=== PATIENT | female | born 1950 | race Caucasian/White ===

== ENCOUNTER 2022-07-22 13:52 | Outpatient (CLI) | payer MEDICARE, BC, SELFPAY ==
--- OUTSIDE RECORDS SUMMARY | 2022-07-22 14:00 | XMS_ITS | Encounter Summary ---
:1950 Author Organization [facility] Address [address] [place] [address] Care Team Providers Name Role Phone Brandie Thompson APRN, MEDICARE SALES EXECUTIVE Primary Care Provider [phone] Encounter Details Date Type Department Care Team Description 12/13/2019 Travel Social History Tobacco Use Types Packs/Day Years Used Date Never Smoker Smokeless Tobacco: Never Used Alcohol Use Standard Drinks/Week Comments No 0 (1 standard drink = 0.6 oz pure alcoho l) Alcohol Habits Answer Date Recorded How often do you have a drink containing alcohol? Never 12/13/2019 How many drinks containing alcohol do you have on a typical Not asked day when you are drinking? How often do you have six or more drinks on one occasion? No t asked Comment: Not asked Social Isolation Answer Date Recorded In a typical week, how many times do you More than three kary es a week 12/13/2019 talk on the phone with family, friends, or neighbors? How often do you get together with friends More than three t imes a week 12/13/2019 or relatives? How often do you attend muslim or More than 4 times per year 12/13/2019 rastafarian services? Do you belong to any clubs or Not asked organizations such as muslim groups, unions, fraternal or athletic groups, or school groups? How often do you attend meetings of the Not asked clubs or organizations you belong to? Are you now , , , Not asked , never or living with a partner? Physical Activity Answer Date Recorded On average, how many days per week do you engage in moderate to 5 days 12/13/2019 strenuous exercise (like walking fast, running, jogging, dancing, swimming, biking, or other activities that cause a light or heavy sweat)? On average, how many minutes do you engage in exercise at th is 60 min 12/13/2019 level? Stress Answer Date Recorded Do you feel stress - tense, restless, nervous, or Only a lit tle 12/13/2019 anxious, or unable to sleep at night because your mind is troubled all the time - these days? Financial Resource Strain Answer Date Recorded How hard is it for you to pay for the very basics like Not h javid at all 12/13/2019 food, housing, medical care, and heating? Intimate Partner Violence Answer Date Recorded Within the last year, have you been afraid of your partner o r No 12/13/2019 ex-partner? Within the last year, have you been humiliated or emotionall y No 12/13/2019 abused in other ways by your partner or ex-partner? Within the last year, have you been kicked, hit, slapped, or No 12/13/2019 otherwise physically hurt by your partner or ex-partner? Within the last year, have you been raped or forced to have Not asked any kind of sexual activity by your partner or ex-partner? Food Insecurity Answer Date Recorded Within the past 12 months, you worried that your food would Never true 12/13/2019 run out before you got money to buy more. Within the past 12 months, the food you bought just didn't N ever true 12/13/2019 last and you didn't have money to get more. Transportation Needs Answer Date Recorded In the past 12 months, has lack of transportation kept you f rom No 12/13/2019 medical appointments or from getting medications? In the past 12 months, has lack of transportation kept you f rom No 12/13/2019 meetings, work, or getting things needed for daily living? Sex Assigned at Date Recorded Not on file documented as of this encounter Plan of Treatment Not on filedocumented as of this encounter Visit Diagnoses Not on filedocumented in this encounter Care Teams Back Tender Cylinder Relationship Specialty Start Date End Date Brandie Thompson APRN, MEDICARE SALES EXECUTIVE PCP - General Family Medicine 07/21/18 06/26/[address] [place], [place] [address] [address] documented as of this encounter
--- OUTSIDE RECORDS SUMMARY | 2022-07-22 14:00 | XMS_ITS | Encounter Summary ---
:1950 Author Organization [facility] Address [address] [place] [address] Care Team Providers Name Role Phone Unavailable Primary Care Provider Unavailable Reason for Visit Reason Onset Date Comments Trazodone refill 01/08/2021 Encounter Details Date Type Department Care Team Description 01/08/2021 Telephone [place] Archie Colindres MD Trazodone refill [address] [place], [place] [address] [place], [place] [phone] (Wo rk) Social History Tobacco Use Types Packs/Day Years [...] or relatives? How often do you attend yarsanism or More than 4 times per year 12/13/2019 pentecostalism services? Do you belong to any clubs or Not asked organizations such as yarsanism groups, unions, fraternal or athletic groups, or [...] on file documented as of this encounter Miscellaneous Notes Telephone Encounter - Dagmar Washington LPN - 01/09/2021 8:47 AM CDT Noted Telephone Encounter - Neville Lucas MD - 01/08/2021 5:15 PM CDT Rx sent to [facility] Telephone Encounter - Dagmar Washington LPN - 01/08/2021 4:48 PM CDT Patient informed Telephone Encounter - Yumiko Herrera - 01/08/2021 11:31 AM CDT Pt called stating last week she put a refill request in for her Trazodone 150ml through [facility]. Please call Pt at [phone] to advise. documented in this encounter Plan of Treatment Not on filedocumented as of this encounter Visit Diagnoses Diagnosis Insomnia, unspecified type documented in this encounter
--- OUTSIDE RECORDS SUMMARY | 2022-07-22 14:00 | XMS_ITS | Encounter Summary ---
:1950 Author Organization [facility] Address [address] [place] [address] Care Team Providers Name Role Phone Archie Colindres MD Primary Care Provider Encounter Details Date Type Department Care Team Description 07/02/2021 Telephone [place] Archie Colindres MD [address] [place], [place] [address] [place], [place] [phone] (Wo rk) Social History Tobacco Use Types [...] More than 4 times per year 12/13/2019 church services? Do you belong to any clubs [...] this encounter Miscellaneous Notes Telephone Encounter - Sarah Lindsey - 07/02/2021 1:21 PM CDT Referrals faxed. Telephone Encounter - Ling Reyes RN - 07/02/2021 12:48 PM CDT Please fax referrals. documented in this encounter Plan of Treatment Not on filedocumented as of this encounter Visit Diagnoses Not on filedocumented in this encounter Care Teams Back Line Cook Relationship Specialty Start Date End Date Archie Colindres MD PCP - General Family Medicine 07/02/21 05/22/[address] [place] [address] documented as of this encounter
--- OUTSIDE RECORDS SUMMARY | 2022-07-22 14:00 | XMS_ITS | Encounter Summary ---
:1950 Author Organization [facility] Address [address] [place] [address] Care Team Providers Name Role Phone None, Pcp Primary Care Provider Unavailable Reason for Visit Reason Comments Med Refill Encounter Details Date Type Department Care Team Description 07/09/2022 Refill Henniker Archei Colindres, Insomnia, unspecified [address] MD type [place], [place] [address] [facility] [address] [place] [phone] [place] [address] (Wo rk) Social History Tobacco Use Types [...] or relatives? How often do you attend evangelical or More than 4 times per year 12/13/2019 catholic services? Do you belong to any clubs or Not asked organizations such as evangelical groups, unions, fraternal or athletic groups, or [...] this encounter Miscellaneous Notes Telephone Encounter - Mis Morales RN - 07/18/2022 6:11 PM CDT Tracked in separate message. Telephone Encounter - Faviola Garcia - 07/16/2022 1:51 PM CDT Pt called back inquiring about trazodone refill. Told her the script was filled but looks like [facility] and not sent to [facility] [place]. She only wants 2 weeks' worth to get her through until she goesto her regular doctor for a physical and to get her usual 3 months script. Please contact and advise. Telephone Encounter - Shayla Deleon - 07/15/2022 1:09 PM CDT Refill for 2 months was sent in. Please call pt to update after 2:30 today. Thank you. Telephone Encounter - Faviola Garcia - 07/15/2022 12:17 PM CDT Contacted pt to set-up appt for med review. Stated has upcoming knee surgery planned and talking to nurse today regarding this. Inquiring if could have temporary refill of trazodone to [facility] at 150 mg and then make an appt following. [phone]. Please call after 2:30 this afternoon. Telephone Encounter - Keely Whitmore MA - 07/11/2022 11:04 AM CDT Last visit in provider department: 07/02/2021 Last visit requested medication was discussed: 07/02/2021 Last Rx: 07/02/2021 # 90, 3 refill Requested Prescriptions Pending Prescriptions Disp Refills ??? traZODone (DESYREL) 150 MG tablet [Pharmacy Med Name: TRAZODONE TAB 150MG] 90 tablet 3 Sig: TAKE 1 TABLET NIGHTLY AT BEDTIME NEEDED FOR SLEEP Vitals: BP Readings from Last 2 Encounters: 07/02/21 138/74 07/02/21 138/74 Upcoming appointment with provider: Visit date not found Pt due to be seen. Please work with your PSR to help pt set up appt. Please advise on extension until appt. documented in this encounter Plan of Treatment Not on filedocumented as of this encounter Visit Diagnoses Diagnosis Insomnia, unspecified type documented in this encounter Care Teams Floral Assistant Relationship Specialty Start Date End Date None, Pcp PCP - General Handcrew Foreman 05/23/[address] [place] [phone] documented as of this encounter
--- OUTSIDE RECORDS SUMMARY | 2022-07-22 14:00 | XMS_ITS | Encounter Summary ---
:1950 Author Organization [facility] Address [address] [place] [address] Care Team Providers Name Role Phone Brandie Thompson OUTSOLE ROUNDER, NURSING UNIT MANAGER Primary Care Provider [phone] Reason for Visit Reason Onset Date Comments Referral 11/30/2018 Encounter Details Date Type Department Care Team Description 11/30/2018 Telephone [place] Brandie Thompson, Referral [address] OUTSOLE ROUNDER, NURSING UNIT MANAGER [place], [place] [address] [address] [address] [phone] [place], [place] [address] Social History Tobacco Use Types Packs/Day Years [...] or relatives? How often do you attend confucianism or More than 4 times per year 12/13/2019 judaism services? Do you belong to any clubs or Not asked organizations such as confucianism groups, unions, fraternal or athletic groups, or [...] this encounter Miscellaneous Notes Telephone Encounter - Thao Lovell - 12/01/2018 12:06 PM CST Face sheet added and faxed. RAL ARRANGEMENT DIRECTOR Telephone Encounter - Carla Cooper MA - 12/01/2018 8:06 AM CST Please add face sheet and fax information to Dr. Linh Devries at [phone]. RAL ARRANGEMENT DIRECTOR Telephone Encounter - Brandie Thompson APRN, SAI - 11/30/2018 8:24 PM FUNERAL ARRANGEMENT DIRECTOR Yes, please fax my last dictation. Thank, Bryce RAL ARRANGEMENT DIRECTOR Telephone Encounter - Carla Cooper MA - 11/30/2018 2:55 PM CST Would you like any visit notes faxed as well? RAL ARRANGEMENT DIRECTOR Telephone Encounter - Brandie Thompson APRN, SAI - 11/30/2018 2:49 PM FUNERAL ARRANGEMENT DIRECTOR Please fax the information the patient requested. The ultrasound report should be in the media section. Thanks, Bryce RAL ARRANGEMENT DIRECTOR Telephone Encounter - Carla Cooper MA - 11/30/2018 2:19 PM CST Spoke with patient who made an appt at the [facility] in [place] on January 04 at 1245.She needs us to fax the pelvic ultrasound and whatever else you think she needs to Dr. Linh Devries. Fax number is [phone]. Patient also is waiting to make the colonoscopy appt as she would like to take care of one thing at a time RAL ARRANGEMENT DIRECTOR Telephone Encounter - Sarah Lindsey - 11/30/2018 1:34 PM CST Patient would like to speak to a nurse regarding referral to [facility] in [place]. RAL ARRANGEMENT DIRECTOR documented in this encounter Plan of Treatment Not on filedocumented as of this encounter Visit Diagnoses Not on filedocumented in this encounter Care Teams Arabic Professor Relationship Specialty Start Date End Date Brandie Thompson APRN, NURSING UNIT MANAGER PCP - General Family Medicine 07/21/18 06/26/[address] [place] [id number] documented as of this encounter
--- OUTSIDE RECORDS SUMMARY | 2022-07-22 14:00 | XMS_ITS | Encounter Summary ---
:1950 Author Organization [facility] Address [address] [place] [address] Care Team Providers Name Role Phone Brandie Thompson APRN, PROFESSOR OF BIOLOGICAL SCIENCES Primary Care Provider [phone] Encounter Details Date Type Department Care Team Description 12/13/2019 Lab [place] Screening, lipid; [address] Screening for diabetes elma kapadia; [place], [place] [address] Other fatigue [phone] Social History Tobacco Use Types Packs/Day Years [...] More than 4 times per year 12/13/2019 mormon services? Do you belong to any clubs [...] Not on filedocumented as of this encounter Procedures Procedure Name Priority Date/Time Associated Comments Diagnosis GLOMERULAR Routine 12/13/2019 12:18 PM Screening for Results for this FILTRATION RATE EXPANDER diabetes mellitus procedu re are in the results section. THYROID FUNCTION Routine 12/13/2019 12:18 PM Other fatigue Res ults for this CASCADE EXPANDER procedure are i n the results section. CBC BRANCH OFFICE Routine 12/13/2019 12:18 PM Other fatigue Re sults for this W/DIFF EXPANDER procedure are i n the results section. LIPID PANEL Routine 12/13/2019 12:18 PM Screening, lipid Resu lts for this EXPANDER procedure are i n the results section. BASIC METABOLIC Routine 12/13/2019 12:18 PM Screening for Resu lts for this PANEL EXPANDER diabetes mellitus procedure are in the results section. documented in this encounter Results Glomerular filtration rate (GFR) (12/13/2019 12:18 PM EXPANDER) athologist Signature GFR >60 12/14/2019 [facility] 1:19 PM [facility] >60 12/14/2019 [facility] [place] GFR 1:19 PM [facility] Comment: GFR calculated from serum creatinine v alue Chronic Kidney Disease less than 60 mL/m in/1.73 m2 Kidney Failure less than 15 mL/min/1.73 m2 Note: effective 03/04/07 IDMS-Traceable MDRD Study Equation used. Specimen Anatomical Collection Method Collection Time Receive d Time (Source) Location / / Volume Laterality 12/13/2019 12:18 12/13/2019 PM [facility] 12:18 PM [facility] Brandie Thompson APRN, PROFESSOR OF BIOLOGICAL SCIENCES LAB BLOOD ORDERABLES Performing Organization Address City/State/ZIP Code Phon e Number [facility] [address] [place] [phone] (ABNORMAL) CBC Branch Off w/Diff (12/13/2019 12:18 PM [facility]) Patholo gist Method Time Signature WBC 5.5 3.5 - 10.5 12/13/2019 [facility] K/uL 1:06 PM [facility] RBC 5.06 (H) 3.90 - 12/13/2019 [facility] 5.00 M/uL 1:06 PM [facility] Hemoglobin 14.9 12.0 - 12/13/2019 [facility] 15.5 g/dL 1:06 PM [facility] Hematocrit 46.2 (H) 35.0 - 12/13/2019 [facility] 44.0 % 1:06 PM [facility] Platelets 221 150 - 450 12/13/2019 [facility] K/uL 1:06 PM [facility] MCV 91.3 81.6 - 12/13/2019 [facility] 98.3 fL 1:06 PM [facility] MCH 29.4 26.0 - 12/13/2019 [facility] 32.0 pg 1:06 PM [facility] MCHC 32.3 32.0 - 12/13/2019 [facility] 36.0 g/dL 1:06 PM [facility] RDW 12.8 11.9 - 12/13/2019 [facility] 15.5 % 1:06 PM [facility] Lymphocytes % 23.7 18.0 - 12/13/2019 [facility] 45.0 % 1:06 PM [facility] Mid-size Cells 10.4 (H) 3.3 - 10.1 12/13/2019 [facility] % 1:06 PM [facility] Granulocytes/Brown 65.9 45.8 - 12/13/2019 [facility] trophils 73.7 % 1:06 PM [facility] Lymphocytes 1.3 0.9 - 2.9 12/13/2019 [facility] Absolute K/uL 1:06 PM [facility] MIDS Absolute 0.6 0.2 - 0.8 12/13/2019 [facility] K/uL 1:06 PM [facility] Granulocytes/Brown 3.6 2.1 - 8.7 12/13/2019 [facility] trophils K/uL 1:06 PM [facility] Absolute Specimen Anatomical Collection Method Collection Time Receive d Time (Source) Location / / Volume Laterality Blood 12/13/2019 12:18 12/13/2019 PM [facility] 12:18 PM [facility] Brandie Thompson APRN, PROFESSOR OF BIOLOGICAL SCIENCES LAB BLOOD ORDERABLES Performing Organization Address City/State/ZIP Code Phon e Number [facility] [place] [address] [place] [address] Thyroid Function [place] (12/13/2019 12:18 PM [facility]) P athologist Signature TSH, Sensitive 1.26 0.46 - 12/14/2019 [facility] 4.68 mIU/L 2:12 PM [facility] Comment: The results from this or any other diagn ostic test should be used and interpreted only in the context of the overall clinical picture. Biotin levels in serum remain elevated f or up to 24 hours after oral or intravenous biotin adminis tration and may interfere with this assay to produce unr eliable results. Heterophilic antibodies in serum or plas ma samples may cause interference in immunoassays. ??Exposure to animal antigens, either in the environment or as part of treatment or imaging procedures, may have circulating anti-an imal antibodies present. These antibodies may interfere with the assay reagents to produce unreliable results. ??Results which are inconsistent with clinical observations indicate the need for additional testing. Specimen Anatomical Collection Method Collection Time Receive d Time (Source) Location / / Volume Laterality Blood (Blood, 12/13/2019 12:18 12/14/2019 Venous) PM [facility] 12:39 PM [facility] Brandie Thompson APRN, CNP LAB BLOOD ORDERABLES Performing Organization Address [facility] Phon e Number [facility] [address] [place] [phone] (ABNORMAL) Basic metabolic panel (12/13/2019 12:18 PM [facility]) [facility] gist Method Time Signature Sodium 139 135 - 145 12/14/2019 [facility] mEq/L 1:19 PM [facility] Potassium 4.1 3.5 - 5.1 12/14/2019 [facility] mEq/L 1:19 PM [facility] Chloride 103 98 - 107 12/14/2019 [facility] mEq/L 1:19 PM [facility] CO2 29 22 - 29 12/14/2019 [facility] mmol/L 1:19 PM [facility] Creatinine 0.9 0.4 - 1.2 12/14/2019 [facility] mg/dL 1:19 PM [facility] BUN 16 5 - 25 12/14/2019 [facility] mg/dL 1:19 PM [facility] Glucose 101 (H) 70 - 100 12/14/2019 [facility] mg/dL 1:19 PM [facility] Calcium, 10.3 (H) 8.4 - 10.2 12/14/2019 [facility] Total,S mg/dL 1:19 PM [facility] Specimen Anatomical Collection Method Collection Time Receive d Time (Source) Location / / Volume Laterality Blood (Blood, 12/13/2019 12:18 12/14/2019 Venous) PM [facility] 12:25 PM [facility] Brandie Thompson APRN, CNP LAB BLOOD ORDERABLES Performing Organization Address City/[facility]/ZIP Code Phon e Number [facility] [address] [place] [address] (ABNORMAL) Lipid panel (12/13/2019 12:18 PM EXP[facility]) athologist Signature Cholesterol 209 (A) 0 - 199 12/14/2019 [facility] mg/dL 1:19 PM [facility] Comment: Recommended by National Cholesterol Education Program (ATP III) -------- Cholesterol Ranges -------- <200 ? Desirable 200-239 ? Borderline high >=240 ? High Triglycerides 60 0 - 149 mg/dL 12/14/2019 1:19 PM [facility] Comment: -------- TRIG Ranges -------- <150 ?Normal 150-199 ? Borderline high 200-499 ? High >=500 ? Very high HDL 83 40 - 60 mg/dL 12/14/2019 1:19 PM [facility] Comment: -------- HDL Ranges -------- <40 ?Low 40-59 ?Normal >=60 ? Optimal LDL Calculated 114 (A) 0 - 99 mg/dL 12/14/2019 1:19 PM [facility] Comment: -------- LDL Ranges -------- <100 ? Optimal 100-129 ?Near optimal/above op timal 130-159 ?Borderline high 160-189 ?High >=190 ?Very high Fasting? Yes 12/13/2019 12:21 PM [facility] Specimen Anatomical Collection Method Collection Time Receive d Time (Source) Location / / Volume Laterality Blood 12/13/2019 12:18 12/14/2019 PM [facility] 12:25 PM [facility] Brandie Thompson APRN, CNP LAB BLOOD ORDERABLES Performing Organization Address City/State/ZIP Code Phon e Number [facility] [address] [place] [address] documented in this encounter Visit Diagnoses Diagnosis Screening, lipid Screening for diabetes mellitus Other fatigue documented in this encounter Care Teams Student Success Advisor Relationship Specialty Start Date End Date Brandie Thompson APRN, CNP PCP - General Family Medicine 07/21/18 06/26/[address] [place] [id number] documented as of this encounter
--- OUTSIDE RECORDS SUMMARY | 2022-07-22 14:00 | XMS_ITS | Encounter Summary ---
:1950 Author Organization [facility] Address [address] [place] [address] Care Team Providers Name Role Phone Brandie Thompson COMPUTER LAB PARA PROFESSIONAL, SALES EXPERT Primary Care Provider [phone] Encounter Details Date Type Department Care Team Description 11/23/2018 Telephone [place] Brandie Thompson, [address] COMPUTER LAB PARA PROFESSIONAL, SALES EXPERT [place], [place] [address] [address] [facility] [phone] [place], [place] [address] Social History Tobacco Use [...] or relatives? How often do you attend anabaptism or More than 4 times per year 12/13/2019 lutheran services? Do you belong to any clubs or Not asked organizations such as anabaptism groups, unions, fraternal or athletic groups, or [...] Notes Telephone Encounter - Sarah Lindsey - 11/23/2018 10:53 AM CST Faxed. UNICATIONS TECHNOLOGIST Telephone Encounter - Dagmar Washington LPN - 11/23/2018 10:24 AM CST Please fax to [facility] and let patient know. UNICATIONS TECHNOLOGIST documented in this encounter Plan of Treatment Not on filedocumented as of this encounter Visit Diagnoses Not on filedocumented in this encounter Care Teams Car Dispatcher Relationship Specialty Start Date End Date Brandie Thompson APRN, SALES EXPERT PCP - General Family Medicine 07/21/18 06/26/20 [address] [facility] [place] [id number] documented as of this encounter
--- OUTSIDE RECORDS SUMMARY | 2022-07-22 14:00 | XMS_ITS | Encounter Summary ---
:1950 Author Organization [facility] Address [address] [place] [address] Care Team Providers Name Role Phone None, Pcp Primary Care Provider Unavailable Reason for Visit Reason Onset Date Comments Med Refill 07/17/2022 Encounter Details Date Type Department Care Team Description 07/17/2022 Telephone [place] Archie Colindres MD Med Refill [address] [place], [place] [address] [place], [place] [phone] (Wo rk) Social History Tobacco Use Types [...] or relatives? How often do you attend mormon or More than 4 times per year 12/13/2019 rastafarian services? Do you belong to any clubs or Not asked organizations such as mormon groups, unions, fraternal or athletic groups, or [...] Telephone Encounter - Mis Morales RN - 07/17/2022 3:52 PM CDT Patient had trazadone refilled 2 days prior, but it was sent to mail service and she wants it sent to local pharmacy [facility]) as she is concerned about it not arriving in time. Has only 2 tablets left. Also, only wants enough for two weeks due to cost and possible shipment on it's way. Nurse sent orderto local pharmacy, 14 tablets only and no refills. Patient states understanding and appreciative. documented in this encounter Plan of Treatment Not on filedocumented as of this encounter Visit Diagnoses Diagnosis Insomnia, unspecified type documented in this encounter Care Teams Manager Investment Relationship Specialty Start Date End Date None, Pcp PCP - General Bus Repair Supervisor 05/23/[address] [place] [phone] documented as of this encounter
--- OUTSIDE RECORDS SUMMARY | 2022-07-22 14:00 | XMS_ITS | Encounter Summary ---
:1950 Author Organization [facility] Address [address] [place] [address] Care Team Providers Name Role Phone Brandie Thompson APRN, CNP Primary Care Provider [phone] Reason for Referral Consultation (Routine) - Closed Specialty Diagnoses / Procedures Referred By Contact Refer red To Contact Radiology Diagnoses Screening mammogram, encounter for Brandie Thompson, [facility] - [address] [address] [place] [id number] Phone: Fax: Referral ID Status Reason Start Date Expiration Date Visits Requ ested Visits Authorized [id number] Closed 12/13/2019 12/13/2020 1 1 DENT PHYSICIAN Reason for Visit Reason Comments Annual Exam Encounter Details Date Type Department Care Team Description 12/13/2019 Office Visit [place] Brandie Thompson Annual physical exam (Primar y Dx); [address] M, [facility] Insomnia, unspecified type; [place], [place] [address] Other fatigue; [address] [place] [address] Screening, lipid; [phone] Screenin g for diabetes mellitus; Screening mammo gram, encounter for Social History Tobacco Use Types Packs/Day Years [...] More than 4 times per year 12/13/2019 yarsani services? Do you belong to any clubs or Not asked organizations such as confucianism groups, unions, fraIntelliMat or athletic groups, or school groups? How [...] on file documented as of this encounter Last Filed Vital Signs Vital Sign Reading Time Taken Comments Blood Pressure 138/82 12/13/2019 11:20 AM RESIDENT PHYSICIAN Pulse 64 12/13/2019 11:20 AM RESIDENT PHYSICIAN Temperature 36.7 ??C (98.1 ??F) 12/13/2019 11:20 AM RESIDENT PHYSICIAN Respiratory Rate 16 12/13/2019 11:20 AM RESIDENT PHYSICIAN Oxygen Saturation 98% 12/13/2019 11:20 AM RESIDENT PHYSICIAN Inhaled Oxygen Concentration - - Weight 59.8 kg (131 lb 12.8 oz) 12/13/2019 11:20 AM RESIDENT PHYSICIAN Height 163.8 cm (5' 4.5) 12/13/2019 11:20 AM RESIDENT PHYSICIAN Body Mass Index 22.27 12/13/2019 11:20 AM RESIDENT PHYSICIAN documented in this encounter Patient Instructions Patient InstructionsChhoma Thompson APRN, CNP - 12/13/2019 11:00 AM RESIDENT PHYSICIAN Shingles at a pharmacy setting [facility] mammogram DEXA scan next year DENT PHYSICIAN documented in this encounter Progress Notes Brandie Thompson APRN, CNP - 12/13/2019 11:00 AM CST Well Adult - Estab Subjective Patient ID: Nuria Simmons is a 69 y.o. female presenting for the following concerns. Chief Complaint Patient presents with ??? Annual Exam HPI: The patient is a pleasant 69-year-old female presenting ambulatory to the clinical setting today jessica annual physical. 2, para 2. The patient's last menstrual period was in her 50s. The patient did experience vaginal bleeding last year, was evaluated by an COUNSELING DEPARTMENT CHAIR specialist, was diagnosed vaginal atrophy, was prescribed a medication which cost $300 a month, which the patient never started secondary to financial reasons. The patient reports she discontinued her aspirin, and garlic and the spotting stopped; the patient reports she reinstituted her garlic about 3 days ago, started having vaginal spotting; therefore, she discontinued the garlic and will monitor her symptoms. The patient is over the age of 65; therefore, Pap smears are no longer recommended. The patient reports she had a colonoscopy one time, which was incomplete, unable to recall when she had this, and has not had any colon cancer screening since. No family history of colon cancer. The patient does not formally exercise, but stays quite active working in the [employer], and does a fair amount of lifting. The patient had a DEXA scan on 07/20/2018, with the final impression being osteopenia. The patient is on calcium and vitamin D twice daily. The patient had a mammogram on 08/03/18 and is due. The patient's Tdap was updated on 08/02/2013, and she is due for a flu shot, Prevnar and Shingrix. ?? The patient's past medical history includes allergic rhinitis, insomnia, palpitations, an episode ofatrial fibrillation, and osteopenia. The patient had an episode of atrial fibrillation when she had pneumonia 2 years ago, and continues to have slight infrequent flutters. The patient was encouraged to consistently take an aspirin daily, as she declined anticoagulation therapy, and has discontinued aspirin therapy. The patient is on trazodone 150 mg at bedtime for her insomnia, which has been minimally effective, and she occasionally takes Benadryl. The patient does not want to trial any other prescription medications for her insomnia. No history of hypertension, and her blood pressure on 07/13/2018 was 124/76, today 138/82. ?? The patient reports she is having daytime fatigue, which might be related to her insomnia, aging process, stress, chronic back pain, and/or weather. The patient started noticing fatigue when she started working at the [employer], several years ago, which may be contributing to her symptoms aswell. The patient feels being employed is important to continue to interact with people and keep herbrain active. The patient???s mother had thyroid dysfunction which was diagnosed later in life, the patient had a mildly low TSH on 08/03/18 at 0.41, and requests to have a TSH redrawn. The following portions of the patient's chart were reviewed in this encounter and updated as appropriate: Tobacco Allergies Meds Problems Med Hx Surg Hx Fam Hx Soc Hx Current Outpatient Medications: ??? B COMPLEX VITAMINS PO, Take 1 tablet by mouth 1 (one) time each day, Disp: , Rfl: ??? calcium citrate-vitamin D (CITRACAL+D) 315-200 MG-UNIT per tablet, Take 1 tablet by mouth 2 (two) times a day , Disp: , Rfl: ??? cholecalciferol (VITAMIN D-3) 1000 units tablet, Take 1,000 Units by mouth 1 (one) time each day, Disp: , Rfl: ??? Coenzyme Q10 (COQ-10) 10 MG capsule, Take by mouth 1 (one) time each day, Disp: , Rfl: ??? CVS MAGNESIUM CITRATE PO, Take by mouth twice a day , Disp: , Rfl: ??? Flaxseed, Linseed, (FLAXSEED OIL) 1000 MG capsule, Take 1 capsule by mouth 1 (one) time each day, Disp: , Rfl: ??? ibuprofen (ADVIL) 200 MG tablet, Take 200 mg by mouth every 6 (six) hours if needed for mild pain Take with food., Disp: , Rfl: ??? Iodine, Kelp, (KELP PO), Take 1 tablet by mouth 2 (two) times a day , Disp: , Rfl: ??? LUTEIN PO, Take by mouth 1 (one) time each day, Disp: , Rfl: ??? Multiple Vitamins-Minerals (MULTIVITAMIN ADULT PO), Take by mouth 1 (one) time each day, Disp: ,Rfl: ??? omega-3 (FISH OIL) 1000 MG capsule, Take 1,200 mg by mouth 1 (one) time each day, Disp: , Rfl: ??? traZODone (DESYREL) 150 MG tablet, TAKE 1 TABLET AT BEDTIME NEEDED FOR SLEEP, Disp: 90 tablet, Rfl: 3 ??? ZINC GLUCONATE PO, Take 1 tablet by mouth 1 (one) time each day, Disp: , Rfl: ??? GARLIC PO, Take by mouth 1 (one) time each day, Disp: , Rfl: No Known Allergies Immunization History Administered Date(s) Administered ??? Flu Vaccine High Dose 65yrs and Older IM 08/13/2016, 08/03/2018, 08/30/2019 ??? Influenza 6mo-49yrs Quad Preservative Free IM 08/03/2011 ??? Influenza TIV (IM) 08/02/2013 ??? Influenza, Unspecified 08/03/2011, 08/02/2013, 08/27/2014 ??? Pneumococcal Conjugate 13-Valent 12/13/2019 ??? TD Preservative Free 05/13/2003, 07/18/2008 ??? Td 05/13/2003 ??? Tdap 08/02/2013 Past Medical History: Diagnosis Date ??? AF (paroxysmal atrial fibrillation) (HCC) 2017 the patient has PAF when she had pneumonia, which resolved, after she received treatment for her pneumonia ??? Allergic rhinitis ONCE ??? Cataract ??? Scoliosis ??? Varicella ??? Visual impairment GLASSES Past Surgical History: Procedure Laterality Date ??? TONSILLECTOMY ??? TUBAL LIGATION Family History Problem Relation Age of Onset ??? Cancer Mother Bladder ??? Cancer Father Bladder ??? Arthritis Sister ??? Vision loss Sister Social History Socioeconomic History ??? Marital status: Spouse name: Darnell ??? Number of children: 2 ??? Years of education: 1 1/2 years of colle ??? Highest education level: Not on file Occupational History ??? 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 Financial resource strain: Not hard at all ??? Food insecurity: Worry: Never true Inability: Never true ??? Transportation needs: Medical: No Non-medical: No Tobacco Use ??? Smoking status: Never Smoker ??? Smokeless tobacco: Never Used Substance and Sexual Activity ??? Alcohol use: No Frequency: Never ??? Drug use: No ??? Sexual activity: Not on file Lifestyle ??? Physical activity: Days per week: 5 days Minutes per session: 60 min ??? Stress: Only a little Relationships ??? Social connections: Talks on phone: More than three times a week Gets together: More than three times a week Attends yarsani service: More than 4 times per year Active member of club or organization: Not on file Attends meetings of clubs or organizations: Not on file Relationship status: Not on file ??? Intimate partner violence: Fear of current or ex partner: No Emotionally abused: No Physically abused: No Forced sexual activity: Not on file Other Topics Concern ??? Not on file Social History Narrative ??? Not on file REVIEW OF SYSTEMS: GENERAL: No fever, chills, sweats, change in appetite and/or change in weight. The patient has a certain level of fatigue, which may be multifactorial and possibly from insomnia, aging, stress, chronicback pain and/or the weather. The patient started DHEA for her vaginal health; however, this seems to ramp up her hot flashes, particularly at night, and she is going to discontinue it. The patient hasinsomnia, and is on Trazodone 150 mg at bedtime, and she occasionally takes Benadryl. INTEGUMENTARY: No rashes, lesions, and/or pruritus. NECK: No neck pain. EYES: No visual changes. The patient wears eyeglasses, received a new prescription last fall, and after being diagnosed with bilateral cataracts. The patient reports she is doing better with the new lenses. The patient sees an eye doctor on an irregular basis. EARS: No tinnitus. The patient does have hearing loss, has a difficult time hearing when speaking onthe phone, and does find she asks people to repeat themselves often. NOSE: The patient has had nasal congestion, nasal drainage and likely from her seasonal allergies, which can be fatiguing. MOUTH/THROAT: No problems with her teeth, gums, and/or trouble swallowing. The patient sees a dentist on a regular basis, and her last appointment was this summer, and she did not have any cavities. CARDIOVASCULAR: No chest pain, pressure, peripheral edema, lightheadedness, dizziness presyncope, syncope, and/or cardiac murmurs. The patient occasionally has a fluttering, fleeting, weird sensation in her chest which she feels is from anxiety. RESPIRATORY: No dyspnea on exertion, cough, asthma and/or wheezing. BREASTS: No pain, masses, discharge and/or change in appearance. The patient does a self exam. The patient is due for a mammogram. GASTROINTESTINAL: No nausea, vomiting, heartburn, loss of appetite, abdominal pain, hematemesis, constipation, melena, and/or hematochezia. The patient had an incomplete colonoscopy many years ago and no colon cancer screening. The patient will have loose stools if she eats a high-fiber diet such as raw spinach. GENITOURINARY: The patient has a history of urinary frequency, urgency, and urinary incontinence, and likely from the aging process, which is particularly worse at night. The patient wears panty liners. The patient tries to drink less oral fluids while working to decrease her urinary frequency. No hematuria and/or dysuria. COMMUNITY DEVELOPMENT TECHNICIAN: 2, para 2. The patient???s last menstrual period was in her 50s, and did have vaginal bleeding last year, was assessed by an principal bioinformatics specialist, and was diagnosed with atrophic vaginitis, which is untreated at this time, secondary to the cost of the medication. ENDOCRINOLOGY: No thyroid dysfunction no diabetes. The patient has osteopenia and is on a calcium with vitamin D supplement. MUSCULOSKELETAL: The patient has had lower back pain for the past several years and receives nurse wound care about every 5 weeks, and would like to start increasing her treatments to every 3 to 4 weeks, to see if this will provide improved pain control. NEUROLOGICAL: No numbness, tingling, weakness, migraine headache, and/or seizures. PSYCHIATRIC: No anxiety nor depression. ?? Objective Visit Vitals BP 138/82 (BP Location: Right arm, Patient Position: Sitting) Pulse 64 Temp 36.7 ??C (98.1 ??F) (Temporal) Resp 16 Ht 1.638 m (5' 4.5) Wt 59.8 kg (131 lb 12.8 oz) SpO2 98% BMI 22.27 kg/m?? Smoking Status Never Smoker BSA 1.65 m?? GENERAL: The patient is alert, orientated and in no apparent distress. HEET: Head normocephalic. Eyes - pupils round and reactive to light. EOMs intact without nystagmus. The patient wears eyeglasses. Ears - normal canals, normal, pearly estevez TMs bilaterally. Throat - normal oropharynx. Uvula rises midline. No erythema. NECK: Supple. No cervical or posterior lymphadenopathy. No thyromegaly. BREASTS: Symmetric, no retractions, discharge or lesions. Contour and consistency firm and homogenous. No masses or tenderness, no lymphadenopathy. INTEGUMENTARY: Skin is warm and dry. CARDIOVASCULAR: Normal heart rate and rhythm. No murmur. No peripheral edema. Positive peripheral pulses, x4. RESPIRATORY: Lungs are clear, bilaterally. No wheezing. MUSCULOSKELETAL: The patient moves freely about the room. GYNECOLOGIC: The patient declined. GASTROENTEROLOGY: Abdomen is soft, no organomegaly, positive bowel sounds. NEUROLOGICAL: The patient is alert and oriented to person, place, time, and situation. PSYCHIATRIC: The patient's affect is appropriate. DIAGNOSTICS:, Thyroid function cascade, lipid panel, basic metabolic panel, and screening mammogram. Assessment/Plan Nuria was seen today for annual exam. Diagnoses and all orders for this visit: Annual physical exam (Primary) Insomnia, unspecified type Other fatigue - CBC Branch Off w/Diff; Future - Thyroid Function [place]; Future Screening, lipid - Lipid panel; Future Screening for diabetes mellitus - Basic metabolic panel; Future Screening mammogram, encounter for - Ambulatory External Referral Discussed the plan of care with the patient. Recommended formal exercising for 30 minutes daily. Thepatient had a DEXA scan on 07/20/2018, has osteopenia, she should continue her Calcium with Vitamin Dtwice daily, and repeat a DEXA scan next year. Recommended Cologuard screening, the patient receivedinformation on the testing, and will check with her insurance regarding coverage. She reports she received information from [facility] about having this completed, and may respond to their request. The patient will continue trazodone 150 mg daily for her insomnia. The patient should be on aspirin therapy for her history paroxysmal atrial fibrillation. The patient's Tdap is up-to-date on and the patient received her Prevnar today. The patient can consider the Shingrix. The patient will have her mammogram at [facility], the order has been placed, and they will contact the patient to schedule. The patient will be notified of her lab results. The patient agrees and understands this plan of care. Brandie Thompson APRN, SAI DENT PHYSICIAN documented in this encounter Plan of Treatment Scheduled Referrals Name Type Priority Associated Order Schedule Diagnoses Ambulatory External Outpatient Referral Routine Screening O rdered: Referral mammogram, 12/13/2019 encounter for documented as of this encounter Results (ABNORMAL) Lipid panel (12/13/2019 12:18 PM RESIDENT PHYSICIAN) athologist Signature Cholesterol 209 (A) 0 - 199 12/14/2019 [facility] mg/dL 1:19 PM [facility] Comment: Recommended by National Cholesterol Education Program (ATP III) -------- Cholesterol Ranges -------- <200 ? Desirable 200-239 ? Borderline high >=240 ? High Triglycerides 60 0 - 149 mg/dL 12/14/2019 1:19 PM [facility] Comment: -------- TRIG Ranges -------- <150 ?Normal 150-199 ? Borderline high 200-499 ? High >=500 ? Very high HDL 83 40 - 60 mg/dL 12/14/2019 1:19 PM [facility] Comment: -------- HDL Ranges -------- <40 ?Low 40-59 ?Normal >=60 ? Optimal LDL Calculated 114 (A) 0 - 99 mg/dL 12/14/2019 1:19 PM [facility] Comment: -------- LDL Ranges -------- <100 ? Optimal 100-129 ?Near optimal/above op timal 130-159 ?Borderline high 160-189 ?High >=190 ?Very high Fasting? Yes 12/13/2019 12:21 PM [facility] Specimen Anatomical Collection Method Collection Time Receive d Time (Source) Location / / Volume Laterality Blood 12/13/2019 12:18 12/14/2019 PM RESIDENT PHYSICIAN 12:25 PM RESIDENT PHYSICIAN Brandie Thompson APRN, OPERATOR ASSISTANT I CEMENTING LAB BLOOD ORDERABLES Performing Organization Address City/State/[facility] Phon e Number [facility] [address] [place] [address] (ABNORMAL) Basic metabolic panel (12/13/2019 12:18 PM RESIDENT PHYSICIAN) Patholo gist Method Time Signature Sodium 139 135 - 145 12/14/2019 [place] mEq/L 1:19 PM [facility] Potassium 4.1 3.5 - 5.1 12/14/2019 [facility] mEq/L 1:19 PM [facility] Chloride 103 98 - 107 12/14/2019 [facility] mEq/L 1:19 PM [facility] CO2 29 22 - 29 12/14/2019 [place] mmol/L 1:19 PM [facility] Creatinine 0.9 0.4 - 1.2 12/14/2019 [place] mg/dL 1:19 PM [facility] BUN 16 5 - 25 12/14/2019 [facility] mg/dL 1:19 PM [facility] Glucose 101 (H) 70 - 100 12/14/2019 [facility] mg/dL 1:19 PM [facility] Calcium, 10.3 (H) 8.4 - 10.2 12/14/2019 [facility] Total,S mg/dL 1:19 PM [facility] Specimen Anatomical Collection Method Collection Time Receive d Time (Source) Location / / Volume Laterality Blood (Blood, 12/13/2019 12:18 12/14/2019 Venous) PM RESIDENT PHYSICIAN 12:25 PM RESIDENT PHYSICIAN Brandie Thompson SILICA DRY PRESS HELPER, OPERATOR ASSISTANT I CEMENTING LAB BLOOD ORDERABLES Performing Organization Address City/[facility]/ZIP Code Phon e Number [facility] [address] [place] [address] Thyroid Function [place] (12/13/2019 12:18 PM RESIDENT PHYSICIAN) P athologist Signature TSH, Sensitive 1.26 0.46 - 12/14/2019 [place] MEDICA L 4.68 mIU/L 2:12 PM [facility] Comment: The results from this [...] Blood (Blood, 12/13/2019 12:18 12/14/2019 Venous) PM RESIDENT PHYSICIAN 12:39 PM RESIDENT PHYSICIAN Brandie Thompson APRN, OPERATOR ASSISTANT I CEMENTING LAB BLOOD ORDERABLES Performing Organization Address City/State/ZIP Code Phon e Number [facility] [address] [place] [address] (ABNORMAL) CBC Branch Off w/Diff (12/13/2019 12:18 PM RESIDENT PHYSICIAN) [facility] gist Method Time Signature WBC 5.5 3.5 - 10.5 12/13/2019 [facility] K/uL 1:06 PM RESIDENT PHYSICIAN [place] RBC 5.06 (H) 3.90 - 12/13/2019 [facility] 5.00 M/uL 1:06 PM RESIDENT PHYSICIAN [place] Hemoglobin 14.9 12.0 - 12/13/2019 [facility] 15.5 g/dL 1:06 PM RESIDENT PHYSICIAN [place] Hematocrit 46.2 (H) 35.0 - 12/13/2019 [facility] 44.0 % 1:06 PM RESIDENT PHYSICIAN [place] Platelets 221 150 - 450 12/13/2019 [facility] K/uL 1:06 PM RESIDENT PHYSICIAN [place] MCV 91.3 81.6 - 12/13/2019 [facility] 98.3 fL 1:06 PM RESIDENT PHYSICIAN [place] MCH 29.4 26.0 - 12/13/2019 [facility] 32.0 pg 1:06 PM RESIDENT PHYSICIAN [place] MCHC 32.3 32.0 - 12/13/2019 [facility] 36.0 g/dL 1:06 PM RESIDENT PHYSICIAN [place] RDW 12.8 11.9 - 12/13/2019 [facility] 15.5 % 1:06 PM RESIDENT PHYSICIAN [place] Lymphocytes % 23.7 18.0 - 12/13/2019 [facility] 45.0 % 1:06 PM RESIDENT PHYSICIAN [place] Mid-size Cells 10.4 (H) 3.3 - 10.1 12/13/2019 [facility] GOMEZ % 1:06 PM RESIDENT PHYSICIAN [place] Granulocytes/Brown 65.9 45.8 - 12/13/2019 [facility] GOMEZ trophils 73.7 % 1:06 PM RESIDENT PHYSICIAN [place] Lymphocytes 1.3 0.9 - 2.9 12/13/2019 [facility] Absolute K/uL 1:06 PM RESIDENT PHYSICIAN [place] MIDS Absolute 0.6 0.2 - 0.8 12/13/2019 [facility] GOMEZ K/uL 1:06 PM RESIDENT PHYSICIAN [place] Granulocytes/Brown 3.6 2.1 - 8.7 12/13/2019 [facility] GOMEZ trophils K/uL 1:06 PM RESIDENT PHYSICIAN [place] Absolute Specimen Anatomical Collection Method Collection Time Receive d Time (Source) Location / / Volume Laterality Blood 12/13/2019 12:18 12/13/2019 PM RESIDENT PHYSICIAN 12:18 PM RESIDENT PHYSICIAN Brandie Tohmpson APRN, OPERATOR ASSISTANT I CEMENTING LAB BLOOD ORDERABLES Performing Organization Address City/State/ZIP Code Phon e Number [facility] PATRICIA KWONG [address] [place] [address] documented in this encounter Visit Diagnoses Diagnosis Annual physical exam - Primary Routine general medical examination at a health care facility Insomnia, unspecified type Other fatigue Screening, lipid Screening for diabetes mellitus Screening mammogram, encounter for documented in this encounter Care Teams Firer Powerhouse Relationship Specialty Start Date End Date Brandie Thompson APRN, OPERATOR ASSISTANT I CEMENTING PCP - General Family Medicine 07/21/18 06/26/[address] [place] [address] C[place] ROTH [id number] documented as of this encounter
--- OUTSIDE RECORDS SUMMARY | 2022-07-22 14:00 | XMS_ITS | Encounter Summary ---
:1950 Author Organization [facility] Address [address] [place] [address] Care Team Providers Name Role Phone Brandie Thompson AGRICULTURAL CONSULTANT, WRECKER OPERATOR Primary Care Provider Reason for Visit Reason Onset Date Comments Referral confirmation/questions 12/24/2018 Encounter Details Date Type Department Care Team Description 12/24/2018 Telephone [place] Brandie Thompson, Referral [address] AGRICULTURAL CONSULTANT, WRECKER OPERATOR confirmation/questions [place], [place] [address] [address] [facility] [address] [phone] [place], [place] [address] Social History Tobacco Use [...] or relatives? How often do you attend restorationism or More than 4 times per year 12/13/2019 hoahaoism services? Do you belong to any clubs or Not asked organizations such as restorationism groups, unions, fraternal or athletic groups, or [...] Telephone Encounter - Dagmar Washington LPN - 12/25/2018 1:21 PM CST Patient see's Dr Mojica on the 04 of January. She will wait to ask the provider than. ERN CHANGER AND REPAIRER Telephone Encounter - Brandie Thompson APRN, SAI - 12/25/2018 10:44 AM PATTERN CHANGER AND REPAIRER The security operations specialist would determine the need to biopsy. Can we call the [facility] and seeif they need anything further from us? Nallely, Bryce ERN CHANGER AND REPAIRER Telephone Encounter - Carla Cooper MA - 12/25/2018 10:22 AM CST Patient is wondering about an order for a biopsy possibly in her pelvis? Is this something the POT PULLER would discuss further with her? ERN CHANGER AND REPAIRER Telephone Encounter - Yumiko Herrera - 12/25/2018 9:58 AM CST Pt returned call to the clinic. ERN CHANGER AND REPAIRER Telephone Encounter - Yumiko Herrera - 12/24/2018 4:28 PM CST Pt called stating she has an appt at the [facility] in [place] on Friday01/04/19. She wants to make sure everything os go to go and she is wondering if Bryce put in an order for a biopsy. She also had a couple questions regardng referral. Please call Pt at [phone] to advise. ERN CHANGER AND REPAIRER documented in this encounter Plan of Treatment Not on filedocumented as of this encounter Visit Diagnoses Not on filedocumented in this encounter Care Teams Snow Shoveler Relationship Specialty Start Date End Date Brandie Thompson APRN, WRECKER OPERATOR PCP - General Family Medicine 07/21/18 06/26/[address] [place] [address] C[place]AR R[place] [id number] documented as of this encounter
--- OUTSIDE RECORDS SUMMARY | 2022-07-22 14:00 | XMS_ITS | Encounter Summary ---
:1950 Author Organization [facility] Address [address] [place] [address] Care Team Providers Name Role Phone Brandie Thompson EXTERNAL AUDITOR, GLUE SPREADER Primary Care Provider [phone] Encounter Details Date Type Department Care Team Description 12/20/2019 Telephone [place] Brandie Thompson, [address] EXTERNAL AUDITOR, GLUE SPREADER [place], [place] [address] [address] [facility] [address] [phone] [place], [place] [address] Social History Tobacco Use [...] or relatives? How often do you attend taoism or More than 4 times per year 12/13/2019 jain services? Do you belong to any clubs or Not asked organizations such as taoism groups, unions, fraternal or athletic groups, or [...] this encounter Miscellaneous Notes Telephone Encounter - Brandie Thompson APRN, SAI - 12/20/2019 4:33 PM CHANGE MANAGEMENT COORDINATOR Left a message her testing, mammogram was normal, and medical records updated. GE MANAGEMENT COORDINATOR documented in this encounter Plan of Treatment Not on filedocumented as of this encounter Visit Diagnoses Not on filedocumented in this encounter Care Teams Partner Alliance Manager Relationship Specialty Start Date End Date Brandie Thompson APRN, SAI PCP - General Family Medicine 07/21/18 06/26/[address] [place] [id number] documented as of this encounter
--- OUTSIDE RECORDS SUMMARY | 2022-07-22 14:00 | XMS_ITS | Encounter Summary ---
:1950 Author Organization [facility] Address [address] [place] [address] Care Team Providers Name Role Phone Brandie Thompson APRN, CNP Primary Care Provider [phone] Reason for Referral Consultation (Routine) - Closed Specialty Diagnoses / Procedures Referred By Contact Refer red To Contact Diagnoses Abnormal ultrasound of pelvis Brandie Thompson, [facility] Care SAI OCONNELL [address] [place] [address] [place] [address] Fax: Referral ID Status Reason Start Date Expiration Date Visits Requ ested Visits Authorized [id number] Closed 11/23/2018 11/23/2019 1 1 Scheduling Instructions Please schedule with Dr. Gardner in [place], [place]. S OPERATOR PRINTING Encounter Details Date Type Department Care Team Description 11/23/2018 Orders Only [place] Brandie Thompson, Abnormal ultrasound [address] SAI OCONNELL of pelvis (Primary [place], [place] [address] [facility] Dx) [address] [place] [address] Social History Tobacco Use Types Packs/Day Years [...] or relatives? How often do you attend restoration or More than 4 times per year 12/13/2019 anabaptist services? Do you belong to any clubs or Not asked organizations such as restoration groups, unions, fraDesi Hits or athletic groups, or school groups? How [...] as of this encounter Plan of Treatment Scheduled Referrals Name Type Priority Associated Order Schedule Diagnoses Ambulatory External Outpatient Referral Routine Abnormal ultra sound Ordered: Referral of pelvis 11/23/2018 documented as of this encounter Visit Diagnoses Diagnosis Abnormal ultrasound of pelvis - Primary documented in this encounter Care Teams Hypnotherapist Relationship Specialty Start Date End Date Brandie Thompson APRN, AUTOMOTIVE LEASING SALES REPRESENTATIVE PCP - General Family Medicine 07/21/18 06/26/[address] [place] [address] documented as of this encounter
--- OUTSIDE RECORDS SUMMARY | 2022-07-22 14:00 | XMS_ITS | Encounter Summary ---
:1950 Author Organization Address [address] [place] [address] Care Team Providers Name Role Phone Brandie Thompson APRN, SUPERINTENDENT COMPRESSOR STATIONS Primary Care Provider [phone] Reason for Visit Reason Comments Immunizations Encounter Details Date Type Department Care Team Description 08/30/2019 Immunization [place] Immunization due (Primary [address] Dx) [place], [place] [address] Social History Tobacco Use Types Packs/Day Years [...] or relatives? How often do you attend religion or More than 4 times per year 12/13/2019 scientologist services? Do you belong to any clubs or Not asked organizations such as religion groups, unions, fraternal or athletic groups, or [...] on file documented as of this encounter Progress Notes [place] Renee RN - 08/30/2019 1:20 PM CST Tolerated well. No fever. No previous reaction to flu vaccine. BRIQUETTE MACHINE OPERATOR documented in this encounter Plan of Treatment Not on filedocumented as of this encounter Visit Diagnoses Diagnosis Immunization due - Primary documented in this encounter Care Teams Voice Teacher Relationship Specialty Start Date End Date Brandie Thompson APRN, SUPERINTENDENT COMPRESSOR STATIONS PCP - General Family Medicine 07/21/18 06/26/20 [address] [facility] [place] [address] documented as of this encounter
--- OUTSIDE RECORDS SUMMARY | 2022-07-22 14:00 | XMS_ITS | Encounter Summary ---
:1950 Author Organization [facility] Address [address] [place] [address] Care Team Providers Name Role Phone Archie Colindres MD Primary Care Provider Reason for Visit Reason Comments Medicare Annual Wellness Visit Subsequent Encounter Details Date Type Department Care Team Description 07/02/2021 Clinical Support [place] Medicare annual wellness [address] visit, subsequent [place], [place] [address] Social History Tobacco Use [...] or relatives? How often do you attend catholic or More than 4 times per year 12/13/2019 anabaptism services? Do you belong to any clubs or Not asked organizations such as catholic groups, unions, fraternal or athletic groups, or [...] minutes do you engage in exercise at is 60 min 12/13/2019 level? Stress Answer [...] Sign Reading Time Taken Comments Blood Pressure 138/74 07/02/2021 11:15 AM CDT Pulse 100 07/02/2021 11:15 AM CDT Temperature 36.2 ??C (97.1 ??F) 07/02/2021 11:15 AM CDT Respiratory Rate 16 07/02/2021 11:15 AM CDT Oxygen Saturation 95% 07/02/2021 11:15 AM CDT Inhaled Oxygen Concentration - - Weight 58.5 kg (129 lb) 07/02/2021 11:15 AM CDT Height 165.1 cm (5' 5) 07/02/2021 11:15 AM CDT Body Mass Index 21.47 07/02/2021 11:15 AM CDT documented in this encounter Progress Notes Dagmar Washington, CENTRAL OFFICE TECHNICIAN - 07/02/2021 11:00 AM CDT Annual Wellness Visit CARE TEAM / RESOURCES: Patient Care Team: Archie Colindres MD as PCP - General (Family Medicine) Eye Care: [facility] Dental Care: Dr Roge Harry Pharmacy: [facility] - [place], [place] - [address] [place] [employer] AT Portal to Registered [facility] Sites [address] [facility] [address] [facility] [address] [address] Other: Visit Vitals BP 138/74 (BP Location: Left arm, Patient Position: Sitting, BP Cuff Size: Adult) Pulse 100 Temp 36.2 ??C (97.1 ??F) (Temporal) Resp 16 Ht 1.651 m (5' 5) Wt 58.5 kg (129 lb) SpO2 95% BMI 21.47 kg/m?? Smoking Status Never Smoker BSA 1.64 m?? No Known Allergies Outpatient Encounter Medications as of 07/02/2021 Medication Sig Dispense Refill ??? B COMPLEX VITAMINS PO Take 1 tablet by mouth 1 (one) time each day ??? calcium citrate-vitamin D (CITRACAL+D) 315-200 MG-UNIT per tablet Take 1 tablet by mouth 2 (two)times a day ??? cholecalciferol (VITAMIN D-3) 1000 units tablet Take 1,000 Units by mouth 1 (one) time each day ??? Coenzyme Q10 (COQ-10) 10 MG capsule Take by mouth 1 (one) time each day ??? [facility] MAGNESIUM CITRATE PO Take by mouth twice a day ??? Flaxseed, Linseed, (FLAXSEED OIL) 1000 MG capsule Take 1 capsule by mouth 1 (one) time each day ??? GARLIC PO Take by mouth 1 (one) time each day (Patient not taking: Reported on 07/02/2021) ??? ibuprofen (ADVIL) 200 MG tablet Take 200 mg by mouth every 6 (six) hours if needed for mild painTake with food. ??? Iodine, Kelp, (KELP PO) Take 1 tablet by mouth 2 (two) times a day ??? LUTEIN PO Take by mouth 1 (one) time each day ??? Multiple Vitamins-Minerals (MULTIVITAMIN ADULT PO) Take by mouth 1 (one) time each day ??? omega-3 (FISH OIL) 1000 MG capsule Take 1,200 mg by mouth 1 (one) time each day ??? traZODone (DESYREL) 150 MG tablet TAKE 1 TABLET AT BEDTIME NEEDED FOR SLEEP 90 tablet 1 ??? traZODone (DESYREL) 150 MG tablet Take ONE at night to assist with sleep (Patient not taking: Reported on 07/02/2021) 10 tablet 0 ??? ZINC GLUCONATE PO Take 1 tablet by mouth 1 (one) time each day No facility-administered encounter medications on file as of 07/02/2021. Immunization History Administered Date(s) Administered ??? Flu Vaccine High Dose 65yrs and Older IM 08/13/2016, 08/03/2018, 08/30/2019 ??? Influenza 6mo-49yrs Quad Preservative Free IM 08/03/2011 ??? Influenza TIV (IM) 08/02/2013 ??? Influenza, Unspecified 08/03/2011, 08/02/2013, 08/27/2014 ??? Pneumococcal Conjugate 13-Valent 12/13/2019 ??? TD Preservative Free 05/13/2003, 07/18/2008 ??? Td 05/13/2003 ??? Tdap 08/02/2013 Patient Active Problem List Diagnosis ??? Insomnia ??? Unspecified atrial fibrillation (HCC) Past Medical History: Diagnosis Date ??? AF (paroxysmal atrial fibrillation) (HCC) 2016 the patient has PAF when she had pneumonia, which resolved, after she received treatment for her pneumonia ??? Allergic rhinitis ONCE ??? Cataract ??? Scoliosis ??? Varicella ??? Visual impairment GLASSES Past Surgical History: Procedure Laterality Date ??? TONSILLECTOMY ??? TUBAL LIGATION Social History Socioeconomic History ??? Marital status: Spouse name: Darnell ??? Number of children: 2 ??? Years of education: 1 1/2 years of colle ??? Highest education level: None Occupational History ??? 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 Smoking status: Never Smoker ??? Smokeless tobacco: Never Used Vaping Use ??? Vaping Use: Never used Substance and Sexual Activity ??? Alcohol use: No ??? Drug use: No ??? Sexual activity: None Other Topics Concern ??? None Social History Narrative ??? None Social Determinants of Health Financial Resource Strain: ??? Difficulty of Paying Living Expenses: Food Insecurity: ??? Worried About Running Out of Food in the Last Year: ??? Ran Out of Food in the Last Year: Transportation Needs: ??? Lack of Transportation (Medical): ??? Lack of Transportation (Non-Medical): Physical Activity: ??? Days of Exercise per Week: ??? Minutes of Exercise per Session: Stress: ??? Feeling of Stress : Social Connections: ??? Frequency of Communication with Friends and Family: ??? Frequency of Social Gatherings with Friends and Family: ??? Attends Uatsdin Services: ??? Active Member of Clubs or Organizations: ??? Attends Club or Organization Meetings: ??? Marital Status: Intimate Partner Violence: ??? Fear of Current or Ex-Partner: ??? Emotionally Abused: ??? Physically Abused: ??? Sexually Abused: General Care Management Assessment completed with:: (P) Patient Enrolled in care management program:: (P) No Living arrangement:: (P) Spouse Support system:: (P) Family, Friends, Spouse Family conflict:: (P) No Type of residence:: (P) Private residence Home care services:: (P) No Equipment used at home:: (P) None Communication device:: (P) Yes Financial problems:: (P) No Transportation issues:: (P) No Transportation means:: (P) Regular car Bed or wheelchair confined:: (P) No Diet:: (P) Regular Inadequate nutrition:: (P) No Exercise:: (P) Yes Inadequate activity/exercise:: (P) No Medication adherence problem:: (P) No Experiencing side effects from current medications:: (P) No History of falls in last 6 months:: (P) Yes (slipped on ice) Difficulty keeping appointments:: (P) No Family aware of the patient's advance care planning wishes:: (P) Yes Uatsdin or spiritual beliefs that impact treatment:: (P) No Chronic pain:: (P) Yes Pain Assessment Scored: 0-No pain and location: Utilization / Navigation of Health Care Systems: Does not overuse the Fast[facility], Acute Care, eVisits or Emergency Room. PHQ-9 mental health screening performed. Scored: MADHAV-7 anxiety screening performed. Scored: 0 Mini-Cog test performed. Scored: 5 CAGE-AID test performed. BMI/weight management reviewed. BMI: Body mass index is 21.47 kg/m??. BMI less than 30 referral to nutrition education not applicable. Fall Risk Assessment performed. Scored: Tug time: Referral to Physical Therapy not applicable due to low fall risk. Colon Cancer Screening: Last done: Unable to find in the chart Due: Patient stated that they tried years ago and it failed. She has not completed one since. The nurse addressed it with the patient and talked about Cologaurd but her insurance currently doesn't cover that on their current plan. Breast Cancer Screening: Last done: 01/07/2020 Osteoporosis Screening: Last done: 07/20/2018 Prostate Cancer Screening: No results found for: PSA, PSAD Hepatitis C Screening: No results found for: HEPCAB Glaucoma Screening: Indicated, family history sister AAA Screening: Not indicated Lung Cancer Screening: Not indicated Findings: The patient at this time refuses the COVID vaccine and would not like to discusses. The patient is needing her cataracts done leroy. The following referral(s) were created: None. What is an Annual Wellness Visit? Yearly appointment performed by another provider to create or update the personalized prevention plan. This plan helps prevent illness based on your current health and risk factors. ?? Medicare part B coverage the Annual Wellness Visit 100%. ?? Keep in mind that the annual wellness visit is not head to toe physical. ?? The service is similar to but separate from a one time a Welcome to Medicare Preventative Visit. The following information is regarding different screenings that will be discussed. Colon Cancer: ?? Age 50 and up (usually done until age 75) Breast Cancer: Medicare Part B (Medical Insurance) covers a Screening mammogram once every 12 months (11 full months must have passed since the last screening) ?? Women with Part B 40 or older are covered. Provider discretion beyond age 74 ?? Women with Part B between 35-39 can get one baseline mammogram Osteoporosis: Medicare Part B (Medical Insurance) covers this test once every 24 months for people who meet the criteria below: ?? A woman whose doctor determines both of these (based on her medical history and other findings): She's estrogen deficient AND She's at risk for osteoporosis ?? A person whose X-rays show possible osteoporosis, osteopenia, or vertebral fractures ?? A person taking prednisone or steroid-type drugs or is planning to begin this treatment ?? A person who has been diagnosed with primary hyperparathyroidism ?? A person who is being monitored to see if their osteoporosis drug therapy is working Prostate Cancer: Medicare Part B (Medical Insurance) covers: ?? Digital rectal exam: Once every 12 months ?? Prostate specific antigen (PSA) test: Once every 12 months ?? All men over 50 (beginning the day after your 50th birthday) with Part B are covered. Hepatitis C: Medicare covers one Hepatitis C screening test. Medicare also covers yearly repeat screening for certain people at high risk. ?? Those at high risk because they use or used illicit injection drugs. ?? Those who had a blood transfusion before 1991. ?? Those born between 3738-0471. Glaucoma: Medicare Part B (Medical Insurance) covers a glaucoma test once every 12 months for people at high risk for glaucoma. You're at high risk if one of these applies: ?? You have diabetes. ?? You have a family history of glaucoma. ?? You're and 50 or older. ?? You're and 65 or older. AAA: Medicare Part B (Medical Insurance) covers a one-time abdominal aortic aneurysm ultrasound for people who meet the criteria below: ?? You have a family history of abdominal aortic aneurysms. ?? You???re a man age 65 to 75 and have smoked at least 100 cigarettes in your lifetime. Lung Cancer: Medicare Part B (Medical Insurance) covers a lung cancer screening with Low Dose Computed Tomography(LDCT) once per year to those who meet ALL of these conditions: ?? They're 55-77. ?? They're asymptomatic (they don???t have signs or symptoms of lung cancer). ?? They're either a current smoker or have quit smoking within the last 15 years. ?? They have a tobacco smoking history of at least 30 ???pack years?? (an average of one pack a dayfor 30 years). documented in this encounter Plan of Treatment Not on filedocumented as of this encounter Visit Diagnoses Diagnosis Medicare annual wellness visit, subseque nt documented in this encounter Care Teams Group Chief Operator Relationship Specialty Start Date End Date Archie Colindres MD PCP - General Family Medicine 07/02/21 05/22/[address] [place] [address] documented as of this encounter
--- OUTSIDE RECORDS SUMMARY | 2022-07-22 14:00 | XMS_ITS | Encounter Summary ---
:1950 Author Organization [facility] Address [address] [place] [address] Care Team Providers Name Role Phone Brandie Thompson INVESTOR, ENGINEER PROCESS Primary Care Provider [phone] Reason for Visit Reason Comments Med Refill Encounter Details Date Type Department Care Team Description 01/01/2019 Refill [place] Brandie Thompson, Insomnia, unspecified [address] INVESTOR, ENGINEER PROCESS type (Primary Dx) [place], [place] [address] [address] [facility] [address] [phone] [place], [place] [address] Social History Tobacco Use [...] or relatives? How often do you attend denominational or More than 4 times per year 12/13/2019 mormon services? Do you belong to any clubs or Not asked organizations such as denominational groups, unions, fraternal or athletic groups, or [...] Notes Telephone Encounter - Sarah Lindsey - 01/05/2019 9:36 AM CDT Faxed. Telephone Encounter - Carla Cooper MA - 01/04/2019 4:43 PM CDT Please fax Rx to [phone] Telephone Encounter - Brandie Thompson APRN, SAI - 01/04/2019 4:13 PM CDT Please fax to the patient's pharmacy. Bryce Browning Telephone Encounter - Carla Cooper MA - 01/04/2019 3:54 PM CDT I have pended a medication refill for your review. Telephone Encounter - Yumiko Herrera - 01/04/2019 3:42 PM CDT Pt called regarding her Trazadone Rx refill. She uses [facility] order and gave a fax number of [phone]. Please call Pt to advise. documented in this encounter Plan of Treatment Not on filedocumented as of this encounter Visit Diagnoses Diagnosis Insomnia, unspecified type - Primary documented in this encounter Care Teams Wing Scorer Relationship Specialty Start Date End Date Brandie Thompson APRN, ENGINEER PROCESS PCP - General Family Medicine 07/21/18 06/26/[address] [place] [address] documented as of this encounter
--- OUTSIDE RECORDS SUMMARY | 2022-07-22 14:00 | XMS_ITS | Encounter Summary ---
:1950 Author Organization [facility] Address [address] [place] [address] Care Team Providers Name Role Phone Unavailable Primary Care Provider Unavailable Reason for Visit Reason Onset Date Comments Trazodone Rx 01/12/2021 Encounter Details Date Type Department Care Team Description 01/12/2021 Telephone [place] Mall[place] None, Pcp Trazodone Rx [address] [facility] [place] [place] [address] [place], [place] [phone] [address] Social History Tobacco Use Types Packs/Day Years [...] or relatives? How often do you attend orthodoxy or More than 4 times per year 12/13/2019 advent services? Do you belong to any clubs or Not asked organizations such as orthodoxy groups, unions, fraternal or athletic groups, or [...] Telephone Encounter - Mis Morales RN - 01/12/2021 12:12 PM CDT Patient returned call and was [facility] Patient much appreciative. Telephone Encounter - Mis Mroales RN - 01/12/2021 12:10 PM CDT LMTCB. Telephone Encounter - Neville Lucas MD - 01/12/2021 10:32 AM CDT Call Nuria and let her know that I sent to [facility] for 10 pills of her trazodone that she can waste picker. Telephone Encounter - Yumiko Herrera - 01/12/2021 10:08 AM CDT Pt called stating her Trazodone 150ml Rx that she normally gets filled through [facility] will notarrive in time before she is out. Pt is asking for a refill of a weeks worth of this med [facility]. Please call Pt at [phone] to advise. documented in this encounter Plan of Treatment Not on filedocumented as of this encounter Visit Diagnoses Diagnosis Insomnia, unspecified type - Primary documented in this encounter
--- OUTSIDE RECORDS SUMMARY | 2022-07-22 14:00 | XMS_ITS | Encounter Summary ---
:1950 Author Organization [facility] Address [address] [place] [address] Care Team Providers Name Role Phone Brandie Thompson SALT REFINER, CAREER INFORMATION SPECIALIST Primary Care Provider [phone] Reason for Visit Reason Onset Date Comments sleeping med 01/03/2020 Encounter Details Date Type Department Care Team Description 01/03/2020 Telephone [place] Brandie Thompson, sleeping med [address] SALT REFINER, CAREER INFORMATION SPECIALIST [place], [place] [address] [facility] [address] [phone] [place], [place] [address] Social History Tobacco Use [...] or relatives? How often do you attend episcopal or More than 4 times per year 12/13/2019 worship services? Do you belong to any clubs or Not asked organizations such as episcopal groups, unions, fraternal or athletic groups, or [...] Telephone Encounter - Dagmar Washington LPN - 01/03/2020 1:41 PM CDT NOted Telephone Encounter - Brandie Thompson APRN, CNP - 01/03/2020 1:28 PM CDT This prescription has been renewed as requested. Call the patient only if deemed necessary. Thanks Bryce Telephone Encounter - Ling Reyes RN - 01/03/2020 1:19 PM CDT Ha batista was bought my [facility]. Pharmacy is accurate. Telephone Encounter - Brandie Thompson APRN, CNP - 01/03/2020 1:11 PM CDT Can you please cue up the pharmacy of choice is I am not able to find it. Thanks Bryce Telephone Encounter - Dagmar Washington LPN - 01/03/2020 11:35 AM CDT The patient has enough Trazodone for two weeks. 150mg once a day She usually does mail: [facility] requires 3 months supply at a time. Please send that now. Telephone Encounter - Yumiko Herrera - 01/03/2020 11:28 AM CDT Pt called requesting to talk with a nurse about her medication to help her sleep. Please call Pt at [phone] to advise. documented in this encounter Plan of Treatment Not on filedocumented as of this encounter Visit Diagnoses Diagnosis Insomnia, unspecified type documented in this encounter Care Teams Senior Windows Systems Administrator Relationship Specialty Start Date End Date Brandie Thompson APRN, CNP PCP - General Family Medicine 07/21/18 06/26/[address] [facility] [place], [place] [address] documented as of this encounter
--- OUTSIDE RECORDS SUMMARY | 2022-07-22 14:00 | XMS_ITS | Encounter Summary ---
:1950 Author Organization [facility] Address [address] [place] [address] Care Team Providers Name Role Phone None, Pcp Primary Care Provider Unavailable Reason for Visit Reason Onset Date Comments Colonoscopy 05/20/2022 Encounter Details Date Type Department Care Team Description 05/20/2022 Telephone [place] Archie Colindres MD Colonoscopy [address] [place], [place] [address] [place], [place] [phone] (Wo rk) Social History Tobacco Use Types [...] or relatives? How often do you attend islam or More than 4 times per year 12/13/2019 sabianism services? Do you belong to any clubs or Not asked organizations such as islam groups, unions, fraternal or athletic groups, or [...] this encounter Miscellaneous Notes Telephone Encounter - Josue Keita LPN - 05/23/2022 1:18 PM CDT noted Telephone Encounter - Yumiko Herrera - 05/23/2022 11:41 AM CDT PCP updated. Telephone Encounter - Ling Reyes RN - 05/20/2022 2:38 PM CDT Please update PCP as necessary. Telephone Encounter - Faviola Garcia - 05/20/2022 2:32 PM CDT Pt stated has been seeing a CLINICAL CODER in another clinic and probably will not return. No appt made. Telephone Encounter - Ling Reyes RN - 05/20/2022 2:06 PM CDT Please call patient to schedule an annual visit in Jun. Due for colonoscopy. Telephone Encounter - Chloe Lawson RN - 05/20/2022 12:44 PM CDT Primary Provider: Dr. Archie Colindres Last visit: 07/02/21 Due: Due for colonoscopy, never done. Due for annual visit in June. documented in this encounter Plan of Treatment Not on filedocumented as of this encounter Visit Diagnoses Not on filedocumented in this encounter Care Teams Gullet Slitter Relationship Specialty Start Date End Date None, Pcp PCP - General Liner Machine Operator Helper 05/23/[address] [place] [id number] documented as of this encounter
--- OUTSIDE RECORDS SUMMARY | 2022-07-22 14:00 | XMS_ITS | Clinical Summary ---
:1950 Author Organization [facility] Address [address] [place] [address] Care Team Providers Name Role Phone None, Pcp Primary Care Provider Unavailable Allergies No known active allergies Medications Medication Sig Dispensed Refills Start End Date Status Date calcium Take 1 tablet 0 Active citrate-vitamin D by mouth 2 (CITRACAL+D) (two) times a 315-200 MG-UNIT per day tablet [facility] MAGNESI[facility] Take by mouth 0 Ac tive CITRATE PO twice a day Multiple Take by mouth 1 0 Acti ve Vitamins-Minerals (one) time each (MULTIVITAMIN ADULT day PO) ZINC GLUCONATE PO Take 1 tablet 0 Active by mouth 1 2 (one) time each day omega-3 (FISH OIL) Take 1,200 mg 0 Active 1000 MG capsule by mouth 1 (one) time each day cholecalciferol Take 1,000 0 Act lisa (VITAMIN D-3) 1000 Units by mouth units tablet 1 (one) time each day Coenzyme Q10 Take by mouth 1 0 A ctive (COQ-10) 10 MG (one) time each capsule day LUTEIN PO Take by mouth 1 0 Acti ve (one) time each day Iodine, Kelp, (KELP Take 1 tablet 0 Active PO) by mouth 2 (two) times a day Flaxseed, Linseed, Take 1 capsule 0 Active (FLAXSEED OIL) 1000 by mouth 1 MG capsule (one) time each day B COMPLEX VITAMINS Take 1 tablet 0 Active PO by mouth 1 (one) time each day ibuprofen (ADVIL) Take 200 mg by 0 Active 200 MG tablet mouth every 6 (six) hours if needed for mild pain Take with food. UNABLE TO FIND Med Name: 0 Activ e Tumeric, Echinacea Gold Seal, Probiotic, Glucosamine and Hyaleronic MSN, Collagen traZODone (DESYREL) TAKE 1 TABLET 14 tablet 0 Active 150 MG NIGHTLY AT 2 tabletIndications: BEDTIME Insomnia, NEEDED FOR unspecified type SLEEP traZODone (DESYREL) Take 1 tablet 90 tablet 3 Discontinued 150 MG (150 mg total) 1 22 tabletIndications: by mouth every Insomnia, night TAKE 1 unspecified type TABLET AT BEDTIME NEEDED FOR SLEEP traZODone (DESYREL) TAKE 1 TABLET 60 tablet 0 Discontinued 150 MG NIGHTLY AT 2 22 (Reorder) tabletIndications: BEDTIME Insomnia, NEEDED FOR unspecified type SLEEP Active Problems Problem Noted Date Prediabetes 07/05/2021 Cataracts, both eyes 07/02/2021 Scoliosis 07/02/2021 Chronic low back pain 07/02/2021 Cardiomegaly 07/02/2021 Unspecified atrial fibrillation 10/09/2017 Insomnia 10/24/2014 Encounters Date Type Specialty Care Team Description 07/17/2022 Telephone Family Medicine Archie Colindres MD Med Refill 07/09/2022 Refill Family Medicine Archie Colindres MD Ins omnia, unspecified type 05/20/2022 Telephone Family Medicine Archie Colindres MD Col onoscopy from Last 3 Months Immunizations Name Administration Dates Next Due Flu Vaccine High Dose 65yrs and Older IM 08/30/2019, 018, 08/13/2016 Influenza 6mo-49yrs Quad Preservative 08/03/2011 Free IM Influenza TIV (IM) 08/02/2013 Influenza, Unspecified 08/27/2014, 08/02/2013, 08/03/2011 Pneumococcal Conjugate 13-Valent 12/13/2019 TD Preservative Free 07/18/2008, 05/13/2003 Td 05/13/2003 Tdap 08/02/2013 Family History Medical History Relation Comments Cancer Father Bladder Cancer Mother Bladder Arthritis Sister 1 Vision loss Sister 1 Relation Status Comments Daughter 1 Alive Daughter 2 Alive Father Mother Sister 1 Alive Sister 2 Alive Social History Tobacco Use Types Packs/Day Years [...] or relatives? How often do you attend rastafari or More than 4 times per year 12/13/2019 tenriism services? Do you belong to any clubs or Not asked organizations such as rastafari groups, unions, fraCoNarrative or athletic groups, or school groups? How [...] Assigned at Date Recorded Not on file Last Filed Vital Signs Vital Sign Reading [...] Mass Index 21.47 07/02/2021 11:15 AM CDT Plan of Treatment Health Maintenance Due Date Last Done Comments CT Colonography 1950 Colonoscopy 1950 Colorectal Cancer Screening 1950 FIT-DNA 1950 Sigmoidoscopy 1950 iFOBT 1950 COVID-19 Vaccine (#1) 1950 Zoster Vaccines (1 of 2) 01/30/2000 Glaucoma Screening 67+ Yr 06/20/2020 06/20/2019 Pneumococcal Vaccine: 65+ 12/13/2020 12/13/2019 Years (2 - PPSV23 or PCV20) Fall Risk Performed 07/02/2022 07/02/2021 [facility] Annual Wellness 07/02/2022 07/02/2021 Mammogram 07/09/2022 07/09/2021, 12/20/2019, 12/20/2019, Additional history exists HPV Vaccines Aged Out No longer eligib le based on patient 's age to complete this topic Insurance Payer Benefit Plan / Subscriber ID Effective Dates Phone Addre ss Type Group MEDICARE MEDICARE [id number] 2015-[place] [address] [place] [id number] BCBS OF BCBS [place] [id number] 2016-[place] [address] [place] [address] [place], [place] MEDICARE NON [id number] ADVANTAGE Care Teams Illuminating Engineer Relationship Specialty Start Date End Date None, Pcp PCP - General Nuclear Physics Professor 05/23/22 [address] [place] [address]
--- OUTSIDE RECORDS SUMMARY | 2022-07-22 14:00 | XMS_ITS | Encounter Summary ---
:1950 Author Organization [facility] Address [address] [place] [address] Care Team Providers Name Role Phone Archie Colindres MD Primary Care Provider Encounter Details Date Type Department Care Team Description 07/16/2021 Telephone [place] Archie Colindres MD [address] [place], [place] [address] [place], [place] [phone] (Wo rk) Social History Tobacco Use Types [...] More than 4 times per year 12/13/2019 evangelical services? Do you belong to any clubs [...] Telephone Encounter - Dagmar Washington LPN - 07/16/2021 10:07 AM CDT Patient informed Telephone Encounter - Archie Colindres MD - 07/16/2021 8:16 AM CDT Mammogram negative. DEXA shows osteopenia, slightly worsened since last scan in 2018. documented in this encounter Plan of Treatment Not on filedocumented as of this encounter Visit Diagnoses Not on filedocumented in this encounter Care Teams Menu Planner Relationship Specialty Start Date End Date Archie Colindres MD PCP - General Family Medicine 07/02/21 05/22/[address] [place] [address] documented as of this encounter
--- OUTSIDE RECORDS SUMMARY | 2022-07-22 14:00 | XMS_ITS | Encounter Summary ---
:1950 Author Organization [facility] Address [address] [place] [address] Care Team Providers Name Role Phone Brandie Thompson SANITATION SUPERVISOR, IN SCHOOL SUSPENSION AIDE Primary Care Provider [phone] Encounter Details Date Type Department Care Team Description 12/14/2019 Telephone [place] Brandie Thompson, [address] SANITATION SUPERVISOR, IN SCHOOL SUSPENSION AIDE [place], [place] [address] [address] [facility] [address] [phone] [place], [place] [address] Social History Tobacco Use [...] or relatives? How often do you attend roman catholic or More than 4 times per year 12/13/2019 restorationism services? Do you belong to any clubs or Not asked organizations such as roman catholic groups, unions, fraternal or athletic groups, [...] Telephone Encounter - Dagmar Washington LPN - 12/15/2019 8:20 AM CST Noted [place] HOSTLER Telephone Encounter - Yumiko Herrera - 12/15/2019 7:36 AM CST Referral faxed to [facility] radiology as requested. [place] HOSTLER Telephone Encounter - Ling Reyes RN - 12/14/2019 4:27 PM CST Please fax referral. NE HOSTLER documented in this encounter Plan of Treatment Not on filedocumented as of this encounter Visit Diagnoses Not on filedocumented in this encounter Care Teams Controller Coal [employer]re Relationship Specialty Start Date End Date Brandie Thompson APRN, IN SCHOOL SUSPENSION AIDE PCP - General Family Medicine 07/21/18 06/26/[address] [place] [address] [place] [address] documented as of this encounter
--- OUTSIDE RECORDS SUMMARY | 2022-07-22 14:00 | XMS_ITS | Encounter Summary ---
:1950 Author Organization [facility] Address [address] [place] [address] Care Team Providers Name Role Phone Brandie Thompson APRN, AGRICULTURAL EDUCATION PROFESSOR Primary Care Provider [phone] Reason for Visit Reason Comments Medicare Annual Wellness Visit Initial Encounter Details Date Type Department Care Team Description 12/13/2019 Clinical Support [place] Medicare annual wellness vis it, initial (Primary Dx); [address] Pneumococcal vaccination giv en [place], [place] [address] Social History Tobacco Use [...] or relatives? How often do you attend worship or More than 4 times per year 12/13/2019 islam services? Do you belong to any clubs or Not asked organizations such as worship groups, unions, fraternal or athletic groups, or [...] documented as of this encounter Progress Notes Margo Berrios RN - 12/13/2019 11:00 AM CST Annual Wellness Visit CARE TEAM / RESOURCES: Patient Care Team: Brandie Thompson APRN, AGRICULTURAL EDUCATION PROFESSOR as PCP - General (Family Medicine) Eye Care: [facility]2 years Dental Care: Dr Schmid in [facility] Pharmacy: [facility] - [place], [place] - [address] [facility] [address] [facility] [address] Other: Visit Vitals Smoking Status Never Smoker Vitals taken from Annual Wellness nurse visit: BP Readings from Last 1 Encounters: 12/13/19 138/82 Pulse Readings from Last 1 Encounters: 12/13/19 64 Resp Readings from Last 1 Encounters: 12/13/19 16 SpO2 Readings from Last 1 Encounters: 12/13/19 98% Wt Readings from Last 1 Encounters: 12/13/19 59.8 kg (131 lb 12.8 oz) Ht Readings from Last 1 Encounters: 12/13/19 1.638 m (5' 4.5) BMI Readings from Last 1 Encounters: 12/13/19 22.27 kg/m?? No Known Allergies Outpatient Encounter Medications as of 12/13/2019 Medication Sig Dispense Refill ??? B COMPLEX [...] mouth 1 (one) time each day ??? [facility] MAGNESIUM CITRATE PO Take by mouth twice a day ??? Flaxseed, Linseed, (FLAXSEED OIL) 1000 MG capsule Take 1 capsule by mouth 1 (one) time each day ??? GARLIC PO Take by mouth 1 (one) time each day ??? Iodine, Kelp, (KELP PO) Take 1 [...] AT BEDTIME NEEDED FOR SLEEP 90 tablet 3 ??? ZINC GLUCONATE PO Take 1 tablet by mouth 1 (one) time each day No facility-administered encounter medications on file as of 12/13/2019. Immunization History Administered Date(s) Administered ??? Flu Vaccine High Dose 65yrs and Older IM 08/13/2016, 08/03/2018, 08/30/2019 ??? Influenza 6mo-49yrs Quad Preservative Free IM 08/03/2011 ??? Influenza TIV (IM) 08/02/2013 ??? Influenza, Unspecified 08/03/2011, 08/02/2013, 08/27/2014 ??? TD Preservative Free 05/13/2003, 07/18/2008 ??? [...] None Occupational History ??? 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 Financial resource strain: Not hard at all ??? Food insecurity: Worry: Never true Inability: Never true ??? Transportation needs: Medical: No Non-medical: No Tobacco Use ??? Smoking status: Never Smoker ??? Smokeless tobacco: Never Used Substance and Sexual Activity ??? Alcohol use: No Frequency: Never ??? Drug use: No ??? Sexual activity: None Lifestyle ??? Physical activity: Days per week: 5 days Minutes per session: 60 min ??? Stress: Only a little Relationships ??? Social connections: Talks on phone: More than three times a week Gets together: More than three times a week Attends islam service: More than 4 times per year Active member of club or organization: None Attends meetings of clubs or organizations: None Relationship status: None ??? Intimate partner violence: Fear of current or ex partner: No Emotionally abused: No Physically abused: No Forced sexual activity: None Other Topics Concern ??? None Social History Narrative ??? None General Care Management Assessment completed with:: Patient Enrolled in care management program:: No Living arrangement:: Spouse Support system:: Family, Friends, Spouse Family conflict:: No Type of residence:: Private residence Home care services:: No Equipment used at home:: None Communication device:: Yes Financial problems:: No Transportation issues:: No Transportation means:: Regular car Bed or wheelchair confined:: No Diet:: Regular Inadequate nutrition:: No Exercise:: Yes Minutes per day:: 6 Times per week:: 4 Type of exercise:: at work, lifting trays and walking Inadequate activity/exercise:: No Medication adherence problem:: No Experiencing side effects from current medications:: No History of falls in last 6 months:: Yes(slipped on ice) Difficulty keeping appointments:: No Family aware of the patient's advance care planning wishes:: Yes Yazidi or spiritual beliefs that impact treatment:: No Chronic pain:: Yes Location of chronic pain:: back Chronic pain timing:: Intermittent Chronic pain severity:: 3 Limitation of routine activities due to chronic pain:: Yes Pain Assessment Scored: 3 and location: back Utilization / Navigation of Health Care Systems: Does not overuse the [facility], Acute Care, eVisits or Emergency Room. PHQ-9 mental health screening performed. Scored: / 27 MADHAV-7 anxiety screening performed. Scored: / 21 Mini-Cog test performed. Scored: 5 / 5 CAGE-AID test performed. BMI/weight management reviewed. BMI: 22.27 BMI less than 30 referral to nutrition education not applicable. Fall Risk Assessment performed. Scored: 3 / 14 Tug time: 10 Referral to Physical Therapy not applicable due to low fall risk. Colon Cancer Screening: Last done: Has not done-insurance limited coverage Due: Breast Cancer Screening: Last done: 08/03/18 Osteoporosis Screening: Last done: 07/20/2018 Hepatitis C Screening: No results found for: HEPCAB-declines Glaucoma Screening: Preformed at outside facility AAA Screening: Not indicated Lung Cancer Screening: Not indicated Findings: Nuria comes in for AWV unaccompanied. She has not done a colonoscopy due to the co-pay with insurance. She has discussed this with PCP and has no family history. She is due for mammogram and will schedule when she is called. Nuria feels she is managing her health well and does not need any assistance at this time so no referrals placed. Nuria does not have an Advanced Directive or Living will and declines the paperwork at this time. Her family is aware of her wishes. The following referral(s) were created: None. What [...] transfusion before 1991. ?? Those born between 9997-6085. Glaucoma: Medicare Part B (Medical Insurance) covers [...] of one pack a dayfor 30 years). TH OFFICER Brandie Thompson APRN, CNP - 12/13/2019 11:00 AM CST Reviewed. TH OFFICER documented in this encounter Plan of Treatment Not on filedocumented as of this encounter Visit Diagnoses Diagnosis Medicare annual wellness visit, initial - Primary Pneumococcal vaccination given documented in this encounter Care Teams Office Nurse Practitioner Relationship Specialty Start Date End Date Brandie Thompson APRN, SAI PCP - General Family Medicine 07/21/18 06/26/[address] [place] [address] [facility] [place] [address] documented as of this encounter
--- OUTSIDE RECORDS SUMMARY | 2022-07-22 14:00 | XMS_ITS | Encounter Summary ---
:1950 Author Organization [facility] Address [address] [place] [address] Care Team Providers Name Role Phone Brandie Thompson WASTE DISPOSAL PLANT OPERATOR, DIRECTOR OF FIELD SERVICE Primary Care Provider [phone] Reason for Visit Reason Onset Date Comments Referral 11/23/2018 Encounter Details Date Type Department Care Team Description 11/23/2018 Telephone [place] Brandie Thompson, Referral [address] WASTE DISPOSAL PLANT OPERATOR, DIRECTOR OF FIELD SERVICE [place], [place] [address] [address] [facility] [address] [phone] [place], [place] [address] Social History Tobacco Use [...] or relatives? How often do you attend buddhist or More than 4 times per year 12/13/2019 muslim services? Do you belong to any clubs or Not asked organizations such as buddhist groups, unions, fraternal or athletic groups, or [...] Telephone Encounter - Sarah Lindsey - 11/23/2018 1:46 PM CST Referral faxed. NCIAL OPERATIONS CONSULTANT Telephone Encounter - Carla Cooper MA - 11/23/2018 1:05 PM CST Please add face sheet and fax to [facility] and let patient know this has been done. NCIAL OPERATIONS CONSULTANT Telephone Encounter - Brandie Thompson APRN, SAI - 11/23/2018 1:01 PM FINANCIAL OPERATIONS CONSULTANT This has been completed, please fax. Thanks, Bryce NCIAL OPERATIONS CONSULTANT Telephone Encounter - Sarah Lindsey - 11/23/2018 12:39 PM CST Patient would like a referral to [facility] Dr. iLnh Mojica at [facility]. NCIAL OPERATIONS CONSULTANT documented in this encounter Plan of Treatment Not on filedocumented as of this encounter Visit Diagnoses Not on filedocumented in this encounter Care Teams Project Manager Interior Design Relationship Specialty Start Date End Date Brandie Thompson APRN, DIRECTOR OF FIELD SERVICE PCP - General Family Medicine 07/21/18 06/26/[address] [place] [address] [facility] [place] [address] documented as of this encounter
--- OUTSIDE RECORDS SUMMARY | 2022-07-22 14:00 | XMS_ITS | Encounter Summary ---
:1950 Author Organization [facility] Address [address] [place] [address] Care Team Providers Name Role Phone Archie Colindres MD Primary Care Provider Encounter Details Date Type Department Care Team Description 07/02/2021 Lab [place] Elevated fasting glucose; [address] [facility] 20 Serum calcium elevated; [place], [place] [address] Annual physical exam [phone] Social History Tobacco Use Types Packs/Day Years [...] More than 4 times per year 12/13/2019 yarsanism services? Do you belong to any clubs [...] Name Priority Date/Time Associated Comments Diagnosis GLOMERULAR FILTRATION Routine 07/02/2021 12:29 Serum calcium R esults for this RATE PM CDT elevated procedure are i n the results section. THYROID FUNCTION Routine 07/02/2021 12:29 Annual physical Resu lts for this CASCADE PM CDT exam procedure are i n the results section. VITAMIN D, TOTAL Routine 07/02/2021 12:29 Serum calcium Result s for this PM CDT elevated procedure are i n the results section. CBC WITH AUTO Routine 07/02/2021 12:29 Results fo r this DIFFERENTIAL PM CDT procedure are i n the results section. MAGNESIUM Routine 07/02/2021 12:29 Serum calcium Results fo r this PM CDT elevated procedure are i n the results section. HEMOGLOBIN A1C Routine 07/02/2021 12:29 Elevated fasting Resul ts for this PM CDT glucose procedure are i n the results section. LIPID PANEL Routine 07/02/2021 12:29 Annual physical Results for this PM CDT exam procedure are i n the results section. COMPREHENSIVE Routine 07/02/2021 12:29 Serum calcium Results f or this METABOLIC PANEL PM CDT elevated procedure ar e in the results section. documented in this encounter Results Glomerular filtration rate (GFR) (07/02/2021 12:29 PM CDT) athologist Signature GFR >60 07/03/2021 [facility] 2:34 PM CDT [facility] >60 07/03/2021 [facility] [place] GFR 2:34 PM CDT [facility] Comment: GFR calculated from serum creatinine v alue Chronic Kidney Disease less than 60 mL/m in/1.73 m2 Kidney Failure less than 15 mL/min/1.73 m2 Note: effective 03/04/07 IDMS-Traceable MDRD Study Equation used. Specimen Anatomical Collection Method Collection Time Receive d Time (Source) Location / / Volume Laterality 07/02/2021 12:29 07/02/2021 PM CDT 12:29 PM CDT Archie Colindres MD LAB BLOOD ORDERABLES Performing Organization Address City/State/ZIP Code Phon e Number [facility] [address] [place] [address] (ABNORMAL) CBC auto differential (07/02/2021 12:29 PM CDT) Patholo gist Method Time Signature WBC 5.0 3.5 - 07/03/2021 [place] 10.5 K/uL 2:20 PM CDT [facility] RBC 5.00 3.90 - 07/03/2021 [place] 5.00 M/uL 2:20 PM [facility] Hemoglobin 15.1 12.0 - 07/03/2021 [place] 15.5 g/dL 2:20 PM [facility] Hematocrit 45.6 (H) 35.0 - 07/03/2021 [place] 44.0 % 2:20 PM [facility] Platelets 216 150 - 450 07/03/2021 [place] K/uL 2:20 PM [facility] MCV 91.3 81.6 - 07/03/2021 [place] 98.3 fL 2:20 PM [facility] MCH 30.2 26.0 - 07/03/2021 [place] 32.0 pg 2:20 PM [facility] MCHC 33.0 32.0 - 07/03/2021 [place] 36.0 g/dL 2:20 PM [facility] RDW 11.3 (L) 11.9 - 07/03/2021 [place] 15.5 % 2:20 PM [facility] Neutrophils 76.2 % 07/03/2021 [place] 2:20 PM [facility] Absolute 3.8 1.7 - 7.0 07/03/2021 [place] Neutrophils K/uL 2:20 PM [facility] Lymphocytes % 12.5 % 07/03/2021 [place] 2:20 PM [facility] Absolute 0.6 (L) 0.9 - 2.9 07/03/2021 [place] Lymphocytes K/uL 2:20 PM [facility] Monocytes % 8.3 % 07/03/2021 [place] 2:20 PM [facility] Monocytes 0.4 0.3 - 0.9 07/03/2021 [place] Absolute K/uL 2:20 PM [facility] Eosinophils 1.2 % 07/03/2021 [place] 2:20 PM [facility] Absolute 0.1 0.1 - 0.5 07/03/2021 [place] Eosinophils K/uL 2:20 PM [facility] Basophils 1.8 % 07/03/2021 [place] 2:20 PM [facility] Absolute 0.1 0.0 - 0.1 07/03/2021 [place] Basophils K/uL 2:20 PM CDT [facility] Specimen Anatomical Collection Method Collection Time Receive d Time (Source) Location / / Volume Laterality 07/02/2021 12:29 07/03/2021 1:06 PM CDT PM CDT Archie Colindres MD LAB BLOOD ORDERABLES Performing Organization Address [facility] Phon e Number [facility] [address] [place] [phone] Vitamin D, Total (07/02/2021 12:29 PM CDT) athologist Signature Vitamin D, 82.0 ng/mL 07/03/2021 [facility] Total 2:34 PM CDT [facility] Comment: Deficient ?<20 ? ng/mL Insufficient ? 20-<30 ??ng/mL Sufficient ? 30-100 ??ng/mL Vitamin D2/D3 fractionation is recommend ed at the discretion of the clinician if Total Vitamin D is w ithin deficient or insufficient range. Specimen Anatomical Collection Method Collection Time Receive d Time (Source) Location / / Volume Laterality Blood 07/02/2021 12:29 07/03/2021 1:06 PM CDT PM CDT Archie Colindres MD LAB BLOOD ORDERABLES Performing Organization Address City/[facility] Phon e Number [facility] [address] [place] [phone] (ABNORMAL) Lipid panel (07/02/2021 12:29 PM CDT) athologist Signature Cholesterol 206 (H) 0 - 199 07/03/2021 [facility] mg/dL 2:34 PM CDT [facility] Comment: Recommended by National Cholesterol Education Program (ATP III) -------- Cholesterol Ranges -------- <200 ?Desirable 200-239 ? Borderline high >=240 ? High Triglycerides 58 0 - 149 mg/dL 07/03/2021 2:34 PM CDT [facility] Comment: -------- TRIG Ranges -------- <150 ?Normal 150-199 ? Borderline high 200-499 ? High >=500 ? Very high HDL 79 40 - 250 mg/dL 07/03/2021 2:34 PM CDT [facility] Comment: -------- HDL Ranges -------- <40 ?Low 40-59 ?Normal >=60 ? Optimal LDL Calculated 115 (H) 0 - 99 mg/dL 07/03/2021 2:34 PM CDT [facility] Comment: -------- LDL Ranges -------- <100 ? Optimal 100-129 ?Near optimal/above op timal 130-159 ?Borderline high 160-189 ?High >=190 ?Very high Specimen Anatomical Collection Method Collection Time Receive d Time (Source) Location / / Volume Laterality Blood (Blood, 07/02/2021 12:29 07/03/2021 1:06 Venous) PM CDT PM CDT Archie Colindres MD LAB BLOOD ORDERABLES Performing Organization Address City/State/ZIP Code Phon e Number [facility] [address] [place] [address] Thyroid Function [place] (07/02/2021 12:29 PM CDT) P athologist Signature TSH, Sensitive 0.90 0.46 - 07/03/2021 [facility] 4.68 mIU/L 3:03 PM CDT [facility] Comment: The results from this [...] Location / / Volume Laterality Blood (Blood, 07/02/2021 12:29 07/03/2021 Venous) PM CDT 12:50 PM CDT Archie Colindres MD LAB BLOOD ORDERABLES Performing Organization Address City/[facility] Phon e Number [facility] [address] [place] [phone] Magnesium (07/02/2021 12:29 PM CDT) P athologist Signature Magnesium 2.2 1.6 - 2.3 07/03/2021 [facility] mg/dL 2:34 PM CDT [facility] Specimen Anatomical Collection Method Collection Time Receive d Time (Source) Location / / Volume Laterality Blood (Blood, 07/02/2021 12:29 07/03/2021 1:06 Venous) PM CDT PM CDT Archie Colindres MD LAB BLOOD ORDERABLES Performing Organization Address [facility] Phon e Number [facility] [address] [place] [phone] (ABNORMAL) Comprehensive metabolic panel (07/02/2021 12:29 PM CDT) Patholo gist Method Time Signature Total Protein 7.4 6.3 - 8.2 07/03/2021 [place] g/dL 2:34 PM CDT [facility] Albumin, Serum 4.4 3.5 - 5.0 07/03/2021 [place] g/dL 2:34 PM T [facility] Total Bilirubin 1.2 (H) 0.1 - 1.0 07/03/2021 [place] mg/dL 2:34 PM [facility] AST 37 8 - 43 U/L 07/03/2021 [place] 2:34 PM [facility] Alkaline 84 38 - 128 07/03/2021 [place] Phosphatase U/L 2:34 PM [facility] ALT (SGPT) 46 (H) 0 - 34 U/L 07/03/2021 [place] 2:34 PM [facility] Sodium 140 135 - 145 07/03/2021 [facility] mEq/L 2:34 PM [facility] Potassium 4.2 3.5 - 5.1 07/03/2021 [place] mEq/L 2:34 PM [facility] Chloride 105 98 - 107 07/03/2021 [place] mEq/L 2:34 PM [facility] CO2 24 22 - 29 07/03/2021 [place] mmol/L 2:34 PM [facility] BUN 17 5 - 25 07/03/2021 [place] mg/dL 2:34 PM [facility] Creatinine 0.7 0.4 - 1.2 07/03/2021 [place] mg/dL 2:34 PM [facility] Glucose 99 70 - 100 07/03/2021 [place] mg/dL 2:34 PM [facility] Calcium, Total,S 10.0 8.4 - 10.2 07/03/2021 [place] mg/dL 2:34 PM [facility] Fasting? Yes 07/02/2021 [place] 12:34 PM [facility] Specimen Anatomical Collection Method Collection Time Receive d Time (Source) Location / / Volume Laterality Blood (Blood, 07/02/2021 12:29 07/03/2021 1:06 Venous) PM CDT PM CDT Archie Colindres MD LAB BLOOD ORDERABLES Performing Organization Address City/State/ZIP Code Phon e Number [facility] [address] [place] [address] (ABNORMAL) Hemoglobin A1c (07/02/2021 12:29 PM CDT) Analysis Performed At Patho logist Time Signature Hemoglobin A1C 5.9 (H) 4.0 - 5.6 07/03/2021 [place] % A1C 2:49 PM [facility] Comment: Reference Range 4.0-5.6% is for non-preg nant adults >=18 yrs <5.6% ? Non-Diabetic 5.7-6.4% ??Increased risk of Diabetes >=6.5% ?Indicative of Diabetes <7.0% ? ADA goal for glycemic contro l Methodology may not detect all hemoglobi n variants which can affect A1c results. Method certified by National Glycohemoglobin Standardization Program. Specimen Anatomical Collection Method Collection Time Receive d Time (Source) Location / / Volume Laterality Blood (Blood, 07/02/2021 12:29 07/03/2021 1:06 Venous) PM CDT PM CDT Archie Colindres MD LAB BLOOD ORDERABLES Performing Organization Address City/State/ZIP Code Phon e Number [facility] [address] [place] [phone] documented in this encounter Visit Diagnoses Diagnosis Elevated fasting glucose Impaired fasting glucose Serum calcium elevated Hypercalcemia Annual physical exam Routine general medical examination at a health care facility documented in this encounter Care Teams Contact Center Professional Relationship Specialty Start Date End Date Archie Colindres MD PCP - General Family Medicine 07/02/21 05/22/[address] [place] [phone] documented as of this encounter
--- OUTSIDE RECORDS SUMMARY | 2022-07-22 14:00 | XMS_ITS | Encounter Summary ---
:1950 Author Organization [facility] Address [address] [place] [address] Care Team Providers Name Role Phone Archie Colindres MD Primary Care Provider Reason for Visit Reason Onset Date Comments Return call 07/02/2021 Encounter Details Date Type Department Care Team Description 07/02/2021 Telephone [place] Archie Colindres MD Return call [address] [place], [place] [address] [place], [place] [phone] (Wo rk) Social History Tobacco Use Types [...] More than 4 times per year 12/13/2019 oriental orthodox services? Do you belong to any clubs [...] this encounter Miscellaneous Notes Telephone Encounter - Ling Reyes RN - 07/02/2021 2:17 PM CDT Patient informed. Telephone Encounter - Dagmar [place] LPN - 07/02/2021 1:15 PM CDT Nuria is calling making sure that trazodone is what was prescribed. Her insurance covers the generic version much better for all her medication. The nurse couldn't answer her question specifically. Telephone Encounter - Sarah Lindsey - 07/02/2021 1:09 PM CDT Patient returning call to Dagmar. documented in this encounter Plan of Treatment Not on filedocumented as of this encounter Visit Diagnoses Not on filedocumented in this encounter Care Teams Manager Nursing Home Relationship Specialty Start Date End Date Archie Colindres MD PCP - General Family Medicine 07/02/21 05/22/[address] [place] [phone] documented as of this encounter
--- OUTSIDE RECORDS SUMMARY | 2022-07-22 14:00 | XMS_ITS | Encounter Summary ---
:1950 Author Organization [facility] Address [address] [place] [address] Care Team Providers Name Role Phone Archie Colindres MD Primary Care Provider Reason for Referral Consultation (Routine) - Closed Specialty Diagnoses / Procedures Referred By Contact Refer red To Contact Diagnoses Osteopenia of multiple sites Archie Colindres MD [place] [address] [place] [phone] [place] [address] Phone: Fax: Referral ID Status Reason Start Date Expiration Date Visits Requ ested Visits Authorized [id number] Closed 07/02/2021 07/02/2022 1 1 Consultation (Routine) - Closed Specialty Diagnoses / Procedures Referred By Contact Refer red To Contact Radiology Diagnoses Encounter for screening mammogram for malignant neoplasm of breast Archie Colindres MD [facility] [address] [place] [phone] [place] [address] Phone: Fax: Referral ID Status Reason Start Date Expiration Date Visits Requ ested Visits Authorized [id number] Closed 07/02/2021 07/02/2022 1 1 Reason for Visit Reason Comments Annual Exam Encounter Details Date Type Department Care Team Description 07/02/2021 Office Visit Archie Parra, Annual physical exam (Primar y Dx); [address] Insomnia, unspecified type; CESAR [place] [address] [place] Osteopenia of multiple sites; [address] [address] CESAR Encounter for screening mamm ogram for malignant neoplasm of breast; [phone] Elevated fasting glucose; [phone] Serum calcium e levated; (Work) Cough Social History Tobacco Use Types Packs/Day Years [...] More than 4 times per year 12/13/2019 congregational services? Do you belong to any clubs [...] Time Taken Comments Blood Pressure 138/74 07/02/2021 11:10 AM CDT Pulse 100 07/02/2021 11:10 AM CDT Temperature 36.2 ??C (97.1 ??F) 07/02/2021 11:10 AM CDT Respiratory Rate 16 07/02/2021 11:10 AM CDT Oxygen Saturation 95% 07/02/2021 11:10 AM CDT Inhaled Oxygen Concentration - - Weight 58.5 kg (129 lb) 07/02/2021 11:10 AM CDT Height 165.1 cm (5' 5) 07/02/2021 11:10 AM CDT Body Mass Index 21.47 07/02/2021 11:10 AM CDT documented in this encounter Patient Instructions Patient InstructionsCharjhony Colindres MD - 07/02/2021 11:00 AM CDT Let me know if would like referral to Cardiology in [place]. documented in this encounter Progress Notes Archie Colindres MD - 07/02/2021 11:00 AM CDT Subjective Patient ID: Nuria Simmons is a 71 y.o. female. Chief Complaint Patient presents with ??? Annual Exam HPI Patient here for annual wellness exam. No new updates to her health over the past year. Patient works at the [employer] here in [place]. She gets a good amount of activity during the day at work, tracks her steps, but no dedicated exercise. She eats a healthy diet rich in fresh vegetables and low in red meats. She does not drink alcohol or smoke. Checks BP at home regularly, it is usually 120s/70s. Takes calcium and vitamin D. She has osteopenia of the hip and lumbar spine I reviewed her last DEXA. Last DEXA >2 years ago. Due for breast cancer screening. Last mammogram December 2019 was negative.Due for colon cancer screening and declines at this time. Declines shingles vaccine. Declines Covid vaccine. Open to PPSV23. Her mother had thyroid disease and patient requesting rechecking thyroid labs today. She has a little cough and thinks it is due to allergies. The cough is worse at night when she firstlies down for bed. She takes trazodone 150 mg at night to help fall asleep. Sometimes wakes up in the middle of the night and takes 1 benadryl which helps her fall asleep. Awakening at night sometimes due to feeling too warm or due to chronic back pain. She has a history of scoliosis and right-sided low back pain that comes and goes and improves with chiropractor adjustments every 5 weeks. She was hospitalized in 2017 for gastroenteritis, pneumonitis and A. fib with RVR. Chest x-ray at that time showed stable cardiomegaly. She had an echo at that time, I cannot see the radiology report impression however she did have a normal ejection fraction 63%. She did not have any consultation withcardiology or Holter monitoring. She was on metoprolol for some time but stopped taking that. She had a [id number] of 2 at that time and was put on Lovenox when she was in the hospital. She was on aspirin for a period of time but had episodes of vaginal bleeding (that was worked up and deemed to be due to vaginal atrophy) so she stopped the aspirin and garlic supplement. She denies any palpitations, chest pain, orthopnea or shortness of breath. She takes many supplements which were reviewed. The following portions of the patient's chart were reviewed in this encounter and updated as appropriate: Tobacco Allergies Meds Problems Med Hx Surg Hx Fam Hx ROS A complete 10-point ROS was done and all systems negative except for what is documented in the HPI. Objective Visit Vitals BP 138/74 (BP Location: Left arm, Patient Position: Sitting, BP Cuff Size: Adult) Pulse 100 Temp 36.2 ??C (97.1 ??F) (Temporal) Resp 16 Ht 1.651 m (5' 5) Wt 58.5 kg (129 lb) SpO2 95% BMI 21.47 kg/m?? Smoking Status Never Smoker BSA 1.64 m?? Physical Exam Vitals reviewed. Constitutional: General: She is not in acute distress. Appearance: She is well-developed. She is not diaphoretic. HENT: Head: Normocephalic and atraumatic. Right Ear: Tympanic membrane normal. Left Ear: Tympanic membrane normal. Nose: No rhinorrhea. Mouth/Throat: Mouth: Mucous membranes are moist. Pharynx: No oropharyngeal exudate. Eyes: General: No scleral icterus. Conjunctiva/sclera: Conjunctivae normal. Pupils: Pupils are equal, round, and reactive to light. Neck: Thyroid: No thyromegaly. Vascular: No carotid bruit or JVD. Cardiovascular: Rate and Rhythm: Normal rate and regular rhythm. Heart sounds: Normal heart sounds. No murmur heard. No friction rub. No gallop. Pulmonary: Effort: Pulmonary effort is normal. No respiratory distress. Breath sounds: Normal breath sounds. No wheezing or rales. Chest: Chest wall: No tenderness. Abdominal: General: Bowel sounds are normal. There is no distension. Palpations: Abdomen is soft. There is no mass. Tenderness: There is no abdominal tenderness. There is no rebound. Musculoskeletal: General: Normal range of motion. Cervical back: Normal range of motion and neck supple. No tenderness. Thoracic back: No tenderness. Lumbar back: No tenderness. Scoliosis present. Right lower leg: No edema. Left lower leg: No edema. Lymphadenopathy: Cervical: No cervical adenopathy. Skin: General: Skin is warm and dry. Coloration: Skin is not jaundiced. Neurological: General: No focal deficit present. Mental Status: She is alert and oriented to person, place, and time. Deep Tendon Reflexes: Reflexes normal. Psychiatric: Mood and Affect: Mood normal. Behavior: Behavior normal. Assessment/Plan Diagnosis Plan 1. Annual physical exam Lipid panel Thyroid Function [place] 2. Insomnia, unspecified type traZODone (DESYREL) 150 MG tablet 3. Osteopenia of multiple sites Ambulatory External Referral 4. Encounter for screening mammogram for malignant neoplasm of breast Ambulatory External Referral 5. Elevated fasting glucose Hemoglobin A1c 6. Serum calcium elevated Magnesium Comprehensive metabolic panel Vitamin D, Total 7. Cough If cough persisting beyond allergy season, discussed trial of omeprazole or pepcid. Cardiopulmonary exam normal. I am recommending Cardiology consult and repeating her Echo given cardiomegaly and a provoked episode of A. Fib in the context of acute illness in 2017 admission. She may need Holter monitor to make sure she is not going into asymptomatic episodes of A. Fib. Based on age and gender she has a CHADS-VASC of 2, with about 2% stroke risk. HCM: Dexa and Mammo ordered today. Declining Colon cancer screening today. Declining shingles and COVID vaccines. Open to PPSV23 though we did not administer today. She plans on following up with eye doctor for her cataracts, she does not have glaucoma. Patient Instructions Let me know if would like referral to Cardiology in [place]. Return in about 1 year (around 07/02/2022) for Next scheduled follow-up. Note created using voice dictation software. documented in this encounter Plan of Treatment Scheduled Referrals Name Type Priority Associated Order Schedule Diagnoses Ambulatory External Outpatient Referral Routine Encounter for Ordered: Referral screening mammogram 07/02/20 21 for malignant neoplasm of breast Ambulatory External Outpatient Referral Routine Osteopenia of Ordered: Referral multiple sites 07/02/2021 documented as of this encounter Results Vitamin D, Total (07/02/2021 12:29 PM CDT) P athologist Signature Vitamin D, 82.0 ng/mL 07/03/2021 [facility] 2:34 PM CDT [facility] Comment: Deficient [...] Organization Address City/State/ZIP Code Phon e Number [facility] [address] [place] [address] (ABNORMAL) Hemoglobin A1c (07/02/2021 12:29 PM CDT) Analysis Performed At Patho logist Time Signature Hemoglobin A1C 5.9 (H) 4.0 - 5.6 07/03/2021 [place] % A1C 2:49 PM T [facility] Comment: Reference Range 4.0-5.6% is for [...] Organization Address City/State/ZIP Code Phon e Number [facility] [address] [place] [address] (ABNORMAL) Comprehensive metabolic panel (07/02/2021 12:29 PM CDT) [facility] Method Time Signature Total Protein 7.4 6.3 - 8.2 07/03/2021 [place] g/dL 2:34 PM [facility] Albumin, Serum 4.4 3.5 - 5.0 07/03/2021 [place] g/dL 2:34 PM [facility] Total Bilirubin 1.2 (H) 0.1 - 1.0 07/03/2021 [place] mg/dL 2:34 PM [facility] AST 37 8 - 43 U/L 07/03/2021 [place] 2:34 PM [facility] Alkaline 84 38 - 128 07/03/2021 [place] Phosphatase U/L 2:34 PM [facility] ALT (SGPT) 46 (H) 0 - 34 U/L 07/03/2021 [place] 2:34 PM [facility] Sodium 140 135 - 145 07/03/2021 [place] mEq/L 2:34 PM [facility] Potassium 4.2 3.5 - 5.1 07/03/2021 [place] mEq/L 2:34 PM [facility] Chloride 105 98 - 107 07/03/2021 [place] mEq/L 2:34 PM [facility] CO2 24 22 - 29 07/03/2021 [place] mmol/L 2:34 PM [facility] BUN 17 5 - 25 07/03/2021 [place] mg/dL 2:34 PM [facility] Creatinine 0.7 0.4 - 1.2 07/03/2021 [place] mg/dL 2:34 PM [facility] Glucose 99 70 - 100 07/03/2021 [place] mg/dL 2:34 PM [facility] Calcium, Total,S 10.0 8.4 - 10.2 07/03/2021 [place] mg/dL 2:34 PM [facility] Fasting? Yes 07/02/2021 [place] 12:34 PM T [facility] Specimen Anatomical Collection Method Collection Time Receive d Time (Source) Location / / Volume Laterality Blood (Blood, 07/02/2021 12:29 07/03/2021 1:06 Venous) PM CDT PM CDT Archie Colindres MD LAB BLOOD ORDERABLES Performing Organization Address [facility]/ZIP Code Phon e Number [facility] [address] [place] [id number] Magnesium (07/02/2021 12:29 PM CDT) athologist Signature Magnesium 2.2 1.6 - 2.3 07/03/2021 [facility] mg/dL 2:34 PM T [facility] Specimen Anatomical Collection Method Collection Time Receive d Time (Source) Location / / Volume Laterality Blood (Blood, 07/02/2021 12:29 07/03/2021 1:06 Venous) PM CDT PM CDT rAchie Colindres MD LAB BLOOD ORDERABLES Performing Organization Address City/[facility] Code Phon e Number [facility] [address] [place] [address] Thyroid Function [place] (07/02/2021 12:29 PM CDT) athologist Signature TSH, Sensitive 0.90 0.46 - [...] Organization Address City/State/ZIP Code Phon e Number [facility] [address] [place] [address] (ABNORMAL) Lipid panel (07/02/2021 12:29 PM CDT) athologist Signature Cholesterol 206 (H) 0 - 199 07/03/2021 [facility] mg/dL 2:34 PM CDT [facility] Comment: Recommended by National Cholesterol Education Program (ATP III) -------- Cholesterol Ranges -------- <200 ?Desirable 200-239 ? Borderline high >=240 ? High Triglycerides 58 0 - 149 mg/dL 07/03/2021 2:34 PM CDT [facility] Comment: -------- TRIG Ranges -------- <150 ?Normal 150-199 ? Borderline high 200-499 ? High >=500 ? Very high HDL 79 40 - 250 mg/dL 07/03/2021 2:34 PM CDT [facility] Comment: -------- HDL Ranges -------- <40 ?Low 40-59 ?Normal >=60 ? Optimal LDL Calculated 115 (H) 0 - 99 mg/dL 07/03/2021 2:34 PM CDT [facility] Comment: -------- LDL Ranges -------- <100 ? Optimal 100-129 ?Near optimal/above op timal 130-159 ?Borderline high 160-189 ?High >=190 ?Very high Specimen Anatomical Collection Method Collection Time Receive d Time (Source) Location / / Volume Laterality Blood (Blood, 07/02/2021 12:29 07/03/2021 1:06 Venous) PM CDT PM CDT Archie Colindres MD LAB BLOOD ORDERABLES Performing Organization Address City/State/ZIP Code Phon e Number [facility] [address] [place] [address] documented in this encounter Visit Diagnoses Diagnosis Annual physical exam - Primary Routine general medical examination at a health care facility Insomnia, unspecified type Osteopenia of multiple sites Encounter for screening mammogram for ma lignant neoplasm of breast Elevated fasting glucose Impaired fasting glucose Serum calcium elevated Hypercalcemia Cough documented in this encounter Care Teams Electrician Aircraft Relationship Specialty Start Date End Date Archie Colindres MD PCP - General Family Medicine 07/02/21 05/22/[address] [place] [address] documented as of this encounter
--- OUTSIDE RECORDS SUMMARY | 2022-07-22 14:01 | XMS_ITS | Encounter Summary ---
:1950 Author Organization [facility] Address [address] [place] [address] Care Team Providers Name Role Phone Brandie Thompson APRN, SAI Primary Care Provider [phone] Reason for Referral Consultation (Routine) - Closed Specialty Diagnoses / Procedures Referred By Contact Refer red To Contact Diagnoses [place] [address] Phone: Fax: Referral ID Status Reason Start Date Expiration Date Visits Requ ested Visits Authorized [id number] Closed 11/10/2018 11/10/2019 1 1 Scheduling Instructions Please schedule a pelvic ultrasound at [facility]. Thanks, Brandie Thompson CNP N FORMING MACHINE OPERATOR Consultation (Routine) - Closed Specialty Diagnoses / Procedures Referred By Contact Refer red To Contact Diagnoses Brandie Hernandez APRNJoe [place] [id number] Phone: Fax: Referral ID Status Reason Start Date Expiration Date Visits Requ ested Visits Authorized [id number] Closed 11/10/2018 11/10/2019 1 1 Scheduling Instructions Please schedule a pelvic ultrasound at [facility]. Thanks, Brandie Thompson CNP N FORMING MACHINE OPERATOR Consultation (Routine) - Closed Specialty Diagnoses / Procedures Referred By Contact Refer red To Contact Diagnoses Colon cancer screening Brandie Thompson, [facility], COUNSELING CASE MANAGER SYSTEM - [address] [address] [place] [address] Phone: Fax: Referral ID Status Reason Start Date Expiration Date Visits Requ ested Visits Authorized [id number] Closed 11/10/2018 11/10/2019 1 1 Scheduling Instructions Please schedule at [facility]. N FORMING MACHINE OPERATOR Encounter Details Date Type Department Care Team Description 11/10/2018 Orders Only [facility] Brandie Thompson, Colon cancer screening (Prim carola Dx); [address] [place] O[place], [place] [address] [facility] [address] [address] [place] [address] [phone] Social History Tobacco Use Types Packs/Day Years [...] or relatives? How often do you attend spiritism or More than 4 times per year 12/13/2019 scientologist services? Do you belong to any clubs or Not asked organizations such as spiritism groups, unions, fraternal or athletic groups, or [...] documented as of this encounter Progress Notes Brandie Thompson APRN, COUNSELING CASE MANAGER - 11/10/2018 12:52 PM CST The patient is being set up for screening colonoscopy at [facility]. The patient is also being set up for a pelvic ultrasound at [facility]. N FORMING MACHINE OPERATOR Ling Reyes RN - 11/10/2018 12:52 PM CST Please fax both orders to [facility] for scheduling. N FORMING MACHINE OPERATOR Thao Lovell - 11/10/2018 12:52 PM CST Face sheet added and faxed to [facility] [phone] and [facility] at [phone]. N FORMING MACHINE OPERATOR documented in this encounter Plan of Treatment Scheduled Referrals Name Type Priority Associated Order Schedule Diagnoses Ambulatory External Outpatient Referral Routine Colon cancer O rdered: Referral screening 11/10/2018 Ambulatory External Outpatient Referral Routine Bleeding O rdered: Referral 11/10/2018 Ambulatory External Outpatient Referral Routine Bleeding O rdered: Referral 11/10/2018 documented as of this encounter Visit Diagnoses Diagnosis Colon cancer screening - Primary Special screening for malignant neoplasm s, colon Bleeding Unspecified hemorrhage documented in this encounter Care Teams Night Court Magistrate Relationship Specialty Start Date End Date Brandie Thompson APRN, COUNSELING CASE MANAGER PCP - General Family Medicine 07/21/18 06/26/[address] [place] [address] documented as of this encounter
--- OUTSIDE RECORDS SUMMARY | 2022-07-22 14:01 | XMS_ITS | Encounter Summary ---
:1950 Author Organization [facility] Address [address] [place] [address] Care Team Providers Name Role Phone Brandie Thompson ASSEMBLER DECK AND HULL, CFO Primary Care Provider [phone] Encounter Details Date Type Department Care Team Description 11/20/2018 Telephone [place] Brandie Thompson, [address] ASSEMBLER DECK [employer] HULL, CFO [place], [place] [address] [address] [facility] [phone] [place], [place] [address] Social History Tobacco Use [...] or relatives? How often do you attend lutheran or More than 4 times per year 12/13/2019 baptist services? Do you belong to any clubs or Not asked organizations such as lutheran groups, unions, fraternal or athletic groups, or [...] Notes Telephone Encounter - Sarah Lindsey - 11/20/2018 10:43 AM CST Referral faxed and patient informed. LER GUIDE Telephone Encounter - Carla Cooper MA - 11/20/2018 10:23 AM CST Please add face sheet, fax referral to [facility] general surgery and call to make sure they received the fax. Then call patient and let her know this has been done. Patient okay with message being left if she does not apple picker. LER GUIDE documented in this encounter Plan of Treatment Not on filedocumented as of this encounter Visit Diagnoses Not on filedocumented in this encounter Care Teams Vp Product Marketing Relationship Specialty Start Date End Date Brandie Thompson, ASSEMBLER DECK AND HULL, CFO PCP - General Family Medicine 07/21/18 06/26/[address] [place] [address] [place] [address] documented as of this encounter
--- OUTSIDE RECORDS SUMMARY | 2022-07-22 14:01 | XMS_ITS | Encounter Summary ---
:1950 Author Organization [facility] Address [address] [place] [address] Care Team Providers Name Role Phone Brandie Thompson APRN, CNP Primary Care Provider [phone] Reason for Referral Consultation (Routine) - Closed Specialty Diagnoses / Procedures Referred By Contact Refer red To Contact Diagnoses Encounter for screening colonoscopy Brandie Thompson, [facility] [address] [place] [address] [place] [address] Phone: Fax: Referral ID Status Reason Start Date Expiration Date Visits Requ ested Visits Authorized [id number] Closed 11/23/2018 11/23/2019 1 1 FILER Encounter Details Date Type Department Care Team Description 11/23/2018 Orders Only [place] Brandie Thompson, Encounter for [address] SAI OCONNELL screening colonoscopy [place], [place] [address] (Primary Dx) [address] [place] [address] Social History Tobacco Use Types Packs/Day Years [...] More than 4 times per year 12/13/2019 restorationist services? Do you belong to any clubs or Not asked organizations such as rastafari groups, unions, fraternal or athletic groups, or [...] Progress Notes Brandie Thompson APRN, CNP - 11/23/2018 8:53 AM CST ANG form completed for a screening colonoscopy. FILER documented in this encounter Plan of Treatment Scheduled Referrals Name Type Priority Associated Diagnoses Order S chedule Ambulatory External Outpatient Referral Routine Encounter for Ordered: Referral screening 11/23/2018 colonoscopy documented as of this encounter Visit Diagnoses Diagnosis Encounter for screening colonoscopy - Pr imary documented in this encounter Care Teams Director Construction Services Relationship Specialty Start Date End Date Brandie Thompson APRN, LITIGATION LEGAL SECRETARY PCP - General Family Medicine 07/21/18 06/26/20 100 [place] [address] documented as of this encounter
--- OUTSIDE RECORDS SUMMARY | 2022-07-22 14:01 | XMS_ITS | Encounter Summary ---
:1950 Author Organization [facility] Address [address] [place] [address] Care Team Providers Name Role Phone Brandie Thompson APRN, CNP Primary Care Provider [phone] Reason for Referral Consultation (Routine) - Closed Specialty Diagnoses / Procedures Referred By Contact Refer red To Contact Diagnoses Abnormal pelvic ultrasound Brandie Thompson, [facility] [address] [address] [place] [address] Phone: Fax: Referral ID Status Reason Start Date Expiration Date Visits Requ ested Visits Authorized [id number] Closed 11/19/2018 11/19/2019 1 1 T POURER Reason for Visit Reason Onset Date Comments results 11/19/2018 Encounter Details Date Type Department Care Team Description 11/19/2018 Telephone [facility] Brandie Thompson, results [address] SA[place], [place] [address] [facility] [address] [phone] [place], [place] [address] Social History Tobacco Use [...] or relatives? How often do you attend mormonism or More than 4 times per year 12/13/2019 shinto services? Do you belong to any clubs or Not asked organizations such as mormonism groups, unions, fraternal or athletic groups, or [...] Encounter - Brandie Thompson APRN, SAI - 11/19/2018 4:38 PM PAINT POURER Discussed the ultrasound report with the patient. There is some fluid in the endometrial space therefore we will refer her to RETAIL ACCOUNT REPRESENTATIVE. The patient prefers [facility] and the referral order has been completed. T POURER Telephone Encounter - Ling Reyes RN - 11/19/2018 11:11 AM CST Patient has a pelvic ultrasound on Friday. The results are on your desk. Patient's would like to get these results. I do not see an MICHELLE for him. Please review results and call the patient. T POURER Telephone Encounter - Yumiko Herrera - 11/19/2018 10:52 AM CST Pt's called requesting to speak with Bryce Thompson. Please call him at [phone]. T POURER documented in this encounter Plan of Treatment Scheduled Referrals Name Type Priority Associated Order Schedule Diagnoses Ambulatory External Outpatient Referral Routine Abnormal pelvi c Ordered: Referral ultrasound 11/19/2018 documented as of this encounter Visit Diagnoses Diagnosis Abnormal pelvic ultrasound - Primary documented in this encounter Care Teams Strip Polisher Relationship Specialty Start Date End Date Brandie Thompson APRN, AMBULETTE DRIVER PCP - General Family Medicine 07/21/18 06/26/[address] [place] [address] documented as of this encounter
--- OUTSIDE RECORDS SUMMARY | 2022-07-22 14:01 | XMS_ITS | Encounter Summary ---
:1950 Author Organization [facility] Address [address] [place] [address] Care Team Providers Name Role Phone Brandie Thompson APRN, FACILITY SUPERVISOR Primary Care Provider [phone] Encounter Details Date Type Department Care Team Description 08/03/2018 Lab Patricia Malloy Osteopenia after menopause; [address] Palpitations; [place], [place] [address] Fatigue, unspecified type; [phone] Screening, lipi d Social History Tobacco Use Types Packs/Day Years [...] or relatives? How often do you attend judaism or More than 4 times per year 12/13/2019 temple services? Do you belong to any clubs or Not asked organizations such as judaism groups, unions, fraternal or athletic groups, or [...] encounter Procedures Procedure Name Priority Date/Time Associated Diagnosis Comme nts THYROID FUNCTION Routine 08/03/2018 2:42 PM Resul ts for this CASCADE CDT procedure are i n the results section. VITAMIN D, TOTAL Routine 08/03/2018 2:42 PM Osteopenia after R esults for this CDT menopause procedure are i n the results section. CBC BRANCH OFFICE Routine 08/03/2018 2:42 PM Fatigue, unspecif ied Results for this W/DIFF CDT type procedure are i n the results section. T4, FREE Routine 08/03/2018 2:42 PM Results f or this CDT procedure are i n the results section. LIPID PANEL Routine 08/03/2018 2:42 PM Screening, lipid Resul ts for this CDT procedure are i n the results section. documented in this encounter Results T4, free (08/03/2018 2:42 PM CDT) athologist Signature Free T4 1.22 0.78 - 2.19 08/04/2018 [facility] ng/dL 3:29 PM CDT [facility] Comment: The results from this or any other diagn ostic test should be used and interpreted only in the context of the overall clinical picture. Heterophilic antibodies in serum or plas ma [...] Time (Source) Location / / Volume Laterality 08/03/2018 2:42 PM 8 CDT 12:59 PM CDT Brandie Thompson APRN, FACILITY SUPERVISOR LAB BLOOD ORDERABLES Performing Organization Address City/State/ZIP Code Phon e Number [facility] [address] [place] [id number] (ABNORMAL) Thyroid Function [place] (08/03/2018 2:42 PM CDT) Analysis Performed At Patho logist Time Signature TSH, Sensitive 0.41 (L) 0.46 - 08/04/2018 [place] 4.68 mIU/L 2:51 PM CDT [facility] Comment: The results from this [...] Time (Source) Location / / Volume Laterality 08/03/2018 2:42 PM 8 CDT 12:59 PM CDT Brandie Thompson APRN, SAI LAB BLOOD ORDERABLES Performing Organization Address City/State/ZIP Code Phon e Number [facility] [address] [place] [address] (ABNORMAL) Lipid panel (08/03/2018 2:42 PM CDT) athologist Signature Cholesterol 214 (A) 0 - 199 08/04/2018 [facility] mg/dL 1:17 PM [facility] Comment: Recommended by National Cholesterol Education Program (ATP III) -------- Cholesterol Ranges -------- <200 ? Desirable 200-239 ? Borderline high >=240 ? High Triglycerides 48 0 - 149 mg/dL 08/04/2018 1:17 PM CDT [facility] Comment: -------- TRIG Ranges -------- <150 ?Normal 150-199 ? Borderline high 200-499 ? High >=500 ? Very high HDL 82 40 - 60 mg/dL 08/04/2018 1:17 PM CDT [facility] Comment: -------- HDL Ranges -------- <40 ?Low 40-59 ?Normal >=60 ? Optimal LDL Calculated 122 (A) 0 - 99 mg/dL 08/04/2018 1:17 PM CDT [facility] Comment: -------- LDL Ranges -------- <100 ? Optimal 100-129 ?Near optimal/above op timal 130-159 ?Borderline high 160-189 ?High >=190 ?Very high Fasting? Yes 08/03/2018 2:47 PM CDT [facility] Specimen Anatomical Collection Method Collection Time Receive d Time (Source) Location / / Volume Laterality Blood (Blood, 08/03/2018 2:42 PM 08/04/20 18 Venous) CDT 12:46 PM CDT Brandie Thompson APRN FACILITY SUPERVISOR LAB BLOOD ORDERABLES Performing Organization Address City/State/ZIP Code Phon e Number [facility] [address] [place] [address] (ABNORMAL) CBC Branch Off w/Diff (08/03/2018 2:42 PM CDT) [facility] gist Method Time Signature WBC 6.5 3.5 - 10.5 08/03/2018 [facility] K/uL 2:51 PM CDT [place] RBC 4.83 3.90 - 08/03/2018 [facility] 5.00 M/uL 2:51 PM CDT [place] Hemoglobin 14.3 12.0 - 08/03/2018 [facility] 15.5 g/dL 2:51 PM CDT [place] Hematocrit 43.6 35.0 - 08/03/2018 [facility] 44.0 % 2:51 PM CDT [place] Platelets 235 150 - 450 08/03/2018 [facility] K/uL 2:51 PM CDT [place] MCV 90.3 81.6 - 08/03/2018 [facility] 98.3 fL 2:51 PM [facility]T [place] MCH 29.6 26.0 - 08/03/2018 [facility] 32.0 pg 2:51 PM CDT [place] MCHC 32.8 32.0 - 08/03/2018 [facility] 36.0 g/dL 2:51 PM [facility]T [place] RDW 12.7 11.9 - 08/03/2018 [facility] 15.5 % 2:51 PM CDT [place] Lymphocytes % 18.8 18.0 - 08/03/2018 [facility] 45.0 % 2:51 PM CDT [place] Mid-size Cells 7.2 3.3 - 10.1 08/03/2018 [facility] % 2:51 PM CDT [place] Granulocytes/Brown 74.0 (H) 45.8 - 08/03/2018 [facility] trophils 73.7 % 2:51 PM CDT [place] Lymphocytes 1.2 0.9 - 2.9 08/03/2018 [facility] Absolute K/uL 2:51 PM CDT [place] MIDS Absolute 0.5 0.2 - 0.8 08/03/2018 [facility] K/uL 2:51 PM CDT [place] Granulocytes/Brown 4.8 2.1 - 8.7 08/03/2018 [facility] trophils K/uL 2:51 PM CDT [place] Absolute Specimen Anatomical Collection Method Collection Time Receive d Time (Source) Location / / Volume Laterality Blood (Blood, 08/03/2018 2:42 PM 08/03/20 18 2:42 Venous) CDT PM CDT Brandie Thompson APRN, FACILITY SUPERVISOR LAB BLOOD ORDERABLES Performing Organization Address City/State/ZIP Code Phon e Number [facility] [place] [address] [place] [address] Vitamin D, Total (08/03/2018 2:42 PM CDT) athologist Signature Vitamin D, 71.3 ng/mL 08/04/2018 [facility] Total 2:18 PM CDT [facility] Comment: ---- Deficient ?<20 ? ng/mL Insufficient ? 20-<30 ??ng/mL Sufficient ? 30-100 ??ng/mL Vitamin D2/D3 fractionation is recommend ed at the discretion of the clinician if Total Vitamin D is w ithin deficient or insufficient range. Specimen Anatomical Collection Method Collection Time Receive d Time (Source) Location / / Volume Laterality Blood (Blood, 08/03/2018 2:42 PM 08/04/20 18 Venous) CDT 12:59 PM CDT Brandie Thompson APRN, CNP LAB BLOOD ORDERABLES Performing Organization Address City/State/ZIP Code Phon e Number [facility] [address] [place] [address] documented in this encounter Visit Diagnoses Diagnosis Osteopenia after menopause Palpitations Fatigue, unspecified type Screening, lipid documented in this encounter Care Teams Engine Repairer Production Relationship Specialty Start Date End Date Brandie Thompson APRN, SAI PCP - General Family Medicine 07/21/18 06/26/[address] [place] [id number] documented as of this encounter
--- OUTSIDE RECORDS SUMMARY | 2022-07-22 14:01 | XMS_ITS | Encounter Summary ---
:1950 Author Organization [facility] Address [address] [place] [address] Care Team Providers Name Role Phone Brandie Thompson APRN, SHIPYARD SUPERVISOR Primary Care Provider [phone] Reason for Visit Reason Comments Blood in Urine Rectal Bleeding Encounter Details Date Type Department Care Team Description 11/09/2018 Office Visit Patricia Malloy Brandie Thompson Bleeding from unknown site ( Primary Dx); [address] M, SAI OCONNELL External hemorrhoid; [place], [place] [address] Screening for deficiency anemia; [address] [place] [address] Nocturia; [phone] Vaginal atrophy Social History Tobacco Use Types Packs/Day Years [...] or relatives? How often do you attend bahai or More than 4 times per year 12/13/2019 adventism services? Do you belong to any clubs or Not asked organizations such as bahai groups, unions, fraternal or athletic groups, or [...] Sign Reading Time Taken Comments Blood Pressure 142/70 11/09/2018 1:52 PM ASPARAGUS CUTTER Pulse 66 11/09/2018 1:52 PM ASPARAGUS CUTTER Temperature 36.5 ??C (97.7 ??F) 11/09/2018 1:52 PM ASPARAGUS CUTTER Respiratory Rate 16 11/09/2018 1:52 PM ASPARAGUS CUTTER Oxygen Saturation 97% 11/09/2018 1:52 PM ASPARAGUS CUTTER Inhaled Oxygen Concentration - - Weight 60 kg (132 lb 4.4 oz) 11/09/2018 1:52 PM ASPARAGUS CUTTER Height 163 cm (5' 4.17) 11/09/2018 1:52 PM ASPARAGUS CUTTER Body Mass Index 22.58 11/09/2018 1:52 PM ASPARAGUS CUTTER documented in this encounter Patient Instructions Patient InstructionsChhoma Thompson APRN, CNP - 11/09/2018 2:00 PM ASPARAGUS CUTTER Will call with the lab results RAGUS CUTTER documented in this encounter Progress Notes Brandie Thompson APRN, CNP - 11/09/2018 2:00 PM CST Estab Patient Visit Subjective Patient ID: Nuria Simmons is a 68 y.o. female presenting for the following concerns. Chief Complaint Patient presents with ??? Blood in Urine ??? Rectal Bleeding HPI: The patient is a pleasant 68-year-old female presenting ambulatory to the clinical setting today to discuss intermittent dried blood, she has noticed on her panty liners, more towards for the front of the liner, for the past 2 months, which is not worsening or improving. The patient is uncertain of the frequency, nor the source of the bleeding; uncertain if it is from her rectum, urethra, or vaginal area. The patient does have external hemorrhoids, which she developed after she was on an antibiotic about a year ago, and occasionally will have bright red blood on her toilet tissue after having a bowel movement, which is a small amount and infrequent. The patient denies any urinary tract infection symptoms, no urinary frequency, urgency, increased urinary incontinence, and/or dysuria. The patient has not noticed any visible blood, or blood clots in her urine. The patient does have nocturia, which has not changed in nature. No abdominal pain. The patient has chronic low back pain and sees a chiropractor regularly. The patient's last menstrual period was in her 50s, and she does have her uterus and ovaries. No vaginal bleeding that she is aware of since her last menstrual period. She is sexually active and denies pain nor bleeding with intercourse. No fever, no chills, no night sweats. The patient has gained weight, as she works at the [email or web address] now. The patient has not had colon cancer screening.She reports she proceeded with a colonoscopy, and due to poor prep they were not able to continue and she has never completed a colonoscopy. The patient had consider Cologuard testing, but did not pursue, as she feels her hemorrhoids will lead to positive results. No nausea, vomiting, diarrhea, heartburn, loss of appetite, abdominal pain, hematemesis, constipation, and/or melena. The patient had beenon a small dose of aspirin, which she stopped a month ago, because she is also on garlic, which has not changed the frequency of the dried blood in her panty liners. The patient is concerned as both ofher parents had bladder cancer, her mother in her 70s, and her father in her 80s. The patient is a non-smoker. ROS: GENERAL: No fever, chills, sweats, change in appetite and/or fatigue. The patient has gained weight. GASTROINTESTINAL: See HPI. The patient has external hemorrhoids and will occasionally have bright red bleeding when wiping after bowel movements. GENITOURINARY: The patient denies any urinary tract infection symptoms, no urinary frequency, urgency, increased urinary incontinence, and/or dysuria. CLOSING MACHINE OPERATOR: 2, para 2. The patient's last menstrual period was in her 50s, with no vaginal bleedingthat she is aware of since. The following portions of the patient's chart were reviewed in this encounter and updated as appropriate: Tobacco Allergies Meds Problems Med Hx Surg Hx Fam Hx Soc Hx Objective Visit Vitals BP 142/70 (BP Location: Right arm, Patient Position: Sitting) Pulse 66 Temp 36.5 ??C (97.7 ??F) (Temporal) Resp 16 Ht 1.63 m (5' 4.17) Wt 60 kg (132 lb 4.4 oz) SpO2 97% BMI 22.58 kg/m?? Smoking Status Never Smoker BSA 1.65 m?? GENERAL: The patient is alert, orientated and in no apparent distress. INTEGUMENTARY: Skin is warm and dry. GASTROENTEROLOGY: Abdomen is soft, no organomegaly, positive bowel sounds. External hemorrhoids at both 6 and 12:00, which are not bleeding. GENITOURINARY: Normal appearing urethra, without irritation, nor bleeding. GYNECOLOGIC: External genitalia has no lesions, discharge. Internal genitalia, vaginal escudero are atrophic, no evidence of bleeding no lesions. The cervix is pink. No lesions. Bimanual - no pain on moving cervix. Uterus midline, no enlargement, masses or tenderness. Adnexa, ovaries not enlarged, no tenderness. DIAGNOSTICS: Urinalysis, urine culture, CBC with differential, and BMP. Lab Results Component Value Date WBC 6.7 11/09/2018 HGB 13.9 11/09/2018 HCT 42.7 11/09/2018 MCV 91.2 11/09/2018 PLT 220 11/09/2018 Lab Results Component Value Date GLUCOSE 99 11/09/2018 CALCIUM 10.3 (H) 11/09/2018 NA 142 11/09/2018 K 4.1 11/09/2018 CO2 30 (H) 11/09/2018 CL 106 11/09/2018 BUN 16 11/09/2018 CREATININE 0.5 11/09/2018 Urinalysis: Color yellow, clarity clear, negative glucose, blood, ketone, nitrate, and/leukocytes. Assessment/Plan Encounter Diagnoses Name Primary? Bleeding from unknown site Yes ??? External hemorrhoid ??? Screening for deficiency anemia ??? Nocturia ??? Vaginal atrophy Discussed the plan of care with the patient. The source of her bleeding is indeterminate; however, the urine is clear. Recommend a screening colonoscopy and pelvic ultrasound to evaluate her symptoms further, which will discuss in detail when her microscopic urine and culture results are available. The patient should continue to monitor her symptoms. The patient agrees and understands Brandie Thompson APRN, SAI RAGUS CUTTER documented in this encounter Plan of Treatment Not on filedocumented as of this encounter Results Urine culture (clean catch) (11/09/2018 2:46 PM ASPARAGUS CUTTER) [facility] Method Time Signature Urine Culture No Growth 11/10/2018 [place] 12:32 PM [facility] Specimen Anatomical Collection Method Collection Time Receive d Time (Source) Location / / Volume Laterality Urine, Clean 11/09/2018 2:46 PM 9 Catch ASPARAGUS CUTTER 12:30 PM ASPARAGUS CUTTER Narrative [facility] - 10/21 12:33 PM ASPARAGUS CUTTER Patient does not have an Amoxicillin or PCN allergy Brandie Thompson APRN, SHIPYARD SUPERVISOR LAB MICROBIOLOGY - GENERA L ORDERABLES Performing Organization Address City/State/ZIP Code Phon e Number [facility] [address] [place] [phone] Urinalysis with reflex microscopic (clean catch) (11/09/2018 2:46 PM ASPARAGUS CUTTER) [facility] Method Time Signature Type CLEAN CATCH 11/09/2018 [facility] 2:57 PM [facility] [place] Color, Urine YELLOW YELLOW 11/09/2018 [facility] 2:57 PM [facility] [place] Clarity, CLEAR CLEAR 11/09/2018 [facility] Urine 2:57 PM [facility] [place] Glucose, NEGATIVE NEGATIVE 11/09/2018 [facility] Urine mg/dL 2:57 PM [facility] [place] Bilirubin, NEGATIVE NEGATIVE 11/09/2018 [facility] Urine 2:57 PM [facility] [place] Ketones, NEGATIVE NEGATIVE 11/09/2018 [facility] Urine mg/dL 2:57 PM [facility] [place] Specific 1.025 1.000 11/09/2018 [facility] [place], ->=1.030 2:57 PM [facility] C[facility] [place] Urine Blood, Urine NEGATIVE NEGATIVE 11/09/2018 [facility] 2:57 PM [facility] C[facility] [place] pH, Urine 7.0 5.0 - 7.0 11/09/2018 [facility] 2:57 PM [facility] [place] Protein, NEGATIVE NEGATIVE-TRA 11/09/2018 [facility] Urine CE mg/dL 2:57 PM [facility] C[facility] [place] Urobilinogen, 0.2 0.2 - 1.0 11/09/2018 [facility] Urine E.U./dL 2:57 PM [facility] [place] Nitrite, NEGATIVE NEGATIVE 11/09/2018 [facility] Urine 2:57 PM [facility] [place] Leukocytes, NEGATIVE NEGATIVE 11/09/2018 [facility] Urine 2:57 PM [facility] C[facility] [place] Specimen Anatomical Collection Method Collection Time Receive d Time (Source) Location / / Volume Laterality Urine (Urine, 11/09/2018 2:46 PM 11/09/19 19 2:49 Clean Catch) ASPARAGUS CUTTER PM ASPARAGUS CUTTER Brandie Thompson APRN, SHIPYARD SUPERVISOR LAB URINE ORDERABLES Performing Organization Address City/State/ZIP Code Phon e Number [facility] [place] [address] [place] [address] (ABNORMAL) Basic metabolic panel (11/09/2018 2:35 PM ASPARAGUS CUTTER) P athologist Signature Sodium 142 135 - 145 11/09/2018 [facility] mmol/L 2:57 PM [facility] [place] Potassium 4.1 3.5 - 5.1 11/09/2018 [facility] mmol/L 2:57 PM [facility] C[facility] [place] Comment: . Chloride 106 98 - 107 mmol/L 11/09/2018 2:57 PM [facility] C[facility] [place] Comment: . CO2 30 (H) 22 - 29 mmol/L 11/09/2018 2:57 PM ASPARAGUS CUTTER [facility] [place] Comment: . Creatinine 0.5 0.4 - 1.2 mg/dL 11/09/2018 2:57 PM [facility]ARAGUS CUTTER [facility] [place] Comment: . BUN 16 5 - 25 mg/dL 11/09/2018 2:57 PM ASPARAGUS CUTTER [facility] [place] Comment: . Glucose 99 70 - 100 mg/dL 11/09/2018 2:57 PM [facility] [place] ASPARAGUS CUTTER Calcium, Total,S 10.3 (H) 8.4 - 10.2 mg/dL 11/09/2018 2:57 PM [facility] ASPARAGUS CUTTER Comment: . Fasting? No 11/09/2018 2:40 PM ASPARAGUS CUTTER [facility] [place] Specimen Anatomical Collection Method Collection Time Receive d Time (Source) Location / / Volume Laterality Blood (Blood, 11/09/2018 2:35 PM 11/09/19 19 2:40 Venous) ASPARAGUS CUTTER PM [facility]ARAGUS CUTTER Brandie Thompson APRN, SHIPYARD SUPERVISOR LAB BLOOD ORDERABLES Performing Organization Address City/State/ZIP Code Phon e Number [facility] [place] [address] [place] [id number] CBC Branch Off w/Diff (11/09/2018 2:35 PM ASPARAGUS CUTTER) P athologist Signature WBC 6.7 3.5 - 10.5 11/09/2018 [facility] K/uL 2:50 PM [facility] C[facility] [place] RBC 4.68 3.90 - 11/09/2018 [facility] 5.00 M/uL 2:50 PM [facility] C[facility] [place] Hemoglobin 13.9 12.0 - 11/09/2018 [facility] [place] 15.5 g/dL 2:50 PM [facility]ARAG[facility] C[facility] [place] Hematocrit 42.7 35.0 - 11/09/2018 [facility] [place] 44.0 % 2:50 PM [facility]AG[facility] C[facility] [place] Platelets 220 150 - 450 11/09/2018 [facility] [place] K/uL 2:50 PM ASPARAGUS CUTTER [place] MCV 91.2 81.6 - 11/09/2018 [facility] [place] 98.3 fL 2:50 PM ASPARAGUS CUTTER [place] MCH 29.7 26.0 - 11/09/2018 [facility] [place] 32.0 pg 2:50 PM ASPARAGUS CUTTER [place] MCHC 32.6 32.0 - 11/09/2018 [facility] [place] 36.0 g/dL 2:50 PM ASPARAG[facility] C[facility] [place] RDW 13.1 11.9 - 11/09/2018 [facility] [place] 15.5 % 2:50 PM ASPARAGUS CUTTER [place] Lymphocytes % 25.2 18.0 - 11/09/2018 [facility] [place] 45.0 % 2:50 PM ASPARAGUS CUTTER [place] Mid-size Cells 8.2 3.3 - 10.1 11/09/2018 [facility] [place] % 2:50 PM ASPARAGUS CUTTER [place] Granulocytes/Brown 66.6 45.8 - 11/09/2018 [facility] [place] trophils 73.7 % 2:50 PM ASPARAGUS CUTTER [place] Lymphocytes 1.7 0.9 - 2.9 11/09/2018 [facility] [place] Absolute K/uL 2:50 PM ASPARAGUS CUTTER [place] MIDS Absolute 0.5 0.2 - 0.8 11/09/2018 [facility] [place] K/uL 2:50 PM ASPARAG[facility] CUT[facility] [place] Granulocytes/Brown 4.5 2.1 - 8.7 11/09/2018 [facility] [place] trophils K/uL 2:50 PM ASPARAGUS CUTTER [place] Absolute Specimen Anatomical Collection Method Collection Time Receive d Time (Source) Location / / Volume Laterality Blood (Blood, 11/09/2018 2:35 PM 11/09/19 19 2:40 Venous) ASPARAGUS CUTTER PM [facility] C[facility] Brandie Thompson APRN, SHIPYARD SUPERVISOR LAB BLOOD ORDERABLES Performing Organization Address City/State/ZIP Code Phon e Number [facility] [place] [address] [place] [address] documented in this encounter Visit Diagnoses Diagnosis Bleeding from unknown site - Primary External hemorrhoid External hemorrhoids without mention of complication Screening for deficiency anemia Screening for other and unspecified defi ciency anemia Nocturia Vaginal atrophy Postmenopausal atrophic vaginitis Screening for diabetes mellitus External hemorrhoid External hemorrhoids without mention of complication Bright red rectal bleeding Hemorrhage of rectum and anus Nocturia documented in this encounter Care Teams Athletic Gear Custodian Relationship Specialty Start Date End Date Brandie Thompson, OVERLOCK ELASTIC ATTACHER, SHIPYARD SUPERVISOR PCP - General Family Medicine 07/21/18 06/26/20 [address] [facility] [address] documented as of this encounter
--- OUTSIDE RECORDS SUMMARY | 2022-07-22 14:01 | XMS_ITS | Encounter Summary ---
:1950 Author Organization [facility] Address [address] [place] [address] Care Team Providers Name Role Phone Brandie Thompson SERVICE COUNTER CASHIER, BEAN ROASTER Primary Care Provider [phone] Encounter Details Date Type Department Care Team Description 11/10/2018 Telephone [place] Brandie Thompson, [address] SERVICE COUNTER CASHIER, BEAN ROASTER [place], [place] [address] [address] [facility] [phone] [place], [place] [address] Social History Tobacco Use [...] or relatives? How often do you attend anabaptist or More than 4 times per year 12/13/2019 sabianist services? Do you belong to any clubs or Not asked organizations such as anabaptist groups, unions, fraternal or athletic groups, or [...] Notes Telephone Encounter - Sarah Lindsey - 11/10/2018 3:37 PM CST Faxed. NCIAL ASSISTANCE ADVISOR Telephone Encounter - Carla Cooper MA - 11/10/2018 3:19 PM CST Please fax to [facility] radiology NCIAL ASSISTANCE ADVISOR Telephone Encounter - Brandie Thompson APRN, CNP - 11/10/2018 3:09 PM FINANCIAL ASSISTANCE ADVISOR Done. NCIAL ASSISTANCE ADVISOR Telephone Encounter - Carla Cooper MA - 11/10/2018 2:49 PM CST Spoke with [place] [facility]. Please redo the ANG for the Pelvic ultra sound. They are needing the order for a pelvic ultrasound to be listed on there. The scheduling instructions did not print out on thereferral. NCIAL ASSISTANCE ADVISOR documented in this encounter Plan of Treatment Not on filedocumented as of this encounter Visit Diagnoses Not on filedocumented in this encounter Care Teams Surgical Endoscopist Relationship Specialty Start Date End Date Brandie Thompson APRN, BEAN ROASTER PCP - General Family Medicine 07/21/18 06/26/[address] [place] [address] [place] [id number] documented as of this encounter
--- OUTSIDE RECORDS SUMMARY | 2022-07-22 14:01 | XMS_ITS | Encounter Summary ---
:1950 Author Organization [facility] Address [address] [place] [address] Care Team Providers Name Role Phone Brandie Thompson HARNESS WORKER, SOFTWARE INTERN Primary Care Provider [phone] Reason for Visit Reason Comments Annual Exam Encounter Details Date Type Department Care Team Description 08/03/2018 Office Visit [facility] [place] Brandie Thompson Annual physical exam (Primar y Dx); [address], [place], [place] Fatigue, unspecified type; [place], [place] [address] Palpitations; [address] [place] [address] Osteopenia after menopause; [phone] Screenin g, lipid; Primary insomni a Social History Tobacco Use Types Packs/Day Years [...] or relatives? How often do you attend gnosticism or More than 4 times per year 12/13/2019 sikh services? Do you belong to any clubs or Not asked organizations such as gnosticism groups, unions, fraternal or athletic groups, or [...] Sign Reading Time Taken Comments Blood Pressure 148/66 08/03/2018 1:20 PM CDT Pulse 94 08/03/2018 1:20 PM CDT Temperature 35.9 ??C (96.6 ??F) 08/03/2018 1:20 PM CDT Respiratory Rate 12 08/03/2018 1:20 PM CDT Oxygen Saturation 95% 08/03/2018 1:20 PM CDT Inhaled Oxygen Concentration - - Weight 58.4 kg (128 lb 12 oz) 08/03/2018 1:20 PM CDT Height 163 cm (5' 4.17) 08/03/2018 1:20 PM CDT Body Mass Index 21.98 08/03/2018 1:20 PM CDT documented in this encounter Patient Instructions Patient InstructionsChhoma Thompson NP - 08/03/2018 1:20 PM CDT Will call with lab results Schedule mammogram Consider Cologuard testing Call with questions or concerns documented in this encounter Progress Notes Brandie Thompson NP - 08/03/2018 1:20 PM CDT Well Adult - Estab Subjective Patient ID: Nuria Simmons is a 68 y.o. female presenting for the following concerns. Chief Complaint Patient presents with ??? Annual Exam HPI: The patient is a pleasant 68-year-old female presenting ambulatory to the clinical setting today jessica annual physical. 2, para 2. The patient's last menstrual period was in her 50s with no vaginal bleeding since. The patient is over the age of 65; therefore, Pap smears are no longer recommended. The patient reports she had a colonoscopy one time, which was incomplete, unable to recall when she had this, and has not had any colon cancer screening since. The patient's Tdap was updated on 08/02/2013, and she is due for a flu shot. 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 The patient had a DEXA scan on 07/20/2018 with a final impression being osteopeni a. The patient is on calcium and vitamin D replacement. The patient will have a mammogram after thisclinical appointment. The patient's past medical history includes allergic rhinitis, insomnia, palpitations, an episode ofatrial fibrillation, and osteopenia. The patient had an episode of atrial fibrillation when she had pneumonia last year, and continues to have slight infrequent flutters. The patient was encouraged to c onsistently take an aspirin daily. The patient is on trazodone 150 mg at bedtime for her insomnia, which has been minimally effective, and she occasionally takes the Benadryl. The patient does not wantto trial any other prescription medications. The patient has no history of hypertension, and her blood pressure on 07/13/2018 was 124/76. The patient continues to have intermittent lower back pain for the past few years. The patient did have lumbar back x-ray on 07/13/2018 with minimal degeneration. The patient reports her back pain will awaken her infrequently. She denies any, numbness, tingling and/or pain in her lower extremities. Shehas a chiropractic appointment every 5 weeks, and works on stretching her back per his recommendation. The patient occasionally takes [id number] ibuprofen, when she is having significant flares, 800 mg twice daily. The patient is diligent about taking ibuprofen with milk and food. The patient reports she is having daytime fatigue, which might be related to her insomnia, aging process, and/or weather. The patient started noticing fatigue when she started working her new job, at [employer] which may be contributing to her symptoms as well. The patient feels being employed is important to continue to interact with people and keep her brain active. The patient initially started working to 28 hours plus per week, she is now working 24-28 hours. The patient???s mother had thyroid dysfunction diagnosed later in life. The following portions of the patient's chart were reviewed in this encounter and updated as appropriate: Tobacco Allergies Meds Problems Med Hx Surg Hx Fam Hx Soc Hx Current Outpatient Medications: ??? calcium citrate-vitamin D (CITRACAL+D) 315-200 MG-UNIT per tablet, Take 1 tablet by mouth 1 (one) time each day, Disp: , Rfl: ??? cholecalciferol (VITAMIN D-3) 1000 units tablet, Take 1,000 Units by mouth 1 (one) time each day, Disp: , Rfl: ??? Coenzyme Q10 (COQ-10) 10 MG capsule, Take by mouth 1 (one) time each day, Disp: , Rfl: ??? CVS MAGNESIUM CITRATE PO, Take by mouth 1 (one) time each day, Disp: , Rfl: ??? GARLIC PO, Take by mouth 1 (one) time each day, Disp: , Rfl: ??? Iodine, Kelp, (KELP PO), Take by mouth 1 (one) time each day, Disp: , Rfl: ??? LUTEIN PO, Take by mouth 1 (one) time each day, Disp: , Rfl: ??? Multiple Vitamins-Minerals (MULTIVITAMIN ADULT PO), Take by mouth 1 (one) time each day, Disp: ,Rfl: ??? omega-3 (FISH OIL) 1000 MG capsule, Take 1,200 mg by mouth 1 (one) time each day, Disp: , Rfl: ??? traZODone (DESYREL) 150 MG tablet, Take 150 mg by mouth 1 (one) time each day in the evening, Disp: , Rfl: ??? ZINC GLUCONATE PO, Take 1 tablet by mouth 1 (one) time each day, Disp: , Rfl: No Known Allergies Past Medical History: Diagnosis Date ??? AF (paroxysmal atrial fibrillation) 2017 the patient has PAF when she [...] ??? Highest education level: Not on file Social Needs ??? Financial resource strain: Not hard at all ??? Food insecurity - worry: Never true ??? Food insecurity - inability: Never true ??? Transportation needs - medical: No ??? Transportation needs - non-medical: No Occupational History ??? 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 Smoking status: Never Smoker ??? Smokeless tobacco: Never Used Substance and Sexual Activity ??? Alcohol use: No Frequency: Never ??? Drug use: No ??? Sexual activity: Not on file Other Topics Concern ??? Not on file Social History Narrative ??? Not on file REVIEW OF SYSTEMS: GENERAL: No fever, chills, sweats, and/or change in weight. The patient feels she has an increased appetite when it is cold out. The patient has a certain fatigue level which may be multifactorial and possibly from insomnia, aging, and working. The patient had night sweats when she had pneumonia last,but none since. INTEGUMENTARY: No rashes and/or pruritus. The patient has a lesion on her right scapula and right head. HEAD/NECK: No headaches. The patient did have a bout of dizziness when she had an upper respiratory infection with nasal drainage. EYES: No visual changes. The patient does wear eyeglasses. The patient sees an eye doctor on an irregular basis. EARS: No tinnitus. The patient does have some hearing loss, has a difficult time hearing when speaking on the phone, and does find she asks people to repeat themselves often. NOSE: No nasal congestion, the patient does have nasal drainage. MOUTH/THROAT: No problems with teeth, gums, and/or trouble swallowing. The patient sees a dentist sadiq regular basis, and her last appointment was this summer and did not have any cavities. CARDIOVASCULAR: No chest pain, pressure, peripheral edema, lightheadedness, presyncope, syncope, and/or cardiac murmurs. The patient occasionally has a fluttering, fleeting weird sensation in her chest. The patient did experience dizziness once with an upper respiratory infection. RESPIRATORY: No dyspnea on exertion, cough, asthma and/or wheezing. BREASTS: No pain, masses, discharge and/or change in appearance. The patient does a self exam. The patient's last mammogram will be this afternoon. GASTROINTESTINAL: No nausea, vomiting, diarrhea, heartburn, loss of appetite, abdominal pain, hematemesis, constipation, melena, and/or hematochezia. The patient had an incomplete colonoscopy many years ago. GENITOURINARY: The patient does have a history of urinary frequency, urgency, and urinary incontinence, and likely from the aging process. The patient does wear panty liners. The patient tries to drinkless at work to decrease her urinary frequency. No hematuria and/or dysuria. DIGITAL FORENSICS INVESTIGATOR: 2, para 2. Last menstrual period was in her 50s with no vaginal bleeding since. ENDOCRINOLOGY: No thyroid dysfunction, diabetes, nor osteoporosis. MUSCULOSKELETAL: The patient has had lower back pain for the past one half years, and receives care tech about every 5 weeks. NEUROLOGICAL: No numbness, tingling, weakness, migraine headache, and/or seizures. PSYCHIATRIC: No anxiety nor depression. Objective Visit Vitals BP 148/66 (BP Location: Left arm, Patient Position: Sitting) Pulse 94 Temp 35.9 ??C (96.6 ??F) (Temporal) Resp 12 Ht 1.63 m (5' 4.17) Wt 58.4 kg (128 lb 12 oz) SpO2 95% BMI 21.98 kg/m?? Smoking Status Never Smoker BSA 1.63 m?? GENERAL: The patient is alert, orientated [...] lymphadenopathy. INTEGUMENTARY: Skin is warm and dry. The patient has small skin tag on her right scapular area, and unable to visualize a lesion on her right head area. CARDIOVASCULAR: Normal heart rate and rhythm. No murmur. No peripheral edema. Positive peripheral pulses, x4. Blood pressure retaken for 130/60 at the end of the clinical visit. RESPIRATORY: Lungs are clear, bilaterally. No wheezing. MUSCULOSKELETAL: The patient moves freely about the room. GYNECOLOGIC: External genitalia has no lesions, discharge. Bimanual - no pain on moving cervix. Uterus midline, no enlargement, masses or tenderness. Adnexa, ovaries not enlarged, no tenderness. GASTROENTEROLOGY: Abdomen is soft, no organomegaly, positive bowel sounds. NEUROLOGICAL: The patient is alert and oriented to person, place, time, and situation. PSYCHIATRIC: The patient's affect is appropriate. DIAGNOSTICS: CBC with diff, TSH, lipid panel, and Vitamin D, results pending. Assessment/Plan Nuria was seen today for annual exam. Diagnoses and all orders for this visit: Annual physical exam (Primary) Fatigue, unspecified type - CBC Branch Off w/Diff; Future Palpitations - TSH; Future Osteopenia after menopause - Vitamin D, Total; Future Screening, lipid - Lipid panel; Future Primary insomnia Other orders - Influenza High Dose >65yr Preservative Free IM Discussed the plan of care with the patient. The patient's Tdap is up-to-date on 08/02/2013 and the patient received her flu shot today. Recommended formal exercising for 30 minutes daily. Patient had a DEXA scan on 07/20/2018, has osteopenia, she should continue her Calcium with Vitamin D, and will repeat a DEXA scan in 2 years. Recommended Cologuard screening, the patient received information on thetesting, and will check with her insurance regarding coverage. She reports she received information from [facility] about having this completed, and may respond to their request. The patient will continue trazodone 150 mg daily for her insomnia. The patient will be notified of her lab results. The patient should be an aspirin therapy for her history paroxysmal atrial fibrillation, when she had pneumonia, and will contact the patient for this recommendation. The patient's urinalysis was renewed from 10/05/2017, and she had trace blood in her urine, and positive ketones; otherwise normal u rinalysis. The patient agrees and understands this plan of care. Brandie Thompson NP documented in this encounter Plan of Treatment Not on filedocumented as of this encounter Results Vitamin D, Total (08/03/2018 2:42 PM CDT) athologist Signature Vitamin D, 71.3 ng/mL 08/04/2018 [facility] Total 2:18 PM CDT [facility] Comment: [...] Venous) CDT 12:59 PM CDT Brandie Thompson HARNESS WORKER, SOFTWARE INTERN LAB BLOOD ORDERABLES Performing Organization Address City/State/ZIP Code Phon e Number [facility] [address] [place] [id number] (ABNORMAL) CBC Branch Off w/Diff (08/03/2018 2:42 PM CDT) [facility] gist Method Time Signature WBC 6.5 3.5 - 10.5 08/03/2018 [facility] K/uL 2:51 PM CDT [place] RBC 4.83 3.90 - 08/03/2018 [facility] 5.00 M/uL 2:51 PM CDT [place] Hemoglobin 14.3 12.0 - 08/03/2018 [facility] 15.5 g/dL 2:51 PM CDT [place] Hematocrit 43.6 35.0 - 08/03/2018 [facility] 44.0 % 2:51 PM CDT [place] Platelets 235 150 - 450 08/03/2018 [facility] K/uL 2:51 PM CDT [place] MCV [...] [place] Lymphocytes % 18.8 18.0 - 08/03/2018 [facility] 45.0 % 2:51 PM CDT [place] Mid-size Cells 7.2 3.3 - 10.1 08/03/2018 [facility] % 2:51 PM CDT [place] Granulocytes/Brown 74.0 (H) 45.8 - 08/03/2018 [facility] trophils 73.7 % 2:51 PM CDT [place] Lymphocytes 1.2 0.9 - 2.9 08/03/2018 [facility] Absolute K/uL 2:51 PM CDT [place] MIDS Absolute 0.5 0.2 - 0.8 08/03/2018 [facility] K/uL 2:51 PM CDT [place] Granulocytes/Brown 4.8 2.1 - 8.7 08/03/2018 [facility] [place] trophils K/uL 2:51 PM CDT [place] Absolute Specimen Anatomical Collection Method Collection Time Receive d Time (Source) Location / / Volume Laterality Blood (Blood, 08/03/2018 2:42 PM 08/03/20 18 2:42 Venous) CDT PM CDT Brandie Thompson APRN, SOFTWARE INTERN LAB BLOOD ORDERABLES Performing Organization Address City/State/ZIP Code Phon e Number [facility] [place] [address] [place] [address] (ABNORMAL) Lipid panel (08/03/2018 2:42 PM CDT) athologist Signature Cholesterol 214 (A) 0 - 199 08/04/2018 [facility] mg/dL 1:17 PM CDT [facility] Comment: Recommended by National Cholesterol Education Program (ATP III) -------- Cholesterol Ranges -------- <200 ? Desirable 200-239 ? Borderline high >=240 ? High Triglycerides 48 0 - 149 mg/dL 08/04/2018 1:17 PM CDT [facility] Comment: -------- TRIG Ranges -------- <150 ?Normal 150-199 ? Borderline high 200-499 ? High >=500 ? Very high HDL 82 40 - 60 mg/dL 08/04/2018 1:17 PM CDT [facility] Comment: -------- HDL Ranges -------- <40 ?Low 40-59 ?Normal >=60 ? Optimal LDL Calculated 122 (A) 0 - 99 mg/dL 08/04/2018 1:17 PM CDT [facility] Comment: -------- LDL Ranges -------- <100 ? Optimal 100-129 ?Near optimal/above op timal 130-159 ?Borderline high 160-189 ?High >=190 ?Very high Fasting? Yes 08/03/2018 2:47 PM CDT [facility] Specimen Anatomical Collection Method Collection Time Receive d Time (Source) Location / / Volume Laterality Blood (Blood, 08/03/2018 2:42 PM 08/04/20 18 Venous) CDT 12:46 PM CDT Brandie Thompson APRN, SOFTWARE INTERN LAB BLOOD ORDERABLES Performing Organization Address City/State/ZIP Code Phon e Number [facility] [address] [place] [address] documented in this encounter Visit Diagnoses Diagnosis Annual physical exam - Primary Routine general medical examination at a health care facility Fatigue, unspecified type Palpitations Osteopenia after menopause Screening, lipid Primary insomnia Persistent disorder of initiating or jose guadalupe ntaining sleep documented in this encounter Care Teams Vice President Of Software Engineering Relationship Specialty Start Date End Date Brandie Thompson APRN, SOFTWARE INTERN PCP - General Family Medicine 07/21/18 06/26/20 [address] [place] [address] documented as of this encounter
--- OUTSIDE RECORDS SUMMARY | 2022-07-22 14:01 | XMS_ITS | Encounter Summary ---
:[address] [facility] Address [address] [place] [address] Care Team Providers Name Role Phone Brandie Thompson APRN, SENIOR MATERIALS PLANNER Primary Care Provider [phone] Encounter Details Date Type Department Care Team Description 11/09/2018 Lab [place] Screening for diabetes elma kapadia; [address] External hemorrhoid; [place], [place] [address] Bright red rectal bleeding; [phone] Nocturia Social History Tobacco Use Types Packs/Day Years [...] or relatives? How often do you attend yarsani or More than 4 times per year 12/13/2019 congregation services? Do you belong to any clubs or Not asked organizations such as yarsani groups, unions, fraternal or athletic groups, or [...] Procedure Name Priority Date/Time Associated Comments Diagnosis URINALYSIS WITH Routine 11/09/2018 2:46 PM Nocturia Result s for this REFLEX MICROSCOPIC AUTO DRIVER procedure are in the results section. URINE CULTURE Routine 11/09/2018 2:46 PM Nocturia Results for this AUTO DRIVER procedure are i n the results section. GLOMERULAR FILTRATION Routine 11/09/2018 2:35 PM Screening for Results for this RATE AUTO DRIVER diabetes mellitus procedure are in the results section. CBC BRANCH OFFICE Routine 11/09/2018 2:35 PM External he morrhoid Results for this W/DIFF AUTO DRIVER Bright red rectal procedure are in bleeding the results section. BASIC METABOLIC PANEL Routine 11/09/2018 2:35 PM Screening for Results for this AUTO DRIVER diabetes mellitus procedure are in the results section. documented in this encounter Results Urine culture (clean catch) (11/09/2018 2:46 PM AUTO DRIVER) [facility] Method Time Signature Urine Culture No Growth 11/10/2018 [place] 12:32 PM [facility] Specimen Anatomical Collection Method Collection Time Receive d Time (Source) Location / / Volume Laterality Urine, Clean 11/09/2018 2:46 PM 9 Catch AUTO DRIVER 12:30 PM AUTO DRIVER Narrative [facility] - 10/21 12:33 PM AUTO DRIVER Patient does not have an Amoxicillin or PCN allergy Brandie Thompson APRN, SENIOR MATERIALS PLANNER LAB MICROBIOLOGY - GENERA L ORDERABLES Performing Organization Address City/State/ZIP Code Phon e Number [facility] [address] [place] [address] Urinalysis with reflex microscopic (clean catch) (11/09/2018 2:46 PM AUTO DRIVER) [facility] Method Time Signature Type CLEAN CATCH 11/09/2018 [facility] 2:57 PM AUTO DRIVER [place] Color, Urine YELLOW YELLOW 11/09/2018 [facility] 2:57 PM AUTO DRIVER [place] Clarity, CLEAR CLEAR 11/09/2018 [facility] Urine 2:57 PM AUTO DRIVER [place] Glucose, NEGATIVE NEGATIVE 11/09/2018 [facility] Urine mg/dL 2:57 PM AUTO DRIVER [place] Bilirubin, NEGATIVE NEGATIVE 11/09/2018 [facility] Urine 2:57 PM AUTO DRIVER [place] Ketones, NEGATIVE NEGATIVE 11/09/2018 [facility] Urine mg/dL 2:57 PM AUTO DRIVER [place] Specific 1.025 1.000 11/09/2018 [facility] [place], ->=1.030 2:57 PM AUTO DRIVER [place] Urine Blood, Urine NEGATIVE NEGATIVE 11/09/2018 [facility] 2:57 PM AUTO DRIVER [place] pH, Urine 7.0 5.0 - 7.0 11/09/2018 [facility] 2:57 PM AUTO DRIVER [place] Protein, NEGATIVE NEGATIVE-TRA 11/09/2018 [facility] Urine CE mg/dL 2:57 PM AUTO DRIVER [place] Urobilinogen, 0.2 0.2 - 1.0 11/09/2018 [facility] [place] Urine E.U./dL 2:57 PM AUTO DRIVER [place] Nitrite, NEGATIVE NEGATIVE 11/09/2018 [facility] Urine 2:57 PM AUTO DRIVER [place] Leukocytes, NEGATIVE NEGATIVE 11/09/2018 [facility] Urine 2:57 PM AUTO DRIVER [place] Specimen Anatomical Collection Method Collection Time Receive d Time (Source) Location / / Volume Laterality Urine (Urine, 11/09/2018 2:46 PM 11/09/19 19 2:49 Clean Catch) AUTO DRIVER PM AUTO DRIVER Brandie Thompson APRN, CNP LAB URINE ORDERABLES Performing Organization Address City/[facility]/ZIP Code Phon e Number [facility] [place] [address] [place] [address] Glomerular filtration rate (GFR) (11/09/2018 2:35 PM AUTO DRIVER) athologist Signature GFR >60 11/09/2018 [facility] 2:57 PM AUTO DRIVER [facility] >60 11/09/2018 [facility] Iranian GFR 2:57 PM AUTO DRIVER [facility] Comment: GFR calculated from serum creatinine v alue Chronic Kidney Disease less than 60 mL/m in/1.73 m2 Kidney Failure less than 15 mL/min/1.73 m2 Note: effective 03/04/07 IDMS-Traceable MDRD Study Equation used. Specimen Anatomical Collection Method Collection Time Receive d Time (Source) Location / / Volume Laterality 11/09/2018 2:35 PM 9 2:35 AUTO DRIVER PM AUTO DRIVER Brandie Thompson APRN, CNP LAB BLOOD ORDERABLES Performing Organization Address City/State/ZIP Code Phon e Number [facility] [address] [place] [id number] CBC Branch Off w/Diff (11/09/2018 2:35 PM AUTO DRIVER) P athologist Signature WBC 6.7 3.5 - 10.5 11/09/2018 [facility] K/uL 2:50 PM AUTO DRIVER [place] RBC 4.68 3.90 - 11/09/2018 [facility] 5.00 M/uL 2:50 PM AUTO DRIVER [place] Hemoglobin 13.9 12.0 - 11/09/2018 [facility] 15.5 g/dL 2:50 PM AUTO DRIVER [place] Hematocrit 42.7 35.0 - 11/09/2018 [facility] 44.0 % 2:50 PM AUTO DRIVER [place] Platelets 220 150 - 450 11/09/2018 [facility] K/uL 2:50 PM AUTO DRIVER [place] MCV 91.2 81.6 - 11/09/2018 [facility] [place] 98.3 fL 2:50 PM AUTO DRIVER [place] MCH 29.7 26.0 - 11/09/2018 [facility] 32.0 pg 2:50 PM AUTO DRIVER [place] MCHC 32.6 32.0 - 11/09/2018 [facility] 36.0 g/dL 2:50 PM AUTO DRIVER [place] RDW 13.1 11.9 - 11/09/2018 [facility] 15.5 % 2:50 PM AUTO DRIVER [place] Lymphocytes % 25.2 18.0 - 11/09/2018 [facility] 45.0 % 2:50 PM AUTO DRIVER [place] Mid-size Cells 8.2 3.3 - 10.1 11/09/2018 [facility] % 2:50 PM AUTO DRIVER [place] Granulocytes/Brown 66.6 45.8 - 11/09/2018 [facility] trophils 73.7 % 2:50 PM AUTO DRIVER [place] Lymphocytes 1.7 0.9 - 2.9 11/09/2018 [facility] Absolute K/uL 2:50 PM AUTO DRIVER [place] MIDS Absolute 0.5 0.2 - 0.8 11/09/2018 [facility] K/uL 2:50 PM AUTO DRIVER [place] Granulocytes/Brown 4.5 2.1 - 8.7 11/09/2018 [facility] trophils K/uL 2:50 PM AUTO DRIVER [place] Absolute Specimen Anatomical Collection Method Collection Time Receive d Time (Source) Location / / Volume Laterality Blood (Blood, 11/09/2018 2:35 PM 11/09/19 19 2:40 Venous) AUTO DRIVER PM AUTO DRIVER Brandie Thompson APRN, SENIOR MATERIALS PLANNER LAB BLOOD ORDERABLES Performing Organization Address City/State/ZIP Code Phon e Number [facility] [place] [address] [place] [address] (ABNORMAL) Basic metabolic panel (11/09/2018 2:35 PM AUTO DRIVER) P athologist Signature Sodium 142 135 - 145 11/09/2018 [facility] mmol/L 2:57 PM AUTO DRIVER [place] Potassium 4.1 3.5 - 5.1 11/09/2018 [facility] mmol/L 2:57 PM AUTO DRIVER [place] Comment: . Chloride 106 98 - 107 mmol/L 11/09/2018 2:57 PM AUTO DRIVER [facility] [place] Comment: . CO2 30 (H) 22 - 29 mmol/L 11/09/2018 2:57 PM AUTO DRIVER [facility] [place] Comment: . Creatinine 0.5 0.4 - 1.2 mg/dL 11/09/2018 2:57 PM AUTO DRIVER [facility] [place] Comment: . BUN 16 5 - 25 mg/dL 11/09/2018 2:57 PM AUTO DRIVER [facility] [place] Comment: . Glucose 99 70 - 100 mg/dL 11/09/2018 2:57 PM [facility] [place] AUTO DRIVER Calcium, Total,S 10.3 (H) 8.4 - 10.2 mg/dL 11/09/2018 2:57 PM [facility] [place] AUTO DRIVER Comment: . Fasting? No 11/09/2018 2:40 PM AUTO DRIVER [facility] [place] Specimen Anatomical Collection Method Collection Time Receive d Time (Source) Location / / Volume Laterality Blood (Blood, 11/09/2018 2:35 PM 11/09/19 19 2:40 Venous) AUTO DRIVER PM AUTO DRIVER Brandie Thompson APRN, SENIOR MATERIALS PLANNER LAB BLOOD ORDERABLES Performing Organization Address City/State/ZIP Code Phon e Number [facility] [place] [facility] [address] [place] [address] documented in this encounter Visit Diagnoses Diagnosis Screening for diabetes mellitus External hemorrhoid External hemorrhoids without mention of complication Bright red rectal bleeding Hemorrhage of rectum and anus Nocturia documented in this encounter Care Teams Medication Technician Relationship Specialty Start Date End Date Brandie Thompson APRN, SENIOR MATERIALS PLANNER PCP - General Family Medicine 07/21/18 06/26/20 100 [facility] [place] [address] documented as of this encounter
--- OUTSIDE RECORDS SUMMARY | 2022-07-22 14:01 | XMS_ITS | Encounter Summary ---
:1950 Author Organization [facility] Address [address] [place] [address] Care Team Providers Name Role Phone Brandie Thompson PET CREMATORY WORKER, FURNACE AND WASH EQUIPMENT OPERATOR Primary Care Provider [phone] Reason for Visit Reason Onset Date Comments MAMMOGRAM REFERRAL 07/20/2018 THE PATIENT WOULD LI KE A REFERRAL TO [facility] FOR HER MAMMOGRAM. Encounter Details Date Type Department Care Team Description 07/20/2018 Telephone [place] Brandie Thompson, MAMMOGRAM REFERRAL [address] PET CREMATORY WORKER, SAI (THE PATIENT WOULD [place], [place] [address] REFERRAL TO [phone] [place], [place] [address] [place] FOR HER MAMMOGRA M. ) Social History Tobacco Use Types Packs/Day Years Used Date Never Assessed Alcohol Habits Answer Date Recorded How often [...] or relatives? How often do you attend druze or More than 4 times per year 12/13/2019 voodoo services? Do you belong to any clubs or Not asked organizations such as druze groups, unions, fraternal or athletic groups, or [...] Telephone Encounter - Dagmar Washington LPN - 07/20/2018 4:[address] ANG form. documented in this encounter Plan of Treatment Scheduled Orders Name Type Priority Associated Diagnoses Order S chedule Mammogram breast Imaging Routine Screening mammogram, Exp ected: 07/21/2018, screening bilateral encounter for Expires : 09/20/2019 documented as of this encounter Visit Diagnoses Diagnosis Screening mammogram, encounter for - Kacy lugo documented in this encounter Care Teams Clinical Partner Relationship Specialty Start Date End Date Brandie Thompson APRN, FURNACE AND WASH EQUIPMENT OPERATOR PCP - General Family Medicine 07/21/18 06/26/20 100 [place] [address] documented as of this encounter
--- OUTSIDE RECORDS SUMMARY | 2022-07-22 14:01 | XMS_ITS | Encounter Summary ---
:1950 Author Organization [facility] Address [address] [place] [address] Care Team Providers Name Role Phone Brandie Thompson AIR TRAFFIC SYSTEMS TECHNICIAN, HOTEL ASSISTANT MANAGER Primary Care Provider [phone] Reason for Visit Reason Onset Date Comments MAMMOGRAM 08/03/2018 Encounter Details Date Type Department Care Team Description 08/03/2018 Telephone [place] Brandie Thompson, MAMMOGRAM [address] AIR TRAFFIC SYSTEMS TECHNICIAN, HOTEL ASSISTANT MANAGER [place], [place] [address] [address] [facility] [address] [address] [phone] [place], [place] [address] Social History Tobacco Use [...] or relatives? How often do you attend latter-day or More than 4 times per year 12/13/2019 anabaptist services? Do you belong to any clubs or Not asked organizations such as latter-day groups, unions, fraternal or athletic groups, or [...] encounter Miscellaneous Notes Telephone Encounter - Sarah Lowcarlton - 08/04/2018 10:29 AM CDT Referral faxed to [facility] radiology. Telephone Encounter - Ling Reyes RN - 08/04/2018 10:21 AM CDT [facility] fax to [facility] With face sheet. Telephone Encounter - Carla Cooper MA - 08/03/2018 3:55 PM CDT Noted. Telephone Encounter - Thao Lovell - 08/03/2018 3:46 PM CDT The patient called to let Bryce know that she was able to get in today at 4:00 pm at [facility]. Nothing more needs to be done unless Bryce needs something on her end. documented in this encounter Plan of Treatment Not on filedocumented as of this encounter Visit Diagnoses Not on filedocumented in this encounter Care Teams Metal Machine Operator Relationship Specialty Start Date End Date Brandie Thompson APRN, HOTEL ASSISTANT MANAGER PCP - General Family Medicine 07/21/18 06/26/[address] [place] [address] documented as of this encounter
--- OUTSIDE RECORDS SUMMARY | 2022-07-22 14:01 | XMS_ITS | Encounter Summary ---
:1950 Author Organization [facility] Address [address] [place] [address] Care Team Providers Name Role Phone Brandie Thompson GROCERY STORE CLERK, FOOD AND BEVERAGE OUTLETS MANAGER Primary Care Provider [phone] Reason for Visit Reason Onset Date Comments Referral 11/20/2018 Encounter Details Date Type Department Care Team Description 11/20/2018 Telephone [place] Brandie Thompson, Referral [address] GROCERY STORE CLERK, FOOD AND BEVERAGE OUTLETS MANAGER [place], [place] [address] [address] [facility] [address] [phone] [place], [place] [address] Social History Tobacco Use [...] or relatives? How often do you attend caodaism or More than 4 times per year 12/13/2019 hoahaoism services? Do you belong to any clubs or Not asked organizations such as caodaism groups, unions, fraternal or athletic groups, or [...] Encounter - Dagmar Washington LPN - 11/23/2018 2:10 PM CST NOTED KING PRESS OPERATOR Telephone Encounter - Thao Scottkwamekristen - 11/23/2018 12:27 PM CST Yes, Laura faxed it. KING PRESS OPERATOR Telephone Encounter - Dgamar Washington LPN - 11/23/2018 12:03 PM CST Was this faxed? KING PRESS OPERATOR Telephone Encounter - Brandie Thompson APRN, SAI - 11/23/2018 8:56 AM BLANKING PRESS OPERATOR This has been completed. Please fax to [employer] [facility] [place]. KING PRESS OPERATOR Telephone Encounter - Sarah Lindsey - 11/20/2018 4:35 PM CST Patient was called by [facility] to set up colonoscopy. They do not do procedure on Mondays. She would like a referral sent to [facility]. KING PRESS OPERATOR documented in this encounter Plan of Treatment Not on filedocumented as of this encounter Visit Diagnoses Not on filedocumented in this encounter Care Teams Pole Inspector Relationship Specialty Start Date End Date Brandie Thompson APRN, FOOD AND BEVERAGE OUTLETS MANAGER PCP - General Family Medicine 07/21/18 06/26/20 100 [place] [address] documented as of this encounter
[2022-07-22 22:05] LABS: Basophils Absolute Auto 0.04 K/uL (0.00-0.30); Basophils Percent Auto 0.5 % (0.0-3.0); Eosinophils Absolute Auto 0.07 K/uL (0.00-0.50); Hemoglobin* 14.5 gm/dL (12.0-16.0); Immature Granulocytes Abs Auto 0.01 K/uL (0.00-0.30); Lymphocytes Absolute Auto 1.56 K/uL (0.90-2.90); Lymphocytes Percent Auto 21.3 % (20-44); Mean Corpuscular HGB Conc 33 gm/dL (32-36); Mean Corpuscular Hemoglobin 31 pg (26-34); Mean Corpuscular Volume 92 fL (80-100); Monocytes Percent Auto 8.1 % (0.0-11.0); Neutrophils Absolute Auto 5.05 K/uL (1.7-7.0); Platelet Count* 236 K/uL (140-440); RDW Coefficient of Variation % 12.6 % (11.5-15.5); Red Blood Count 4.76 m/uL (4.00-5.20); White Blood Count* 7.32 K/uL (4.50-11.00)
[2022-07-22 22:09] LABS: Slide Review Reflex No
[2022-07-22 22:26] LABS: Cholesterol* 200 mg/dL (90-199)
[2022-07-22 22:27] LABS: HDL Cholesterol* 88 mg/dL (>=50); LDL Cholesterol Calculated 102 mg/dL (<100); Magnesium* 2.1 mg/dL (1.5-2.6); Triglycerides* 50 mg/dL (40-149)
[2022-07-23 15:58] LABS: Chloride* 105 mmol/L (96-114); Potassium* 4.6 mmol/L (3.6-5.1); Sodium* 139 mmol/L (135-149)
[2022-07-23 16:00] LABS: Creatinine* 0.7 mg/dL (0.5-1.5); Estimated Glomerular Filt Rate 92 ml/min
[2022-07-23 16:01] LABS: Blood Urea Nitrogen* 17 mg/dL (7-30); Carbon Dioxide* 26 mmol/L (20-32); Glucose* 99 mg/dL (60-115)
[2022-07-23 16:02] LABS: Calcium* 10.6 mg/dL (8.4-10.6)
== END 2022-07-22 13:53 | disposition home or self-care (01) ==
PROVIDERS: PCP Nurse Practitioner Family; Visit Provider Nurse Practitioner Family
DX: Z00.00 Encounter for general adult medical examination without abnormal findings (principal); R53.83 Other fatigue; I48.0 Paroxysmal atrial fibrillation; R00.2 Palpitations; Z13.6 Encounter for screening for cardiovascular disorders
CPT/HCPCS: 36415; 80048; 80061; 83735; 84443; 85025

== ENCOUNTER 2022-07-29 14:44 | Outpatient (CLI) | payer MEDICARE, BC, SELFPAY ==
--- OUTSIDE RECORDS SUMMARY | 2022-07-29 14:48 | XMS_ITS | Encounter Summary ---
:1950 Author Organization [facility] Address [address] [place] [address] Care Team Providers Name Role Phone Unavailable Primary Care Provider Unavailable Encounter Details Date Type Department Care Team Description 12/20/2019 Hospital Encounter Department of Brandie Thompson Mammogram Radiology in [place] Shane Lombardo Breast Cancer [place], [place] [address] [address] [address] [place], [place] [id number] (Work) [phone] Social History Tobacco Use Types Packs/Day Years Used Date Smoking Tobacco: Never Smokeless Tobacco: Never Alcohol Use Standard Drinks/Week Comments No 0 (1 standard drink = 0.6 oz pure alcoho l) Sex Assigned at Date Recorded Not on file documented as of this encounter Medications at Time of Discharge Medication Sig Dispensed Refills Start Date End Date benzonatate (for_TESSALON Take 1 capsule (100 20 capsule 0 1 12/07/2016 PERLMARLY) 100 mg capsule mg total) by mouth 3 (three) times a day as needed for cough. calcium citrate-vitamin D3 Take 1 tablet by 0 (for_CITRACAL+D) 315-200 mouth 2 (two) times mg-unit per tablet a day with meals. cholecalciferol Take 2,000 Units by 0 11/21/2011 (for_VITAMIN D3) 2,000 Unit mouth daily. tablet garlic 1,000 mg capsule Take 1 capsule by 0 mouth daily. lutein 20 mg tablet Take 1 tablet by 0 11/24/2012 mouth daily. magnesium citrate 100 mg Take 1 tablet by 0 11/21 tablet mouth 2 (two) times a day. metoprolol tartrate Take 0.5 tablets 30 tablet 0 10/06/2017 (for_LOPRESSOR) 25 mg (12.5 mg total) by tablet mouth 2 (two) times a day. MULTIVIT WITH Take 1 tablet by 0 11/21/2011 MINERALS/LUTEIN mouth daily. (MULTIVITAMIN 50 PLUS ORAL) omega 9-ike-ikk-fish oil Take 1,000 mg by 0 11/21 (FISH OIL) 100-160-1,000 mg mouth daily. capsule traZODone (for_DESYREL) 150 Take 1 tablet by 0 mg tablet mouth at bedtime. UBIDECARENONE (COENZYME Q10 Take by mouth 0 ORAL) daily. VITAMIN B COMPLEX VIT C Vitamin B Complex 0 07/25 NO.3 (VITAMIN B COMP AND C 100 Take 1 tablet NO.3 ORAL) daily ZINC CITRATE-PHYTASE ORAL Take 1 tablet by 0 11/2011 mouth daily. documented as of this encounter Plan of Treatment Upcoming Encounters Date Type Specialty Care Team Description 09/02/2022 Comprehensive Visit Physical Medicine and [place], Mainor Castellanos M.D. [address], [address] [place] [address] Rehabilitation Rosanna Veliz, P.T. documented as of this encounter Procedures Procedure Name Priority Date/Time Associated Comments Diagnosis BI BREAST RAD - Routine 12/20/2019 1:06 Screening Results for this SCREENING (most inpatients PM MINCEMEAT MAKER Mammogram Breast procedu re are in BILATERAL and all Cancer the results outpatients) section. documented in this encounter Results BI Breast Screening Bilateral (12/20/2019 1:06 PM MINCEMEAT MAKER) Anatomical Region Laterality Modality Breast, Breast Imaging RST LOS, Breast Imaging ARZ LOS, Millen st Bilateral Mammography Imaging FLA LOS Specimen (Source) Anatomical Collection Method Collection Time Re ceived Time Location / / Volume Laterality 12/20/2019 1:21 PM MINCEMEAT MAKER Impressions 12/20/2019 1:22 PM MINCEMEAT MAKER Unremarkable study of the breasts. No evidence of significant interval change. RECOMMENDATION: ??Annual Screening Mammo gram ASSESSMENT: ??BI-RADS: 1: Negative. Narrative 12/20/2019 1:22 PM MINCEMEAT MAKER EXAM: ??BI BREAST SCREENING BILATERAL Current study was evaluated with a Compu hhgregg Aided Detection (CAD) system. INDICATION: ??Screening mammogram. COMPARISON: ??Prior exam(s) were availab le and reviewed for comparison. The most recent prior is dated August 03, 2018. DENSITY: ??b. There are scattered areas of fibroglandular density. FINDINGS: ??No mammographic findings of malignancy. Procedure Note Madison Galvez M.D. - 12/20/2019Forma tting of this note might be different from the original. EXAM: BI BREAST SCREENING BILATERAL Current study was evaluated with a Compu ter Aided Detection (CAD) system. INDICATION: Screening mammogram. COMPARISON: Prior exam(s) were available and reviewed for comparison. The most recent prior is dated August 03, 2018. DENSITY: b. There are scattered areas of fibroglandular density. FINDINGS: No mammographic findings of ma lignancy. IMPRESSION: Unremarkable study of the breasts. No ev idence of significant interval change. RECOMMENDATION: Annual Screening Mammogr am ASSESSMENT: BI-RADS: 1: Negative. Brandie HENDRICKS BI PROCEDURES documented in this encounter Visit Diagnoses Diagnosis Screening Mammogram Breast Cancer documented in this encounter
--- OUTSIDE RECORDS SUMMARY | 2022-07-29 14:48 | XMS_ITS | Encounter Summary ---
:1950 Author Organization [facility] Address [address] [place] [address] Care Team Providers Name Role Phone Unavailable Primary Care Provider Unavailable Reason for Referral Physical Therapy (Routine) - Authorized Specialty Diagnoses / Procedures Referred By Contact Refer red To Contact Diagnoses Pain Knee Bilateral Mainor Winter M.D. [facility] Procedures PT Ongoing treatment [address], [address] [place] [address] Referral ID Status Reason Start Date Expiration Date Visits V isits Requested Authorized [id number] Authorized 06/07/2022 06/07/2023 99 99 Reason for Visit Appointment Request (Routine) - Closed Specialty Diagnoses / Procedures Referred By Contact Refer red To Contact Physical Therapy Diagnoses Pain Knee Mainor Winter M.D. [address], [address] [place] [address] Referral ID Status Reason Start Date Expiration Date Visits Requ ested Visits Authorized [id number] Closed 05/31/2022 05/31/2023 1 1 Encounter Details Date Type Department Care Team Description 06/07/2022 Comprehensive Visit Department of Manjit Winter M.D. [address], [address] [place] [address] Pain Knee Rehabilitation Ross Rios, P.T. [address] [place] [address] Bilateral (Primary Services in [place]) [address] [place] [address] Social History Tobacco Use Types Packs/Day Years Used Date Smoking Tobacco: Never Smokeless Tobacco: Never Alcohol Use Standard Drinks/Week Comments No 0 (1 standard drink = 0.6 oz pure alcoho l) Sex Assigned at Date Recorded Not on file documented as of this encounter Consult Notes Ross Rios PAllen. - 06/07/2022 1:30 PM CDT Consults Physical Therapy Evaluation and Treatment By co-signing this note, the provider certifies the therapy being provided to this patient is reasonable and necessary for the diagnosis or treatment of this patient. SUBJECTIVE Patient's Name: Nuria Simmons Referring Provider: Mainor Winter M.D. Visit Diagnosis: 1. Pain Knee Bilateral Reason for referral: knee pain Payor: MEDICARE / Plan: MEDICARE A AND B / Product Type: Medicare / PERTINENT MEDICAL / SURGICAL HISTORY: Patient Active Problem List Diagnosis Pneumonitis Gastroenteritis Viral Or Presumed Viral Past Surgical History: Procedure Laterality Date LIGATION OF FALLOPIAN TUBE N/A 01/30/1980 Tubal ligation TONSILLECTOMY N/A Tonsillectomy Nuria Simmons is a 72 y.o. female who presents to outpatient physical therapy for evaluationand management for knee pain. Patient reports knee pain starting in early March when she spent increased time working on her knees at work. She reports that she stood up and noticed increased left knee pain. She reports that pain was quite severe at that time and had little improvement with rest and ice. She was seen by Orthopedics who had originally suggested knee replacement due to ???bone on bone?? arthritis in her left knee. She saw orthopedics again on 05/30/2022 and they provided her with an intra-articular cortisone injection which provided significant relief. At that time they also referredher to physical therapy for strengthening to hopefully reduce pain and prolong time to any knee replacement. She reports significant improvement from cortisone within the 1st several days. She reports that prior to cortisone injection she is having significant pain with any prolonged standing, walking, or stairs. In addition to knee pain, patient has history of low back pain as well as osteopenia. Patient has been seeing chiropractor for several years with respect to low back pain and as on a every 5 week rotation. With more recent onset of knee pain she has been seeing a chiropractor roughly twicea week for treatment. care transitions manager has included some instrument assisted soft tissue mobilization, joint mobilization/manipulation, as well as electric stimulation. She reports improvement in range of motion care support representative, but is not sure if care support representative has improved pain. Overall she reports her status is improving . Onset of symptoms: Onset in early March of this year after spending time on the floor on her knees atwork Aggravating Factors: Prolonged standing, prolonged walking, stairs, squatting Relieving Factors: Rest, ice, elevation, injections, NSAIDs Previous Treatments: Anti-inflammatories, Janitor Helper, Heat/Cold modalities, and Injection Fall Risk: Fall in the last 12 months: No Are you fearful of falling?: No Prior Level of Function: Independent Occupational Profile: Works in a [id number], standing roughly 6 hours a day Recreational Profile: Walking Patient Reported Goals: Reduce pain OBJECTIVE REVIEW OF SYSTEMS History obtained from chart and patient. PHYSICAL EXAM Pain Current: 0/10 Best: 0/10 Worst: 5/10 post-injection, 8/10 pre-injection Location: Left anterior and lateral knee Patient presents with FOTO functional status score of 52 (MCII: 11 and MDC: 9) indicating general function at stage 3. The risk adjusted functional status score is 53. Patient is predicted to have 13 points of functional status change in 11 visits over 47 days based on normative data. Observation: Mild joint effusion on left knee. Palpation: Tender over lateral joint line Gait: Ambulation without antalgia after 1st few steps rising from chair. Patient able to walk on heels and toes. Patient able perform single leg stance balance for at least 10 seconds bilaterally, however she has increased sway on left as compared to right Range of motion: Full and symmetric knee flexion range of motion, however she is lacking 3-5 degreesof extension on left as compared to right. Strength: Patient has full functional strength of lower extremity as exhibited by ability to performsit to stand independently. When testing seated quadriceps strength she did have some discomfort in knee, but otherwise had adequate strength. Side-lying hip abduction is weak bilaterally. Functional movements: Quad dominant squat form with knees translating anterior over toes. Contact monitoring: PPE used during therapy: Therapist was wearing the following PPE throughout entire session: surgicalmask and eye protection Patient was wearing a mask during therapy session: yes TREATMENT Treatment today consisted of: After obtaining informed consent, including risks/benefits, patient was treated with: Physical therapy evaluation Therapeutic exercise: -Education and training of home exercise program to consist of: Access Code: [email or web address] URL: [email or web address] Date: 06/07/2022 Prepared by: Ross Rios Exercises Bridge - 1 x daily - 4-6 x weekly - 1-2 sets - 6-10 reps - 5-10 hold Supine Knee Extension Stretch on Towel Roll - 1-2 x daily - 4-6 x weekly - 1-5 min hold Sit to Stand - 1 x daily - 4-6 x weekly - 1-2 sets - 8-15 reps Standing Hip Kick Out, With or Without Band Around Knees - 1 x daily - 4-6 x weekly - 1-2 sets - 8-15 reps Single Leg Stance - 1 x daily - 4-6 x weekly - 2-3 reps - 30-60 hold Verbal, visual and tactile cues were given to ensure proper form and safety. Home Exercise Program/Education: All of the above exercises were discussed and performed within session. A handout was provided to assure proper understanding and performance. All questions answered to the best of my ability. Topics of education include: Diagnosis, prognosis, and plan of care Self-management strategies Importance of regular activity for overall health and wellness Pain management - hurt does not equal harm Assessment Clinical Impression: Nuria Simmons is an 72 y.o. female presenting with left knee pain with signs symptoms most consistent with osteoarthritis. Patient will likely benefit from therapies focused around improving lower extremity strength and stability as well as improving squat and movement mechanics. Patient will likely benefit from skilled physical therapy to help address the previously listed impairments to help reduce pain and improve function. Patient tolerated today's interventions well and demonstrated good command of home exercise program. Patient is amenable with physical therapy plan of care. Patient was given my contact information and was encouraged to contact me with any questions or concerns that may arise. Plan for next follow up visit to include: Follow-up every other week basis to progress strength training and stabilization exercises as indicated. Progress sit to stands too but taps and independent squats as able. Progress gluteal strengthening within tolerance. Add in step-ups/step down exercises astolerated. Rehab Potential: Ms. Simmons has good potential to achieve established physical therapy goals within the time frame outlined below, provided she actively participates in her physical therapy treatmentplan and home program. Comorbidities and complicating Factors: Osteopenia, See EMR Personal Factors: Age Clinical Presentation: Stable Examination elements: 1-2 Clinical Decision Making Complexity: Low: no complicating factors, 1-2 eval elements, stable clinical presentation Functional Goals and Timeframes: Patient will demonstrate and/or verbalize understanding of home exercise program in 3 sessions. Patient will demonstrate full pain-free strength into hip abduction in 8-12 weeks. Patient will demonstrate full and symmetric knee extension range of motion within 4-6 weeks. Patient will be able to resume full participation in work duties with less than 3 points change in pain in 6-8 weeks. Patient will report 50% reduction in symptoms overall within 4-6 weeks. Patient will have discharge FOTO score of 65 or greater within 10 visits. Plan Ms. Simmons was educated regarding evaluative findings, diagnosis, prognosis, potential risks and benefits of rehabilitation interventions. A collaborative effort was used to establish goals and plan of care. She was informed of her right to make decisions regarding her care, including refusal of examination or treatment or selection of services from another provider if desired. The treatment plan may be progressed or modified based upon her response to treatment. Treatment Plan: Start of Plan of Care: 06/07/2022 PT Next Certification Date: 09/05/22 Treatment interventions may include: Treatment/Interventions: Therapeutic exercise, Therapeutic functional activity, Neuromuscular re-education, Manual therapy, Gait training, Therapeutic modalities asneeded PT Frequency: Every other week PT Duration (in days): 90 Expected Number of Visits: 10 Plan Status: Initiated plan today Time Spent with Patient Evaluations PT Eval - Low Complexity: 25 min Therapeutic Interventions Therapeutic Exercise (min): 24 min Time Tracking Total Timed Units (min): 24 min Total Treatment Time (min): 49 min This note is being written using the voice recognizing software Truly direct. It is being editedin real time. However, there may still be occasional small grammatical errors. Ross Rios, P.T. documented in this encounter Plan of Treatment Upcoming Encounters Date Type Specialty Care Team Description 09/02/2022 Comprehensive Visit Physical Medicine and AhmetraMainor M.D. [address] [place] [id number] Rehabilitation Rosanna Veliz PRoscoeT. documented as of this encounter Visit Diagnoses Diagnosis Pain Knee Bilateral - Primary documented in this encounter
--- OUTSIDE RECORDS SUMMARY | 2022-07-29 14:48 | XMS_ITS | Encounter Summary ---
:1950 Author Organization [facility] Address [address] [place] [address] Care Team Providers Name Role Phone Unavailable Primary Care Provider Unavailable Reason for Referral Outpatient (Routine) - Closed Specialty Diagnoses / Procedures Referred By Contact Refer red To Contact Diagnoses Other Specified Disorders Of Bone Density And Structure Multiple Sites Archie Colindres M.D. [facility] [place] [facility] Procedures BMD Bone Density Spine Hips [address] [place], [place] [address] Referral ID Status Reason Start Date Expiration Date Visits Requ ested Visits Authorized [id number] Closed 07/02/2021 07/02/2022 1 1 Reason for Visit Outpatient (Routine) - Closed Specialty Diagnoses / Procedures Referred By Contact Refer red To Contact Diagnoses Other Specified Disorders Of Bone Density And Structure Multiple Sites Archie Colindres M.D. [facility] [place] [facility] Procedures BMD Bone Density Spine Hips [address] [place], [place] [address] Referral ID Status Reason Start Date Expiration Date Visits Requ ested Visits Authorized [id number] Closed 07/02/2021 07/02/2022 1 1 Encounter Details Date Type Department Care Team Description 07/09/2021 Hospital Encounter Department of Archie Colindres Other Specified Radiology in [place] Lombardo M.D. Disorders Of Bone [place], [place] [address] [place] [address] [address] Sites [place], [place] [phone] (Work) [phone] Social History Tobacco Use Types Packs/Day Years [...] capsule (100 20 capsule 0 1 12/07/2016 PERLES) 100 mg capsule mg total) by mouth [...] mouth daily. (MULTIVITAMIN 50 PLUS ORAL) omega 9-owy-hxy-fish oil Take 1,000 mg by 0 11/21 [...] CITRATE-PHYTASE ORAL Take 1 tablet by 0 /11/2011 mouth daily. documented as of this encounter Plan of Treatment Upcoming Encounters Date Type Specialty Care Team Description 09/02/2022 Comprehensive Visit Physical Medicine and [place], Mainor Castellanos M.D. [address], [address] [place] [address] Rehabilitation Rosanna Veliz P.T. documented as of this encounter Procedures Procedure Name Priority Date/Time Associated Comments Diagnosis BMD BONE DENSITY RAD - Routine 07/09/2021 1:46 Other Specified Resu lts for this SPINE HIPS (most inpatients PM CDT Disorders Of Bone proced ure are in and all Density And the results outpatients) Structure section. Multiple Sites documented in this encounter Results BMD Bone Density Spine Hips (07/09/2021 1:46 PM CDT) Anatomical Region Laterality Modality Hip, Lumbar Spine, Nuclear Medicine RST LOS, N/A Radiographic Imaging Musculoskeletal ARZ LOS, Muskuloskeletal FLA LOS Specimen (Source) Anatomical Collection Method Collection Time Re ceived Time Location / / Volume Laterality 07/09/2021 2:59 PM CDT Impressions 07/09/2021 2:59 PM CDT Low bone density (Osteopenia) DualFemur (region: Total Right) Narrative 07/09/2021 2:59 PM CDT EXAM: ??BMD BONE DENSITY SPINE HIPS Bone Mineral Density (BMD) analysis perf ormed on [employer] with serial number [id number]. COMPARISON: Serial Comparisons Left Total Hip results: Exam Date ? BMD ? T-sco re ? 07/20/2018 ? 0.789 g/cm2 ?? -1.7 ? 07/09/2021 ? 0.760 g/cm2 ?? -2.0 ? Change vs. Previous (difference): -3.7 % Change vs. Previous (%): -3.7 % The absolute BMD change from previous, - 0.029 g/cm2, is greater than least significant change : No The absolute BMD change from baseline, - 0.029 g/cm2, is greater than least significant change : No Right Total Hip results: Exam Date ? BMD ? T-sco re ? 07/20/2018 ? 0.770 g/cm2 ?? -1.9 ? 07/09/2021 ? 0.741 g/cm2 ?? -2.1 ? Change vs. Previous (difference): -3.8 % Change vs. Previous (%): -3.8 % The absolute BMD change from previous, - 0.029 g/cm2, is greater than least significant change : No The absolute BMD change from baseline, - 0.029 g/cm2, is greater than least significant change : No Combined Total Hip results: Exam Date ? BMD ? T-sco re ? 07/20/2018 ? 0.770 g/cm2 ?? -1.9 ? 07/09/2021 ? 0.741 g/cm2 ?? -2.1 ? Change vs. Previous (difference): -3.8 % Change vs. Previous (%): -3.8 % The absolute BMD change from previous, - 0.029 g/cm2, is greater than least significant change : No The absolute BMD change from baseline, - 0.029 g/cm2, is greater than least significant change : No Spine results: Exam Date ? BMD ? T-sco re ? 07/20/2018 ? 0.970 g/cm2 ?? -1.8 ? 07/09/2021 ? 0.970 g/cm2 ?? -1.8 ? Change vs. Previous (difference): 0.0 % Change vs. Previous (%): 0.0 % The absolute BMD change from previous, 0 .000 g/cm2, is greater than the least significant ch celena: No The absolute BMD change from baseline, 0 .000 g/cm2, is greater than the least significant ch celena: No FINDINGS: Left Hip: Femur Neck: BMD = 0.753 g/cm2 T-score = -2.0 ?Z-score = -0.2 Total Hip: BMD = 0.760 g/cm2 T-score = -2.0 ?Z-score = -0.3 Right Hip: Femur Neck: BMD = 0.754 g/cm2 T-score = -2.0 ?? Z-score = -0.2 Total Hip: BMD = 0.741 g/cm2 T-score = -2.1 ?Z-score = -0.5 Lumbar Spine: L1: BMD = 0.995 g/cm2 L2: BMD = 1.006 g/cm2 L3: BMD = 0.918 g/cm2 L4: BMD = 0.971 g/cm2 Total Lumbar Spine (L1-L4): BMD = 0.970 g/cm2 T-score = -1.8 ?Z-score = 0.1 Please note: A more comprehensive DXA re port, including images and graphs, is available in [employer]. In the absence of other causes of low BM D or demonstrated skeletal fragility, osteoporosis may be diagnosed in post-me nopausal women and men at or above age 50 when the T-score is at or below -2.5 as defined by the WHO. Low bone density is present at T-scores between -1 and -2 .5. The diagnosis in pre-menopausal women and men < age 50 can be based on l ow bone density or evidence of skeletal fragility in the appropriate clinical se tting. Based on the lowest femur neck bone dens ity results, and on the patient's answers to the Fracture Risk Assessment questionnaire (please refer to appropriate image stored in the BMD stud y in [employer]), the calculated ten year probability of fracture is: FRAX Risk Factors: None FRAX (10 yr probability) Major Osteoporotic Fracture: ??12.0 % Hip Fracture: ?2.8 % ?? Procedure Note Fabio Delacruz M.D. - 07/09/2021Formsafia ruiz of this note might be different from the original. EXAM: BMD BONE DENSITY SPINE HIPS Bone Mineral Density (BMD) analysis perf ormed on [employer] with serial number [id number]. COMPARISON: Serial Comparisons Left Total Hip results: Exam Date BMD T-score 07/20/2018 0.789 g/cm2 -1.7 07/09/2021 0.760 g/cm2 -2.0 Change vs. Previous (difference): -3.7 % Change vs. Previous (%): -3.7 % The absolute BMD change from previous, - 0.029 g/cm2, is greater than least significant change : No The absolute BMD change from baseline, - 0.029 g/cm2, is greater than least significant change : No Right Total Hip results: Exam Date BMD T-score 07/20/2018 0.770 g/cm2 -1.9 07/09/2021 0.741 g/cm2 -2.1 Change vs. Previous (difference): -3.8 % Change vs. Previous (%): -3.8 % The absolute BMD change from previous, - 0.029 g/cm2, is greater than least significant change : No The absolute BMD change from baseline, - 0.029 g/cm2, is greater than least significant change : No Combined Total Hip results: Exam Date BMD T-score 07/20/2018 0.770 g/cm2 -1.9 07/09/2021 0.741 g/cm2 -2.1 Change vs. Previous (difference): -3.8 % Change vs. Previous (%): -3.8 % The absolute BMD change from previous, - 0.029 g/cm2, is greater than least significant change : No The absolute BMD change from baseline, - 0.029 g/cm2, is greater than least significant change : No Spine results: Exam Date BMD T-score 07/20/2018 0.970 g/cm2 -1.8 07/09/2021 0.970 g/cm2 -1.8 Change vs. Previous (difference): 0.0 % Change vs. Previous (%): 0.0 % The absolute BMD change from previous, 0 .000 g/cm2, is greater than the least significant ch celena: No The absolute BMD change from baseline, 0 .000 g/cm2, is greater than the least significant ch celena: No FINDINGS: Left Hip: Femur Neck: BMD = 0.753 g/cm2 T-score = -2.0 Z-score = -0.2 Total Hip: BMD = 0.760 g/cm2 T-score = -2.0 Z-score = -0.3 Right Hip: Femur Neck: BMD = 0.754 g/cm2 T-score = -2.0 Z-score = -0.2 Total Hip: BMD = 0.741 g/cm2 T-score = -2.1 Z-score = -0.5 Lumbar Spine: L1: BMD = 0.995 g/cm2 L2: BMD = 1.006 g/cm2 L3: BMD = 0.918 g/cm2 L4: BMD = 0.971 g/cm2 Total Lumbar Spine (L1-L4): BMD = 0.970 g/cm2 T-score = -1.8 Z-score = 0.1 Please note: A more comprehensive DXA re port, including images and graphs, is available in [employer]. In the absence of other causes of low BM D or demonstrated skeletal fragility, osteoporosis may be diagnosed in post-me nopausal women and men at or above age 50 when the T-score is at or below -2.5 as defined by the WHO. Low bone density is present at T-scores between -1 and -2 .5. The diagnosis in pre-menopausal women and men < age 50 can be based on l ow bone density or evidence of skeletal fragility in the appropriate clinical se tting. Based on the lowest femur neck bone dens ity results, and on the patient's answers to the Fracture Risk Assessment questionnaire (please refer to appropriate image stored in the BMD stud y in [employer]), the calculated ten year probability of fracture is: FRAX Risk Factors: None FRAX (10 yr probability) Major Osteoporotic Fracture: 12.0 % Hip Fracture: 2.8 % IMPRESSION: Low bone density (Osteopenia) DualFemur (region: Total Right) Archie HENDRICKS DXA PROCEDURES documented in this encounter Visit Diagnoses Diagnosis Other Specified Disorders Of Bone Densit y And Structure Multiple Sites documented in this encounter
--- OUTSIDE RECORDS SUMMARY | 2022-07-29 14:48 | XMS_ITS | Encounter Summary ---
:1950 Author Organization [facility] Address [address] [place] [address] Care Team Providers Name Role Phone Unavailable Primary Care Provider Unavailable Reason for Referral Outpatient (Routine) - Closed Specialty Diagnoses / Procedures Referred By Contact Refer red To Contact Diagnoses Screening Mammogram Breast Cancer Archie Colindres M.D. [facility] [place] [facility] Procedures BI Breast Screening Bilateral with Tomosynthesis [address] [place], [place] [address] Referral ID Status Reason Start Date Expiration Date Visits Requ ested Visits Authorized [id number] Closed 07/02/2021 07/02/2022 1 1 Reason for Visit Outpatient (Routine) - Closed Specialty Diagnoses / Procedures Referred By Contact Refer red To Contact Diagnoses Screening Mammogram Breast Cancer Archie Colindres M.D. [facility] [place] [facility] Procedures BI Breast Screening Bilateral with Tomosynthesis [address] [place], [place] [address] Referral ID Status Reason Start Date Expiration Date Visits Requ ested Visits Authorized [id number] Closed 07/02/2021 07/02/2022 1 1 Encounter Details Date Type Department Care Team Description 07/09/2021 Hospital Encounter Department of Archie Colindres ing Mammogram Radiology in [place] Lombardo M.D. Breast Cancer [place], [place] [address] [place] [address] [address] [address] [place], [place] [phone] (Work) [phone] Social History Tobacco Use Types Packs/Day Years [...] mouth daily. (MULTIVITAMIN 50 PLUS ORAL) omega 7-mhq-gxi-fish oil Take 1,000 mg by 0 11/21 [...] Description 09/02/2022 Comprehensive Visit Physical Medicine and Mainor Winter M.D. [address], [address] [place] [address] Rosanna Valencia Beth, P.T. documented as of this encounter Procedures Procedure Name Priority Date/Time Associated Comments Diagnosis BI BREAST SCREENING RAD - Routine 07/09/2021 2:08 Screening Resu lts for BILATERAL WITH (most inpatients PM CDT Mammogram Breast this procedure TOMOSYNTHESIS and all Cancer are in the outpatients) results section. documented in this encounter Results BI Breast Screening Bilateral with Tomosynthesis (07/09/2021 2:08 PM CDT) Anatomical Region Laterality Modality Breast, Breast Imaging RST LOS, Breast Imaging ARZ LOS, [address] Bilateral Mammography Imaging FLA LOS Specimen (Source) Anatomical Collection Method Collection Time Re ceived Time Location / / Volume Laterality 07/09/2021 2:47 PM CDT Impressions 07/09/2021 2:47 PM CDT Negative. RECOMMENDATION: ??Annual Screening Mammo gram ASSESSMENT: ??BI-RADS: 1: Negative. Narrative 07/09/2021 2:47 PM CDT EXAM: ??BI BREAST SCREENING BILATERAL WITH TOMOSYNTHESIS Current study was evaluated with a Compu ter Aided Detection (CAD) system. INDICATION: ??Screening mammogram. COMPARISON: ??Prior exam(s) were availab le and reviewed for comparison. DENSITY: ??b. There are scattered areas of fibroglandular density. FINDINGS: ??No mammographic findings of malignancy. Procedure Note Tiago Torres M.D. - 07/09/2021Format ting of this note might be different from the original. EXAM: BI BREAST SCREENING BILATERAL WITH TOMOSYNTHESIS Current study was evaluated with a [employer] ter Aided Detection (CAD) system. INDICATION: Screening mammogram. COMPARISON: Prior exam(s) were available and reviewed for comparison. DENSITY: b. There are scattered areas of fibroglandular density. FINDINGS: No mammographic findings of ma lignancy. IMPRESSION: Negative. RECOMMENDATION: Annual Screening Mammogr am ASSESSMENT: BI-RADS: 1: Negative. Archie HENDRICKS BI PROCEDURES documented in this encounter Visit Diagnoses Diagnosis Screening Mammogram Breast Cancer documented in this encounter
--- OUTSIDE RECORDS SUMMARY | 2022-07-29 14:48 | XMS_ITS | Encounter Summary ---
:1950 Author Organization [facility] Address [address] [place] [address] Care Team Providers Name Role Phone Unavailable Primary Care Provider Unavailable Encounter Details Date Type Department Care Team Description 07/21/2018 [facility] [address] [place] [address] [place] [address] [phone] Social History Tobacco Use Types Packs/Day Years [...] AhmetraMainor M.D. [address] , [address] [place] [address] Rehabilitation Rosanna Veliz, P.T. documented as of this encounter Visit Diagnoses Not on filedocumented in this encounter
--- OUTSIDE RECORDS SUMMARY | 2022-07-29 14:48 | XMS_ITS | Encounter Summary ---
:1950 Author Organization [facility] Address [address] [place] [address] Care Team Providers Name Role Phone Unavailable Primary Care Provider Unavailable Reason for Visit Physical Therapy (Routine) - Authorized Specialty Diagnoses / Procedures Referred By Contact Refer red To Contact Diagnoses Pain Knee Bilateral Mainor Winter M.D. [facility] Procedures PT Ongoing treatment [address], [address] [place] [address] Referral ID Status Reason Start Date Expiration Date Visits V isits Requested Authorized [id number] Authorized 06/07/2022 06/07/2023 99 99 Encounter Details Date Type Department Care Team Description 07/29/2022 Clinical Support Department of Mainor Winter M.D. [address], [address] [place] [address] Pain Knee Bilateral Rehabilitation Rosanna Veliz P.T. Services in [address] [phone] Social History Tobacco Use Types Packs/Day Years Used Date Smoking Tobacco: Never Smokeless Tobacco: Never Alcohol Use Standard Drinks/Week Comments No 0 (1 standard drink = 0.6 oz pure alcoho l) Sex Assigned at Date Recorded Not on file documented as of this encounter Progress Notes Rosanna Veliz P.T. - 07/29/2022 12:30 PM CDT Physical Therapy Outpatient Treatment SUBJECTIVE Patient's Name: Nuria Simmons Referring Provider: Mainor Winter M.D. Rehab Diagnosis: 1. Pain Knee Bilateral Payor: MEDICARE / Plan: MEDICARE A AND B / Product Type: Medicare / PERTINENT MEDICAL / SURGICAL HISTORY: Patient Active Problem List Diagnosis Pneumonitis Gastroenteritis Viral Or Presumed Viral Past Surgical History: Procedure Laterality Date LIGATION OF FALLOPIAN TUBE N/A 01/30/1980 Tubal ligation TONSILLECTOMY N/A Tonsillectomy Epic Visit Count: 3 Planned Date of Surgery: 08/26/2022 Nuria Simmons presents to outpatient physical therapy for continued rehabilitation. Due to ongoing and worsened knee pain, patient returned to her physician at [facility] and will be undergoing a left total knee evaluation. Goal is for next day discharge. She would like to discuss her u pcoming surgery and preparation for the procedure. History of Present Illness/Current Level of Function: Pt was seen by OP PT for two visits prior to scheduling of the total knee. She has been found to have L knee OA. Home Set-up: - Type of home: House - Number of stairs to enter home: 3-4 (shorter, wide) Hand Rail: 0 - Number of stairs in home to reach bedroom/bathroom: 12-13 to basement (laundry, pantry) Hand Rail:L side only - Bathroom: Tub shower Sturdy Handle Equipped: Grab bars Caregiver assistance upon discharge will be provided by: Spouse - Does the caregiver have sufficient strength, stability, and independence: yes (uses trekking sticks) - Does the caregiver use an assistive device for gait: trekking sticks occasionally - Will the caregiver be available 24 hours/day for at least 2-3 days post-op: yes, retired Durable Medical Equipment - Front Wheeled Walker: yes - Tub Transfer bench: no - Shower Chair: yes - 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 Range of Motion: Left Right Knee Flexion/Extension 0-140 AROM: 126 AROM: 132 Strength: Left Right Knee Flexion: 5/5 5/5 Knee Extension: 01/22 02/21 Outcome Measures: Risk Assessment and Prediction Tool (RAPT) 1. What is your age group? 66-75 years = 1 point 2. Gender? Female = 1 point 3. How far on average can you walk?Two blocks or more (+/- rest) = 2 points 4. Which gait aid do you use? (more often than not)None = 2 points 5. Do you use community supports? None or one time per week = 1 point 6. Will you live with someone who can care for you after your operation? Yes = 3 points Total RAPT Score (out of 12) = 10 RAPT interpretation: score >9 indicates that patient may be a candidate for same day discharge. Fall Assessment: Pt does not currently have a risk for falls. Education provided on: Bed Mobility Practiced transferring supine to/from sitting utilizing log roll technique Sit to stand Push off from bed/chair with at least [address] operative extremity slightly forward to limit use if painful Ambulation using FWW Short, reciprocal steps progressing to larger steps with greater velocity Upright posture Maintain walker near body with turns Use walker until ambulation is without pain or significant limp Stair Navigation ???Up with the good, down with the bad?? Utilize lateral stepping while facing railing if painful/limiting range of motion Expectations for Strength and Active Range of Motion Provided Range of Motion expectations following TKA along with time frame Discussed post op goals following surgery are 0-115 degrees by the end of outpatient physical therapy Home Exercise Program Perform 20-30 reps/day Recommend warm-up with a few repetitions after prolonged time in a given position Completed ankle pumps, quad sets, heel slides, long arc quads, and SLR Also discussed knee extension stretching and avoidance of placing a pillow directly under knee post operatively. Limit pain to approximately 4-5/10 in immediate postoperative period Instructed use of strap/band for upper extremity assistance General Care Frequent Icing Pt will be requesting ice machine via insurance. Elevation ideally above heart Pillow under lower calf/heel while supine in bed/couch/recliner Gentle compression with stockings/Tubigrip Remain consistent with pain medication in immediate postoperative period to avoid breakthrough pain.Goal is 4-5/10 with movement and activity but can increase in the few days following surgery Activity Progression Will be dependent upon pain and irritability Focus on quality of gait, rather than distance or speed Day of Surgery Limit activity to short household distances Continue icing and elevation Repeat home exercise program Discussed transportation planning to/from the Hospital and Physical Therapy. Day 1-2 post op Walk about 4-5x/typical household distance (end of driveway and back) Rest and elevate operative extremity. Monitor for increase in pain If tolerating well, repeated ambulation distance around noon and evening. Repeat rest/elevation of limb and monitoring of symptoms If tolerating additional activity, continue to progress ambulation distance x2-3 each day. Continue home exercise program and general cares Durable medical equipment recommended: front wheeled walker (FWW) Treatment -Reviewed home exercise program provided by [facility] including quad sets, SLR, prone hip extension, standing hamstring curl, standing hip abduction -trialed [id number] with leg out, stairs with one rail utilizing side stepping, and fwd ambulationwith FWW -discussed all education noted above for home management following her surgical discharge Assessment Clinical Impression: Nuria Simmons presents to physical therapy for continued rehabilitation. Since last session,pt now has left total knee procedure scheduled for 08/26/22. Patient was educated on standard rehabilitation pre and post operatively and acknowledged this may be altered pending surgical technique or patient status following procedure. Given current physical activity levels, RAPT score of 10/12, home setup and support provided by her spouse, the patient is anticipated to benefit from same day discharge with family/friend support in place. Comorbidities: OA Personal Factors: Age and Occupational risk factors These functional limitations and problem list require the specialized knowledge and skill of a therapist to meet expected outcomes. Patient has excellent potential to meet the expected outcomes in a reasonable period. Patient agrees with plan of care. Thank you for this referral. INTERDISCIPLINARY PATIENT EDUCATION RECORD Assessment of learning challenges of patient/family: No barriers Learning preferences: Verbal, print, demonstration Topic of education: Pre and post-operative TKA protocol Current knowledge assessment: Some understanding Readiness/barriers to learning: Accepting Teaching method: Verbal, print and demonstration Outcomes and reinforcement: Verbalizes understanding Functional Goals and Timeframes: 1. Instruct and understand home program for after surgery within 1 therapy visit - met 2. Instruct in appropriate home modifications to promote home safety within 1 therapy visit - met 3. Recommend appropriate DME to optimize home safety within 1 therapy visit - met Plan Ms. Simmons is scheduled for surgery on 08/26/22 at [facility]. Will plan on following up with outpatient physical therapy 5-7 days post op. Zully Veliz P.T. Department of Rehabilitation Services in [address] [address] Dept: [phone] Time Spent with Patient Therapeutic Interventions Gait Training (min): 10 min Home Management Training (min): 20 min Therapeutic Exercise (min): 10 min Time Tracking Total Timed Units (min): 40 min Total Treatment Time (min): 40 min documented in this encounter Plan of Treatment Upcoming Encounters Date Type Specialty Care Team Description 09/02/2022 Comprehensive Visit Physical Medicine and Moy, Mainor Castellanos M.D. [address] [facility] [place] [address] Rehabilitation Rosanna Veliz P.T. documented as of this encounter Visit Diagnoses Diagnosis Pain Knee Bilateral documented in this encounter
--- OUTSIDE RECORDS SUMMARY | 2022-07-29 14:48 | XMS_ITS | Encounter Summary ---
:1950 Author Organization [facility] Address [address] [place] [address] Care Team Providers Name Role Phone Unavailable Primary Care Provider Unavailable Encounter Details Date Type Department Care Team Description 08/03/2018 Hospital Encounter Department of Brandie Thompson [facility] [place] [place] [address] Patient [address] [address] [place], [place] [phone] (Work) [phone] Social History Tobacco Use Types Packs/Day Years [...] mouth daily. (MULTIVITAMIN 50 PLUS ORAL) omega 1-hbb-lby-fish oil Take 1,000 mg by 0 11/21 [...] and Moy, Mainor Castellanos M.D. [address] [place] [address] Rehabilitation Rosanna Veliz, P.TRoscoe documented as of this encounter Procedures Procedure Name Priority Date/Time Associated Comments Diagnosis BI BREAST RAD - Routine 08/03/2018 4:20 Screening Results for this SCREENING (most inpatients PM CDT Mammogram Average proced ure are in BILATERAL and all Risk Patient the results outpatients) section. documented in this encounter Results BI Breast Screening Bilateral (08/03/2018 4:20 PM CDT) Anatomical Region Laterality Modality Breast, Breast Imaging RST LOS, Breast Imaging ARZ LOS, [place] [address] Bilateral Mammography Imaging FLA LOS Specimen (Source) Anatomical Collection Method Collection Time Re ceived Time Location / / Volume Laterality 08/03/2018 5:16 PM CDT Impressions 08/03/2018 5:17 PM CDT IMPRESSION: ??Negative. RECOMMENDATION: ??Annual Screening Mammo gram ASSESSMENT: ??BI-RADS: 1: Negative. Narrative 08/03/2018 5:17 PM CDT EXAM: ??BI BREAST SCREENING BILATERAL Current study was evaluated with a Compu ter Aided Detection (CAD) system. INDICATION: ??Screening mammogram. COMPARISON: ??Prior exam(s) were availab le and reviewed for comparison. DENSITY: ??b. There are scattered areas of fibroglandular density. FINDINGS: ??No mammographic findings of malignancy. Procedure Note Lenin Dowell M.D. - 08/03/2018Formatti ng of this note might be different from [...] this encounter Visit Diagnoses Diagnosis Screening Mammogram Average Risk Patient documented in this encounter
--- OUTSIDE RECORDS SUMMARY | 2022-07-29 14:48 | XMS_ITS | Encounter Summary ---
:1950 Author Organization [facility] Address [address] [place] [address] Care Team Providers Name Role Phone Unavailable Primary Care Provider Unavailable Encounter Details Date Type Department Care Team Description 11/17/2018 Hospital Department of Brandie Thompson Bleeding Encounter Radiology in [facility], [address] [place] [id number] [facility] [phone] [place], [place] (Work) [phone] Social History Tobacco Use Types Packs/Day [...] mouth daily. (MULTIVITAMIN 50 PLUS ORAL) omega 8-dyk-dsn-fish oil Take 1,000 mg by 0 11/21 [...] Medicine and Moy, Mainor Castellanos M.D. [address] [facility] [place] [address] Rehabilitation Rosanna Veliz, P.T. documented as of this encounter Procedures Procedure Name Priority Date/Time Associated Diagnosis Comme nts US PELVIS RAD - Routine 11/17/2018 Bleeding Results for TRANSVAGINAL AND (most inpatients 10:21 AM SENIOR CYBER INTELLIGENCE ANALYST Postmenopausal this procedure TRANSABDOMINAL and all are in the outpatients) results section. documented in this encounter Results US Pelvis Transvaginal and Transabdominal (11/17/2018 10:21 AM SENIOR CYBER INTELLIGENCE ANALYST) Anatomical Region Laterality Modality Pelvis, Ultrasound RST LOS, Ultrasound ARZ LOS, Ultrasound F LA N/A Ultrasound LOS Specimen (Source) Anatomical Collection Method Collection Time Re ceived Time Location / / Volume Laterality 11/17/2018 10:31 AM SENIOR CYBER INTELLIGENCE ANALYST Impressions 11/17/2018 10:41 AM SENIOR CYBER INTELLIGENCE ANALYST IMPRESSION: ??Several cystic structures probably represent degenerated fibroids and there is also noted to be a 0.7 to 0 .8 cm fibroid in the lower uterine segment. Endometrial thickness is 2.0 mm and ther e is a small amount of fluid in the endometrial space. Narrative 11/17/2018 10:41 AM SENIOR CYBER INTELLIGENCE ANALYST EXAM: ??US PELVIS TRANSVAGINAL AND TRANSABDOMINAL COMPARISON: TECHNIQUE: ??Transabdominal and transvag inal. FINDINGS: Uterus: 6.3 x 2.9 x 5.0 cm. . Myometrium: There are 2 small cystic les ions placed in the posterior fundal myometrium within myometrium and another echogenic structure is placed in the posterior myometrium in the lower uterin e segment consistent with a fibroid. Cysts are measured at approximately 0.3 to 0.4 cm in dimension and the fibroid approximates 0.7 cm dimensionally. Endometrium: Normal. Thickness: Endometr ial thickness measures 2.0 mm and there is a small amount of fluid placed within the fundal portion of the endometrium. Right ovary: Normal. ??Ovarian volume: 3 .4 mL. Left ovary: Normal with 2.2 cm in diamet er cyst in left ovary.. ??Ovarian volume: 8.2 mL. Intraperitoneal Fluid: None. Transvaginal exam performed to better vi sualize the adnexa. Procedure Note Zachary Grider M.D. - 11/17/2018Formatti ng of this note might be different from the original. EXAM: US PELVIS TRANSVAGINAL AND TRANSAB DOMINAL COMPARISON: TECHNIQUE: Transabdominal and transvagin al. FINDINGS: Uterus: 6.3 x 2.9 x 5.0 cm. . Myometrium: There are 2 small cystic les ions placed in the posterior fundal myometrium within myometrium and another echogenic structure is placed in the posterior myometrium in the lower uterin e segment consistent with a fibroid. Cysts are measured at approximately 0.3 to 0.4 cm in dimension and the fibroid approximates 0.7 cm dimensionally. Endometrium: Normal. Thickness: Endometr ial thickness measures 2.0 mm and there is a small amount of fluid placed within the fundal portion of the endometrium. Right ovary: Normal. Ovarian volume: 3.4 mL. Left ovary: Normal with 2.2 cm in diamet er cyst in left ovary.. Ovarian volume: 8.2 mL. Intraperitoneal Fluid: None. Transvaginal exam performed to better vi sualize the adnexa. IMPRESSION: Several cystic structures pr obably represent degenerated fibroids and there is also noted to be a 0.7 to 0 .8 cm fibroid in the lower uterine segment. Endometrial thickness is 2.0 mm and ther e is a small amount of fluid in the endometrial space. Brandie HEDNRICKS US PROCEDURES documented in this encounter Visit Diagnoses Diagnosis Bleeding Postmenopausal documented in this encounter
--- OUTSIDE RECORDS SUMMARY | 2022-07-29 14:48 | XMS_ITS | Encounter Summary ---
:1950 Author Organization [facility] Address [address] [place] [address] Care Team Providers Name Role Phone Unavailable Primary Care Provider Unavailable Encounter Details Date Type Department Care Team Description 12/20/2020 Orders Only [facility] Sa corrina Disla M.D. [address] [place], [place] [phone] (Wo rk) Social History Tobacco Use Types [...] Medicine and Mainor Winter M.D. [address] [place] [address] Rehabilitation Rosanna Veliz, P.T. documented as of this encounter Visit Diagnoses Not on filedocumented in this encounter
--- OUTSIDE RECORDS SUMMARY | 2022-07-29 14:48 | XMS_ITS | Clinical Summary ---
:1950 Author Organization [facility] Address [address] [place] [id number] Care Team Providers Name Role Phone Unavailable Primary Care Provider Unavailable Source Comments Patient records contain information from all sites at [facility]. For routine questions regarding patient records, call [phone] during business hours, M-F 8:00 AM - 5:00 PM Central Time. Record requests for emergency care only can be directed to [phone] at any time.[facility] Allergies Active Allergy Reactions Severity Noted Date Comments No Known Allergies Other (see comments) 11/21/2011 Medications Medication Sig Dispensed Refills Start Date End Date Status traZODone (for_DESYREL) Take 1 tablet 0 11/09/2013 Active 150 mg tablet by mouth at bedtime. lutein 20 mg tablet Take 1 tablet 0 11/24/2012 Active by mouth daily. cholecalciferol Take 2,000 0 11/21/2011 Ac tive (for_VITAMIN D3) 2,000 Units by mouth Unit tablet daily. magnesium citrate 100 mg Take 1 tablet 0 11/21/2011 Active tablet by mouth 2 (two) times a day. MULTIVIT WITH Take 1 tablet 0 11/21/2011 A ctive MINERALS/LUTEIN by mouth daily. (MULTIVITAMIN 50 PLUS ORAL) VITAMIN B COMPLEX VIT C Vitamin B 0 07/25/2014 Active NO.3 (VITAMIN B COMP AND Complex 100 C NO.3 ORAL) Take 1 tablet daily omega 4-tlb-dzv-fish oil Take 1,000 mg 0 11/21/2011 Active (FISH OIL) 100-160-1,000 by mouth daily. mg capsule ZINC CITRATE-PHYTASE Take 1 tablet 0 11/21/2011 Active ORAL by mouth daily. calcium citrate-vitamin Take 1 tablet 0 Active D3 (for_CITRACAL+D) by mouth 2 315-200 mg-unit per (two) times a tablet day with meals. garlic 1,000 mg capsule Take 1 capsule 0 Active by mouth daily. UBIDECARENONE (COENZYME Take by mouth 0 Active Q10 ORAL) daily. benzonatate Take 1 capsule 20 capsule 0 10/06/2017 A ctive (for_TESSALON PERLES) (100 mg total) 100 mg capsule by mouth 3 (three) times a day as needed for cough. metoprolol tartrate Take 0.5 30 tablet 0 10/06/2017 Active (for_LOPRESSOR) 25 mg tablets (12.5 tablet mg total) by mouth 2 (two) times a day. Hospital, Clinic, or Other Ordered Dose Route Frequency Start Date End Date Status Facility Administered Medication azithromycin tablet 250 mg 250 mg oral Daily 10/07/2017 Active (for_ZITHROMAX)Indications: Respiratory tract infection, community acquired azithromycin tablet 250 mg 250 mg oral Daily 10/07/2017 Active (for_ZITHROMAX)Indications: Respiratory tract infection, community acquired Active Problems Problem Noted Date Pneumonitis 10/05/2017 Gastroenteritis Viral Or Presumed Viral 10/05/2017 Resolved Problems Problem Noted Date Resolved Date Fibrillation Atrial (AF) NOS 10/05/2017 10/06/2017 Encounters Date Type Specialty Care Team Description 07/29/2022 Clinical Support Physical Medicine and [facility] Claritza Castellanos M.D. Bilateral Rosanna Veliz P.TRoscoe 06/25/2022 Clinical Support Physical Medicine and [facility] Claritza Castellanos M.D. Bilateral Rosanna Veliz P.TRoscoe 06/07/2022 Comprehensive Visit Physical Medicine and He [facility] Knee Rehabilitation Екатерина Castellanos Bilateral (Primary Rios, Sofia) Ross eBnjamin P.T. from Last 3 Months Immunizations Name Administration Dates Next Due Influenza, Unspecified 08/27/2014, 08/02/2013, 08/03/2011 Td (Adult), adsorbed 05/13/2003 Tdap 08/02/2013 Family History Medical History Relation Name Comments Bladder Father Bladder Mother Glaucoma Mother Hypothyroidism Mother Glaucoma Sister Hernia Sister Osteoporosis Sister Relation Name Status Comments Father Mother Sister Social History Tobacco Use Types Packs/Day Years Used Date Smoking Tobacco: Never Smokeless Tobacco: Never Alcohol Use Standard Drinks/Week Comments No 0 (1 standard drink = 0.6 oz pure alcoho l) Sex Assigned at Date Recorded Not on file Last Filed Vital Signs Vital Sign Reading Time Taken Comments Blood Pressure 141/83 10/06/2017 6:40 PM [employer] SPECIALIST Pulse 75 10/06/2017 5:15 PM ACCOUNT SERVICES SPECIALIST Temperature 36.9 ??C (98.4 ??F) 10/06/2017 5:00 PM ACCOUNT SERVICES SPECIALIST Respiratory Rate 18 10/06/2017 5:15 PM ACCOUNT SERVICES SPECIALIST Oxygen Saturation 95% 10/06/2017 5:15 PM ACCOUNT SERVICES SPECIALIST Inhaled Oxygen Concentration - - Weight 59.5 kg (131 lb 2.8 oz) 10/06/2017 6:00 AM ACCOUNT SERVICES SPECIALIST Height 165.1 cm (5' 5) 10/05/2017 5:23 PM ACCOUNT SERVICES SPECIALIST Body Mass Index 21.83 10/05/2017 5:23 PM ACCOUNT SERVICES SPECIALIST Plan of Treatment Upcoming Encounters Date Type Specialty Care Team Description 09/02/2022 Comprehensive Visit [facility] [address] [facility] [address] [place] [address] Rehabilitation Rosanna Veliz, P.T. Health Maintenance Due Date Last Done Comments CT Colonography 1950 Cologuard 1950 Colonoscopy 1950 Colorectal Cancer Screening 1950 FIT 1950 Hepatitis C Screening 1950 COVID-19 Vaccine (#1) 1950 Zoster Vaccines (1 of 2) 01/30/2000 Pneumococcal vaccine (65+ years) 12/13/2020 12/13/2019 (2 - PPSV23 or PCV20) Depression Screening (Annual 10/20/2021 PHQ-2) Fall Risk Screen (Annual) 10/20/2021 Mammogram 07/09/2022 07/09/2021, 12/20/2019, 08/03/2018, Additional history exists Influenza Vaccine (#1) 2022 08/30/2019, 08/30/2019, 08/03/2018, Additional history exists DTaP,Tdap,and Td Vaccines (2 - Td 08/02/2023 08/02/2013, , or Tdap) 05/13/2003, Additional history exists Fasting Glucose for Diabetes 07/02/2024 07/02/2021, 017, Screening 10/05/2017 Insurance Payer Benefit Plan Subscriber ID Effective Phone Address Typ e / Group Dates MEDICARE MEDICARE A [id number] 2015-Pres [address] [place] [address] [employer] [place] [id number] 2016-Pres [phone] PO FRITZ X Cost Share BLUE [employer]UE [employer]ST ent [phone] [place] [address] Advance Directives For more information, please contact: [phone] Latest Code Status on File Code Status Date Activated Date Inactivated Comments Full Code 10/05/2017 5:57 PM 10/06/2017 8:58 PM Full Code: Discussed
--- OUTSIDE RECORDS SUMMARY | 2022-07-29 14:49 | XMS_ITS | Encounter Summary ---
:1950 Author Organization [facility] Address [address] [place] [address] Care Team Providers Name Role Phone Unavailable Primary Care Provider Unavailable Reason for Visit Auth/Cert Specialty Diagnoses / Procedures Referred By Contact Refer red To Contact Diagnoses Atrial Fibrillation Unspecified atrial fibrllation Procedures na Referral ID Status Reason Start Date Expiration Date Visits Requ ested Visits Authorized [id number] 1 1 Encounter Details Date Type Department Care Team Description 10/05/2017 - [facility] Teri Salter M.D. Gastr oenteritis Viral 10/06/2017 Encounter [facility] [place] Candis Lynn M.D. [address] [place] [address] Or [facility] Viral Medical AtlasTiago Yasser, M.B.B.S., M.D. (Primary Dx) Third Floor [address] [place] [address] Social History Tobacco Use Types Packs/Day Years Used Date Smoking Tobacco: Never Smokeless Tobacco: Never Alcohol Use Standard Drinks/Week Comments No 0 (1 standard drink = 0.6 oz pure alcoho l) Sex Assigned at Date Recorded Not on file documented as of this encounter Last Filed Vital Signs Vital Sign Reading Time Taken Comments Blood Pressure 141/83 10/06/2017 6:40 PM ROTARY SCREEN PRINTING MACHINE OPERATOR Pulse 75 10/06/2017 5:15 PM ROTARY SCREEN PRINTING MACHINE OPERATOR Temperature 36.9 ??C (98.4 ??F) 10/06/2017 5:00 PM ROTARY SCREEN PRINTING MACHINE OPERATOR Respiratory Rate 18 10/06/2017 5:15 PM ROTARY SCREEN PRINTING MACHINE OPERATOR Oxygen Saturation 95% 10/06/2017 5:15 PM ROTARY SCREEN PRINTING MACHINE OPERATOR Inhaled Oxygen Concentration - - Weight 59.5 kg (131 lb 2.8 oz) 10/06/2017 6:00 AM ROTARY SCREEN PRINTING MACHINE OPERATOR Height 165.1 cm (5' 5) 10/05/2017 5:23 PM ROTARY SCREEN PRINTING MACHINE OPERATOR Body Mass Index 21.83 10/05/2017 5:23 PM ROTARY SCREEN PRINTING MACHINE OPERATOR documented in this encounter Discharge Summaries Candis Raphael M.D. - 10/06/2017 5:48 PM CST INPATIENT DISCHARGE SUMMARY BRIEF OVERVIEW Discharge Provider: Candis Raphael M.D. No primary care provider on file. Primary Care Provider Phone Number: None Primary Care Provider Fax Number: None Other Providers: None Admission Date: 10/05/2017 Discharge Date: 10/06/2017 PRINCIPAL DIAGNOSIS No Principal Problem: There is no principal problem currently on the Problem List. Please update theProblem List and refresh. SECONDARY DIAGNOSES Active Problems: Pneumonitis Gastroenteritis Viral Or Presumed Viral Resolved Problems: Fibrillation Atrial (AF) NOS DISCHARGE DISPOSITION Home or Self Care [1] ACTIVE ISSUES REQUIRING FOLLOW UP Vital gastroenteritis and pneumonitis OUTPATIENT FOLLOW UP No future appointments. TEST RESULTS PENDING AT DISCHARGE Pending Labs Order Current Status Free Thyroxine Index (FTI) Collected (10/06/17 0520) DISCHARGE MEDICATIONS Your medication list START taking these medications Instructions Last Dose Given Next Dose Due benzonatate 100 mg capsule Commonly known as: for_TESSALON PERLES Take 1 capsule (100 mg total) by mouth 3 (three) times a day as needed for cough. guaiFENesin 600 mg 12 hr tablet Commonly known as: for_MUCINEX Take 1 tablet (600 mg total) by mouth 2 (two) times a day for 10 days. metoprolol tartrate 25 mg tablet Commonly known as: for_LOPRESSOR Take 0.5 tablets (12.5 mg total) by mouth 2 (two) times a day. CONTINUE taking these medications Instructions Last Dose Given Next Dose Due calcium citrate-vitamin D3 315-200 mg-unit per tablet Commonly known as: for_CITRACAL+D Take 1 tablet by mouth 2 (two) times a day with meals. cholecalciferol 2,000 Unit tablet Commonly known as: for_VITAMIN D3 Take 2,000 Units by mouth daily. COENZYME Q10 ORAL Take by mouth daily. FISH OIL 100-160-1,000 mg capsule Generic drug: omega 0-vvz-rxp-fish oil Take 1,000 mg by mouth daily. garlic 1,000 mg capsule Take 1 capsule by mouth daily. lutein 20 mg tablet Take 1 tablet by mouth daily. magnesium citrate 100 mg tablet Take 1 tablet by mouth 2 (two) times a day. MULTIVITAMIN 50 PLUS ORAL Take 1 tablet by mouth daily. traZODone 150 mg tablet Commonly known as: for_DESYREL Take 1 tablet by mouth at bedtime. VITAMIN B COMP AND C NO.3 ORAL Vitamin B Complex 100 Take 1 tablet daily ZINC CITRATE-PHYTASE ORAL Take 1 tablet by mouth daily. Where to Get Your Medications These medications were sent to [facility] - [address] [address] ?? benzonatate 100 mg capsule ?? guaiFENesin 600 mg 12 hr tablet ?? metoprolol tartrate 25 mg tablet Azithromycin 250 mg to take 1 tablet daily at 5PM starting on 10/07/2017 for 4 days DETAILS OF HOSPITAL STAY REASON FOR ADMISSION Fibrillation Atrial (HCC) The patient was admitted on October 05, 2017 transfer from [place] with new onset atrial fibrillation. She presented to the emergency room with cough and chest congestion for several days subjective fevers chills nausea and 1 episode of vomiting her chest x-ray showed pneumonitis and she was started on Rocephin but she developed new onset atrial fibrillation was given Cardizem bolus and transferred to [place] ICU for further care. Her troponin was normal and magnesium 1.9. HOSPITAL COURSE Upon arrival to our facility the patient was already on sinus rhythm she was kept on Cardizem infusion until about 11:00 p.m.. She was then started on metoprolol low dose 12.5 mg twice a day and managed to keep good a heart rate control and was sinus rhythm during the whole hospitalization. Full antico agulation with enoxaparin was started but no oral anticoagulation. The patient was not given any antibiotics after admission and a repeat chest x-ray shows patchy bibasilar pulmonary opacities and she was started on azithromycin a dose of 500 mg given prior to discharge. She will continue a total of 5days as outpatient Today she had a echocardiogram with the findings below: Final Impressions 1. Normal left ventricular chamber size and wall thickness. Calculated ejection fraction 63%. 2. No regional wall motion abnormalities. 3. Normal left ventricular diastolic function. 4. Normal right ventricular size and systolic function. 5. Estimated right ventricular systolic pressure 33 mmHg (systolic blood pressure 118 mmHg). 6. Normal left atrial size. 7. No significant valvular heart disease. 8. 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 Enoxaparin was discontinued. Oral anticoagulation will not be started at this point. She will followup her primary care provider and addressed the issue in case she has recurrence of atrial fibrillation. During hospitalization the patient was able to accept would oral intake, TSH was 0.5, recheck free T4 is pending. The patient had 1 episode of loose stools very foul-smelling and C diff toxin PCR was checked and negative. As she has persistent cough she was given Tessalon Perles and Mucinex with some i mprovement. Initially she needed supplemental oxygen per nasal cannula, 2 liters/minutes to maintainproper oxygen saturation but by the time of discharge she was saturating well on room air. She is being discharged to home today on azithromycin, Tessalon Perles, Mucinex and low-dose metoprolol. Follow-up with primary care provider CONSULTS ORDERED DURING THIS ADMISSION IP CONSULT TO CARE MANAGEMENT Procedures Performed: Echocardiogram as mentioned above CONDITION AT DISCHARGE improved Paroxysmal atrial fibrillation resolved On day of discharge I saw and examined the patient and we discussed the follow up plan. The patient expressed understanding and agreement of it. On the date of discharge I spent more than 30 minutes on a face to face encounter with the patient and answer all the questions to his/her satisfaction.On the date of discharge I spent more than 30 minutes on a face to face encounter with the patient and answer all the questions to his/her satisfaction. RY SCREEN PRINTING MACHINE OPERATOR documented in this encounter Discharge Instructions Discharge Instr - Non [place] Follow-UpsGia Doty, C.N.A. - 10/06/2017 6:03 PM CST Please make Primary care Physician follow-up, within the next 3-5 days. RY SCREEN PRINTING MACHINE OPERATOR documented in this encounter Medications at Time of Discharge Medication Sig Dispensed Refills Start Date End Date calcium citrate-vitamin D3 Take 1 tablet by 0 (for_CITRACAL+D) 315-200 mouth 2 (two) mg-unit per tablet times a day with meals. cholecalciferol Take 2,000 Units 0 11/21/2011 (for_VITAMIN D3) 2,000 by mouth daily. Unit tablet garlic 1,000 mg capsule Take 1 capsule by 0 mouth daily. lutein 20 mg tablet Take 1 tablet by 0 11/24/2012 mouth daily. magnesium citrate 100 mg Take 1 tablet by 0 11/21 tablet mouth 2 (two) times a day. MULTIVIT WITH Take 1 tablet by 0 11/21/2011 MINERALS/LUTEIN mouth daily. (MULTIVITAMIN 50 PLUS ORAL) omega 4-fun-ibh-fish oil Take 1,000 mg by 0 11/21 (FISH OIL) 100-160-1,000 mouth daily. mg capsule traZODone (for_DESYREL) Take 1 tablet by 0 2013 150 mg tablet mouth at bedtime. UBIDECARENONE (COENZYME Take by mouth 0 Q10 ORAL) daily. VITAMIN B COMPLEX VIT C Vitamin B Complex 0 07/25 NO.3 (VITAMIN B COMP AND C 100 Take 1 tablet NO.3 ORAL) daily ZINC CITRATE-PHYTASE ORAL Take 1 tablet by 0 11/2011 mouth daily. benzonatate (for_TESSALON Take 1 capsule 20 capsule 0 2016 PERLES) 100 mg capsule (100 mg total) by mouth 3 (three) times a day as needed for cough. metoprolol tartrate Take 0.5 tablets 30 tablet 0 10/06/2017 (for_LOPRESSOR) 25 mg (12.5 mg total) by tablet mouth 2 (two) times a day. guaiFENesin (for_MUCINEX) Take 1 tablet (600 20 tablet 0 10/16/2017 600 mg 12 hr tablet mg total) by mouth 2 (two) times a day for 10 days. documented as of this encounter Progress Notes Kishor Hogue M.D., Ph.D. - 10/06/2017 2:58 PM CST EMR reviewed, pt remotely assessed. 67 yo female admitted with new onset a fib with RVR. Started on diltiazem and converted to sinus. Started on metoprolol. Holding Abx given normal WBC and overall clinical picture. Suggest: 1) Titrate beta yudith to heart rate. 2) Started on Lovenox anticoagulation given increased CHADS Score. RY SCREEN PRINTING MACHINE OPERATOR documented in this encounter H&P Notes Brian Ordoñez M.D. - 10/05/2017 6:02 PM CST H&P - Hospital CHIEF COMPLAINT Ms. Nuria Simmons is a 67 y.o. female who transferred from [facility] ED for new onset Afib Primary Medical Provider: No primary care provider on file. HISTORY OF PRESENT ILLNESS Patient is a 67 years old female with no significant [facility] and chest congestion for several days and associated with feeling warm and chills, nausea and vomiting x1 with stool but no abdominal pain. Progressively the condition got worse associated with worsening fatigue came to the ER of [facility] seeking medical advice. Checks x-ray of the ED was done which showed pneumonitis however ED provider started on Rocephin,later developed new onset Afib given Cardizem bolus x2 then transferred to [facility] ICU. Troponin came back negative. CBC showed leukocyte 10 thousands but BMP within normal range, TSH 0.5, and proBNP 4027. When I saw the patient in the ICU he was lying down in the bed coughing but able to make full sentence. Diltiazem drip at 7.5 mg was running and telemetry shows normal sinus rhythm with heart rate around 90s. With the dose reduced is 5.0 patient showed sporadic Afib but back to sinus rhythm I have reviewed and updated the following: No past medical history on file. Past Surgical History: Procedure Laterality Date ??? LIGATION OF FALLOPIAN TUBE N/A 01/30/1980 Tubal ligation ??? TONSILLECTOMY N/A Tonsillectomy Family History Problem Relation Age of Onset ??? Bladder Mother ??? Hypothyroidism Mother ??? Glaucoma Mother ??? Bladder Father ??? Osteoporosis Sister ??? Glaucoma Sister ??? Hernia Sister Social History Social History ??? Marital status: Spouse name: N/A ??? Number of children: N/A ??? Years of education: N/A Social History Main Topics ??? Smoking status: Never Smoker ??? Smokeless tobacco: Never Used ??? Alcohol use No ??? Drug use: No ??? Sexual activity: Not on file Other Topics Concern ??? Not on file Social History Narrative ??? No narrative on file Allergies Allergen Reactions ??? No Known Allergies Other (see comments) Prescriptions Prior to Admission Medication Sig Last Dose ??? biotin 1 mg capsule biotin ??? CALCIUM CARB/VIT D3/MINERALS (CALCIUM-VITAMIN D ORAL) Take 1 tablet by mouth 2 (two) times a day. ??? cholecalciferol (for_VITAMIN D3) 1,000 Unit capsule Take by mouth daily. ??? lutein 20 mg tablet Take 1 tablet by mouth daily. ??? magnesium citrate 100 mg tablet Take 300 mL by mouth once. ??? MULTIVIT WITH MINERALS/LUTEIN (MULTIVITAMIN 50 PLUS ORAL) Take by mouth daily. ??? omega 6-sbr-zoe-fish oil (FISH OIL) 100-160-1,000 mg capsule Take 1,000 mg by mouth daily. ??? traZODone (for_DESYREL) 150 mg tablet Take 1 tablet by mouth at bedtime. ??? VITAMIN B COMPLEX VIT C NO.3 (VITAMIN B COMP AND C NO.3 ORAL) Vitamin B Complex 100 ??? ZINC CITRATE-PHYTASE ORAL Take by mouth daily. REVIEW OF SYSTEMS Pertinent items are noted in HPI; all other review of systems was negative. OBJECTIVE VITAL SIGNS Temperature 37 ??C, temperature source Temporal, resp. rate 21, height 165.1 cm, weight 61.3 kg. PHYSICAL EXAM General appearance: alert and no distress Head: atraumatic Eyes: Conjunctiva congested Mouth: lips, mucosa, and tongue normal; teeth and gums normal Neck: supple, symmetrical, trachea midline Lungs: clear to auscultation bilaterally Heart: S1S2 regular and fast, no murmur, gallop or rub Abdomen: soft, non-tender; bowel sounds normal; no masses, no organomegaly Extremities: extremities normal, warm and well perfused Skin: Skin color, texture, turgor normal. No rashes or lesions. Neurologic: Grossly normal and Alert and oriented X 3 DIAGNOSTICS I reviewed the labs and results in the EHR today. Lab Results Component Value Date CREATININE 0.64 10/05/2017 GLUCOSE 130 10/05/2017 TROPONINT <0.01 10/05/2017 Lab Results Component Value Date WBC 10.0 (H) 10/05/2017 HGB 13.1 10/05/2017 PLT 151 (L) 10/05/2017 ASSESSMENT / PLAN This 67 years old with no significant past medical history except for insomnia on trazodone 150 mL at bedtime on a, on multiple vitamins and TURP who presented to the [facility] ED for worsening productive cough with chest congestion along with diarrhea nausea vomiting was found to have a pneumonitis had new onset Afib transferred here for further management. #Fibrillation Atrial (AF) NOS: - the onset, paroxysmal - given diltiazem bolus x2 at [facility] ED then started on diltiazem drip. Admitted to ICU at [facility]. - continue drip and titrate according to the protocol - troponin 1st set negative less than 0.01 however patient on Biotene, but reports has not taken it in a few weeks, still we will check 1 more set - on telemetry - [id number] score: 2 (adj. Stroke rate 2.2% / yr) - echo in am, follow on the result - start Lovenox therapeutic dose. - regarding starting OAC, discuss with cardio given low score and paroxysmal. - TSH 0.5, will check FT4. #Pneumonitis - ED physician felt it is PNA, however, reports read right middle lobe pneumonitis, with slight elevation in WBCs 10 K, no baseline to compare with, no left shift. - had one dose of rocephin today. Wont resume ABX now - will repeat CBC with diff in am - continue to monitor clinically. Cardiomegaly: - pro BNP 427, the surgery group could be acceptable, chest x-ray showed cardiomegaly but exam lungsclear. Will not start diuresis at this time. Insomnia chronic: - trazodone 50 mg at bedtime from home, will continue - QT around 460 Polypharmacy: - different preparation of multivitamin, zinc, fish oil, garlic, lutein, Biotene, etc.. - this all except vitamin-D and calcium given history of osteopenia. VTE Prophylaxis: Lovenox Discharge Information: Home a couple of days Code Status: Full code RY SCREEN PRINTING MACHINE OPERATOR documented in this encounter Nursing Notes Mis Trevizo R.N. - 10/06/2017 6:45 PM CST Goals: Clinical Goals for the Shift: ambulate,wean oxygen Identify possible barriers to meeting goals/advancing plan of care: none Stability of the patient: Moderately Stable - Low risk of patient condition declining or worsening End of Shift Summary: Pt discharged, stable RY SCREEN PRINTING MACHINE OPERATOR Radha Heredia R.N. - 10/06/2017 8:52 AM CST Pt seen in multidisciplinary rounds.2 Diagnosis: pneumonia, Afib Safety Concerns/Fall Risk: yes, up with staff Level of Consciousness: alert Oxygen delivery: nasal cannula Incentive Spirometry: yes Diet:regular, eating breakfast Calorie Count/Supplements/Restrictions no Daily weights: yes Pain Management: no pain IV: yes, needs label, RN aware Herzog Catheter/Drains:no Voiding: yes Bowel Management: loose stools Wounds/Skin integrity: intact Specialty bed/Wound vac: no Pressure Relief Measures: up to chair for breakfast, ambulate with staff as tolerated Activity:up as tolerated PT/OT/ST needed: no VTE Prophylaxis: lovenox Education Needed: Afib, Pneumonia, Anti coag, C diff Plan for the day: repeat CXR, Echo, use Is, up as tolerated, wean O2 Discharge Plan: possible home later this afternoon, from home with Family Present: no RY SCREEN PRINTING MACHINE OPERATOR Aurelio Chavis R.N. - 10/06/2017 5:11 AM CST Goals: Clinical Goals for the Shift: remain free of pain, and falls. Identify possible barriers to meeting goals/advancing plan of care: changes in heart rate and rhythm Stability of the patient: Moderately Unstable - Medium risk of patient condition declining or worsening End of Shift Summary: pt. Did not complain of pain. As supervised when walking. Did not fall. RY SCREEN PRINTING MACHINE OPERATOR Aurelio Chavis R.N. - 10/06/2017 12:22 AM CST At 2345 the patient put her call light on. I (aurelio chavis rn) was assessing another patient. Amarilys Ayon answered the call light. The patient complained of being hot and needed to use the bathroom. Amarilys stated, the patient was pale, hard to arouse, and was having trouble walking to the bathroom (she was slightly unstable). With the assistance of Amarilys, the patient made it to the toilet in the corner of the room. The patient rested there. I (aurelio chavis rn) walked in at 2350. The patient had a large loose Bm. The patient was hunched over. The patient could respond to questions appropriately, but was slightly delayed. She was pale, but her color in her face and extremities returned. Her capillary refill in her finger nails was less than 2 seconds. With the assistance of Linh Conley, the patient was returned to bed. She was stable in herwalking. She was not complaining of a headache, dizziness, or pain. Vitals were then taken - her pulses were around 49-50 bpm. Stormy Dominguez NP was notified of these findings. I reviewed her telemetry - there was no change - she was still in sinus rhythm. Moving forward, I will continue to monitor the patient's blood pressures, pulses, and oxygen saturations. I will obtain a stool sample (new order) ifpossible. RY SCREEN PRINTING MACHINE OPERATOR documented in this encounter Plan of Treatment Upcoming Encounters Date Type Specialty Care Team Description 09/02/2022 Comprehensive Visit Physical Medicine and Mainor Winter [facility].D. [address] [facility] [address] [place] [address] Rehabilitation Rosanna Veliz PRoscoeTRoscoe documented as of this encounter Procedures Procedure Name Priority Date/Time Associated Comments Diagnosis (TTE) 2D ECHO Routine 10/06/2017 11:05 Results fo r this DOPPLER COLOR AM ROTARY SCREEN PRINTING MACHINE OPERATOR procedure are in the results section. DX CHEST AP OR PA RAD - Routine 10/06/2017 11:04 Resul ts for this AND LATERAL 2 (most inpatients AM ROTARY SCREEN PRINTING MACHINE OPERATOR procedure are in VIEWS and all the results outpatients) section. C. DIFFICILE Routine 10/06/2017 9:43 Results for this TOXIN PCR, F AM ROTARY SCREEN PRINTING MACHINE OPERATOR procedure are i n the results section. FREE THYROXINE Routine 10/06/2017 5:20 Results fo r this INDEX (FTI), S AM ROTARY SCREEN PRINTING MACHINE OPERATOR procedure are in the results section. CBC WITH Routine 10/06/2017 5:20 Results for this DIFFERENTIAL, B AM ROTARY SCREEN PRINTING MACHINE OPERATOR procedure ar e in the results section. MAGNESIUM, S Routine 10/06/2017 5:20 Results for this AM ROTARY SCREEN PRINTING MACHINE OPERATOR procedure are i n the results section. BASIC METABOLIC Routine 10/06/2017 5:20 Results f or this PANEL, S/P AM ROTARY SCREEN PRINTING MACHINE OPERATOR procedure are i n the results section. INFLUENZA A/B Routine 10/05/2017 9:09 Results for this (RAPID) PM ROTARY SCREEN PRINTING MACHINE OPERATOR procedure are i n the results section. TROPONIN T, 5TH Routine 10/05/2017 6:26 Results f or this GEN, P PM ROTARY SCREEN PRINTING MACHINE OPERATOR procedure are i n the results section. ADULT OXYGEN Routine 10/05/2017 5:57 THERAPY PM ROTARY SCREEN PRINTING MACHINE OPERATOR ADULT OXYGEN Routine 10/05/2017 5:57 THERAPY PM ROTARY SCREEN PRINTING MACHINE OPERATOR documented in this encounter Results (TTE) 2D ECHO DOPPLER COLOR (10/06/2017 11:05 AM ROTARY SCREEN PRINTING MACHINE OPERATOR) [facility] Method Time Signature Ejection Fraction 63 MC CV EIMS Proximal Ascending 30 MC CV EIMS Aorta LV Mass Index 80 MC CV EIMS LV End-Diastolic 45 MC CV EIMS Diameter LV End-Systolic 29 MC CV EIMS Diameter MV E Velocity 0.7 MC CV EIMS MV A Velocity 0.6 MC CV EIMS MV E/A 1.17 MC CV EIMS MV e' Velocity 0.09 MC CV EIMS Medial MV E/e' Medial 7.8 MC CV EIMS Left ventricular 42 MC CV EIMS stroke volume index Cardiac Output 3.81 MC CV EIMS Cardiac Index 2.31 MC CV EIMS LV Interventricular 9 MC CV EIMS Septal Wall Thickness LV Posterior Wall 9 MC CV EIMS Thickness LV Relative Wall 40 MC CV EIMS Thickness RV 4-Chamber Basal 35 MC CV EIMS Diameter TR Vmax 2.10 MC CV EIMS RA Pressure 15 MC CV EIMS RV Systolic Pressure 33 MC CV EIM S Aortic valve area 2.66 MC CV EIMS Aortic Valve 0.77 MC CV EIMS Dimensionless Index LA Volume Index 20 MC CV EIMS Anatomical Region Laterality Modality Echocardiography Specimen (Source) Anatomical Collection Method Collection Time Re ceived Time Location / / Volume Laterality 10/06/2017 9:57 AM ROTARY SCREEN PRINTING MACHINE OPERATOR Narrative 10/06/2017 3:54 PM ROTARY SCREEN PRINTING MACHINE OPERATOR See PDF For Result Procedure Note Scooter Robb M.D. - 10/06/2017Form atting of this note might be different from the original. See PDF For Result Brian Manning M.D. CV ECHO PROCEDURES DX Chest AP or PA and Lateral 2 Views (10/06/2017 11:04 AM ROTARY SCREEN PRINTING MACHINE OPERATOR) Anatomical Region Laterality Modality Chest N/A Digital Radiography Specimen (Source) Anatomical Collection Method Collection Time Re ceived Time Location / / Volume Laterality 10/06/2017 11:06 AM ROTARY SCREEN PRINTING MACHINE OPERATOR Impressions 10/06/2017 11:08 AM ROTARY SCREEN PRINTING MACHINE OPERATOR IMPRESSION: Patchy bibasilar pulmonary o pacities. Narrative 10/06/2017 11:08 AM ROTARY SCREEN PRINTING MACHINE OPERATOR EXAM: DX CHEST AP OR PA AND LATERAL 2 VIEWS COMPARISON: 10/05/2017 FINDINGS: Stable cardiomegaly. ??Patchy bibasilar pulmonary opacities. ??Right middle lobe opacity, slightly decreased. ??Mild pulmonary vascular congestion. Procedure Note Lenin Dowell M.D. - 10/06/2017Formatti ng of this note might be different from the original. EXAM: DX CHEST AP OR PA AND LATERAL 2 EWS COMPARISON: 10/05/2017 FINDINGS: Stable cardiomegaly. Patchy bi basilar pulmonary opacities. Right middle lobe opacity, slightly decreased. Mild pulmonary vascular congestion. IMPRESSION: Patchy bibasilar pulmonary o pacities. Candis Raphael M.D. IMG DIAGNOSTIC IMAGING PRO CEDURES C. difficile Toxin PCR, F Stool (10/06/2017 9:43 AM ROTARY SCREEN PRINTING MACHINE OPERATOR) P athologist Signature C. difficile Negative Negative 10/06/2017 [facility] toxin 11:07 AM ROTARY SCREEN PRINTING MACHINE OPERATOR [facility] Specimen Anatomical Collection Method Collection Time Receive d Time (Source) Location / / Volume Laterality Stool (Stool) 10/06/2017 9:43 AM 10/06/20 9:47 ROTARY SCREEN PRINTING MACHINE OPERATOR AM ROTARY SCREEN PRINTING MACHINE OPERATOR Stormy Dominguez APRN, C.N.P., M.S.N. LAB MICROBIOLOGY - GENERAL ORDERABLES Performing Organization Address City/State/ZIP Code Phon e Number [facility] [address] [place] [address] [place] Free Thyroxine Index (FTI) (10/06/2017 5:20 AM ROTARY SCREEN PRINTING MACHINE OPERATOR) athologist Signature Thyroxine 0.8 0.8 - 1.3 10/07/2017 [facility] Binding TBI 7:49 AM ROTARY SCREEN PRINTING MACHINE OPERATOR LABORATORIES - Capacity, S [facility] T4 7.6 4.5 - 11.7 10/07/2017 [facility] (Thyroxine), mcg/dL 7:49 AM ROTARY SCREEN PRINTING MACHINE OPERATOR LABORATORIES - Total Only, [facility] Free Thyroxine 9.5 4.8 - 12.7 10/07/2017 [facility] Index mcg/dL 7:49 AM ROTARY SCREEN PRINTING MACHINE OPERATOR LABORATORIES - [facility] Specimen Anatomical Collection Method Collection Time Receive d Time (Source) Location / / Volume Laterality Blood (Blood, 10/06/2017 5:20 AM 10/07/20 17 6:43 Venous) ROTARY SCREEN PRINTING MACHINE OPERATOR AM ROTARY SCREEN PRINTING MACHINE OPERATOR Brian Manning M.D. LAB BLOOD ADD-ON Performing Organization Address City/State/ZIP Code Phon e Number [facility] LABORATORIES - [address] [place], [place] [address] [facility] BMP (Basic Metabolic Panel) (10/06/2017 5:20 AM ROTARY SCREEN PRINTING MACHINE OPERATOR) athologist Signature Potassium, S 4.2 3.6 - 5.2 10/06/2017 [facility] mmol/L 6:06 AM [facility] Sodium, S 141 135 - 145 10/06/2017 [facility] mmol/L 6:06 AM [facility] Chloride, S 104 98 - 107 10/06/2017 [facility] mmol/L 6:06 AM [facility] Bicarbonate, S 23 22 - 29 10/06/2017 [facility] mmol/L 6:06 AM [facility] Anion Gap 14 7 - 15 10/06/2017 [facility] 6:06 AM [facility] BUN (Blood Urea 12 6 - 21 10/06/2017 [facility] Nitrogen), S mg/dL 6:06 AM [facility] Creatinine 0.74 0.59 - 10/06/2017 [facility] 1.04 mg/dL 6:06 AM [facility] LAB eGFR 84 >=60 10/06/2017 [facility] Non-Black/Afric mL/min/BSA 6:06 AM [facility] EM- an [facility] LAB Comment: ----ADDITIONAL INFORMATION---- Estimated GFR calculated using the 2009 CKD_EPI creatinine equation. eGFR Black/ >90 >=60 mL/min/BSA 10/06/2017 6:06 AM [facility] Indian [facility] LAB Comment: ----ADDITIONAL INFORMATION---- Estimated GFR calculated using the 2009 CKD_EPI creatinine equation. Calcium, Total, S 9.0 8.9 - 10.1 mg/dL 10/06/2017 6 :06 AM [facility][NOTE 3] LAB Glucose, S 130 70 - 140 mg/dL 10/06/2017 6:06 AM [facility] LAB Specimen Anatomical Collection Method Collection Time Receive d Time (Source) Location / / Volume Laterality Blood (Blood, 10/06/2017 5:20 AM 10/06/20 17 5:26 Venous) ROTARY SCREEN PRINTING MACHINE OPERATOR AM [facility] Brian Manning M.D. LAB BLOOD ADD-ON Performing Organization Address City/State/ZIP Code Phon e Number [facility] [address] [place] [address] [place] [facility] (ABNORMAL) CBC with Differential (10/06/2017 5:20 AM [facility]) [facility] Method Time Signature Hemoglobin 11.7 11.6 - 10/06/2017 [facility] 15.0 g/dL 5:29 AM [facility] Hematocrit 35.4 (L) 35.5 - 10/06/2017 [facility] 44.9 % 5:29 AM [facility] LAB Erythrocytes 3.97 3.92 - 10/06/2017 [facility] 5.13 5:29 AM [facility] x10(12)/L [facility] LAB MCV 89.2 78.2 - 10/06/2017 [facility] 97.9 fL 5:29 AM ROTARY SCREEN PRINTING MACHINE OPERATOR [facility] [place] [facility] RBC Distrib Width 13.4 12.2 - 10/06/2017 [facility] 16.1 % 5:29 AM [facility] RED [place] [facility] Platelet Count 116 (L) 157 - 371 10/06/2017 [facility] x10(9)/L 5:29 AM [facility] Leukocytes 9.3 3.4 - 9.6 10/06/2017 [facility] x10(9)/L 5:29 AM [facility] Neutrophils 7.95 (H) 1.56 - 10/06/2017 [facility] 6.45 5:29 AM [facility] HEALTH x10(9)/L [facility] [place] [facility] Lymphocytes 0.78 (L) 0.95 - 10/06/2017 [facility] 3.07 5:29 AM [facility] HEALTH x10(9)/L [facility] [place] [facility] Monocytes 0.53 0.26 - 10/06/2017 [facility] 0.81 5:29 AM [facility] x10(9)/L SYSTEM [facility] [place] [facility] Eosinophils 0.00 (L) 0.03 - 10/06/2017 [facility] 0.48 5:29 AM [facility] x10(9)/L SYSTEM [place] [facility] Basophils 0.01 0.01 - 10/06/2017 [facility] 0.08 5:29 AM [facility] HEALTH x10(9)/L SYSTEM [place] [facility] Specimen Anatomical Collection Method Collection Time Receive d Time (Source) Location / / Volume Laterality Blood (Blood, 10/06/2017 5:20 AM 10/06/20 5:26 Venous) ROTARY SCREEN PRINTING MACHINE OPERATOR AM ROTARY SCREEN PRINTING MACHINE OPERATOR Brian Manning M.D. LAB BLOOD ADD-ON Performing Organization Address City/State/ZIP Code Phon e Number [facility] [address] [place] [address] [place] [facility] Magnesium (10/06/2017 5:20 AM ROTARY SCREEN PRINTING MACHINE OPERATOR) P athologist Signature Magnesium, S 1.9 1.7 - 2.3 10/06/2017 [facility] mg/dL 6:06 AM [facility] Specimen Anatomical Collection Method Collection Time Receive d Time (Source) Location / / Volume Laterality Blood (Blood, 10/06/2017 5:20 AM 10/06/20 17 5:26 Venous) ROTARY SCREEN PRINTING MACHINE OPERATOR AM ROTARY SCREEN PRINTING MACHINE OPERATOR Brian Manning M.D. LAB BLOOD ADD-ON Performing Organization Address City/State/ZIP Code Phon e Number [facility] [place] [place] [address] [place] [facility] Influenza A/B (Rapid) (10/05/2017 9:09 PM ROTARY SCREEN PRINTING MACHINE OPERATOR) athologist Signature Influenza A, Negative Negative 10/05/2017 [facility] Rapid 9:22 PM [facility] Influenza B, Negative Negative 10/05/2017 [facility] Rapid 9:22 PM [facility] Specimen Anatomical Collection Method Collection Time Receive d Time (Source) Location / / Volume Laterality Varies 10/05/2017 9:09 PM 7 9:09 ROTARY SCREEN PRINTING MACHINE OPERATOR PM ROTARY SCREEN PRINTING MACHINE OPERATOR Brian Manning M.D. LAB MICROBIOLOGY - GENERA L ORDERABLES Performing Organization Address City/[facility]/ZIP Code Phon e Number [facility] [place] [place] [address] [place] [facility] Troponin T (10/05/2017 6:26 PM ROTARY SCREEN PRINTING MACHINE OPERATOR) athologist Signature Troponin T, S <0.01 <0.01 ng/mL 10/05/2017 [facility] 7:01 PM [facility] Comment: Biotin has been identified by the memo rodríguez as a potential interfering substance. ??Higher concentr ations of biotin may be found in multivitamins, hair/nail supple ments, and workout supplements. ??If the result does not ma [facility] clinical observations, repeat testing after patient refrains fr om the use of supplements for at least 12 hours. Specimen Anatomical Collection Method Collection Time Receive d Time (Source) Location / / Volume Laterality Blood (Blood, 10/05/2017 6:26 PM 10/05/20 6:42 Venous) ROTARY SCREEN PRINTING MACHINE OPERATOR PM ROTARY SCREEN PRINTING MACHINE OPERATOR Brian Manning M.D. LAB BLOOD ADD-ON Performing Organization Address City/[facility]/ZIP Code Phon e Number [facility] [place] [address] [place] documented in this encounter Visit Diagnoses Diagnosis Gastroenteritis Viral Or Presumed Viral - Primary Fibrillation Atrial (AF) NOS Pneumonitis documented in this encounter Administered Medications Inactive Administered Medications - up to 3 most recent administrations Medication Order MAR Action Action Date Dose Rate Site acetaminophen tablet 1,000 mg (for_TYLEN OL) 1,000 mg, oral, Every 4 hours PRN, pain, Starting on S un 10/05/17 at 1822 albuterol nebulizer solution 2.5 mg (for _ACCUNEB) 2.5 mg, nebulization, Every 6 hours PRN, wheezing, shortness of breath, Starting on 10/06/17 at 0637 azithromycin tablet 500 mg (for_ZITHROMA X) Given 10/06/2017 5:36 PM ROTARY SCREEN PRINTING MACHINE OPERATOR 500 mg 500 mg, oral, Once, On Fri10/06/17 at 1715, For 1 dose, Indications: Respiratory tract infection, community acquired benzonatate capsule 100 mg (for_TESSALON Given 10/06/2017 8:48 A M ROTARY SCREEN PRINTING MACHINE OPERATOR 100 mg PERLES) 100 mg, oral, 3 times daily PRN, cough, Starting on 10/06/17 at 0635, Swallow whole. Do NOT crush, chew or open capsule. calcium carbonate chewable tablet 400 mg of calcium (for_TUMS) 400 mg of calcium, oral, Every 2 hour NM N, heartburn, indigestion, Starting on 10/05/17 at 1756, Doses listed are in mg of elemental calcium. Take with food. dilTIAZem in dextrose 5 % 125 Rate/Dose Change 10/05/2017 5:37 PM 5 mg/hr 5 mL/hr mg/125 mL (1 mg/mL) infusion ROTARY SCREEN PRINTING MACHINE OPERATOR (for_CARDIZEM) 5-15 mg/hr (5-15 mL/hr), intravenous, Continuous, Starting on 10/05/17 at 1800, Titrate gtt to off for HR < 100 Start 15 minutes after oral dose of metoprolol has been given Notify provider if maximum dose is reached and goal is not met., Type: Titrate, Initiate at: 5 mg/hr, Titrate at: 2.5 mg/hr every 15 min., Goal: HR 60-100 Continued from OR 10/05/2017 5:00 PM ROTARY SCREEN PRINTING MACHINE OPERATOR 7.2 mg/hr 7.2 mL/hr enoxaparin injection 60 mg Given 10/06/2017 8:48 AM ROTARY SCREEN PRINTING MACHINE OPERATOR 60 mg Right Lower Abdomen (for_LOVENOX) 60 mg (rounded from 61.3 mg = 1 mg/kg ? 61.3 kg Dosing weight), subcutaneous, 2 times daily, First dose on Fri10/05/17 at 2100, Drug Monitoring Program: Pharmacist to adjust medication order based on comorbities and indication. Given 10/05/2017 9:57 PM ROTARY SCREEN PRINTING MACHINE OPERATOR 60 mg Left Upper Abdomen guaiFENesin 12 hr tablet 600 mg (for_MUC INEX) Given 10/06/2017 9:54 AM ROTARY SCREEN PRINTING MACHINE OPERATOR 600 mg 600 mg, oral, 2 times daily, First dose on Fri10/06/17 at 0900, Swallow whole. Do NOT crush, chew, or split tablet. loratadine tablet 10 mg (for_CLARITIN) Given 10/06/2017 8:48 AM ROTARY SCREEN PRINTING MACHINE OPERATOR 10 mg 10 mg, oral, Daily, First dose on Fri10/06/17 at 0900, cetirizine 10 mg oral daily was interchanged for loratadine, Drug Monitoring Program: Pharmacist to adjust medication order based on comorbities and indication. menthol lozenge 1 lozenge (for_CEPACOL) 1 lozenge, oral, As needed, sore throat, Starting on M on 10/06/17 at 0638 metoprolol tartrate tablet 12.5 mg Given 10/06/2017 6:40 PM ROTARY SCREEN PRINTING MACHINE OPERATOR 12.5 mg (for_LOPRESSOR) 12.5 mg, oral, 2 times daily, First dose (after last modification) on Fri10/06/17 at 0900, Hold for Hr<60, SBP<100 Given 10/06/2017 8:48 AM ROTARY SCREEN PRINTING MACHINE OPERATOR 12.5 mg metoprolol tartrate tablet 25 mg Given 10/05/2017 10:42 PM ROTARY SCREEN PRINTING MACHINE OPERATOR 2 5 mg (for_LOPRESSOR) 25 mg, oral, 2 times daily, First dose on Fri10/05/17 at 2100, Hold for Hr<60, SBP<100 NaCl 0.9% with KCl 20 mEq/L New Bag 10/06/2017 7:52 AM ROTARY SCREEN PRINTING MACHINE OPERATOR 75 mL/h r 75 mL/hr infusion 75 mL/hr, intravenous, Continuous, Starting on Fri10/05/17 at 1830 New Bag 10/05/2017 6:31 PM ROTARY SCREEN PRINTING MACHINE OPERATOR 75 mL/hr 75 mL/hr ondansetron ODT disintegrating tablet 4 mg (for_ZOFRAN-ODT) 4 mg, oral, Every 8 hours PRN, nausea, v omiting, Starting on Fri10/05/17 at 1800, On trazodone as well which could prolonge Qtc, please check QT duration on the telemetry prior to giving this med. sennosides-docusate sodium 8.6-50 mg per tablet 1 tablet (for_SENOKOT-S) 1 tablet, oral, 2 times daily, First dos e on 10/05/17 at 2100, Do not give if patient has diarrhea. traZODone tablet 150 mg (for_DESYREL) 150 mg, oral, Daily at bedtime, First dose on 09/19 at 2100 traZODone tablet 150 mg (for_DESYREL) Given 10/05/2017 11:12 PM ROTARY SCREEN PRINTING MACHINE OPERATOR 150 mg 150 mg, oral, Once, On Fri10/05/17 at 2300, For 1 dose documented in this encounter Active and Recently Administered Medications Times are shown in ROTARY SCREEN PRINTING MACHINE OPERATOR. Scheduled Medication Order 10/04/2017 10/05/2017 10/06/2017 azithromycin tablet 250 mg (for_ZITHROMAX) 250 mg, oral, Daily, First dose on Fri12/08/16 at 1700, Indications: Respiratory Tract Infection, Community Acquired azithromycin tablet 250 mg (for_ZITHROMAX) 250 mg, oral, Daily, First dose on Fri12/08/16 at 1700, Indications: Respiratory Tract Infection, Community Acquired azithromycin tablet 500 mg (for_ZITHROMAX) (COMPLETED) 1739 (Given - Provider: Mis Trevizo RMellisa) 500 mg, oral, Once, On Fri10/06/17 at 1 715, For 1 dose, Indications: Respiratory tract infection, community acquired enoxaparin injection 60 mg (for_LOVENOX) (CANCELED) 2842 (Given - Provider: Bonifacio HerreraN.) 0857 (Given - Provider: Christine Malone) 60 mg (rounded from 61.3 mg = 1 mg/kg ? 61.3 kg Dosing weight), subcutaneous, 2 times daily, First dose on 10/05/17 at 2100, Drug Monitoring Program: Pharmacist to adjust medication order based o n comorbities and indication. guaiFENesin 12 hr tablet 600 mg (for_MUCINEX) 0954 (Given - Provider: Mis Trevizo R.N.) 600 mg, oral, 2 times daily, First dose on Fri10/06/17 at 0900, Swallow whole. Do NOT crush, chew, or split tablet. loratadine tablet 10 mg (for_CLARITIN) 0848 (Given - Provider: Mis Trevizo R.N.) 10 mg, oral, Daily, First dose on Fri at 0900, cetirizine 10 mg oral daily was interchanged for loratadine, Drug Monitoring Program: Pharmacist to adjust medication order based on comorbities and indication. metoprolol tartrate tablet 12.5 mg (for_LOPRESSOR) 0848 (Given - Provider: Mis Trevizo R.N.)1840 (Given - Provider: Mis Trevizo R.N. - Comment: discharging and unable to citrus picker rx tonight. per MD) 12.5 mg, oral, 2 times daily, First dose (after last modification) on Fri10/06/17 at 0900, Hold for Hr<60, SBP<100 metoprolol tartrate tablet 25 mg (for_LOPRESSOR) (CANCELED) 2241 (Given - Provider: Aurelio Chavis R.N.) 25 mg, oral, 2 times daily, First dose o n 10/05/17 at 2100, Hold for Hr<60, SBP<100 sennosides-docusate sodium 8.6-50 mg per tablet 1 tablet (fo r_SENOKOT-S) 2100 (Not Given - Provider: Aurelio Chavis R.N. - Reason: Patient/family refused) 0900 (Not Given - Provider: Mis Trevizo R.N. - Reason: Patient/family refused) 1 tablet, oral, 2 times daily, First dos e on 10/05/17 at 2100, Do not give if patient has diarrhea. traZODone tablet 150 mg (for_DESYREL) 21 00 (Not Given - Provider: Aurelio Chavis R.N. - Reason: Patient/family refused - Comment: pt. refused to take at 2100 will take at 2300) 150 mg, oral, Daily at bedtime, First dose on Fri10/05/17 at 21 00 traZODone tablet 150 mg (for_DESYREL) (COMPLETED) 2312 (Given - Provider: Aurelio Chavis R.N.) 150 mg, oral, Once, On 10/05/17 at 2300, For 1 dose Continuous Medication Order 10/04/2017 10/05/2017 10/06/2017 dilTIAZem in dextrose 5 % 125 mg/125 mL (1 mg/mL) infusion ( for_CARDIZEM) 1700 (Continued from OR - Provider: Reena Shelley R.N. - Comment: Patient arrived with drip from [facility])1737 (Rate/Dose Change - Provider: Reena Shelley R.N.) 5-15 mg/hr (5-15 mL/hr), intravenous, Co ntinuous, Starting on Fri10/05/17 at 1800, Titrate gtt to off for HR < 100 Start 15 minutes after oral dose of metoprolol has been given Notify provider if ma 2300 ( Stopped - Provider: Aurelio Chavis R.N. - Comment: per order Amarilys Ayon RN) ximum dose is reached and goal is not me t., Type: Titrate, Initiate at: 5 mg/hr, Titrate at: 2.5 mg/hr every 15 min., Goal: HR 60-100 NaCl 0.9% with KCl 20 mEq/L infusion 183 1 (New Bag - Provider: Reena Shelley R.N.) 0752 (New Bag - Provider: Mis Trevizo R.N.) 75 mL/hr, intravenous, Continuous, Starting on Fri10/05/17 at 1 830 PRN Medication Order 10/04/2017 10/05/2017 10/06/2017 acetaminophen tablet 1,000 mg (for_TYLENOL) 1,000 mg, oral, Every 4 hours PRN, pain, Starting on Sun 7 at 1822 albuterol nebulizer solution 2.5 mg (for_ACCUNEB) 2.5 mg, nebulization, Every 6 hours PRN, wheezing, shortness of breath, Starting on 10/06/17 at 0637 benzonatate capsule 100 mg (for_TESSALON PERLES) 0848 (Given - Provider: Mis Trevizo R.N.) 100 mg, oral, 3 times daily PRN, cough, Starting on Fri10/06/17 at 0635, Swallow whole. Do NOT crush, chew or open capsule. calcium carbonate chewable tablet 400 mg of calcium (for_TUMS) 400 mg of calcium, oral, Every 2 hour NM N, heartburn, indigestion, Starting on 10/05/17 at 1756, Doses listed are in mg of elemental calcium. Take with food. menthol lozenge 1 lozenge (for_CEPACOL) 1 lozenge, oral, As needed, sore throat, Starting on Fri 7 at 0638 ondansetron ODT disintegrating tablet 4 mg (for_ZOFRAN-ODT) 4 mg, oral, Every 8 hours PRN, nausea, v omiting, Starting on 10/05/17 at 1800, On trazodone as well which could prolonge Qtc, please check QT duration on the telemetry prior to giving this med. documented in this encounter
--- OUTSIDE RECORDS SUMMARY | 2022-07-29 14:49 | XMS_ITS | Encounter Summary ---
:1950 Author Organization [facility] Address [address] [place] [id number] Care Team Providers Name Role Phone Unavailable Primary Care Provider Unavailable Encounter Details Date Type Department Care Team Description 11/21/2011 Hospital Encounter HX [facility] Nasreen Bryant, P.[place] [address] [place], [place] [phone] (Wo rk) Social History Tobacco Use Types Packs/Day Years Used Date Smoking Tobacco: Never Assessed Sex Assigned at Date Recorded Not on file documented as of this encounter Medications at Time of Discharge Medication Sig Dispensed Refills Start Date End Date cholecalciferol Take 2,000 Units 0 11/21/2011 (for_VITAMIN D3) 2,000 Unit by mouth daily. tablet magnesium citrate 100 mg Take 1 tablet by 0 11/21 tablet mouth 2 (two) times a day. MULTIVIT WITH Take 1 tablet by 0 11/21/2011 MINERALS/LUTEIN mouth daily. (MULTIVITAMIN 50 PLUS ORAL) omega 9-qnr-lua-fish oil Take 1,000 mg by 0 11/21 (FISH OIL) 100-160-1,000 mg mouth daily. capsule ZINC CITRATE-PHYTASE ORAL Take 1 tablet by 0 11/2011 mouth daily. CALCIUM CARB/VIT Take 1 tablet by 0 11/21/2011 D3/MINERALS mouth 2 (two) (CALCIUM-VITAMIN D ORAL) times a day. documented as of this encounter Plan of Treatment Upcoming Encounters Date Type Specialty Care Team Description 09/02/2022 Comprehensive Visit Physical Medicine and Mainor Winter M.D. [address], [address] [place] [address] Rehabilitation Rosanna Veliz, P.T. documented as of this encounter Visit Diagnoses Not on filedocumented in this encounter
--- OUTSIDE RECORDS SUMMARY | 2022-07-29 14:49 | XMS_ITS | Encounter Summary ---
:1950 Author Organization [facility] Address [address] [place] [address] Care Team Providers Name Role Phone Unavailable Primary Care Provider Unavailable Encounter Details Date Type Department Care Team Description 07/20/2018 Hospital Encounter [facility] [place] [place] [facility]ly [facility] [address] [address] [place], [place] [phone] (Work) [phone] Social History Tobacco Use Types Packs/Day Years [...] mouth daily. (MULTIVITAMIN 50 PLUS ORAL) omega 0-hcy-xoo-fish oil Take 1,000 mg by 0 11/21 [...] Physical Medicine and Mainor Winter M.D. [address] [facility], [address] [place] [address] Rehabilitation Rosanna Veliz, P.T. documented as of this encounter Procedures Procedure Name Priority Date/Time Associated Comments Diagnosis BMD BONE DENSITY RAD - Routine 07/20/2018 1:26 Screening Results for this SPINE HIPS (most inpatients PM CDT Osteoporosis procedure a re in and all the results outpatients) section. documented in this encounter Results BMD Bone Density Spine Hips (07/20/2018 1:26 PM CDT) Anatomical Region Laterality Modality Hip, Lumbar Spine, Nuclear Medicine RST LOS, N/A Radiographic Imaging Musculoskeletal ARZ LOS, Muskuloskeletal FLA LOS Specimen (Source) Anatomical Collection Method Collection Time Re ceived Time Location / / Volume Laterality 07/20/2018 1:36 PM CDT Impressions 07/20/2018 1:37 PM CDT Impression: Low bone density (osteopenia ). Narrative 07/20/2018 1:37 PM CDT EXAM: BMD BONE DENSITY SPINE HIPS COMPARISON: None. Supervisor Photoengraving/Model: [employer] FINDINGS: ?? LUMBAR SPINE L1-L4 included unless otherwise indicate d. Lumbar BMD: 0.970 gm/cm2 T-score: -1.8 BMD % change: N/A% Significance: N/A. HIP(S) Lowest femoral BMD: 0.769 gm/cm 2 Lowest T-score: -1.9 BMD % change: N/A% Significance: N/A. FRAX 10 year probability of major osteop orotic fracture 10.5 % FRAX 10 year probability of hip fracture ??1.9 % FRAX scores: Not clinically validated fo r patients with history of therapy with bisphosphonates in the past two years, c alcitonin in the last year, PTH in the last year, Denosumab in the last year. ? ?Calcium and vitamin D do NOT constitute treatment' in this context. ??All treat ment decisions require clinical judgement and consideration of individual patient factors which may not be captured in the FRAX model and the risk of fracture may be over- or under-estimated by FRAX. Treatment recommended for: Patients with hip or vertebral fracture (clinical or morphometric). Patients with osteoporosis at the spine and/or hip as defined by T-score <= -2.5. Postmenopausal women or men age 50 and o lder with low bone mass (T-score -1 to -2.5, osteopenia) at the femoral neck, t otal hip, or spine and 10 year hip fracture probability >3% or a 10 year al l major osteoporosis related fracture probability of >20% based on the [place] ad apted WHO absolute risk model. Exclude secondary causes of low bone den sity in the appropriate clinical setting. Follow-up exams should be performed at n o sooner than two-year intervals. Direct comparison can only be performed on exams performed at the same facility. World Health Organization T-score criter ia: 0 to -1.0 ?? Normal range < -1.0 to > -2.5 ?? Low bone density (os teopenia) -2.5 or less ?? Osteoporosis Procedure Note Sully Aldridge M.D. - 07/20/2018Form atting of this note might be different from the original. EXAM: BMD BONE DENSITY SPINE HIPS COMPARISON: None. Supervisor Photoengraving/Model: [employer] FINDINGS: LUMBAR SPINE L1-L4 included unless otherwise indicate d. Lumbar BMD: 0.970 gm/cm2 T-score: -1.8 BMD % change: N/A% Significance: N/A. HIP(S) Lowest femoral BMD: 0.769 gm/cm 2 Lowest T-score: -1.9 BMD % change: N/A% Significance: N/A. FRAX 10 year probability of major osteop orotic fracture 10.5 % FRAX 10 year probability of hip fracture 1.9 % FRAX scores: Not clinically validated fo r patients with history of therapy with bisphosphonates in the past two years, c alcitonin in the last year, PTH in the last year, Denosumab in the last year. C alcium and vitamin D do NOT constitute treatment' in this context. All treatme nt decisions require clinical judgement and consideration of individual patient factors which may not be captured in the FRAX model and the risk of fracture may be over- or under-estimated by FRAX. Treatment recommended for: Patients with hip or vertebral fracture (clinical or morphometric). Patients with osteoporosis at the spine and/or hip as defined by T-score <= -2.5. Postmenopausal women or men age 50 and o lder with low bone mass (T-score -1 to -2.5, osteopenia) at the femoral neck, t otal hip, or spine and 10 year hip fracture probability >3% or a 10 year al l major osteoporosis related fracture probability of >20% based on the [place] ad apted WHO absolute risk model. Exclude secondary causes of low bone den sity in the appropriate clinical setting. Follow-up exams should be performed at n o sooner than two-year intervals. Direct comparison can only be performed on exams performed at the same facility. World Health Organization T-score criter ia: 0 to -1.0 Normal range < -1.0 to > -2.5 Low bone density (osteo penia) -2.5 or less Osteoporosis Impression: Low bone density (osteopenia ). Brandie HENDRICKS DXA PROCEDURES documented in this encounter Visit Diagnoses Diagnosis Screening Osteoporosis documented in this encounter
--- OUTSIDE RECORDS SUMMARY | 2022-07-29 14:49 | XMS_ITS | Encounter Summary ---
:1950 Author Organization [facility] Address [address] [place] [address] Care Team Providers Name Role Phone Unavailable Primary Care Provider Unavailable Encounter Details Date Type Department Care Team Description 11/24/[address] [facility] [place], Vannesa pelaez P.A.-C. [address] [place] [address] (Wo rk) Social History Tobacco Use Types Packs/Day Years Used Date Smoking Tobacco: Never Assessed Sex Assigned at Date Recorded Not on file documented as of this encounter Last Filed Vital Signs Vital Sign Reading Time Taken Comments Blood Pressure 130/70 11/24/2012 1:26 PM ROUTE JUMPER Pulse 68 11/24/2012 1:26 PM ROUTE JUMPER Temperature - - Respiratory Rate 14 11/24/2012 1:26 PM ROUTE JUMPER Oxygen Saturation - - Inhaled Oxygen Concentration - - Weight 63 kg (138 lb 14.2 oz) 11/24/2012 1:26 PM ROUTE JUMPER Height 165 cm (5' 4.96) 11/24/2012 1:26 PM ROUTE JUMPER Body Mass Index 23.14 11/24/2012 1:26 PM ROUTE JUMPER documented in this encounter Medications at Time of Discharge Medication Sig Dispensed Refills Start Date End Date cholecalciferol Take 2,000 Units 0 11/21/2011 (for_VITAMIN D3) 2,000 Unit by mouth daily. tablet lutein 20 mg tablet Take 1 tablet by 0 11/24/2012 mouth daily. magnesium citrate 100 mg Take 1 tablet by 0 11/21 tablet mouth 2 (two) times a day. MULTIVIT WITH Take 1 tablet by 0 11/21/2011 MINERALS/LUTEIN mouth daily. (MULTIVITAMIN 50 PLUS ORAL) omega 9-pww-rxd-fish oil Take 1,000 mg by 0 11/21 (FISH OIL) 100-160-1,000 mg mouth daily. capsule ZINC CITRATE-PHYTASE ORAL Take 1 tablet by 0 11/2011 mouth daily. CALCIUM CARB/VIT Take 1 tablet by 0 11/21/2011 D3/MINERALS mouth 2 (two) (CALCIUM-VITAMIN D ORAL) times a day. documented as of this encounter H&P Notes Miriam Nuñez - 11/24/2012 1:14 PM CST [id number] CHIEF COMPLAINT/REASON FOR VISIT This is a 62-year-old female seen today for an annual physical exam. She states that she has been doing well. She has been taking trazodone 150 mg at night and it has been working very well for her insomnia. The only thing that bothers her every once in awhile is a little bit of back pain, but she sees the chiropractor regularly for that. She is postmenopausal. She has not had a period in at least 10years and denies any current spotting or bleeding. She really has no other medical questions or concerns today. CURRENT MEDICATIONS Calcium with vitamin D 600 mg twice daily. Fish oil tablets 1000 mg daily. Lutein 20 mg 1 tablet daily. Magnesium citrate 300 mg 1 tablet daily. Kelp tablets 1 tablet daily. Multivitamin daily. Trazodone 150 mg 1 tablet at bedtime. Additional vitamin D 3 one tablet daily. Zinc 1 tablet daily. ALLERGIES No known drug allergies. SYSTEMS REVIEW The rest of her review of systems is negative. She has no other HEENT complaints. No cough, chest pain, or shortness of breath. No nausea, vomiting, diarrhea, or constipation. No abdominal pain. No dysuria or urinary frequency. No vaginal itching, burning, or discharge. No numbness, tingling, or incoor dination. Her medications, medical problems, allergies, habits, past surgical history, social history, family history, and preventative services were updated on the patient database form. PAST MEDICAL/SURGICAL HISTORY MEDICAL: Significant for some low back pain, insomnia, and history of osteopenia. SURGICAL: She had a tubal ligation in 1979 and tonsillectomy as a child. SOCIAL HISTORY She is . She has 2 grown daughters. No grandchildren. She works at [employer] in [place]. She denies any alcohol or tobacco use. VITAL SIGNS Heart rate is 68. Respirations 14. Blood pressure 130/70. Height 165 cm. Weight 63 kg. PHYSICAL EXAMINATION GENERAL: She is alert, interactive, and cooperative. She appears to be well nourished and well hydrated in no acute distress. SKIN: Without rashes or lesions. HEENT: Head is normocephalic, atraumatic. Tympanic membranes are clear with normal landmarks and normal light reflexes. The canals are clear. Sclera and conjunctivae are clear. Pupils equal, round, andreactive to light and accommodation. Extraocular muscles are intact. Nares are non-congested. Oral mu cosa is pink and moist. Posterior pharynx is nonerythematous. Tonsils are not enlarged. No exudate. NECK: Supple. No lymphadenopathy. No thyromegaly. Normal carotid pulses. LUNGS: Clear to auscultation bilaterally. No wheezes. HEART: Regular rate and rhythm. No significant murmur. ABDOMEN: Soft, nontender, nondistended. No organomegaly. Positive bowel sounds. BREASTS: Breast exam bilaterally is without nipple discharge. No masses or nodules. No axillary lymph nodes. PELVIC: Normal appearing external genitalia without lesions. Vaginal mucosa is pink and moist without discharge. Cervix appears normal without lesions. Pap smear was obtained. Bimanual exam reveals no cervical motion tenderness. Nontender, nonenlarged uterus. No adnexal tenderness or fullness. NEUROLOGIC: Deep tendon reflexes are intact. No lower extremity edema. Gait is normal. IMPRESSION/REPORT/PLAN 1. Insomnia. I did refill her trazodone 150 mg 1 tablet at night. 2. Routine health maintenance. Nuria participates in the [facility] program. Her blood pressure is fine at 130/70 today. She declined an influenza immunization and states that she usually does get one done but did not this year. We discussed that her tetanus will be due this year sometime. She declined booster of it at this time. She would like to wait until she has medical insurance. Lipid panel we discussed would be good for her to have checked. However, this is not covered under the [facility]ARA program and would not like to do it at this time. Colonoscopy. I did collect some information on a colonoscopy [facility] program and gave her this information. There is a phone number to call to see if she is eligible and list of some facilities that do perform these. I encouraged her to do this. She denied any depression or anxiety concerns. She has a mammogram scheduled for now following her appointment. Pap smear was obtained. I did do one last year but it had scant cellularity, and at that time rather than repeating it 3 months later I decided that we would repeat it in 1 year, so this was done today. She was encouraged to eat a healthy diet and get plenty of exercise. She should return next year for follow-up exam, sooner for any other questions or concerns. Miriam Nueñz P.A.-C./lindsey Electronically Signed By: MIRIAM NUÑEZ On: 11/26/2012 09:18 AM Source: [facility] MHSDOLBEYNONRADSYS Document Id: [id number] E JUMPER documented in this encounter Miscellaneous Notes Miscellaneous - Miriam Nuñez - 11/24/2012 2:39 PM CST Ambulatory Patient Summary [address] [address] Visit Information Name: NURIA PAYTON [facility] Number: [id number] Current Date: 11/24/2012 14:39:15 Physicians Attending Provider: MIRIAM NUÑEZ Primary Care Provider: MIRIAM NUÑEZ Your Medications Here is a list of your medications. It is important to take your medications as directed. Use a pillbox or chart to help remind you to take your medications. Please let your doctor or nurse know if you have problems taking your medications. Medication/Strength Dose Route Frequency Indications/Special Instructions/Comments trazodone (trazodone 150 mg oral tablet) 150 mg Oral once a day (at bedtime) lutein (lutein 20 mg oral tablet) 20 mg Oral once a day magnesium citrate (magnesium citrate) 300 mL Oral once cholecalciferol (Vitamin D3) Oral once a day zinc citrate (zinc citrate) Oral once a day Misc Prescription (Misc Prescription) Oral once a day kelp omega-3 polyunsaturated fatty acids (Fish Oil) 1,000 mg Oral once a day calcium-vitamin D (Calcium 600+D) 1 tab(s) Oral two times a day multivitamin (multivitamin) Oral once a day Attention: If you have any medications at home that are not on this list, DO NOT take them until youcontact your provider for clarification. Your Allergies & Intolerances Substance Reaction Symptoms Category Comments No Known Allergies Drug Your Problem List Problem Status Onset Comments Insomnia Active 10/20/2003 Menopause Active 10/20/2001 Back pain Active 10/20/1989 11/21/11 lower Osteopenia Active 04/19/2003 Your Upcoming Appointments Date Time Location Reason Provider No Appointments found Your Goals/Additional instructions: Source: [facility] POWERCHART Document Id: [id number] E JUMPER Miscellaneous - Miriam Nuñez - 11/24/2012 2:39 PM CST Ambulatory Depart Summary [address] [address] Visit Information Name: NURIA PAYTON [facility] Number: [id number] Visit Date: 11/24/2012 14:39:15 Attending Provider: MIRIAM NUÑEZ Primary Care Provider: MIRIAM NUÑEZ NURIA PAYTON has been given the following list of medications: Your Medications It is important to take your medications as directed. Use a pill box or chart to help remind you to take your medications. Please let your doctor or nurse know if you have problems taking your medications. Medication/Strength Dose Route Frequency Indications/Special Instructions/Comments trazodone (trazodone 150 mg oral tablet) 150 mg Oral once a day (at bedtime) lutein (lutein 20 mg oral tablet) 20 mg Oral once a day magnesium citrate (magnesium citrate) 300 mL Oral once cholecalciferol (Vitamin D3) Oral once a day zinc citrate (zinc citrate) Oral once a day Misc Prescription (Misc Prescription) Oral once a day kelp omega-3 polyunsaturated fatty acids (Fish Oil) 1,000 mg Oral once a day calcium-vitamin D (Calcium 600+D) 1 tab(s) Oral two times a day multivitamin (multivitamin) Oral once a day Attention: If you have any medications at home that are not on this list, DO NOT take them until youcontact your provider for clarification. Additional Information: Source: [facility] POWERCHART Document Id: [id number] E JUMPER Miscellpaul - Roe Chow L.P.N. - 11/24/2012 1:30 PM CST Health Assessment Health Assessment Entered On: 11/24/2012 13:31 ROUTE JUMPER Performed On: 11/24/2012 13:30 ROUTE JUMPER by ROE CHOW Health Assessment Complete Health Assessment Complete or Modified : Annual Health Assessment Annual Health Assessment Completed : Yes ROE CHOW - 11/24/2012 13:30 ROUTE JUMPER Nutrition Nutrition Risk Factors by History Adult : None ROE CHOW 11/24/2012 13:30 ROUTE JUMPER Functional Current Daily Living Assistance : None ROE CHOW 11/24/2012 13:30 ROUTE JUMPER Dependent Habits Tobacco Use/Currently Using : No Smoking Status : Never smoker ROE CHOW 11/24/2012 13:30 ROUTE JUMPER Tobacco Use Grid Last Use : never ROE CHOW 11/24/2012 13:30 ROUTE JUMPER Caffeine Use Grid Caffeine Use : None ROE CHOW 11/24/2012 13:30 ROUTE JUMPER Recreational Drug Use Grid Drug Use : None ROE CHOW 11/24/2012 13:30 ROUTE JUMPER Psychosocial Domestic Abuse Concerns : None ROE CHOW 11/24/2012 13:30 ROUTE JUMPER Advance Directive Advanced Directives : No ROE CHOW 11/24/2012 13:30 ROUTE JUMPER Educ Needs Learning Style Preference Adult Grid Patient : None Family : None ROE CHOW 11/24/2012 13:30 ROUTE JUMPER Source: [facility] POWERCHART Document Id: [id number] E JUMPER Miscellpaul - Roe Chow L.P.N. - 11/24/2012 1:26 PM CST Adult Concrete Curer Intake/History Adult Concrete Curer Intake/History Entered On: 11/24/2012 13:28 ROUTE JUMPER Performed On: 11/24/2012 13:26 ROUTE JUMPER by ROE CHOW Intake Chief Complaint : cpe with pap with the lazara program Peripheral Pulse Rate : 68/min Respiratory Rate : 14/min Heart Rhythm : Regular Systolic Blood Pressure : 130mmHg Diastolic Blood Pressure : 70mmHg NIBP Mean : 90mmHg BP Location : Right upper extremity Blood Pressure Cuff Size : Regular Height : 165cm(Converted to: 5ft 5inch(es), 64.96inch(es)) Actual Weight : 63.0kg(Converted to: 138lb 14oz) Dosing Weight Clinic : 63.00kg Clinic BSA : 1.70 Body Mass Index : 23.14kg/m2 ROE CHOW - 11/24/2012 13:26 ROUTE JUMPER Subjective Pain Symptoms : No ROE CHOW 11/24/2012 13:26 ROUTE JUMPER Dependent Habits Tobacco Use/Currently Using : No Smoking Status : Never smoker ROE CHOW - 11/24/2012 13:26 ROUTE JUMPER Tobacco Use Grid Last Use : never ROE CHOW - 11/24/2012 13:26 ROUTE JUMPER Caffeine Use Grid Caffeine Use : None ROE CHOW 11/24/2012 13:26 ROUTE JUMPER Recreational Drug Use Grid Drug Use : None ROE CHOW 11/24/2012 13:26 ROUTE JUMPER Allergy Allergies (Active) NKA Estimated Onset Date: Unspecified ; Created By: WOLF LI LPN; Reaction Status: Active ; Category: Drug ; Substance: NKA ; Type: Allergy ; Updated By: WOLF LI LPN; Reviewed Date: 11/21/2011 13:35 ROUTE JUMPER Source: [facility] POWERCHART Document Id: [id number] E JUMPER documented in this encounter Plan of Treatment Upcoming Encounters Date Type Specialty Care Team Description 09/02/2022 Comprehensive Visit Physical Medicine and Mainor Winter M.D. [address] , [address] [place] [address] Rehabilitation Wolf Veliz P.T. documented as of this encounter Visit Diagnoses Not on filedocumented in this encounter
--- OUTSIDE RECORDS SUMMARY | 2022-07-29 14:49 | XMS_ITS | Encounter Summary ---
:1950 Author Organization [facility] Address [address] [place] [address] Care Team Providers Name Role Phone Unavailable Primary Care Provider Unavailable Reason for Visit Reason Comments Diarrhea with nausea and vomiting Encounter Details Date Type Department Care Team Description 10/05/2017 Emergency [place] Emergency De[place], Shelia Pickens (Primary Dx); Department P.A.-C. Fibrillation Atrial (HCC); [address] [place] [address] [place] [phone] Social History Tobacco Use Types Packs/Day Years Used Date Smoking Tobacco: Never Smokeless Tobacco: Never Alcohol Use Standard Drinks/Week Comments No 0 (1 standard drink = 0.6 oz pure alcoho l) Sex Assigned at Date Recorded Not on file documented as of this encounter Last Filed Vital Signs Vital Sign Reading Time Taken Comments Blood Pressure 112/61 10/05/2017 3:15 PM ANIMAL RESCUER Pulse 103 10/05/2017 4:15 PM ANIMAL RESCUER Temperature 37.1 ??C (98.8 ??F) 10/05/2017 1:29 PM ANIMAL RESCUER Respiratory Rate 23 10/05/2017 3:15 PM ANIMAL RESCUER Oxygen Saturation 94% 10/05/2017 4:15 PM ANIMAL RESCUER Inhaled Oxygen Concentration - - Weight 59.2 kg (130 lb 8.2 oz) 10/05/2017 1:31 PM ANIMAL RESCUER Height 165.1 cm (5' 5) 10/05/2017 1:31 PM ANIMAL RESCUER Body Mass Index 21.72 10/05/2017 1:31 PM ANIMAL RESCUER documented in this encounter Medications at Time of Discharge Medication Sig Dispensed Refills Start Date End Date cholecalciferol Take 2,000 Units 0 11/21/2011 (for_VITAMIN D3) 2,000 by mouth daily. Unit tablet lutein 20 mg tablet Take 1 tablet by 0 11/24/2012 mouth daily. magnesium citrate 100 mg Take 1 tablet by 0 11/21 tablet mouth 2 (two) times a day. MULTIVIT WITH Take 1 tablet by 0 11/21/2011 MINERALS/LUTEIN mouth daily. (MULTIVITAMIN 50 PLUS ORAL) omega 3-nug-erq-fish oil Take 1,000 mg by 0 11/21 (FISH OIL) 100-160-1,000 mouth daily. mg capsule traZODone (for_DESYREL) Take 1 tablet by 0 2013 150 mg tablet mouth at bedtime. VITAMIN B COMPLEX VIT C Vitamin B [...] 10 days. documented as of this encounter ED Notes Lucina Browning R.N. - 10/05/2017 3:54 PM CST Witnessed increase of dilt rate from 5.0 to 7.5 with Rachael Browning R.N. 10/05/17 2753 AL RESCUER Sheila Cardenas, P.A. - 10/05/2017 1:48 PM CST SUBJECTIVE CHIEF COMPLAINT/REASON FOR VISIT Diarrhea (with nausea and vomiting) HISTORY OF PRESENT ILLNESS Pt c/o cough, congestion, and fatigue for past several days. Has had a dry, occasionally productive cough since Friday. Denies chest pain. C/o chest congestion. Denies SOB. Has had an occasional Marquez. Denies dizziness. Denies ear pain, St, or sinus pressure. Denies fevers. C/o feeling worn out and admits to decreased appetite. Denies abdominal pain but has had several loose stools for the past 3 days with normal stools as well. Occasional nausea with one episode of vomiting last night. Has eaten a cracker and has been drinking a little bit of water and saad chelo today. Denies h/o CHF, COPD, asthma.Nonsmoker. No ETOH use. REVIEW OF SYSTEMS Constitutional: Positive for appetite change and fatigue. Negative for fever. HENT: Negative. Negative for ear pain, rhinorrhea, sinus pressure and sore throat. Eyes: Negative. Respiratory: Positive for cough. Negative for shortness of breath. Cardiovascular: Negative for chest pain. Gastrointestinal: Positive for diarrhea, nausea and vomiting. Negative for abdominal pain. Genitourinary: Negative. Musculoskeletal: Negative. Skin: Negative. Allergic/Immunologic: Negative. Neurological: Positive for headaches. Negative for dizziness and light-headedness. Hematological: Negative. Psychiatric/Behavioral: Negative. Negative for confusion. OBJECTIVE Initial Vitals [10/05/17 1329] Temperature Pulse Heart Rate Resp Rate Blood Pressure SpO2 37.1 ??C -- 100 16 97/81 95 % Pain Score 0 - No pain PHYSICAL EXAMINATION Constitutional: She appears well-developed and well-nourished. No distress. Sitting up on cot. Pleasant, conversant. HENT: Head: Normocephalic and atraumatic. Right Ear: Tympanic membrane normal. Left Ear: Tympanic membrane normal. Nose: No nasal discharge. Mouth/Throat: Oropharynx is clear and moist. Mucous membranes are moist. No tonsillar exudate. Eyes: EOM are normal. Pupils are equal, round, and reactive to light. Neck: Neck supple. No neck adenopathy. Cardiovascular: Normal rate and regular rhythm. Pulmonary/Chest: Effort normal. There is normal air entry. No respiratory distress. She has rhonchi. Abdominal: Soft. There is no tenderness. There is no guarding. Musculoskeletal: Normal range of motion. Neurological: She is alert and oriented to person, place, and time. Skin: Skin is warm and dry. Psychiatric: She has a normal mood and affect. Her behavior is normal. Nursing note and vitals reviewed. ASSESSMENT/PLAN Impression and Plan DD: Bronchitis, URI, Viral syndrome, pneumonia. Reviewed and summarized previous medical records including: Lab results and Radiology images/report. Radiology results: Personally reviewed the radiology image. Pt tells me she has a sister with h/o atrial fib. Pt with pneumonia. Has received Rocephin 1g IV in Ed as well as 1 L LR CXR notable for cardiomegaly. BNP 427. O2 sats have been low 90s while in afib, on RA, so O2 per NC provided. Diltiazem bolus x 2 followed by drip initiated. Pt appears to have converted to NSR while at 7.5mg at time of arrival of EMS. ED Course as of Oct 05 1621 Sun Oct 05, 2017 1439 Upon returning from [facility], pt is noted to now be tachycardic with HR 120- 160s. Pt denies feelingpalpitations or increased rate and was not aware of change. Denies new sxs. Rocephin has not yet been started. Likely <200ml LR has been administered. Pt denies previous arrhythmia or sxs. 1441 Afib noted on EKG. Tells me her sister has h/o afib. 1518 Unable to admit to this facility due to complexity. Paged RW Care Mngr as no answer to cell phone and is not logged in to [employer]. 1530 ECG 12 Lead 1530 DX Chest AP or PA and Lateral 2 Views 1538 Called to RW front desk agent to have RW Care mngr paged. Spoke with CHARLEY Mcguire, Care Mngr. Beds available. Spoke with Dr. Torrez, hospitalist. Accepts for transfer. ICU bed. Pneumonia and new onset atrial fib, currently on diltiazem drip. 1608 Current HR 97-104. Diltiazem drip at 7.5mg/hr P wave noted on monitor. EMS has arrived, repeat EKG not obtained will defer to RW. Final Diagnoses: as of Oct 05 1621 Pneumonia Fibrillation Atrial (HCC) Cardiomegaly Sheila Cardenas, P.A. 12/17/17 1621 AL RESCUER Rachael Tinajero R.N. - 10/05/2017 1:31 PM CST Pt presents to ED with c/o nausea, vomiting, diarrhea and dry cough. Cough started Friday, nausea started Friday, diarrhea started Friday and pt also had one episode of vomiting last night. Rachael Tinajero R.N. 10/05/17 1333 AL RESCUER documented in this encounter Plan of Treatment Upcoming Encounters Date Type Specialty Care Team Description 09/02/2022 Comprehensive Visit Physical Medicine and Mainor Winter M.D. [address] [place] [address] Rehabilitation Rosanna Veliz, P.TRoscoe Scheduled Orders Name Type Priority Associated Diagnoses Order S chedule ECG 12 Lead ECG STAT Once for 1 Occu rrences starting 10/05/2017 unti l 10/05/2017 documented as of this encounter Procedures Procedure Name Priority Date/Time Associated Comments Diagnosis URINALYSIS WITH STAT 10/05/2017 3:39 Results f or this MICROSCOPIC IF PM ANIMAL RESCUER procedure are in INDICATED, U the results section. MICROSCOPIC MANUAL STAT 10/05/2017 3:39 Result s for this PM ANIMAL RESCUER procedure are i n the results section. ECG STAT 10/05/2017 2:41 Results for this PM ANIMAL RESCUER procedure are i n the results section. DX CHEST AP OR PA RAD - Semiurgent 10/05/2017 2:01 Res ults for this AND LATERAL 2 VIEWS (Fast; most ED PM ANIMAL RESCUER proced ure are in patients; some the results inpatients) section. CBC WITH STAT 10/05/2017 2:01 Results for this DIFFERENTIAL, B PM ANIMAL RESCUER procedure ar e in the results section. BASIC METABOLIC STAT 10/05/2017 2:01 Results f or this PANEL, S/P PM ANIMAL RESCUER procedure are i n the results section. NT-PRO B-TYPE STAT 10/05/2017 1:56 Results for this NATRIURETIC PEPTIDE PM ANIMAL RESCUER procedur e are in (BNP), S the results section. PROTHROMBIN TIME STAT 10/05/2017 1:56 Results for this (PT), P PM ANIMAL RESCUER procedure are i n the results section. TROPONIN T, 5TH STAT 10/05/2017 1:56 Results f or this GEN, P PM ANIMAL RESCUER procedure are i n the results section. THYROID-STIMULATING STAT 10/05/2017 1:56 Resul ts for this HORMONE-SENSITIVE PM ANIMAL RESCUER procedure are in (S-TSH) the results section. documented in this encounter Results Microscopic Manual (10/05/2017 3:39 PM ANIMAL RESCUER) Analysis Performed At Patho logist Time Signature White Blood None Seen /hpf 10/05/2017 [facility] Cells 4:13 PM [facility] Comment: ----REFERENCE VALUE---- Males: 0-3 Females: 0-10 Unknown: 0-10 Red Blood Cells None Seen 0 - 2 /hpf 10/05/2017 4:13 PM ANIMAL RESCUER [facility] Dysmorphic RBC <=25 <=25 % 10/05/2017 4:13 PM ANIMAL RESCUER [facility] Squamous Epithelial Occ-3 /hpf 10/05/2017 4:[address] [facility] Specimen Anatomical Collection Method Collection Time Receive d Time (Source) Location / / Volume Laterality Urine 10/05/2017 3:39 PM 7 4:04 ANIMAL RESCUER PM ANIMAL RESCUER Sheila Cardenas P.A.-C. LAB URINE ORDERABLES Performing Organization Address City/State/ZIP Code Phon e Number [facility]- [id number] [address] [place] [facility] (ABNORMAL) Urinalysis with Microscopic if Indicated (10/05/2017 3:39 PM ANIMAL RESCUER) P athologist Signature Source Midstream 10/05/2017 [facility] 4:03 PM [facility] Clarity Clear Clear 10/05/2017 [facility] 4:04 PM [facility] Color Yellow 10/05/2017 [facility] 4:04 PM [facility] Comment: ----REFERENCE VALUE---- Colorless Yellow Yessy Blood Trace (A) Negative 10/05/2017 4:[address] [facility] Nitrite Negative Negative 10/05/2017 4:[address] [facility] Leukocyte Esterase Negative Negative 10/05/2017 4:04 PM [facility] Protein, U Negative mg/dL 10/05/2017 4:04 PM [facility] Comment: ----REFERENCE VALUE---- Negative Trace Glucose Negative Negative mg/dL 10/05/2017 4:04 PM [facility] Ketones, QL(U) Trace (A) Negative mg/dL 10/05/2017 4:04 PM [facility] Bilirubin Negative Negative 10/05/2017 4:04 PM [facility] pH 6.5 5.0 - 8.0 10/05/2017 4:04 PM [facility] Specific [place] <=1.005 1.001 - 1.035 10/05/2017 4:04 PM [facility] Urobilinogen 0.2 0.2 - 1.0 mg/dL 10/05/2017 4:04 PM [facility] Specimen Anatomical Collection Method Collection Time Receive d Time (Source) Location / / Volume Laterality Urine 10/05/2017 3:39 PM 7 4:01 ANIMAL RESCUER PM ANIMAL RESCUER Sheila Cardenas P.A.-C. LAB URINE ORDERABLES Performing Organization Address City/State/ZIP Code Phon e Number [facility]- [id number] [address] [place] [facility] ECG 12 Lead (10/05/2017 2:41 PM ANIMAL RESCUER) [facility] gist Method Time Signature Ventricular 149 BPM MUSE Rate ECG/Min QRSD Interval 118 ms MUSE QT Interval 314 ms MUSE QTC Interval 494 ms MUSE R Sutton -7 degrees MUSE T Wave Sutton 11 degrees MUSE Clinical Atrial fibrillation with rapid ventricular response MUSE Diagnosis Right bundle branch block with secondary ST-T abnormalities No previous ECGs available CODED Atrial MUSE DIAGNOSIS fibrillation Specimen Anatomical Collection Method Collection Time Receive d Time (Source) Location / / Volume Laterality 10/05/2017 2:41 PM 7 2:49 ANIMAL RESCUER PM ANIMAL RESCUER Narrative This result has an attachment that is no t available. Sheila Cardenas P.A.-C. ECG ORDERABLES Performing Organization Address City/State/ZIP Code Phon e Number MUSE MUSE NA DX Chest AP or PA and Lateral 2 Views (10/05/2017 2:01 PM ANIMAL RESCUER) Anatomical Region Laterality Modality Chest N/A Digital Radiography Specimen (Source) Anatomical Collection Method Collection Time Re ceived Time Location / / Volume Laterality 10/05/2017 2:04 PM ANIMAL RESCUER Impressions 10/05/2017 2:04 PM ANIMAL RESCUER IMPRESSION: Right middle lobe opacity concerning for pneumonitis. ??Recommend follow-up to resolution with repeat ches t x-ray in 4-6 weeks. Narrative 10/05/2017 2:04 PM ANIMAL RESCUER EXAM: DX CHEST AP OR PA AND LATERAL 2 VIEWS COMPARISON: None FINDINGS: Moderate cardiomegaly. ??Patch y right middle lobe pulmonary opacity concerning for pneumonitis given patient history. ??Chest otherwise negative. Procedure Note Lenin Dowell M.D. - 10/05/2017Formatti ng of this note might be different from the original. EXAM: DX CHEST AP OR PA AND LATERAL 2 EWS COMPARISON: None FINDINGS: Moderate cardiomegaly. Patchy right middle lobe pulmonary opacity concerning for pneumonitis given patient history. Chest otherwise negative. IMPRESSION: Right middle lobe opacity co ncerning for pneumonitis. Recommend follow-up to resolution with repeat ches t x-ray in 4-6 weeks. Sheila Cardenas P.A.-C. IMG DIAGNOSTIC IMAGING PROCE DURES (ABNORMAL) BMP (Basic Metabolic Panel) (10/05/2017 2:01 PM ANIMAL RESCUER) P athologist Signature Potassium, P 3.6 3.6 - 5.2 10/05/2017 [facility] mmol/L 2:16 PM [facility] Sodium, P 134 (L) 135 - 145 10/05/2017 [facility] mmol/L 2:16 PM [facility] Chloride, P 95 (L) 98 - 107 10/05/2017 [facility] mmol/L 2:16 PM [facility] [employer] [facility] [place] [facility] Bicarbonate, P 24 22 - 29 10/05/2017 [facility] mmol/L 2:16 PM [facility] Anion Gap, P 15 7 - 15 10/05/2017 [facility] 2:16 PM [facility] BUN (Blood Urea 8 6 - 21 10/05/2017 [facility] Nitrogen), P mg/dL 2:16 PM [facility] Creatinine 0.64 0.59 - 10/05/2017 [facility] 1.04 mg/dL 2:16 PM [facility] eGFR-Black/Afri >90 >=60 10/05/2017 [facility] can Eritrean mL/min/BSA 2:16 PM [facility] Comment: ----ADDITIONAL INFORMATION---- Estimated GFR calculated using the 2009 CKD_EPI creatinine equation. eGFR Non-Black/ >90 >=60 mL/min/BSA 10/05/2017 2:16 PM [facility] Eritrean [facility] Comment: ----ADDITIONAL INFORMATION---- Estimated GFR calculated using the 2009 CKD_EPI creatinine equation. Calcium, Total, P 9.3 8.9 - 10.1 mg/dL 10/05/2017 2 :16 PM [facility] Glucose, P 130 70 - 140 mg/dL 10/05/2017 2:16 PM [facility] Specimen Anatomical Collection Method Collection Time Receive d Time (Source) Location / / Volume Laterality Blood (Blood, 10/05/2017 2:01 PM 10/05/20 2:01 Venous) ANIMAL RESCUER PM ANIMAL RESCUER Sheila Cardenas P.A.-C. LAB BLOOD ADD-ON Performing Organization Address City/State/ZIP Code Phon e Number [facility]- [id number] [address] [place] [facility] (ABNORMAL) CBC with Differential (10/05/2017 2:01 PM [facility]) [facility] Method Time Signature Hemoglobin 13.1 11.6 - 10/05/2017 [facility] 15.0 g/dL 2:09 PM [facility] Hematocrit 39.0 35.5 - 10/05/2017 [facility] 44.9 % 2:09 PM [facility] Erythrocytes 4.39 3.92 - 10/05/2017 [facility] 5.13 2:09 PM ANIMAL RESCUER HEALTH x10(12)/L [facility] MCV 88.8 78.2 - 10/05/2017 [facility] 97.9 fL 2:09 PM [facility] RBC Distrib Width 13.2 12.2 - 10/05/2017 [facility] 16.1 % 2:09 PM [facility] Platelet Count 151 (L) 157 - 371 10/05/2017 [facility] x10(9)/L 2:09 PM [facility] Leukocytes 10.0 (H) 3.4 - 9.6 10/05/2017 [facility] x10(9)/L 2:09 PM [facility] Neutrophils 8.81 (H) 1.56 - 10/05/2017 [facility] 6.45 2:09 PM ANIMAL RESCUER HEALTH x10(9)/L [facility] Lymphocytes 0.43 (L) 0.95 - 10/05/2017 [facility] 3.07 2:09 PM ANIMAL RESCUER HEALTH x10(9)/L [facility] Monocytes 0.77 0.26 - 10/05/2017 [facility] 0.81 2:09 PM ANIMAL RESCUER HEALTH x10(9)/L [facility] Eosinophils 0.01 (L) 0.03 - 10/05/2017 [facility] 0.48 2:09 PM ANIMAL RESCUER HEALTH x10(9)/L [facility] Basophils 0.00 (L) 0.01 - 10/05/2017 [facility] 0.08 2:09 PM ANIMAL RESCUER HEALTH x10(9)/L [facility] Specimen Anatomical Collection Method Collection Time Receive d Time (Source) Location / / Volume Laterality Blood (Blood, 10/05/2017 2:01 PM 10/05/20 2:01 Venous) ANIMAL RESCUER PM ANIMAL RESCUER Sheila Cardenas P.A.-C. LAB BLOOD ADD-ON Performing Organization Address City/State/ZIP Code Phon e Number [facility]- [id number] [address] [place] [facility] (ABNORMAL) NT-Pro B-Type Natriuretic Peptide (BNP) (10/05/2017 1:56 PM ANIMAL RESCUER) athologist Signature NT-Pro BNP 427 (H) <=196 pg/mL 10/05/2017 [facility] 3:08 PM [facility] Comment: NT-proBNP values less than 300 pg/mL hav e a 99% negative predictive value for excluding acute congestive heart quincy lure. A cutoff of 1200 pg/mL for patients with an eGFR<60 yields a diagno stic sensitivity and specificity of 89% and 72% for acute congestive heart f ailure. ??A diagnostic NT-proBNP cutoff of 900 pg/mL has been suggested i n adults 50-75 years of age in the absence of renal failure. Biotin has been identified by the memo rodríguez as a potential interfering substance. ??Higher concentr ations of biotin may be found in multivitamins, hair/nail supple ments, and workout supplements. ??If the result does not ma tc clinical observations, repeat testing after patient refrains fr om the use of supplements for at least 12 hours. Specimen Anatomical Collection Method Collection Time Receive d Time (Source) Location / / Volume Laterality Blood (Blood, 10/05/2017 1:56 PM 10/05/20 17 2:46 Venous) ANIMAL RESCUER PM ANIMAL RESCUER Sheila Cardenas P.A.-C. LAB BLOOD ADD-ON Performing Organization Address City/State/ZIP Code Phon e Number [facility]- [id number] [address] [place] [facility] S-TSH (Thyroid-Stimulating Hormone - Sensitive) (10/05/2017 1:56 PM ANIMAL RESCUER) athologist Signature TSH, Sensitive 0.5 0.3 - 4.2 10/05/2017 [facility] mIU/L 3:08 PM [facility] Comment: Biotin has been identified by the memo rodríguez as a potential interfering substance. ??Higher concentr ations of biotin may be found in multivitamins, hair/nail supple ments, and workout supplements. ??If the result does not ma tch clinical observations, repeat testing after patient refrains fr om the use of supplements for at least 12 hours. Specimen Anatomical Collection Method Collection Time Receive d Time (Source) Location / / Volume Laterality Blood (Blood, 10/05/2017 1:56 PM 10/05/20 2:46 Venous) ANIMAL RESCUER PM ANIMAL RESCUER Sheila Cardenas P.A.-C. LAB BLOOD ADD-ON Performing Organization Address [facility] Phon e Number [address] [address] [place] [facility] PT (Prothrombin Time) with INR (10/05/2017 1:56 PM ANIMAL RESCUER) athologist Signature Prothrombin 10.2 8.8 - 11.9 10/05/2017 [facility] Time, P sec 3:01 PM [facility] INR 1.0 0.9 - 1.2 10/05/2017 [facility] 3:01 PM [facility] Comment: Standard intensity warfarin therapeutic range: 2.0 to 3.0 High intensity warfarin therapeutic rang e: 2.5 to 3.5 Specimen Anatomical Collection Method Collection Time Receive d Time (Source) Location / / Volume Laterality Blood (Blood, 10/05/2017 1:56 PM 10/05/20 2:42 Venous) ANIMAL RESCUER PM ANIMAL RESCUER Sheila Cardenas P.A.-C. LAB BLOOD ADD-ON Performing Organization Address City/[facility]/ZIP Code Phon e Number [address] [address] [place] [facility] Troponin T (10/05/2017 1:56 PM ANIMAL RESCUER) athologist Signature Troponin T, S <0.01 <0.01 ng/mL 10/05/2017 [facility] 3:01 PM [facility] Comment: Biotin has been identified by the memo rodríguez as a potential interfering substance. ??Higher concentr ations of biotin may be found in multivitamins, hair/nail supple ments, and workout supplements. ??If the result does not ma [facility] clinical observations, repeat testing after patient refrains fr om the use of supplements for at least 12 hours. Specimen Anatomical Collection Method Collection Time Receive d Time (Source) Location / / Volume Laterality Blood (Blood, 10/05/2017 1:56 PM 10/05/20 2:42 Venous) ANIMAL RESCUER PM ANIMAL RESCUER Sheila M Debus P.A.-C. LAB BLOOD ADD-ON Performing Organization Address City/State/ZIP Code Phon e Number [facility]- [address] [address] [place] [address] [place] [facility] documented in this encounter Visit Diagnoses Diagnosis Pneumonia - Primary Fibrillation Atrial (AF) NOS Cardiomegaly documented in this encounter Administered Medications Inactive Administered Medications - up to 3 most recent administrations Medication Order MAR Action Action Date Dose Rate Site cefTRIAXone Given 10/05/2017 2:33 1,000 mg Right An tecubital (for_ROCEPHIN) injection PM ANIMAL RESCUER - ADS Override Pull Starting on 10/05/17 at 1427, For 1 dose, Created by cabinet override [place] IV push over 3 minutes. Add 10 mL NS to 1 gram vial for a final concentration of 100 mg/mL. dilTIAZem in dextrose 5 % 125 mg/125 New Bag 10/05/2017 3:32 P M ANIMAL RESCUER 5 mg/hr 5 mL/hr mL (1 mg/mL) infusion (for_CARDIZEM) 5-15 mg/hr (5-15 mL/hr), intravenous, Continuous, Starting on 10/05/17 at 1518, Type: Titrate, Initiate at: 5 mg/hr, Titrate at: 2.5 mg/hr every 15 min., Goal: HR 60-100 dilTIAZem injection 15 mg Given 10/05/2017 2:53 PM ANIMAL RESCUER 15 mg Right Antecubital (for_CARDIZEM) 15 mg, intravenous, Once, On 10/05/17 at 1448, For 1 dose dilTIAZem injection 20 mg Given 10/05/2017 3:12 PM ANIMAL RESCUER 20 mg Right Antecubital (for_CARDIZEM) 20 mg, intravenous, Once, On 10/05/17 at 1507, For 1 dose lactated Ringer's bolus 1,000 mL New Bag 10/05/2017 2:02 PM ANIMAL RESCUER 1,000 mL 1000 mL/hr 1,000 mL, intravenous, at 1,000 mL/hr, Administer over 1 Hours, Once, On 10/05/17 at 1348, For 1 dose sodium chloride 0.9 % injection 2-10 mL 2-10 mL, intravenous, As needed, line care, Starting o n 10/05/17 at 1346 sterile water injection - ADS Override P ull Given 10/05/2017 2:33 PM ANIMAL RESCUER 20 mL Starting on 10/05/17 at 1428, For 1 dose, Created by cabinet override documented in this encounter Active and Recently Administered Medications Times are shown in ANIMAL RESCUER. Scheduled Medication Order 10/03/2017 10/04/2017 10/05/2017 cefTRIAXone 1 g in NaCl 0.9 % IVPB (for_ROCEPHIN) 1422 (Due) 1 g, intravenous, at 200 mL/hr, Administ er over 15 Minutes, Once, 10/05/17 at 1422, For 1 dose, Mini-Bag Plus bag, Drug Monitoring Program: Pharmacist to adjust medication order based on comorbities and indication., Indications: Respiratory Tract Infection, Community Acquired dilTIAZem injection 15 mg (for_CARDIZEM) (COMPLETED) 1453 (Given - Provider: Rachael Tinajero R.N.) 15 mg, intravenous, Once, On 10/05/17 at 1448, For 1 dose dilTIAZem injection 20 mg (for_CARDIZEM) (COMPLETED) 1512 (Given - Provider: Rachael Tinajero R.N.) 20 mg, intravenous, Once, On 10/05/17 at 1507, For 1 dose lactated Ringer's bolus 1,000 mL (COMPLETED) 1402 (New Bag - Provider: Rachael Tinajero R.N.)1504 (Stopped - Provider: Rachael Tinajero R.N.) 1,000 mL, intravenous, at 1,000 mL/hr, A dminister over 1 Hours, Once, On 10/05/17 at 1348, For 1 dose Continuous Medication Order 10/03/2017 10/04/2017 10/05/2017 dilTIAZem in dextrose 5 % 125 mg/125 mL (1 mg/mL) infusion (for_ CARDIZEM) 1532 (New Bag - Provider: Rachael Tinajero R.N. - Comment: [id number] Lucina Browning RN)1620 (Stopped - Provider: Rachael Tinajero R.N.) 5-15 mg/hr (5-15 mL/hr), intravenous, Co ntinuous, Starting on 10/05/17 at 1518, Type: Titrate, Initiate at: 5 mg/hr, Titrate at: 2.5 mg/hr every 15 min., Goal: HR 60-100 PRN Medication Order 10/03/2017 10/04/2017 10/05/2017 sodium chloride 0.9 % injection 2-10 mL(Linked Group 1) 2-10 mL, intravenous, As needed, line care, Starting on Sun 09/19 05/05 at 1346 No Frequency Medication Order 10/03/2017 10/04/2017 10/05/2017 cefTRIAXone (for_ROCEPHIN) injection - ADS Override Pull (COMPLE FRANKO) 1433 (Given - Provider: Rachael Tinajero R.N.) Starting on 10/05/17 at 1427, For 1 dose, Created by cabinet override [place] IV push over 3 minutes. Add 10 mL NS to 1 gram vial for a final concentration of 100 mg/mL. sterile water injection - ADS Override Pull (COMPLETED) 1433 (Given - Provider: Rachael Tinajero R.N.) Starting on 10/05/17 at 1428, For 1 dose, Created by cabinet override Linked Groups Order Group 1: Place peripheral IV: No upper extremity site restrictions (CANCELED) Upper extremity site restriction: No upp er extremity site restrictions
Quantity of PIVs requested: One And sodium chloride 0.9 % injection 2-10 mLJump to med 2-10 mL, intravenous, As needed, line ca re, Starting on 10/05/17 at 1346 documented in this encounter
--- OUTSIDE RECORDS SUMMARY | 2022-07-29 14:49 | XMS_ITS | Encounter Summary ---
:1950 Author Organization [facility] Address [address] [place] [address] Care Team Providers Name Role Phone Unavailable Primary Care Provider Unavailable Encounter Details Date Type Department Care Team Description 11/21/2011 Hospital Encounter HX [facility] Navdeep, Vannesa pelaez P.A.-C. [address] [place] [address] (Wo rk) Social History Tobacco Use Types Packs/Day Years Used Date Smoking Tobacco: Never Assessed Sex Assigned at Date Recorded Not on file documented as of this encounter Last Filed Vital Signs Vital Sign Reading Time Taken Comments Blood Pressure 116/70 11/21/2011 1:[address] MAGISTRATE Pulse 76 11/21/2011 1:[address] MAGISTRATE Temperature - - Respiratory Rate 18 11/21/2011 1:[address] MAGISTRATE Oxygen Saturation - - Inhaled Oxygen Concentration - - Weight 62.2 kg (137 lb 2 oz) 11/21/2011 1:[address] MAGISTRATE Height 165 cm (5' 4.96) 11/21/2011 1:[address] MAGISTRATE Body Mass Index 22.85 11/21/2011 1:[address] MAGISTRATE documented in this encounter Medications at Time [...] mouth daily. (MULTIVITAMIN 50 PLUS ORAL) omega 4-gdn-jlf-fish oil Take 1,000 mg by 0 11/21 (FISH OIL) 100-160-1,000 mg mouth daily. capsule ZINC CITRATE-PHYTASE ORAL Take 1 tablet by 0 11/2011 mouth daily. CALCIUM CARB/VIT Take 1 tablet by 0 11/21/2011 D3/MINERALS mouth 2 (two) (CALCIUM-VITAMIN D ORAL) times a day. documented as of this encounter Progress Notes Miriam Nuñez - 11/21/2011 12:00 AM CST [id number] CHIEF COMPLAINT/REASON FOR VISIT Annual physical examination. HISTORY OF PRESENT ILLNESS This is a 61-year-old female seen today for annual physical exam. She has no medical questions or concerns today. She participates in the [employer] program. She has been feeling well. She has been postmenopausal for probably the last 10 years or so. She does need a refill on her trazodone and takes 150 mg nightly. States that definitely helps with her sleep. She has tried a couple of times going without it and she wakes up multiple times during the night. She is not having any side effects from it. Otherwise she has been doing very well. CURRENT MEDICATIONS Current medications include calcium with vitamin D one tablet twice daily, fish oil 1000 mg one tablet daily, garlic 1000 mg one tablet daily, magnesium citrate 300 mg once daily, Caltrate once daily, a multivitamin once daily, trazodone 150 mg one tablet daily. Vitamin D3 one tablet daily zinc citrate one tablet daily. ALLERGIES No known drug allergies. SYSTEM REVIEW The rest of her review of systems is negative. She has no other HEENT complaints. No cough. No chest pain or shortness of breath. No nausea, vomiting, diarrhea, or constipation. No abdominal pain. No dysuria or urinary frequency. No vaginal itching, burning, or discharge. No numbness, tingling, or incoordination. Medications, medical problems, allergies, habits, surgical history, social and family histories, and preventative services are updated and on the patient database form. PAST MEDICAL HISTORY/SURGICAL HISTORY Past medical history is significant for some back problems, insomnia, menopausal symptoms and osteopenia. PAST MEDICAL HISTORY/SURGICAL HISTORY Past surgical history - she had tubal ligation in 1979 and tonsillectomy as a child. SOCIAL HISTORY She is and has been 40 years. She has two grown daughters and no grandchildren yet. She works at [employer] in [place]. She never drinks alcohol and has never smoked. VITAL SIGNS Temperature 36.6, heart rate 76. Respirations 18, blood pressure 116/70, height 165 cm, weight 62.2 kg. PHYSICAL EXAMINATION GENERAL: She is alert, interactive and cooperative. Appears to be well-nourished and well-hydrated and in no acute distress. SKIN: skin is without rashes or lesions. HEENT: head is normocephalic, atraumatic. TMs are clear with normal landmarks, normal light reflexes. Canals are clear. Sclerae and conjunctiva are clear. Nares are noncongested. Oral mucosa is pink and moist. Posterior pharynx is nonerythematous. Tonsils are not enlarged, no exudate. Neck is supple with no lymphadenopathy. No thyromegaly, normal carotid pulses. ABDOMEN: abdomen is soft and nontender, nondistended. No organomegaly, positive bowel sounds. BREASTS: breast exam bilaterally without nipple discharge. No masses or nodules. No axillary lymph nodes. PELVIC: normal-appearing external genitalia without discharge. Normal vaginal mucosa. Cervix appears normal without lesions or discharge. Pap smear is obtained. Bimanual exam reveals no cervical motion tenderness. Nontender, nonenlarged uterus. No adnexal tenderness or fullness. EXTREMITIES: DTRs are intact. No lower extremity edema. Gait is normal. IMPRESSION/REPORT/PLAN 1. Insomnia. I will refill her trazodone. I did recommend that she maybe try one night every so often without it and see if she can get by without it. Otherwise she will take 150 mg one tablet nightly this was sent to her [facility] for a 90-day supply with three refills. 2. Routine health maintenance. Her blood pressure was good at 116/7 today. She did receive an influenza immunization in July 2011, her tetanus is up-to-date as of 2002 and will maybe give her an update on that next year. She is due for lipid panel and colonoscopy. However, these are not covered under the [facility] program and she would just as soon wait for those. She denies any depression or anxiety concerns. She has a mammogram scheduled for today. Pap smear was done today. She will be notified of those results when they return. She denies any STD concerns. She is encouraged to eat a healthy diet and get plenty of exercise. She should return next year for follow-up exam ad sooner for any other questions or concerns. Patient Education #1 Patient ready to learn. No apparent learning barriers were identified. Learning preferences included listening. Explained diagnosis and treatment plan. Patient expressed understanding of the content. Miriam Nuñez P.A.-C / Electronically Signed By: MIRIAM NUÑEZ On: 11/26/2011 10:16 AM Source: [facility] MHSDOLBEYNONRADSYS Document Id: [id number] CIPAL COURT MAGISTRATE documented in this encounter Miscellaneous Notes Miscellaneous - Ivonne Grey R.N. - 11/04/2012 12:08 PM CST Med Management Document Contains Addenda Addendum by MIRIAM NUÑEZ on 04 November 2012 12:57:[address] MAGISTRATE Approved Order Order: trazodone (trazodone 150 mg oral tablet) 1 tab(s) PO Bedtime Qty: 10 tab(s) Duration: 30 day(s) Refills: 0 Substitutions Allowed Route To Pharmacy - [facility] Signed by MIRIAM NUÑEZ 11/04/2012 12:57:51 From: IVONNE GOMEZ RN To: MIRIAM NUÑEZ; Sent: 11/04/2012 12:08:[address] MAGISTRATE Subject: Med Management On hold pending signature Order Order: trazodone (trazodone 150 mg oral tablet) 1 tab(s) PO Bedtime Qty: 10 tab(s) Duration: 30 day(s) Refills: 0 Substitutions Allowed Route To Pharmacy - [facility] Pt requests short term rx to last until her appt with you on 11/24/12. I did confirm that pt wants to use mail order Rx for this one. Source: [facility] POWERCHART Document Id: [id number] Electronically signed by Rowena [facility] Delicatessen Department Manager [id number] at 03/22/2017 1:46 PM CDT Miscellaneous - Miriam Nuñez - 11/21/2011 2:48 PM CST Ambulatory Patient Summary [place] [id number] [facility] [place] [address] Visit Information Name: NURIA PAYTON Current Date: 11/21/2011 14:48:05 Primary Care Provider: MIRIAM NUÑEZ Your Medications [...] mg Oral once a day (at bedtime) magnesium citrate (magnesium citrate) 300 mL Oral once cholecalciferol (Vitamin D3) Oral once a day zinc citrate (zinc citrate) Oral once a day Misc Prescription (Misc Prescription) Oral once a day kelp omega-3 polyunsaturated fatty acids (Fish Oil) 1,000 mg Oral once a day garlic (garlic) 1,000 mg Oral once a day calcium-vitamin D (Calcium 600+D) 1 tab(s) Oral two times a day multivitamin (multivitamin) Oral once a day Your Allergies & Intolerances Substance Reaction Symptoms Category Comments NKA Drug Your Problem List Problem Status Onset Comments Insomnia Active 10/20/2003 Menopause Active 10/20/2001 Back pain Active 10/20/1989 lower Osteopenia Active 04/19/2003 Your Recommendations We want to make sure you get the tests, immunizations, and guidance you need to stay healthy. Here is a customized list of recommendations, based on information we have in your medical record. Your doctor may have additional recommendations for you, based on your personal medical history and risk factors. You can help us by calling us to make an appointment when you are due for your tests. Additional information regarding recommendations: Test/Treatment Last Done Next Due Additional Information Health Assessment every 1 year 11/21/2011 11/20/2012 Screening Colonoscopy or Flex Sig or Occult Blood 11/21/2011 12/21/2011 Checks for signs of cancer of the colon. Lipid Panel every 5 years Age 20-75 11/21/2011 12/21/2011 Checks blood for good (HDL) and bad (LDL) cholesterol. Know your numbers, they are one indicator of your risk for heart attack and stroke. Vaccine: Flu every 1 year 08/03/2011 08/02/2012 Immunization to help prevent you from getting the flu strain expected to be a problem for that year's flu season. Vaccine: Tetanus every 10 years 05/13/2003 05/10/2013 Immunization to help prevent you from getting the serious disease Tetanus (Lockjaw). Your Upcoming Appointments Date Time Location Reason Provider No Appointments found Your Goals/Additional instructions: Source: [facility] POWERCHART Document Id: [id number] [address] MAGISTRATE Miscellaneous - Miriam Nuñez - 11/21/2011 2:48 PM CST Ambulatory Depart Summary [address] [address] Visit Information Name: NURIA PAYTON Current Date: 11/21/2011 14:48:03 Attending Provider: MIRIAM NUÑEZ Primary Care Provider: [...] mg Oral once a day (at bedtime) magnesium citrate (magnesium citrate) 300 mL Oral once cholecalciferol (Vitamin D3) Oral once a day zinc citrate (zinc citrate) Oral once a day Misc Prescription (Misc Prescription) Oral once a day kelp omega-3 polyunsaturated fatty acids (Fish Oil) 1,000 mg Oral once a day garlic (garlic) 1,000 mg Oral once a day calcium-vitamin D (Calcium 600+D) 1 tab(s) Oral two times a day multivitamin (multivitamin) Oral once a day Additional Information: Yes - Current list of reconciled medications is provided and explained to the patient and/or family, guardian/caregiver. Source: [facility] POWERCHART Document Id: [id number] [address]IP[address] MAGISTRATE Yanira - Wolf Shelley L.P.N. - 11/21/2011 1:32 PM CST Health Assessment Health Assessment Entered On: 11/21/2011 13:[address] MAGISTRATE Performed On: 11/21/2011 13:[address] MAGISTRATE by WOLF SHELLEY LPN Health Assessment Complete Health Assessment Complete or Modified : Annual Health Assessment Annual Health Assessment Completed : Yes WOLF SHELLEY LPN - 11/21/2011 13:[address] MAGISTRATE Nutrition Nutrition Risk Factors by History Adult : None WOLF SHELLEY LPN - 11/21/2011 13:[address] MAGISTRATE Functional Current Daily Living Assistance : None WOLF SHELLEY LPN - 11/21/2011 13:[address] MAGISTRATE Dependent Habits Tobacco Use/Currently Using : No Smoking Status : Never smoker WOLF SHELLEY LPN - 11/21/2011 13:[address] MAGISTRATE Caffeine Use Grid Caffeine Use : None WOLF SHELLEY LPN - 11/21/2011 13:[address] MAGISTRATE Recreational Drug Use Grid Drug Use : None WOLF SHELLEY LPN - 11/21/2011 13:[address] MAGISTRATE Psychosocial Domestic Abuse Concerns : None WOLF SHELLEY LPN - 11/21/2011 13:[address] MAGISTRATE Advance Directive Advanced Directives : No WOLF SHELLEY LPN - 11/21/2011 13:[address] MAGISTRATE Educ Needs Learning Style Preference Adult Grid Patient : Printed materials Family : None WOLF SHELLEY LPN - 11/21/2011 13:[address] MAGISTRATE Source: [facility] POWERCHART Document Id: [id number] [address] MAGISTRATE![address] MAGISTRATE Yanira - Wolf Shelley L.PMellisa - 11/21/2011 1:25 PM CST 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 Intake/History Entered On: 11/21/2011 13:[address] MAGISTRATE Performed On: 11/21/2011 13:[address] MAGISTRATE by WOLF SHELLEY LPN Intake Chief Complaint : [employer] program physical last pap 2009 refill RX Temperature Core : 36.6C(Converted to: 97.9DegF) Peripheral Pulse Rate : 76/min Respiratory Rate : 18/min Heart Rhythm : Regular Systolic Blood Pressure : 116mmHg Diastolic Blood Pressure : 70mmHg NIBP Mean : 85mmHg BP Location : Left upper extremity Blood Pressure Cuff Size : Regular Height : 165cm(Converted to: 5ft 5inch(es), 64.96inch(es)) Actual Weight : 62.2kg(Converted to: 137lb 2oz) Weight Source : Standing scale Dosing Weight Clinic : 62.20kg Clinic BSA : 1.69 Body Mass Index : 22.85kg/m2 WOLF SHELLEY LPN - 11/21/2011 13:[address] MAGISTRATE Subjective Pain Symptoms : No WOLF SHELLEY LPN - 11/21/2011 13:[address] MAGISTRATE Dependent Habits Tobacco Use/Currently Using : No Smoking Status : Never smoker Alcohol Use : No WOLF SHELLEY LPN - 11/21/2011 13:[address] MAGISTRATE Caffeine Use Grid Caffeine Use : None WOLF SHELLEY LPN - 11/21/2011 13:[address] MAGISTRATE Recreational Drug Use Grid Drug Use : None WOLF SHELLEY LPN - 11/21/2011 13:[address] MAGISTRATE Allergy Source: [facility] POWERCHART Document Id: [id number] [address] MAGISTRATE![address] MAGISTRATE documented in this encounter Plan of Treatment Upcoming Encounters Date Type Specialty Care Team Description 09/02/2022 Comprehensive Visit Physical Medicine and Mainor Winter M.D. [address], [address] [place] [address] Rehabilitation Wolf Veliz, P.T. documented as of this encounter Procedures Procedure Name Priority Date/Time Associated Diagnosis Comme nts THINPREP SCREEN HPV Routine 11/21/2011 1:30 PM Re sults for this REFLEX MUNICIPAL COURT MAGISTRATE procedure are i n the results section. documented in this encounter Results Pathology ThinPrep Screen HPV Reflex (11/21/2011 1:[address] MAGISTRATE) [facility] Method Time Signature Interpretation [id number] POWERCHART HXThPrep Scrn See Comment POWERCHART [facility] Comment: A. ??ThinPrep Pap Test Screen (Cervical/ Endocervical HPV Reflex): Specimen processed and examined but unsa tisfactory for evaluation of epithelial abnormality bec ause: of scanty cellularity. HXThPrep Scrn [facility] See Comment RORY RCHART Comment: Report electronically signed by Gavin Bowers, SCT(ASCP) 12/02/2011 13:47 Interpreted by: Gloria Guevara, CT(ASCP) [facility] See Comment POWERCHART Comment: A. ??ThinPrep Pap Test Screen (Cervical/ Endocervical HPV Reflex): Received cloudy specimen in ThinPrep via l. Test Performed by: [facility] Dpt of Lab Med and Pathology [address] [place] [address] [employer] Machine Operator: Augustine el III, M.D. Specimen (Source) Anatomical Collection Method Collection Time Re ceived Time Location / / Volume Laterality Cervix/Endocervix 11/21/2011 1:[address] MAGISTRATE Miriam Nuñez P.A.-C. LAB PAP PATHDX ORDERABLES Performing Organization Address City/State/ZIP Code Phon e Number POWERCHART documented in this encounter Visit Diagnoses Not on filedocumented in this encounter
--- OUTSIDE RECORDS SUMMARY | 2022-07-29 14:49 | XMS_ITS | Encounter Summary ---
:1950 Author Organization [facility] Address [address] [place] [address] Care Team Providers Name Role Phone Unavailable Primary Care Provider Unavailable Encounter Details Date Type Department Care Team Description 10/30/2010 Hospital Encounter HX [facility] INPT/OBSRV Evie Sethi P.A.-C. [address] [place] [address] (Wo rk) Social History Tobacco Use Types Packs/Day Years Used Date Smoking Tobacco: Never Assessed Sex Assigned at Date Recorded Not on file documented as of this encounter Plan of Treatment Upcoming Encounters Date Type Specialty Care Team Description 09/02/2022 Comprehensive Visit Physical Medicine and Mainor Winter M.D. [address], [address] [place] [address] Rehabilitation Rosanna Veliz, P.T. documented as of this encounter Visit Diagnoses Not on filedocumented in this encounter
--- OUTSIDE RECORDS SUMMARY | 2022-07-29 14:49 | XMS_ITS | Encounter Summary ---
:1950 Author Organization [facility] Address [address] [place] [address] Care Team Providers Name Role Phone Unavailable Primary Care Provider Unavailable Encounter Details Date Type Department Care Team Description 10/19/2008 Hospital Encounter HX [facility] CAM INPT/OBSRV Evie Sethi P.A.-C. [address] [place] [address] (Wo rk) Social History Tobacco Use Types Packs/Day Years Used Date Smoking Tobacco: Never Assessed Sex Assigned at Date Recorded Not on file documented as of this encounter Plan of Treatment Upcoming Encounters Date Type Specialty Care Team Description 09/02/2022 Comprehensive Visit Physical Medicine and Mainor Winter M.D. [address], [address] [place] [address] Rehabilitation Rosanna Veliz, P.T. documented as of this encounter Visit Diagnoses Not on filedocumented in this encounter
--- OUTSIDE RECORDS SUMMARY | 2022-07-29 14:49 | XMS_ITS | Encounter Summary ---
:1950 Author Organization [facility] Address [address] [place] [address] Care Team Providers Name Role Phone Unavailable Primary Care Provider Unavailable Encounter Details Date Type Department Care Team Description 03/28/2009 Hospital Encounter HX [facility] CAM INPT/OBSRV Lelo Lucas M.D. [address] [place] [address] (Wo rk) Social History Tobacco Use Types Packs/Day Years Used Date Smoking Tobacco: Never Assessed Sex Assigned at Date Recorded Not on file documented as of this encounter Plan of Treatment Upcoming Encounters Date Type Specialty Care Team Description 09/02/2022 Comprehensive Visit Physical Medicine and Mainor Winter M.D. [address], [address] [place] [address] Rehabilitation Rosanna Veliz, PRoscoeTRoscoe documented as of this encounter Visit Diagnoses Not on filedocumented in this encounter
--- OUTSIDE RECORDS SUMMARY | 2022-07-29 14:49 | XMS_ITS | Encounter Summary ---
:1950 Author Organization [facility] Address [address] [place] [address] Care Team Providers Name Role Phone Unavailable Primary Care Provider Unavailable Encounter Details Date Type Department Care Team Description 03/30/2009 Hospital Encounter HX [facility] CAM INPT/OBSRV Evie Sethi P.A.-C. [address] [place] [address] (Wo rk) Social History Tobacco Use Types Packs/Day Years Used Date Smoking Tobacco: Never Assessed Sex Assigned at Date Recorded Not on file documented as of this encounter Plan of Treatment Upcoming Encounters Date Type Specialty Care Team Description 09/02/2022 Comprehensive Visit Physical Medicine and Mainor Winter M.D. [address], [address] [place] [address] Rehabilitation Rosanna Veliz, P.T. documented as of this encounter Visit Diagnoses Not on filedocumented in this encounter
--- OUTSIDE RECORDS SUMMARY | 2022-07-29 14:49 | XMS_ITS | Encounter Summary ---
:1950 Author Organization [facility] Address [address] [place] [address] Care Team Providers Name Role Phone Unavailable Primary Care Provider Unavailable Encounter Details Date Type Department Care Team Description 11/25/2013 Hospital Encounter HX [facility] Nasreen Bryant, P.ARoscoe-C. [address] [place], [place] [address] (Wo rk) Social History [...] mouth daily. (MULTIVITAMIN 50 PLUS ORAL) omega 9-dfs-gqm-fish oil Take 1,000 mg by 0 11/21 (FISH OIL) 100-160-1,000 mg mouth daily. capsule traZODone (for_DESYREL) 150 Take 1 tablet by 0 mg tablet mouth at bedtime. ZINC CITRATE-PHYTASE ORAL Take 1 tablet by 0 /11/2011 mouth daily. CALCIUM CARB/VIT Take 1 tablet by 0 11/21/2011 D3/MINERALS mouth 2 (two) (CALCIUM-VITAMIN D ORAL) times a day. documented as of this encounter Miscellaneous Notes Miscellaneous - Cliff Moscoso L.P.N. - 09/04/2013 9:13 AM CST Quality Measures Quality Measures Entered On: 01/11/2014 9:14 CDT Performed On: 09/04/2013 9:13 SOURCING CONSULTANT by CLIFF MOSCOSO LPN Labs Outside Lab Cholesterol : 224 mg/dL Outside Lab HDL : 92 mg/dL Outside Lab LDL : 69 mg/dL Outside Lab Triglycerides : 45 mg/dL CLIFF MOSCOSO OFFICE AUDITOR - 01/11/2014 9:13 CDT Source: [facility] [employer]Email Group Document Id: [id number] CDT!6 documented in this encounter Plan of Treatment Upcoming Encounters Date Type Specialty Care Team Description 09/02/2022 Comprehensive Visit Physical Medicine and Mainor Winter M.D. [address] [place] [address] Rehabilitation Rosanna Veliz, P.T. documented as of this encounter Visit Diagnoses Not on filedocumented in this encounter
--- OUTSIDE RECORDS SUMMARY | 2022-07-29 14:49 | XMS_ITS | Encounter Summary ---
:1950 Author Organization [facility] Address [address] [place] [address] Care Team Providers Name Role Phone Unavailable Primary Care Provider Unavailable Encounter Details Date Type Department Care Team Description 10/30/2010 Hospital Encounter HX [facility] CAM INPT/OBSRV Evie Sethi P.A.-C. [address] [place] [address] (Wo rk) Social History Tobacco Use Types Packs/Day Years Used Date Smoking Tobacco: Never Assessed Sex Assigned at Date Recorded Not on file documented as of this encounter Plan of Treatment Upcoming Encounters Date Type Specialty Care Team Description 09/02/2022 Comprehensive Visit Physical Medicine and Mainor Winter M.D. [address], [address] [place] [address] Rehabilitation Rosanna Veliz, P.T. documented as of this encounter Visit Diagnoses Not on filedocumented in this encounter
--- OUTSIDE RECORDS SUMMARY | 2022-07-29 14:49 | XMS_ITS | Encounter Summary ---
:1950 Author Organization [facility] Address [address] [place] [address] Care Team Providers Name Role Phone Unavailable Primary Care Provider Unavailable Encounter Details Date Type Department Care Team Description 09/22/2002 Hospital Encounter HX [facility] Sourav Stone M.D. [address] [place] [address] (Wo rk) Social History Tobacco Use Types Packs/Day Years Used Date Smoking Tobacco: Never Assessed Sex Assigned at Date Recorded Not on file documented as of this encounter Miscellaneous Notes Telephone Encounter - Conversion, Historical Provider Ser - 09/22/2002 12:00 AM CST [id number] >> BLANQUITA JONES Wed Sep 22, 2002 1:33 PM >> CALL RECEIVED. Contact: pt last saw you 01-25-02,was given some samples and an rx for celexa ,is out now, wants rx faxed, [place] pt Source[facility] Document Id: [id number] documented in this encounter Plan of Treatment Upcoming Encounters Date Type Specialty Care Team Description 09/02/2022 Comprehensive Visit Physical Medicine and Mainor Winter M.D. [address], [address] [place] [address] Rehabilitation Rosanna Veliz, P.T. documented as of this encounter Visit Diagnoses Not on filedocumented in this encounter
--- OUTSIDE RECORDS SUMMARY | 2022-07-29 14:49 | XMS_ITS | Encounter Summary ---
:1950 Author Organization [facility] Address [address] [place] [address] Care Team Providers Name Role Phone Unavailable Primary Care Provider Unavailable Encounter Details Date Type Department Care Team Description 09/21/2008 Hospital Encounter HX [facility] CAM INPT/OBSRV Evie Sethi P.A.-C. [address] [place] [address] (Wo rk) Social History Tobacco Use Types Packs/Day Years Used Date Smoking Tobacco: Never Assessed Sex Assigned at Date Recorded Not on file documented as of this encounter Plan of Treatment Upcoming Encounters Date Type Specialty Care Team Description 09/02/2022 Comprehensive Visit Physical Medicine and Mainor Winter M.D. [address], [address] [place] [address] Rehabilitation Rosanna Veliz, P.T. documented as of this encounter Visit Diagnoses Not on filedocumented in this encounter
--- OUTSIDE RECORDS SUMMARY | 2022-07-29 14:49 | XMS_ITS | Encounter Summary ---
:1950 Author Organization [facility] Address [address] [place] [address] Care Team Providers Name Role Phone Unavailable Primary Care Provider Unavailable Encounter Details Date Type Department Care Team Description 08/27/[address] [facility] ME Sherwin Huang, [address] [place] [address] (Wo rk) Social History Tobacco Use Types Packs/Day Years Used Date Smoking Tobacco: Never Assessed Sex Assigned at Date Recorded Not on file documented as of this encounter Last Filed Vital Signs Vital Sign Reading Time Taken Comments Blood Pressure - - Pulse - - Temperature - - Respiratory Rate - - Oxygen Saturation - - Inhaled Oxygen Concentration - - Weight - - Height 164 cm (5' 4.57) 08/27/2014 11:32 AM TURNAROUND ENGINEER Body Mass Index - - documented in this encounter Medications at Time [...] mouth daily. (MULTIVITAMIN 50 PLUS ORAL) omega 3-jqn-mjb-fish oil Take 1,000 mg by 0 11/21 (FISH OIL) 100-160-1,000 mg mouth daily. capsule traZODone (for_DESYREL) 150 Take 1 tablet by 0 mg tablet mouth at bedtime. VITAMIN B COMPLEX VIT C Vitamin B Complex 0 07/25 NO.3 (VITAMIN B COMP AND C 100 Take 1 tablet NO.3 ORAL) daily ZINC CITRATE-PHYTASE ORAL Take 1 tablet by 0 11/2011 mouth daily. biotin 1 mg capsule biotin 0 07/25/201410/05 CALCIUM CARB/VIT Take 1 tablet by 0 11/21/2011 D3/MINERALS mouth 2 (two) (CALCIUM-VITAMIN D ORAL) times a day. documented as of this encounter Miscellaneous Notes Ceceliacellaneous - Scott Vaughn I RDarling. - 02/27/2017 1:48 PM CDT Health Maintenance Reminder February 27, 2017 NURIA PAYTON [address] [facility] [id number] Dear NURIA PAYTON, This is a reminder that you are due for a Colonoscopy appointment: at [facility]. Please call the Clinic registration at to schedule an appointment with your primary provider. A pre-procedure physical needs to be performed prior to your procedure. Your colonoscopy willbe scheduled by your primary provider upon completion of the physical. If you had this done elsewhere, please notify the Endoscopy department [phone], to update your chart. We look forward to seeing you soon. Thank you for choosing the [facility] in [place]. Sincerely, SCOTT VAUGHN Electronic Signature Electronically Signed By: SCOTT VAUGHN RN On: February 27, 2017 This document has images extracted. Source: [facility] POWERCHART Document Id: [id number] AROUND ENGINEER Yanira - Scott Vaughn R.N. - 01/16/2017 9:25 AM CDT Health Maintenance Reminder January 16, 2017 NURIA PAYTON [address] [facility] [id number] Dear NURIA APYTON, This is a reminder that you are due for a Colonoscopy appointment: at [facility]. Please call the Clinic registration at [phone] to schedule an appointment with your primary provider. A pre-procedure physical needs to be performed prior to your procedure. Your colonoscopy willbe scheduled by your primary provider upon completion of the physical. If you had this done elsewhere, please notify the Endoscopy department [phone], to update your chart. We look forward to seeing you soon. Thank you for choosing the [facility] in [place]. Sincerely, SCOTT VAUGHN Electronic Signature Electronically Signed By: SCOTT VAUGHN RN On: January 16, 2017 This document has images extracted. Source: [facility] VIDA Software Document Id: [id number] Electronically signed by [employer] [facility] Historical Guide [id number] at 03/18/2017 9:44 PM CDT Yanira - Scott Vaughn I, R.N. - 11/13/2016 9:41 AM CST Health Maintenance Reminder November 13, 2016 NURIA PAYTON [facility] [id number] Dear NURIA PAYTON, This is a reminder that you are due for a Colonoscopy appointment: at [facility]. Please call the Clinic registration at to schedule an appointment with your primary provider. A pre-procedure physical needs to be performed prior to your procedure. Your colonoscopy willbe scheduled by your primary provider upon completion of the physical. If you had this done elsewhere, please notify the Endoscopy department [phone], to update your chart. We look forward to seeing you soon. Thank you for choosing the [facility] in [place]. Sincerely, SCOTT VAUGHN Electronic Signature Electronically Signed By: SCOTT VAUGHN RN On: November 13, 2016 This document has images extracted. Source: [facility] [employer] Software Document Id: [id number] Electronically signed by Noomeo, [facility] Historical Guide [id number] at 03/18/2017 9:44 PM CDT Yanira - Scott Vaughn I, R.N. - 11/11/2016 1:49 PM CST *General Message Document Contains Addenda Addendum by SCOTT VAUGHN RN on January 16, 2017 09:25:48 CDT second letter sent Addendum by SCOTT VAUGHN RN on November 13, 2016 09:41:14 TURNAROUND ENGINEER first letter sent to patient From: SCOTT VAUGHN RN To: [place] Colonoscopy Pool; Sent: 11/11/2016 13:49:53 TURNAROUND ENGINEER Subject: *General Message Due Date/Time: 11/11/2016 13:49:00 TURNAROUND ENGINEER Source: [facility] [employer] Software Document Id: [id number] Electronically signed by Conversion, [facility] Historical Guide [id number] at 03/18/2017 9:44 PM CDT documented in this encounter Plan of Treatment Upcoming Encounters Date Type Specialty Care Team Description 09/02/2022 Comprehensive Visit Physical Medicine and Mainor Winter M.D. [address] [place] [address] Rehabilitation Rosanna Veliz, P.T. documented as of this encounter Visit Diagnoses Not on filedocumented in this encounter
--- OUTSIDE RECORDS SUMMARY | 2022-07-29 14:49 | XMS_ITS | Encounter Summary ---
:1950 Author Organization [facility] Address [address] [place] [address] Care Team Providers Name Role Phone Unavailable Primary Care Provider Unavailable Encounter Details Date Type Department Care Team Description 08/10/2014 Historical Ophthalmology RST OPH Martín Oden M.D. Social History Tobacco Use Types Packs/Day Years Used Date Smoking Tobacco: Never Assessed Sex Assigned at Date Recorded Not on file documented as of this encounter Progress Notes Martín Oden M.D. - 08/10/2014 7:23 AM CDT Eye General CHIEF COMPLAINT Pigmented conjucntival lesion RE -rule out melanoma HISTORY OF PRESENT ILLNESS Review of refer note; Pt noted dark lesion inferior bulbar conjunctiva right eye first noticed a fewmonths ago which recently has had some minior bleeding from it. pt noticed lesion; RE; a few months ago; she thinks it maybe has gotten larger; constant.- no changein vision, she was getting some mattering prior to seeing Dr Hobson- [place]- this went away after a short time. she would like another opinion today IMPRESSION / REPORT / PLAN #1 conjucntival foreign body right removed RV 1 mo just to recheck area under FB to make sure OK DIAGNOSIS #1 conjucntival foreign body right CDM Reports - EYEGEN Id: [id number] Status: Fnl documented in this encounter Plan of Treatment Upcoming Encounters Date Type Specialty Care Team Description 09/02/2022 Comprehensive Visit Physical Medicine and Mainor Winter M.D. [address], [address] [place] [address] Rehabilitation Rosanna Veliz, P.T. documented as of this encounter Visit Diagnoses Not on filedocumented in this encounter
--- OUTSIDE RECORDS SUMMARY | 2022-07-29 14:49 | XMS_ITS | Encounter Summary ---
:1950 Author Organization [facility] Address [address] [place] [address] Care Team Providers Name Role Phone Unavailable Primary Care Provider Unavailable Encounter Details Date Type Department Care Team Description 01/28/2002 Hospital [facility] Provider, Bravo gupta Social History Tobacco Use Types Packs/Day Years Used Date Smoking Tobacco: Never Assessed Sex Assigned at Date Recorded Not on file documented as of this encounter Miscellaneous Notes Miscellaneous - Conversion, Historical Provider Ser - 01/28/2002 12:00 AM CDT [id number] Nuria Simmons [address] [place] [address] January 28, 2002 Dear Nuria Simmons, I am happy to inform you that your recent cervical cancer screening test (PAP smear) was normal. Preventative screening such as this helps insure your health for years to come. Congratulations for taking care of yourself! Please contact my office if you have any further questions. [phone]. Sincerely, Radha Viramontes M.D. OBSTETRICS/GYNECOLOGY [facility] Source: [facility] Document Id: [id number] documented in this encounter Plan of Treatment Upcoming Encounters Date Type Specialty Care Team Description 09/02/2022 Comprehensive Visit Physical Medicine and Mainor Winter M.D. [address] [place] [address] Rehabilitation Rosanna Veliz, P.T. documented as of this encounter Visit Diagnoses Not on filedocumented in this encounter
--- OUTSIDE RECORDS SUMMARY | 2022-07-29 14:49 | XMS_ITS | Encounter Summary ---
:1950 Author Organization [facility] Address [address] [place] [address] Care Team Providers Name Role Phone Unavailable Primary Care Provider Unavailable Encounter Details Date Type Department Care Team Description 11/24/2012 Hospital Encounter HX [facility] Nasreen Bryant, P.A.-C. [address] [place], [place] [address] (Wo rk) Social History [...] mouth daily. (MULTIVITAMIN 50 PLUS ORAL) omega 1-ifj-euw-fish oil Take 1,000 mg by 0 11/21 [...] 09/02/2022 Comprehensive Visit Physical Medicine and [place], [address], [address] [place] [address] Rehabilitation Rosanna Veliz, P.T. documented as of this encounter Visit Diagnoses Not on filedocumented in this encounter
--- OUTSIDE RECORDS SUMMARY | 2022-07-29 14:49 | XMS_ITS | Encounter Summary ---
:1950 Author Organization [facility] Address [address] [place] [address] Care Team Providers Name Role Phone Unavailable Primary Care Provider Unavailable Encounter Details Date Type Department Care Team Description 11/25/2013 Hospital Encounter HX [facility] [place] Navdeep, Vannesa pelaez P.A.-C. [address] [place] [address] (Wo rk) Social History Tobacco Use Types Packs/Day Years Used Date Smoking Tobacco: Never Assessed Sex Assigned at Date Recorded Not on file documented as of this encounter Last Filed Vital Signs Vital Sign Reading Time Taken Comments Blood Pressure 123/62 11/25/2013 2:00 PM CLAIM SPECIALIST Pulse 68 11/25/2013 2:00 PM CLAIM SPECIALIST Temperature - - Respiratory Rate 16 11/25/2013 2:00 PM CLAIM SPECIALIST Oxygen Saturation - - Inhaled Oxygen Concentration - - Weight 63.7 kg (140 lb 6.9 oz) 11/25/2013 2:00 PM CLAIM SPECIALIST Height 164 cm (5' 4.57) 11/25/2013 2:00 PM CLAIM SPECIALIST Body Mass Index 23.68 11/25/2013 2:00 PM CLAIM SPECIALIST documented in this encounter Medications at Time [...] mouth daily. (MULTIVITAMIN 50 PLUS ORAL) omega 3-pdh-psx-fish oil Take 1,000 mg by 0 11/21 [...] this encounter H&P Notes Miriam Nuñez - 11/25/2013 1:54 PM CST [id number] CHIEF COMPLAINT/REASON FOR VISIT This is a 63-year-old female seen today for a LAZARA physical. HISTORY OF PRESENT ILLNESS She really has no medical questions or concerns today. She states that she had has been feeling well. MEDICATIONS Include: Calcium with Vitamin D twice daily. Fish Oil once daily. Lutein once daily. Magnesium Citrate 300 mg once daily. Kelp once daily. Multivitamin once daily. Trazodone 150mg at bedtime. Vitamin D daily. Zinc daily. She states that the Trazodone is helping her well at night.. ALLERGIES There are no known drug allergies. SYSTEMS REVIEW The rest of her review of systems is negative. She has no other HEENT complaints, no cough, no chestpain, no shortness of breath. No nausea, vomiting, diarrhea, or constipation. No abdominal pain. No dysuria or urinary frequency. No vaginal itching, burning, or discharge. No numbness, tingling, or inc oordinations. Her medications, medical problems, allergies, habits, past surgical history, social history, family history, and preventative services were updated on the patient database form. PAST MEDICAL/SURGICAL HISTORY MEDICAL - Is significant for: Insomnia. Menopause. Osteopenia. SURGICAL She had a tubal ligation in 1979. Tonsils out when she was a child. SOCIAL HISTORY She is . She has 2 grown daughters. No grandchildren. Works at [employer] in [place]. She denies any tobacco or alcohol use. VITAL SIGNS Heart rate: 68. Respirations: 16. Blood pressure: 123/62. O2 SATs: 98% on room air. Height: 164 cm. Weight: 63.7 kg. PHYSICAL EXAMINATION IN GENERAL: She is alert, interactive and cooperative; appears to be well- nourished, well-hydrated, and in no acute distress. VITALS: As noted in the chart. SKIN: Without rashes or lesions. HEENT: Head is normocephalic, atraumatic. TMs are clear with normal landmarks, normal light reflexes; the canals are clear. Sclerae and conjunctivae are clear. Pupils are equal, round and reactive to light and accommodation; extraocular muscles are intact. Nares are non-congested. Oral mucosa is pink and moist; posterior pharynx is nonerythematous; tonsils are not enlarged, no exudate. Neck is supple; no lymphadenopathy; no thyromegaly. Normal carotid pulses. LUNGS: Clear to auscultation bilaterally, no wheezes. HEART: Regular rate and rhythm; no significant murmur. ABDOMEN: Soft, nontender, nondistended; no organomegaly; positive bowel sounds. BREAST EXAM: Bilaterally is without nipple discharge. No masses or nodules. No axillary lymph nodes. EXTREMITIES: Deep tendon reflexes are intact. No lower extremity edema. Gait is normal. IMPRESSION/REPORT/PLAN 1. Insomnia. I refilled her Trazodone 150 mg at night, that seems to be working well for her. 2. Routine health maintenance. Nuria participates in the LAZARA program. Blood pressure looks good at 123/62 today. She received an influenza immunization already this past fall. Tetanus, she got at the same time. She states that shehad her lipid panel checked at a free [facility] States that it was good. I recommended that she bring those results in and we could get them entered in to her EMR. Colonoscopy, we have talked in the LAZARA program and colonoscopies. She has this information to pursue it if shewishes. I did encourage her to do so. She denied any depression or anxiety concerns. Mammogram was done today. Pap smear was obtained last year. We did not do a pelvic exam today. She was encouraged toeat a healthy diet, get plenty of exercise. She should return next year for follow- up exam, sooner for any other questions or concerns. Miriam Nuñez P.A.-C./zac Electronically Signed By: MIRIAM NUÑEZ On: 12/28/2013 10:58 AM Source: [facility] [id number] Document Id: [id number] documented in this encounter Miscellaneous Notes Miscellaneous - Miriam Nuñez - 11/25/2013 4:42 PM CST Ambulatory Patient Summary [address] [address] Visit Information Name: NURIA PAYTON [facility] Number: [id number] Current Date: 11/25/2013 16:42:53 Physicians Attending Provider: MIRIAM NUÑEZ Primary Care Provider: MIRIAM NUÑEZ NURIA PAYTON has been given the following list of follow-up instructions, medication list, and patient education materials: Follow-up Instructions Your Medications Here is a list of your medications. It is important to take your medications as directed. Use a pillbox or chart to help remind you to take your medications. Please let your doctor or nurse know if you have problems taking your medications. Medication/Strength How to Take Indications/Special Instructions/Comments/Notes for Patient Medication Changes/Routing calcium-vitamin D (Calcium 600+D) 1 Tablet(s), Oral, two times a day cholecalciferol (Vitamin D3) Oral, once a day lutein (lutein 20 mg oral tablet) 1 Tablet(s), Oral, once a day magnesium citrate (magnesium citrate) 300 Milliliter, Oral, once Misc Prescription (Misc Prescription) Oral, once a day kelp multivitamin (multivitamin) Oral, once a day omega-3 polyunsaturated fatty acids (Fish Oil) 1,000 mg, Oral, once a day traZODone (trazodone 150 mg oral tablet) 1 Tablet(s), Oral, once a day (at bedtime) zinc citrate (zinc citrate) Oral, once a day Stop Taking the Following Medications: Medication list as of 11-25-13 16:42 Attention: If you have any medications at home that are not on this list, DO NOT take them until youcontact your provider for clarification. Give a copy of your medication list to your primary care provider. Update your medication list any time medications or doses are changed and carry your medication list at all times in case of emergency. Your Allergies & Intolerances Substance Reaction Symptoms Category Comments No Known Allergies Drug Your Problem List Problem Status Onset Comments Insomnia Active 10/20/2003 Menopause Active 10/20/2001 Back pain Active 10/20/1989 11/21/11 lower Osteopenia Active 04/19/2003 Your Upcoming Appointments Date Time Location Reason Provider No Appointments found Attention: Contact your local Clinic if further appointment detail needed. Your Goals/Additional instructions: Source: [facility] POWERCHART Document Id: [id number] M SPECIALIST Miscellaneous - Miriam Nuñez - 11/25/2013 4:42 PM CST Ambulatory Depart Summary [address] [address] Visit Information Name: NURIA PAYTON [facility] Number: [id number] Visit Date: 11/25/2013 16:42:52 Attending Provider: MIRIAM NUÑEZ Primary Care Provider: MIRIAM NUÑEZ SHELBYDIPTI NURIAHERI HASSAN has been given the following list of medications: Your Medications It is important to take your medications as directed. Use a pill box or chart to help remind you to take your medications. Please let your doctor or nurse know if you have problems taking your medications. Medication/Strength How to Take Indications/Special Instructions/Comments/Notes for Patient Medication Changes/Routing calcium-vitamin D (Calcium 600+D) 1 Tablet(s), Oral, two times a day cholecalciferol (Vitamin D3) Oral, once a day lutein (lutein 20 mg oral tablet) 1 Tablet(s), Oral, once a day magnesium citrate (magnesium citrate) 300 Milliliter, Oral, once Misc Prescription (Misc Prescription) Oral, once a day kelp multivitamin (multivitamin) Oral, once a day omega-3 polyunsaturated fatty acids (Fish Oil) 1,000 mg, Oral, once a day traZODone (trazodone 150 mg oral tablet) 1 Tablet(s), Oral, once a day (at bedtime) zinc citrate (zinc citrate) Oral, once a day Stop Taking the Following Medications: Medication list as of 11-25-13 16:42 Attention: If you have any medications at home that are not on this list, DO NOT take them until youcontact your provider for clarification. Give a copy of your medication list to your primary care provider. Update your medication list any time medications or doses are changed and carry your medication list at all times in case of emergency. Additional Information: Source: [facility] POWERCHART Document Id: [id number] M SPECIALIST Miscellaneous - May Norwood L.P.N. - 11/25/2013 2:06 PM CST Health Assessment Health Assessment Entered On: 11/25/2013 14:06 CLAIM SPECIALIST Performed On: 11/25/2013 14:06 CLAIM SPECIALIST by MAY NORWOOD LPN, RT Health Assessment Complete Health Assessment Complete or Modified : Annual Health Assessment Annual Health Assessment Completed : Yes MAY NORWOOD LPN, RT - 11/25/2013 14:06 CLAIM SPECIALIST Nutrition Nutrition Risk Factors by History Adult : None MAY NORWOOD LPN, RT - 11/25/2013 14:06 CLAIM SPECIALIST Functional Current Daily Living Assistance : None MAY NORWOOD LPN, RT - 11/25/2013 14:06 CLAIM SPECIALIST Dependent Habits Tobacco Use/Currently Using : No Smoking Status : Never smoker MAY NORWOOD LPN, RT - 11/25/2013 14:06 CLAIM SPECIALIST Tobacco Use Grid Last Use : never MAY NORWOOD LPN, RT - 11/25/2013 14:06 CLAIM SPECIALIST Caffeine Use Grid Caffeine Use : None MAY NORWOOD LPN, RT - 11/25/2013 14:06 CLAIM SPECIALIST Recreational Drug Use Grid Drug Use : None MAY NORWOOD LPN, RT - 11/25/2013 14:06 CLAIM SPECIALIST Psychosocial Domestic Abuse Concerns : None MAY NORWOOD LPN, RT - 11/25/2013 14:06 CLAIM SPECIALIST Advance Directive Advanced Directives : No MAY NORWOOD LPN, RT - 11/25/2013 14:06 CLAIM SPECIALIST Educ Needs Learning Style Preference Adult Grid Patient : Demonstration, Printed materials, Verbal explanation, Video/Educational TV Family : None MAY NORWOOD LPN, RT - 11/25/2013 14:06 CLAIM SPECIALIST [facility] Document Id: [id number] CLAIM SPECIALIST!28 M SPECIALIST Miscellaneous - May Norwood L.PRoscoeN. - 11/25/2013 2:00 PM CST Adult Funeral Director Intake/History Adult Funeral Director Intake/History Entered On: 11/25/2013 14:02 CLAIM SPECIALIST Performed On: 11/25/2013 14:00 CLAIM SPECIALIST by MAY NORWOOD LPN, RT Intake Chief Complaint : lazara physical Peripheral Pulse Rate : 68 /min Respiratory Rate : 16 /min Systolic Blood Pressure : 123 mmHg Diastolic Blood Pressure : 62 mmHg NIBP Mean : 82 mmHg BP Location : Left upper extremity Blood Pressure Cuff Size : Regular SpO2 : 98 % Oxygen Therapy : Room air Height : 164 cm(Converted to: 5 ft 5 inch(es), 64.57 inch(es)) Actual Weight : 63.7 kg(Converted to: 140 lb 7 oz) Weight Source : Standing scale Dosing Weight Clinic : 63.7 kg Clinic BSA : 1.7 Body Mass Index : 23.68 kg/m2 MAY NORWOOD LPN, RT - 11/25/2013 14:00 CLAIM SPECIALIST General Info Languages : Kiswahili MAY NORWOOD LPN, RT - 11/25/2013 14:00 CLAIM SPECIALIST Subjective Pain Symptoms : No MAY NORWOOD LPN, RT - 11/25/2013 14:00 CLAIM SPECIALIST Dependent Habits Tobacco Use/Currently Using : No Smoking Status : Never smoker MAY NORWOOD LPN, RT - 11/25/2013 14:00 CLAIM SPECIALIST Tobacco Use Grid Last Use : never MAY NORWOOD LPN, RT 11/25/2013 14:00 CLAIM SPECIALIST Caffeine Use Grid Caffeine Use : None MAY NOWROOD LPN, RT - 11/25/2013 14:00 CLAIM SPECIALIST Recreational Drug Use Grid Drug Use : None MAY NORWOOD LPN, RT - 11/25/2013 14:00 CLAIM SPECIALIST Source: [facility] Document Id: [id number] CLAIM SPECIALIST!34 M SPECIALIST Miscellaneous - Blanca Romero R.N. - 11/05/2013 12:19 PM CST Med Management Document Contains Addenda Addendum by BLANCA ROMERO RN on 09 November 2013 16:01:09 CLAIM SPECIALIST noted Addendum by MIRIAM NUÑEZ on 09 November 2013 15:58:24 CLAIM SPECIALIST Approved Order:traZODone (trazodone 150 mg oral tablet) 1 tab(s) PO Bedtime Qty: 90 tab(s) Duration: 90 day(s) Refills: 3 Substitutions Allowed Route To Pharmacy - [facility] Signed by MIRIAM NUÑEZ 11/09/2013 15:58:10 Addendum by BLANCA ROMERO RN on 09 November 2013 13:36:02 CLAIM SPECIALIST From: BLANCA ROMERO RN To: MIRIAM NUÑEZ; BLANCA ROMERO RN; Sent: 11/09/2013 13:36:02 CLAIM SPECIALIST Subject: FW: Med Management status on this one? From: BLANCA ROMERO RN To: MIRIAM NUÑEZ; BLANCA ROMERO RN; Sent: 11/05/2013 12:19:38 CLAIM SPECIALIST Subject: Med Management On hold pending signature Order:traZODone (trazodone 150 mg oral tablet) 1 tab(s) PO Bedtime Qty: 90 tab(s) Duration: 90 day(s) Refills: 3 Substitutions Allowed Route To Pharmacy - [facility] Pt requesting annual refill to mail order pharmacy, has annual appt with you on 11-25-13 but will runout before then. Kya review. Vivek [facility]: [facility] Document Id: [id number] Electronically signed by Conversion, [facility] Healthcare Technician [id number] at 03/18/2017 2:58 PM CDT documented in this encounter Plan of Treatment Upcoming Encounters Date Type Specialty Care Team Description 09/02/2022 Comprehensive Visit Physical Medicine and Mainor Winter M.D. [address] , [address] [place] [address] Rehabilitation Rosanna Veliz, P.T. documented as of this encounter Visit Diagnoses Not on filedocumented in this encounter
--- OUTSIDE RECORDS SUMMARY | 2022-07-29 14:49 | XMS_ITS | Encounter Summary ---
:1950 Author Organization [facility] Address [address] [place] [address] Care Team Providers Name Role Phone Unavailable Primary Care Provider Unavailable Encounter Details Date Type Department Care Team Description 07/25/2014 Hospital Encounter HX [facility] Jeanmarie Sweeney M.D. Social History Tobacco Use Types Packs/Day [...] - - Height 164 cm (5' 4.57) 07/25/2014 9:52 AM CDT Body Mass Index - - documented in [...] mouth daily. (MULTIVITAMIN 50 PLUS ORAL) omega 8-pzd-rla-fish oil Take 1,000 mg by 0 11/21 [...] documented as of this encounter Progress Notes Roxann Milan C.O.A. - 07/25/2014 9:56 AM CDT Patient presents for: ( consult ) History of present illness: (Patient states she has had a dark spot on the right eye for a few months. she does feel it has grown in size. she is wondering if it is dried blood. She also has noticed small lump on the white part of her eyes. no irritation. no watering or mattering. She did have an examat vision works in [place] in March. family hx of glaucoma ) Visual Acuity using Snellen method for both eyes. Distance Right Eye Left Eye Both Eyes CC 20/( 25 )PH (_) 20/( 30 )PH(_) 20/( _ ) SC 20/( _ )PH (_) 20/( _ )PH(_) 20/( _ ) Near vision: 20/(_) 20/(_) 20/(_) Correction ( Glasses_ )(Contacts_) Active Problems: Refer to patient chart. Past Medical History: Refer to patient chart. Allergies: Refer to patient chart. History: Patient drives motor vehicle: ( _ ) Yes ( _ ) No Review of Systems General: ( X ) Negative Other (_) Skin: ( X ) Negative Other (_): Eyes: ( X ) Negative Other (_) Ears/Nose/Throat: ( X ) Negative Other (_) Respiratory: ( X ) Negative Other (_) Cardiovascular: ( X ) Negative Other (_) Gastrointestinal: ( X ) Negative Other (_) Genitourinary: ( X ) Negative Other (_) Musculoskeletal: ( X ) Negative Other (_) Neurologic: ( X ) Negative Other (_) Psychiatric: ( X ) Negative Other (_) Hematologic/Lymphatic/Immunologic: ( X ) Negative Other (_) Endocrine: ( X ) Negative Other (_) Electronically Signed By: VANE REAVES On: 07/25/2014 12:25 PM Co-Signed By: VANE REAVES On: 07/25/2014 12:25 PM Source: [facility] POWERCHART Document Id: [id number] Vane Reaves M.D., Ph.D. - 07/25/2014 9:39 AM CDT [id number] HISTORY OF PRESENT ILLNESS Nuria is here for evaluation of a lesion that she has noticed within the last several months, and she has noticed some slight bleeding from that. It is in the right inferior portion of the right eye. SYSTEMS REVIEW NEUROLOGIC: Negative. CARDIOVASCULAR: Negative. RESPIRATORY: Negative. NEUROPSYCH: Normal. FAMILY HISTORY Noncontributory. SOCIAL HISTORY Noncontributory. PHYSICAL EXAMINATION VISUAL ACUITY: In the right is 20/25, 20/30 on the left. EXTERNAL: Exam is normal. SLIT-LAMP EXAMINATION: On the right, inferior bulbar conjunctiva is a dark lesion with blood vesselsfeeding towards that area. Cornea is clear. Anterior chambers deep and quiet. Conjunctivae and sclerae are normal. Nuclear sclerosis of the lenses found which is quite mild. IMPRESSION/REPORT/PLAN A bulbar conjunctival lesion that most likely needs to be biopsied to be evaluated further. I did mention the patient is a possibility that this is could be a conjunctival nevus or conjunctival melanoma. PLAN: Plan is to refer her to [facility] in [place] for further evaluation. Vane Reaves M.D./margarita Electronically Signed By: VANE REAVES On: 07/27/2014 07:26 AM Modified by and Electronically Signed by: VANE REAVES On: 07/27/2014 07:25 AM Source: [facility] MHSDOLBEYNONRADSYS Document Id: [id number] documented in this encounter Nursing Notes Vane Reaves M.D., Ph.D. - 07/25/2014 4:57 PM CDT Ambulatory Patient Education The following Patient Education Materials have been given to the patient: Patient Education Materials: Source: [facility] POWERCHART Document Id: [id number] documented in this encounter Miscellaneous Notes Miscellaneous - Vane Reaves M.D., Ph.D. - 07/25/2014 4:57 PM CDT Ambulatory Patient Summary [facility] [address] [place], [address] [place], [place] [id number] Visit Information Name: SHELBYNURIA RESENDEZ [facility] Number: [id number] Current Date: 07/25/2014 16:57:13 Physicians Attending Provider: VANE REAVES Primary Care Provider: PCP, ISMAEL PAYTON NURIA HASSAN has been given the following list of follow-up instructions, medication list, and patient education materials: Follow-up Instructions With: Address: When: VANE REAVES [address] [place] [address] Business (1) Comments: referral conjunctival lesion R eye Your Medications Here is a list of your medications. It is important to take your medications as directed. Use a pillbox or chart to help remind you to take your medications. Please let your doctor or nurse know if you have problems taking your medications. Medication/Strength How to Take Indications/Special Instructions/Comments/Notes for Patient Medication Changes/Routing biotin (biotin) calcium-vitamin D (Calcium 600+D) 1 Tablet(s), Oral, two times a day cholecalciferol (Vitamin D3) Oral, once a day lutein (lutein 20 mg oral tablet) 1 Tablet(s), Oral, once a day magnesium citrate (magnesium citrate) 300 Milliliter, Oral, once Misc Prescription (Misc Prescription) Oral, once a day kelp multivitamin (multivitamin) Oral, once a day multivitamin (Vitamin B Complex 100) omega-3 polyunsaturated fatty acids (Fish Oil) 1,000 mg, Oral, once a day traZODone (trazodone 150 mg oral tablet) 1 Tablet(s), Oral, once a day (at bedtime) zinc citrate (zinc citrate) Oral, once a day Stop Taking the Following Medications: Medication list as of 07-25-14 16:57 Attention: If you have any medications at home that are not on this list, DO NOT take them until youcontact your provider for clarification. Give a copy of your medication list to your primary care provider. Update your medication list any time medications or doses are changed and carry your medication list at all times in case of emergency. Electronically Signed By: VANE REAVES Signed On:25-JUL-2014 16:54:45 Your Allergies & Intolerances Substance Reaction Symptoms Category Comments No Known Allergies Drug Your Problem List Problem Status Onset Comments Insomnia Active 10/20/2003 Menopause Active 10/20/2001 Back pain Active 10/20/1989 11/21/11 lower Osteopenia Active 04/19/2003 Your Upcoming Appointments Date Time Location Provider No Appointments found Attention: Contact your local Clinic if further appointment detail needed. Your Goals/Additional instructions: Source: [facility] POWERCHART Document Id: [id number] Miscellaneous - Vane Reaves M.D., Ph.D. - 07/25/2014 4:57 PM CDT Ambulatory Discharge Medication List [facility] [address] [place] [address] [address] [place], [place] [id number] Visit Information Name: NURIA PAYTON [facility] Number: [id number] Visit Date: 07/25/2014 16:57:11 Attending Provider: VANE REAVES Primary Care Provider: PCP, ELSEWHERE NURIA PAYTON has been given the following list of medications: Your Medications It is important to take your medications as directed. Use a pill box or chart to help remind you to take your medications. Please let your doctor or nurse know if you have problems taking your medications. Medication/Strength How to Take Indications/Special Instructions/Comments/Notes for Patient Medication Changes/Routing biotin (biotin) calcium-vitamin D (Calcium 600+D) 1 Tablet(s), Oral, two times a day cholecalciferol (Vitamin D3) Oral, once a day lutein (lutein 20 mg oral tablet) 1 Tablet(s), Oral, once a day magnesium citrate (magnesium citrate) 300 Milliliter, Oral, once Misc Prescription (Misc Prescription) Oral, once a day kelp multivitamin (multivitamin) Oral, once a day multivitamin (Vitamin B Complex 100) omega-3 polyunsaturated fatty acids (Fish Oil) 1,000 mg, Oral, once a day traZODone (trazodone 150 mg oral tablet) 1 Tablet(s), Oral, once a day (at bedtime) zinc citrate (zinc citrate) Oral, once a day Stop Taking the Following Medications: Medication list as of 07-25-14 16:57 Attention: If you have any medications at home that are not on this list, DO NOT take them until youcontact your provider for clarification. Give a copy of your medication list to your primary care provider. Update your medication list any time medications or doses are changed and carry your medication list at all times in case of emergency. Electronically Signed By: VANE REAVES Signed On:25-JUL-2014 16:54:45 Additional Information: Source: [facility] POWERCHART Document Id: [id number] Miscellaneous - Roxann Milan C.O.A. - 07/25/2014 9:52 AM CDT Adult Vocational Horticulture Instructor Intake/History Adult Vocational Horticulture Instructor Intake/History Entered On: 07/25/2014 9:53 CDT Performed On: 07/25/2014 9:52 CDT by ROXANN MILAN Intake Chief Complaint : consult Height : 164 cm(Converted to: 5 ft 5 inch(es), 65 inch(es)) ROXANN MILAN - 07/25/2014 9:52 CDT General Info Information Given By : Patient Languages : Amharic Is Patient Female and 13-50 no hysterectomy : No ROXANN MILAN - 07/25/2014 9:52 CDT Subjective Pain Symptoms : No ROXANN MILAN - 07/25/2014 9:52 CDT Dependent Habits Tobacco Use/Currently Using : No Smoking Status : Never smoker HELENA MILANDOROTHY NOVAK - 07/25/2014 9:52 CDT Tobacco Use Grid Last Use : never VICTORIA ROXANN NOVAK - 07/25/2014 9:52 CDT Caffeine Use Grid Caffeine Use : None FERNANDA MILANSteve NOVAK - 07/25/2014 9:52 CDT Recreational Drug Use Grid Drug Use : None VICTORIAHELENAROXANN Grupo NOVAK - 07/25/2014 9:52 CDT [facility] Document Id: [id number]!22 documented in this encounter Plan of Treatment Upcoming Encounters Date Type Specialty Care Team Description 09/02/2022 Comprehensive Visit Physical Medicine and Mainor Winter M.D. [address] , [address] [place] [address] Rehabilitation Rosanna Veliz, P.TRoscoe documented as of this encounter Visit Diagnoses Not on filedocumented in this encounter
--- OUTSIDE RECORDS SUMMARY | 2022-07-29 14:49 | XMS_ITS | Encounter Summary ---
:1950 Author Organization [facility] Address [address] [place] [address] Care Team Providers Name Role Phone Unavailable Primary Care Provider Unavailable Encounter Details Date Type Department Care Team Description 01/25/2002 Hospital Encounter HX NO MAPPING Provider, Historical Social History Tobacco Use Types Packs/Day Years Used Date Smoking Tobacco: Never Assessed Sex Assigned at Date Recorded Not on file documented as of this encounter Miscellaneous Notes Miscellaneous - Conversion, Historical Provider Ser - 01/25/2002 12:00 AM CDT [id number] Addended by: ZORAN CARBONE on: 02/08/2002,8:04 AMModules accepted: Order Summary*-*-*-*-* SEE SCAN CONCEPCION REPORT *-*-*-*-* Source: [facility] RWHXTRANSXSYS Document Id: [id number] documented in this encounter Plan of Treatment Upcoming Encounters Date Type Specialty Care Team Description 09/02/2022 Comprehensive Visit Physical Medicine and AhmetraMainor M.D. [address], [address] [place] [address] Rehabilitation Rosanna Veliz, P.T. documented as of this encounter Visit Diagnoses Not on filedocumented in this encounter
--- OUTSIDE RECORDS SUMMARY | 2022-07-29 14:49 | XMS_ITS | Encounter Summary ---
:1950 Author Organization [facility] Address [address] [place] [address] Care Team Providers Name Role Phone Unavailable Primary Care Provider Unavailable Encounter Details Date Type Department Care Team Description 01/12/2008 Hospital Encounter HX [facility] Steven Leahy, INPT/OBSRV M.DRoscoe [address] [address] (Wo rk) Social History Tobacco Use Types Packs/Day Years Used Date Smoking Tobacco: Never Assessed Sex Assigned at Date Recorded Not on file documented as of this encounter Plan of Treatment Upcoming Encounters Date Type Specialty Care Team Description 09/02/2022 Comprehensive Visit Physical Medicine and Mainor Winter M.D. [address], [address] [place] [address] Rehabilitation Rosanna Veliz, P.TRoscoe documented as of this encounter Visit Diagnoses Not on filedocumented in this encounter
--- OUTSIDE RECORDS SUMMARY | 2022-07-29 14:52 | XMS_ITS | Encounter Summary ---
:1950 Author Organization [facility] Address [address] [place] [address] Care Team Providers Name Role Phone Brandie Thompson AVIATION ELECTRICAL TECHNICIAN, CAMP ASSISTANT Primary Care Provider [phone] Reason for Visit Reason Onset Date Comments sleeping med 01/03/2020 Encounter Details Date Type Department Care Team Description 01/03/2020 Telephone [place] Brandie Thompson, sleeping med [address] AVIATION ELECTRICAL TECHNICIAN, CAMP ASSISTANT [place], [place] [address] 100 [facility] [phone] [place], [place] [address] Social History Tobacco Use [...] PM CDT Ha batista was bought my MD-IT. Pharmacy is accurate. Telephone Encounter - Brandie [...] help her sleep. Please call Pt at [phone] to advise. documented in this encounter Plan of Treatment Not on filedocumented as of this encounter Visit Diagnoses Diagnosis Insomnia, unspecified type documented in this encounter Care Teams Sheet Sorter Relationship Specialty Start Date End Date Brandie Thompson APRN, CNP PCP - General Family Medicine 07/21/18 06/26/20 [facility] [place], [place] [address] documented as of this encounter
--- OUTSIDE RECORDS SUMMARY | 2022-07-29 14:52 | XMS_ITS | Encounter Summary ---
:1950 Author Organization [facility] Address [address] [place] [address] Care Team Providers Name Role Phone Archie Colindres MD Primary Care Provider Encounter Details Date Type Department Care Team Description 07/16/2021 Telephone [place] Archie Colindres MD [address] [place], [place] [address] [place], [place] [phone] (Wo rk) Social History Tobacco Use Types [...] or relatives? How often do you attend hinduism or More than 4 times per year 12/13/2019 judaism services? Do you belong to any clubs or Not asked organizations such as hinduism groups, unions, fraternal or athletic groups, or [...] on filedocumented in this encounter Care Teams City Bailiff Relationship Specialty Start Date End Date Archie Colindres MD PCP - General Family Medicine 07/02/21 05/22/[address] [place] [address] documented as of this encounter
--- OUTSIDE RECORDS SUMMARY | 2022-07-29 14:52 | XMS_ITS | Encounter Summary ---
:1950 Author Organization [facility] Address [address] [place] [address] Care Team Providers Name Role Phone Archie Colindres MD Primary Care Provider Reason for Visit Reason Comments Medicare Annual Wellness Visit Subsequent Encounter Details Date Type Department Care Team Description 07/02/2021 Clinical Support [place] Medicare annual wellness [address] visit, subsequent [place], [place] [address] Social History Tobacco Use [...] or relatives? How often do you attend shinto or More than 4 times per year 12/13/2019 yazidism services? Do you belong to any clubs or Not asked organizations such as shinto groups, unions, fraternal or athletic groups, or [...] in this encounter Progress Notes Dagmar Washington, GLUING MACHINE FEEDER - 07/02/2021 11:00 AM CDT Annual Wellness Visit CARE TEAM / RESOURCES: Patient Care Team: Archie Colindres MD as PCP - General (Family Medicine) Eye Care: [facility] Dental Care: Dr Roge Harry Pharmacy: [facility] - [place], [place] - [address] [employer] AT Portal to Registered [facility] Sites [address] [facility] [address] [facility] [address] [address] Other: Visit Vitals BP 138/74 (BP Location: [...] mouth 1 (one) time each day ??? [facility] MAGNESIUM CITRATE PO Take by mouth twice [...] Gatherings with Friends and Family: ??? Attends Pentecostal Services: ??? Active Member of Clubs or [...] patient's advance care planning wishes:: (P) Yes Pentecostal or spiritual beliefs that impact treatment:: (P) [...] transfusion before 1991. ?? Those born between 5781-5759. Glaucoma: Medicare Part B (Medical Insurance) covers [...] nt documented in this encounter Care Teams Drill Rig Operator Helper Relationship Specialty Start Date End Date Archie Colindres MD PCP - General Family Medicine 07/02/21 05/22/[address] [place] [address] documented as of this encounter
--- OUTSIDE RECORDS SUMMARY | 2022-07-29 14:52 | XMS_ITS | Encounter Summary ---
:1950 Author Organization [facility] Address [address] [place] [address] Care Team Providers Name Role Phone Unavailable Primary Care Provider Unavailable Reason for Visit Reason Onset Date Comments Trazodone Rx 01/12/2021 Encounter Details Date Type Department Care Team Description 01/12/2021 Telephone Leno Malloy None, Pcp Trazodone Rx [address] [facility] [place] [place] [address] [place], [place] [phone] Social History Tobacco Use Types Packs/Day [...] and [facility] Patient much appreciative. Telephone Encounter - Mis Morales RN - 01/12/2021 12:10 PM CDT LMTCB. Telephone Encounter - Neville Lucas MD - 01/12/2021 10:32 AM CDT Call Nuria and let her know that I sent to [facility] for 10 pills of her trazodone that she can rock picker. Telephone Encounter - Yumiko Herrera - 01/12/2021 10:08 AM CDT Pt called stating her Trazodone 150ml Rx that she normally gets filled through [facility] will notarrive in time before she is out. Pt is asking for a refill of a weeks worth of [facility] Please call Pt at [phone] to advise. documented in this encounter Plan of Treatment Not on filedocumented as of this encounter Visit Diagnoses Diagnosis Insomnia, unspecified type - Primary documented in this encounter
--- OUTSIDE RECORDS SUMMARY | 2022-07-29 14:52 | XMS_ITS | Encounter Summary ---
:1950 Author Organization [facility] Address [address] [place] [address] Care Team Providers Name Role Phone None, Pcp Primary Care Provider Unavailable Reason for Visit Reason Comments Med Refill Encounter Details Date Type Department Care Team Description 07/09/2022 Refill [place] Archie Colindres, Insomnia, unspecified [address] MD type [place], [place] [address]19 [facility] [address] [place] [phone] [place] [address] (Wo rk) Social History Tobacco Use Types [...] or relatives? How often do you attend adventism or More than 4 times per year 12/13/2019 denominational services? Do you belong to any clubs or Not asked organizations such as adventism groups, unions, fraternal or athletic groups, or [...] mg and then make an appt following. [phone]. Please call after 2:30 this afternoon. Telephone [...] type documented in this encounter Care Teams Stained Glass Window Designer Relationship Specialty Start Date End Date None, Pcp PCP - General Cone Classifier Tender 05/23/[address] [place] [phone] documented as of this encounter
--- OUTSIDE RECORDS SUMMARY | 2022-07-29 14:52 | XMS_ITS | Encounter Summary ---
:1950 Author Organization [facility] Address [address] [place] [address] Care Team Providers Name Role Phone Unavailable Primary Care Provider Unavailable Reason for Visit Reason Onset Date Comments Trazodone refill 01/08/2021 Encounter Details Date Type Department Care Team Description 01/08/2021 Telephone [place] Archie Colindres MD Trazodone refill [address] [place], [place] [address] [place], [place] [phone] (Wo rk) Social History Tobacco Use Types [...] More than 4 times per year 12/13/2019 bahai services? Do you belong to any clubs [...] 01/08/2021 5:15 PM CDT Rx sent to [facility] Telephone Encounter - Dagmar Washington LPN - 01/08/2021 4:48 PM CDT Patient informed Telephone Encounter - Yumiko Herrera - 01/08/2021 11:31 AM CDT Pt called stating last week she put a refill request in for her Trazodone 150ml through [facility]. Please call Pt at [phone] to advise. documented in this encounter Plan of Treatment Not on filedocumented as of this encounter Visit Diagnoses Diagnosis Insomnia, unspecified type documented in this encounter
--- OUTSIDE RECORDS SUMMARY | 2022-07-29 14:52 | XMS_ITS | Encounter Summary ---
:1950 Author Organization [facility] Address [address] [place] [address] Care Team Providers Name Role Phone None, Pcp Primary Care Provider Unavailable Reason for Visit Reason Onset Date Comments Colonoscopy 05/20/2022 Encounter Details Date Type Department Care Team Description 05/20/2022 Telephone [place] Archie Colindres MD Colonoscopy [address] [place], [place] [address] [place], [place] [phone] (Wo rk) Social History Tobacco Use Types [...] or relatives? How often do you attend episcopalian or More than 4 times per year 12/13/2019 congregation services? Do you belong to any clubs or Not asked organizations such as episcopalian groups, unions, fraternal or athletic groups, or [...] CDT Pt stated has been seeing a SEWING MACHINE OPERATOR in another clinic and probably will not [...] on filedocumented in this encounter Care Teams Commercial Lines Account Manager Relationship Specialty Start Date End Date None, Pcp PCP - General Tree Farmer 05/23/[address] [place] [phone] documented as of this encounter
--- OUTSIDE RECORDS SUMMARY | 2022-07-29 14:52 | XMS_ITS | Encounter Summary ---
:1950 Author Organization [facility] Address [address] [place] [address] Care Team Providers Name Role Phone Brandie Thompson CLINICAL ESTHETICIAN, ASSISTANT ASSOCIATE FULL PROFESSOR Primary Care Provider [phone] Encounter Details Date Type Department Care Team Description 12/20/2019 Telephone [place] Brandie Thompson, [address] CLINICAL ESTHETICIAN, ASSISTANT ASSOCIATE FULL PROFESSOR [place], [place] [address] 100 [facility] [address] [phone] [place], [place] [address] Social History Tobacco Use [...] More than 4 times per year 12/13/2019 gnosticism services? Do you belong to any clubs [...] Thompson APRN, SAI - 12/20/2019 4:33 PM SETUP OPERATOR Left a message her testing, mammogram was normal, and medical records updated. P OPERATOR documented in this encounter Plan of Treatment Not on filedocumented as of this encounter Visit Diagnoses Not on filedocumented in this encounter Care Teams English Language Arts Teacher Relationship Specialty Start Date End Date Brandie Thompson APRN, SAI PCP - General Family Medicine 07/21/18 06/26/[address] [place] [address] documented as of this encounter
--- OUTSIDE RECORDS SUMMARY | 2022-07-29 14:52 | XMS_ITS | Encounter Summary ---
:1950 Author Organization [facility] Address [address] [place] [address] Care Team Providers Name Role Phone Brandie Thompson PLYCOR OPERATOR, PUBLIC HEALTH DENTIST Primary Care Provider [phone] Encounter Details Date Type Department Care Team Description 12/14/2019 Telephone [place] Brandie Thompson, [address] PLYCOR OPERATOR, PUBLIC HEALTH DENTIST [place], [place] [address] [facility] [phone] [place], [place] [address] Social History Tobacco Use [...] LPN - 12/15/2019 8:20 AM CST Noted PING INSPECTOR Telephone Encounter - Yumiko Herrera - 12/15/2019 7:36 AM CST Referral faxed to [facility] radiology as requested. PING INSPECTOR Telephone Encounter - Ling Reyes RN - 12/14/2019 4:27 PM CST Please fax referral. PING INSPECTOR documented in this encounter Plan of Treatment Not on filedocumented as of this encounter Visit Diagnoses Not on filedocumented in this encounter Care Teams Qualitative Executive Researcher Relationship Specialty Start Date End Date Brandie Thompson APRN, PUBLIC HEALTH DENTIST PCP - General Family Medicine 07/21/18 06/26/[address] [place] [address] [place] [address] documented as of this encounter
--- OUTSIDE RECORDS SUMMARY | 2022-07-29 14:52 | XMS_ITS | Encounter Summary ---
:1950 Author Organization [facility] Address [address] [place] [address] Care Team Providers Name Role Phone Archie Colindres MD Primary Care Provider Encounter Details Date Type Department Care Team Description 07/02/2021 [place] Elevated fasting glucose; [address] [facility] 20 Serum calcium elevated; [place], [place] [address] Annual physical exam [phone] Social History Tobacco Use Types Packs/Day Years [...] or relatives? How often do you attend jain or More than 4 times per year 12/13/2019 lutheran services? Do you belong to any clubs or Not asked organizations such as jain groups, unions, fraternal or athletic groups, or [...] PM CDT) athologist Signature GFR >60 07/03/2021 [facility] 2:34 PM CDT [facility] >60 07/03/2021 [facility] Ivorian GFR 2:34 PM CDT [facility] Comment: [...] Organization Address City/State/ZIP Code Phon e Number [facility] [address] [place] [address] (ABNORMAL) CBC auto differential (07/02/2021 12:29 PM CDT) Patholo gist Method Time Signature WBC 5.0 3.5 - 07/03/2021 [facility] 10.5 K/uL 2:20 PM CDT [facility] RBC 5.00 3.90 - 07/03/2021 [facility] 5.00 M/uL 2:20 PM [facility] Hemoglobin 15.1 12.0 - 07/03/2021 [place] 15.5 g/dL 2:20 PM [facility] Hematocrit 45.6 (H) 35.0 - 07/03/2021 [place] 44.0 % 2:20 PM [facility] Platelets 216 150 - 450 07/03/2021 [place] K/uL 2:20 PM [facility] MCV 91.3 81.6 - 07/03/2021 [facility] 98.3 fL 2:20 PM [facility] MCH 30.2 26.0 - 07/03/2021 [facility] 32.0 pg 2:20 PM [facility] MCHC 33.0 32.0 - 07/03/2021 [facility] 36.0 g/dL 2:20 PM [facility] RDW 11.3 (L) 11.9 - 07/03/2021 [facility] 15.5 % 2:20 PM [facility] Neutrophils 76.2 % 07/03/2021 [place] 2:20 PM [facility] Absolute 3.8 1.7 - 7.0 07/03/2021 [facility] Neutrophils K/uL 2:20 PM [facility] Lymphocytes % 12.5 % 07/03/2021 [facility] 2:20 PM [facility] Absolute 0.6 (L) 0.9 - 2.9 07/03/2021 [facility] Lymphocytes K/uL 2:20 PM [facility] Monocytes % 8.3 % 07/03/2021 [facility] 2:20 PM [facility] Monocytes 0.4 0.3 - 0.9 07/03/2021 [facility] Absolute K/uL 2:20 PM [facility] Eosinophils 1.2 % 07/03/2021 [facility] 2:20 PM [facility] Absolute 0.1 0.1 - 0.5 07/03/2021 [facility] Eosinophils K/uL 2:20 PM [facility] Basophils 1.8 % 07/03/2021 [facility] 2:20 PM [facility] Absolute 0.1 0.0 - 0.1 07/03/2021 [facility] Basophils K/uL 2:20 PM CDT [facility] Specimen Anatomical Collection Method Collection Time Receive d Time (Source) Location / / Volume Laterality 07/02/2021 12:29 07/03/2021 1:06 PM CDT PM CDT Archie Colindres MD LAB BLOOD ORDERABLES Performing Organization Address [facility] Phon e Number [facility] [address] [place] [address] Vitamin D, Total (07/02/2021 12:29 PM CDT) athologist Signature Vitamin D, 82.0 ng/mL 07/03/2021 [facility] Total 2:34 PM CDT [facility] [...] MD LAB BLOOD ORDERABLES Performing Organization Address City/[facility] Phon e Number [facility] [address] [place] [address] (ABNORMAL) Lipid panel (07/02/2021 12:29 PM CDT) athologist Signature Cholesterol 206 (H) 0 - 199 07/03/2021 [facility] mg/dL 2:34 PM CDT [facility] Comment: Recommended by National Cholesterol Education Program (ATP III) -------- Cholesterol Ranges -------- <200 ?Desirable 200-239 ? Borderline high >=240 ? High Triglycerides 58 0 - 149 mg/dL 07/03/2021 2:34 PM CDT [facility] Comment: -------- TRIG Ranges -------- <150 ?Normal 150-199 ? Borderline high 200-499 ? High >=500 ? Very high HDL 79 40 - 250 mg/dL 07/03/2021 2:34 PM CDT [facility] Comment: -------- HDL Ranges -------- <40 ?Low 40-59 ?Normal >=60 ? Optimal LDL Calculated 115 (H) 0 - 99 mg/dL 07/03/2021 2:34 PM CDT [facility] Comment: -------- LDL Ranges -------- <100 ? Optimal 100-129 ?Near optimal/above op timal 130-159 ?Borderline high 160-189 ?High >=190 ?Very high Specimen Anatomical Collection Method Collection Time Receive d Time (Source) Location / / Volume Laterality Blood (Blood, 07/02/2021 12:29 07/03/2021 1:06 Venous) PM CDT PM CDT Archie Colindres MD LAB BLOOD ORDERABLES Performing Organization Address City/State/ZIP Code Phon e Number [facility] [address] [place] [address] Thyroid Function [place] (07/02/2021 12:29 PM CDT) P athologist Signature [...] MD LAB BLOOD ORDERABLES Performing Organization Address City/[facility] Phon e Number [facility] [address] [place] [address] Magnesium (07/02/2021 12:29 PM CDT) P athologist Signature Magnesium 2.2 1.6 - 2.3 07/03/2021 [facility] mg/dL 2:34 PM CDT [facility] Specimen Anatomical Collection Method Collection Time Receive d Time (Source) Location / / Volume Laterality Blood (Blood, 07/02/2021 12:29 07/03/2021 1:06 Venous) PM CDT PM CDT Archie Colindres MD LAB BLOOD ORDERABLES Performing Organization Address [facility] Phon e Number [facility] [address] [place] [address] (ABNORMAL) Comprehensive metabolic panel (07/02/2021 12:29 PM [...] - 43 U/L 07/03/2021 [place] 2:34 PM [facility] Alkaline 84 38 - 128 07/03/2021 [facility] Phosphatase U/L 2:34 PM [facility] ALT (SGPT) 46 (H) 0 - 34 U/L 07/03/2021 [facility] 2:34 PM [facility] Sodium 140 135 - 145 07/03/2021 [facility] mEq/L 2:34 PM [facility] Potassium 4.2 3.5 - 5.1 07/03/2021 [facility] mEq/L 2:34 PM [facility] Chloride 105 98 - 107 07/03/2021 [facility] mEq/L 2:34 PM [facility] CO2 24 22 - 29 07/03/2021 [facility] mmol/L 2:34 PM [facility] BUN 17 5 - 25 07/03/2021 [facility] mg/dL 2:34 PM [facility] Creatinine 0.7 0.4 - 1.2 07/03/2021 [facility] mg/dL 2:34 PM [facility] Glucose 99 70 - 100 07/03/2021 [facility] mg/dL 2:34 PM [facility] Calcium, Total,S 10.0 8.4 - 10.2 07/03/2021 [facility] mg/dL 2:34 PM [facility] Fasting? Yes 07/02/2021 [facility] 12:34 PM [facility] Specimen Anatomical Collection Method Collection Time Receive d Time (Source) Location / / Volume Laterality Blood (Blood, 07/02/2021 12:29 07/03/2021 1:06 Venous) PM CDT PM CDT Archie Colindres MD LAB BLOOD ORDERABLES Performing Organization Address City/State/ZIP Code Phon e Number [facility] [address] [place] [address] (ABNORMAL) Hemoglobin A1c (07/02/2021 12:29 PM CDT) Analysis Performed At Patho logist Time Signature Hemoglobin A1C 5.9 (H) 4.0 - 5.6 07/03/2021 [place] % A1C 2:49 PM [facility] Comment: Reference Range 4.0-5.6% is for [...] Organization Address City/State/ZIP Code Phon e Number [facility] [address] [place] [address] documented in this encounter Visit Diagnoses Diagnosis Elevated fasting glucose Impaired fasting glucose Serum calcium elevated Hypercalcemia Annual physical exam Routine general medical examination at a health care facility documented in this encounter Care Teams Film Sorter Relationship Specialty Start Date End Date Archie Colindres MD PCP - General Family Medicine 07/02/21 05/22/[address] [place] [address] documented as of this encounter
--- OUTSIDE RECORDS SUMMARY | 2022-07-29 14:52 | XMS_ITS | Clinical Summary ---
:1950 Author Organization [facility] Address [address] [place] [address] Care Team Providers Name Role Phone None, [...] or relatives? How often do you attend yazdanism or More than 4 times per year 12/13/2019 anabaptism services? Do you belong to any clubs or Not asked organizations such as yazdanism groups, unions, [email or web address] or athletic groups, or school groups? How [...] or PCV20) Fall Risk Performed 07/02/2022 07/02/[address] [facility] Annual Wellness 07/02/2022 07/02/2021 Mammogram 07/09/2022 07/09/2021, 12/20/2019, 12/20/2019, Additional history exists HPV Vaccines Aged Out No longer eligib le based on patient 's age to complete this topic Insurance Payer Benefit Plan / Subscriber ID Effective Dates Phone Addre ss Type Group MEDICARE MEDICARE [id number] 2015-[place] [address] [place] [address] BC[place] [employer] [place] [id number] 2016-[place] [address] [address] [place] [address] [place], [place] MEDICARE NON [id number] ADVANTAGE Care Teams [employer] Assistant Relationship Specialty Start Date End Date None, Pcp PCP - General Child Development Professor 05/23/22 [address] [place] [address]
--- OUTSIDE RECORDS SUMMARY | 2022-07-29 14:52 | XMS_ITS | Encounter Summary ---
:1950 Author Organization [facility] Address [address] [place] [address] Care Team Providers Name Role Phone Archie Colindres MD Primary Care Provider Reason for Visit Reason Onset Date Comments Return call 07/02/2021 Encounter Details Date Type Department Care Team Description 07/02/2021 Telephone [place] Archie Colindres MD Return call [address] [place], [place] [address] [place], [place] [phone] (Wo rk) Social History Tobacco Use Types [...] on filedocumented in this encounter Care Teams Airport Operations Specialist Relationship Specialty Start Date End Date Archie Colindres MD PCP - General Family Medicine 07/02/21 05/22/[address] [place] [address] documented as of this encounter
--- OUTSIDE RECORDS SUMMARY | 2022-07-29 14:52 | XMS_ITS | Encounter Summary ---
:1950 Author Organization [facility] Address [address] [place] [address] Care Team Providers Name Role Phone Archie Colindres MD Primary Care Provider Reason for Referral Consultation (Routine) - Closed Specialty Diagnoses / Procedures Referred By Contact Refer red To Contact Diagnoses Osteopenia of multiple sites Archie Colindres MD [place] [address] [place] [phone] [place] [address] Phone: Fax: Referral ID Status Reason Start Date Expiration Date Visits Requ ested Visits Authorized [id number] Closed 07/02/2021 07/02/2022 1 1 Consultation (Routine) - Closed Specialty Diagnoses / Procedures Referred By Contact Refer red To Contact Radiology Diagnoses Encounter for screening mammogram for malignant neoplasm of breast Archie Colindres MD [facility] [address] [place] [phone] [place] [address] Phone: Fax: Referral ID Status Reason Start Date Expiration Date Visits Requ ested Visits Authorized [id number] Closed 07/02/2021 07/02/2022 1 1 Reason for Visit Reason Comments Annual Exam Encounter Details Date Type Department Care Team Description 07/02/2021 Office Visit Archie Parra, Annual physical exam (Primar y Dx); [address] Insomnia, unspecified type; [place] [address] [place] Osteopenia of multiple sites; [address] [address] [place] Encounter for screening mamm ogram for malignant neoplasm of breast; [phone] Elevated fasting glucose; [phone] Serum calcium e levated; (Work) Cough Social [...] or relatives? How often do you attend baptism or More than 4 times per year 12/13/2019 quaker services? Do you belong to any clubs or Not asked organizations such as baptism groups, unions, fraternal or athletic groups, or [...] if would like referral to Cardiology in [place]. documented in this encounter Progress Notes Archie Colindres MD - 07/02/2021 11:00 AM CDT Subjective Patient ID: Nuria Simmons is a 71 y.o. female. Chief Complaint Patient presents with ??? Annual Exam HPI Patient here for annual wellness exam. No new updates to her health over the past year. Patient works at the [employer] here in [place]. She gets a good amount of activity [...] but stopped taking that. She had a [id number] of 2 at that time and was [...] Annual physical exam Lipid panel Thyroid Function [place] 2. Insomnia, unspecified type traZODone (DESYREL) 150 [...] if would like referral to Cardiology in [place]. Return in about 1 year (around 07/02/2022) [...] athologist Signature Vitamin D, 82.0 ng/mL 07/03/2021 [facility] 2:34 PM CDT [facility] Comment: Deficient [...] Address City/State/ZIP Code Phon e Number [facility] [address] [place] [address] (ABNORMAL) Hemoglobin A1c (07/02/2021 12:29 PM CDT) Analysis Performed At Patho logist Time Signature Hemoglobin A1C 5.9 (H) 4.0 - 5.6 07/03/2021 [place] % A1C 2:49 PM T [facility] Comment: Reference Range 4.0-5.6% is [...] Address City/State/ZIP Code Phon e Number [facility] [address] [place] [address] (ABNORMAL) Comprehensive metabolic panel (07/02/2021 12:29 PM CDT) [facility] Method Time Signature Total Protein 7.4 6.3 - 8.2 07/03/2021 [place] g/dL 2:34 PM [facility] Albumin, Serum 4.4 3.5 - 5.0 07/03/2021 [place] g/dL 2:34 PM [facility] Total Bilirubin 1.2 (H) 0.1 - 1.0 07/03/2021 [place] mg/dL 2:34 PM [facility] AST 37 8 - 43 U/L 07/03/2021 [place] 2:34 PM [facility] Alkaline 84 38 - 128 07/03/2021 [place] Phosphatase U/L 2:34 PM [facility] ALT (SGPT) 46 (H) 0 - 34 U/L 07/03/2021 [place] 2:34 PM [facility] Sodium 140 135 - 145 07/03/2021 [place] mEq/L 2:34 PM [facility] Potassium 4.2 3.5 - 5.1 07/03/2021 [place] mEq/L 2:34 PM [facility] Chloride 105 98 - 107 07/03/2021 [facility] mEq/L 2:34 PM [facility] CO2 24 22 - 29 07/03/2021 [facility] mmol/L 2:34 PM [facility] BUN 17 5 - 25 07/03/2021 [facility] mg/dL 2:34 PM [facility] Creatinine 0.7 0.4 - 1.2 07/03/2021 [facility] mg/dL 2:34 PM [facility] Glucose 99 70 - 100 07/03/2021 [place] mg/dL 2:34 PM [facility] Calcium, Total,S 10.0 8.4 - 10.2 07/03/2021 [place] mg/dL 2:34 PM [facility] Fasting? Yes 07/02/2021 [place] 12:34 PM T [facility] Specimen Anatomical Collection Method Collection Time Receive d Time (Source) Location / / Volume Laterality Blood (Blood, 07/02/2021 12:29 07/03/2021 1:06 Venous) PM CDT PM CDT Archie Colindres MD LAB BLOOD ORDERABLES Performing Organization Address [facility]/ZIP Code Phon e Number [facility] [address] [place] [address] Magnesium (07/02/2021 12:29 PM CDT) athologist Signature Magnesium 2.2 1.6 - 2.3 07/03/2021 [facility] mg/dL 2:34 PM T [facility] Specimen Anatomical Collection Method Collection Time Receive d Time (Source) Location / / Volume Laterality Blood (Blood, 07/02/2021 12:29 07/03/2021 1:06 Venous) PM CDT PM CDT Archie Colindres MD LAB BLOOD ORDERABLES Performing Organization Address City/[facility] Code Phon e Number [facility] [address] [place] [address] Thyroid Function [place] (07/02/2021 12:29 PM CDT) athologist Signature TSH, [...] Address City/State/ZIP Code Phon e Number [facility] [address] [place] [address] (ABNORMAL) Lipid panel (07/02/2021 12:29 PM CDT) athologist Signature Cholesterol 206 (H) 0 - 199 07/03/2021 [facility] mg/dL 2:34 PM CDT [facility] Comment: Recommended by National Cholesterol Education Program (ATP III) -------- Cholesterol Ranges -------- <200 ?Desirable 200-239 ? Borderline high >=240 ? High Triglycerides 58 0 - 149 mg/dL 07/03/2021 2:[address] [facility] Comment: -------- TRIG Ranges -------- <150 ?Normal 150-199 ? Borderline high 200-499 ? High >=500 ? Very high HDL 79 40 - 250 mg/dL 07/03/2021 2:[address] [facility] Comment: -------- HDL Ranges -------- <40 ?Low 40-59 ?Normal >=60 ? Optimal LDL Calculated 115 (H) 0 - 99 mg/dL 07/03/2021 2:[address] [facility] Comment: -------- LDL Ranges [...] Address City/State/ZIP Code Phon e Number [facility] [address] [place] [address] documented in this encounter Visit Diagnoses Diagnosis Annual physical exam - Primary Routine general medical examination at a health care facility Insomnia, unspecified type Osteopenia of multiple sites Encounter for screening mammogram for ma lignant neoplasm of breast Elevated fasting glucose Impaired fasting glucose Serum calcium elevated Hypercalcemia Cough documented in this encounter Care Teams Cloth Hauler Relationship Specialty Start Date End Date Archie Colindres MD PCP - General Family Medicine 07/02/21 05/22/[address] [place] [address] documented as of this encounter
--- OUTSIDE RECORDS SUMMARY | 2022-07-29 14:52 | XMS_ITS | Encounter Summary ---
:1950 Author Organization [facility] Address [address] [place] [address] Care Team Providers Name Role Phone None, Pcp Primary Care Provider Unavailable Reason for Visit Reason Onset Date Comments Med Refill 07/17/2022 Encounter Details Date Type Department Care Team Description 07/17/2022 Telephone [place] Archie Colindres MD Med Refill [address] [place], [place] [address] [place], [place] [phone] (Wo rk) Social History Tobacco Use Types [...] or relatives? How often do you attend jewish or More than 4 times per year 12/13/2019 gnosticism services? Do you belong to any clubs or Not asked organizations such as jewish groups, unions, fraternal or athletic groups, or [...] type documented in this encounter Care Teams Mix Technician Relationship Specialty Start Date End Date None, Pcp PCP - General Program Director Scouting 05/23/[address] [place] [phone] documented as of this encounter
--- OUTSIDE RECORDS SUMMARY | 2022-07-29 14:52 | XMS_ITS | Encounter Summary ---
:1950 Author Organization [facility] Address [address] [place] [address] Care Team Providers Name Role Phone Archie Colindres MD Primary Care Provider Encounter Details Date Type Department Care Team Description 07/02/2021 Telephone [place] Archie Colindres MD [address] [place], [place] [address] [place], [place] [phone] (Wo rk) Social History Tobacco Use Types [...] More than 4 times per year 12/13/2019 orthodoxy services? Do you belong to any clubs [...] for the very basics like Not h javdi at all 12/13/2019 food, housing, medical care, [...] on filedocumented in this encounter Care Teams Transition Mgr Relationship Specialty Start Date End Date Archie Colindres MD PCP - General Family Medicine 07/02/21 05/22/[address] [place] [address] documented as of this encounter
--- OUTSIDE RECORDS SUMMARY | 2022-07-29 14:53 | XMS_ITS | Encounter Summary ---
:[address] [facility] Address [address] [place] [address] Care Team Providers Name Role Phone Brandie Thompson APRN, SAI Primary Care Provider [phone] Reason for Referral Consultation (Routine) - Closed Specialty Diagnoses / Procedures Referred By Contact Refer red To Contact [place] [address] Phone: Fax: Referral ID Status Reason Start Date Expiration Date Visits Requ ested Visits Authorized [id number] Closed 11/10/2018 11/10/2019 1 1 Scheduling Instructions Please schedule a pelvic ultrasound at [facility]. Thanks, Brandie Thompson CNP ESS ASSOCIATE Consultation (Routine) - Closed Specialty Diagnoses / Procedures Referred By Contact Refer red To Contact Diagnoses Brandie Hernandez APRNDav[place] [id number] Phone: Fax: Referral ID Status Reason Start Date Expiration Date Visits Requ ested Visits Authorized [id number] Closed 11/10/2018 11/10/2019 1 1 Scheduling Instructions Please schedule a pelvic ultrasound at [facility]. Thanks, Brandie Thompson CNP ESS ASSOCIATE Consultation (Routine) - Closed Specialty Diagnoses / Procedures Referred By Contact Refer red To Contact Diagnoses Colon cancer screening Brandie Thompson, [facility], FUNERAL HOME ATTENDANT SYSTEM - [address] [address] [place] [address] Phone: Fax: Referral ID Status Reason Start Date Expiration Date Visits Requ ested Visits Authorized [id number] Closed 11/10/2018 11/10/2019 1 1 Scheduling Instructions Please schedule at [facility]. ESS ASSOCIATE Encounter Details Date Type Department Care Team Description 11/10/2018 Orders Only [place] Brandie Thompson, Colon cancer screening (Prim carola Dx); [address] SAI [place]CONNE[place], [place] [address] [facility] [address] [address] [place] [address] [phone] Social History Tobacco Use Types Packs/Day Years [...] this encounter Progress Notes Brandie Thompson APRN, FUNERAL HOME ATTENDANT - 11/10/2018 12:52 PM CST The patient is being set up for screening colonoscopy at [facility]. The patient is also being set up for a pelvic ultrasound at [facility]. ESS ASSOCIATE Ling Reyes RN - 11/10/2018 12:52 PM CST Please fax both orders to [place] for scheduling. ESS ASSOCIATE Thao Lovell - 11/10/2018 12:52 PM CST Face sheet added and faxed to [facility] Radiology [phone] [facility] Surgical Services at [phone]. ESS ASSOCIATE documented in this encounter Plan of Treatment [...] hemorrhage documented in this encounter Care Teams Taxi Driver Relationship Specialty Start Date End Date Brandie Thompson APRN, FUNERAL HOME ATTENDANT PCP - General Family Medicine 07/21/18 06/26/[address] [place] [address] documented as of this encounter
--- OUTSIDE RECORDS SUMMARY | 2022-07-29 14:53 | XMS_ITS | Encounter Summary ---
:[address] [facility] Address [address] [place] [address] Care Team Providers Name Role Phone Brandie Thompson APRN, STRAIGHTEDGE MAN Primary Care Provider [phone] Encounter Details Date Type Department Care Team Description 11/09/2018 Lab [place] Screening for diabetes elma kapadia; [address] External hemorrhoid; [place], [place] [address] Bright red rectal bleeding; [phone] Nocturia Social History Tobacco Use Types Packs/Day [...] or relatives? How often do you attend synagogue or More than 4 times per year 12/13/2019 anabaptist services? Do you belong to any clubs or Not asked organizations such as synagogue groups, unions, fraternal or athletic groups, or [...] Nocturia Result s for this REFLEX MICROSCOPIC FOOD TECHNOLOGIST procedure are in the results section. URINE CULTURE Routine 11/09/2018 2:46 PM Nocturia Results for this FOOD TECHNOLOGIST procedure are i n the results section. GLOMERULAR FILTRATION Routine 11/09/2018 2:35 PM Screening for Results for this RATE FOOD TECHNOLOGIST diabetes mellitus procedure are in the results section. CBC BRANCH OFFICE Routine 11/09/2018 2:35 PM External he morrhoid Results for this W/DIFF FOOD TECHNOLOGIST Bright red rectal procedure are in bleeding the results section. BASIC METABOLIC PANEL Routine 11/09/2018 2:35 PM Screening for Results for this FOOD TECHNOLOGIST diabetes mellitus procedure are in the results section. documented in this encounter Results Urine culture (clean catch) (11/09/2018 2:46 PM FOOD TECHNOLOGIST) [facility] Method Time Signature Urine Culture No Growth 11/10/2018 [place] 12:32 PM [facility] Specimen Anatomical Collection Method Collection Time Receive d Time (Source) Location / / Volume Laterality Urine, Clean 11/09/2018 2:46 PM 9 Catch FOOD TECHNOLOGIST 12:30 PM FOOD TECHNOLOGIST Narrative [facility] - 10/21 12:33 PM FOOD TECHNOLOGIST Patient does not have an Amoxicillin or PCN allergy Brandie Thompson APRN, STRAIGHTEDGE MAN LAB MICROBIOLOGY - GENERA L ORDERABLES Performing Organization Address City/State/ZIP Code Phon e Number [facility] [address] [place] [address] Urinalysis with reflex microscopic (clean catch) (11/09/2018 2:46 PM FOOD TECHNOLOGIST) [facility] Method Time Signature Type CLEAN CATCH 11/09/2018 [facility] 2:57 PM FOOD TECHNOLOGIST [place] Color, Urine YELLOW YELLOW 11/09/2018 [facility] 2:57 PM FOOD TECHNOLOGIST [place] Clarity, CLEAR CLEAR 11/09/2018 [facility] Urine 2:57 PM FOOD TECHNOLOGIST [place] Glucose, NEGATIVE NEGATIVE 11/09/2018 [facility] Urine mg/dL 2:57 PM FOOD TECHNOLOGIST [place] Bilirubin, NEGATIVE NEGATIVE 11/09/2018 [facility] Urine 2:57 PM FOOD TECHNOLOGIST [place] Ketones, NEGATIVE NEGATIVE 11/09/2018 [facility] Urine mg/dL 2:57 PM FOOD TECHNOLOGIST [place]ALL[place] Specific 1.025 1.000 11/09/2018 [facility] [place], ->=1.030 2:57 PM FOOD TECHNOLOGIST FALL[place] Urine Blood, Urine NEGATIVE NEGATIVE 11/09/2018 [facility] 2:57 PM FOOD TECHNOLOGIST [place]ALL[place] pH, Urine 7.0 5.0 - 7.0 11/09/2018 [facility] 2:57 PM FOOD TECHNOLOGIST FALL[place] Protein, NEGATIVE NEGATIVE-TRA 11/09/2018 [facility] [place] Urine CE mg/dL 2:57 PM FOOD TECHNOLOGIST [place]ALL[place] Urobilinogen, 0.2 0.2 - 1.0 11/09/2018 [facility] [place] Urine E.U./dL 2:57 PM FOOD TECHNOLOGIST [place]ALL[place] Nitrite, NEGATIVE NEGATIVE 11/09/2018 [facility] Urine 2:57 PM FOOD TECHNOLOGIST [place]ALL[place] Leukocytes, NEGATIVE NEGATIVE 11/09/2018 [facility] [place] Urine 2:57 PM FOOD TECHNOLOGIST [place]ALL[place] Specimen Anatomical Collection Method Collection Time Receive d Time (Source) Location / / Volume Laterality Urine (Urine, 11/09/2018 2:46 PM 11/09/19 19 2:49 Clean Catch) FOOD TECHNOLOGIST PM FOOD TECHNOLOGIST Brandie Thompson APRN, CNP LAB URINE ORDERABLES Performing Organization Address City/[facility]/ZIP Code Phon e Number [facility] [place] [address] [place] [address] Glomerular filtration rate (GFR) (11/09/2018 2:35 PM FOOD TECHNOLOGIST) athologist Signature GFR >60 11/09/2018 [facility] 2:57 PM FOOD TECHNOLOGIST CENTER LAB[facility]ORY >60 11/09/2018 [facility] Ethiopian GFR 2:57 PM FOOD TECHNOLOGIST [facility] Comment: GFR calculated from serum creatinine v alue Chronic Kidney Disease less than 60 mL/m in/1.73 m2 Kidney Failure less than 15 mL/min/1.73 m2 Note: effective 03/04/07 IDMS-Traceable MDRD Study Equation used. Specimen Anatomical Collection Method Collection Time Receive d Time (Source) Location / / Volume Laterality 11/09/2018 2:35 PM 9 2:35 FOOD TECHNOLOGIST PM FOOD TECHNOLOGIST Brandie Thompson APRN, CNP LAB BLOOD ORDERABLES Performing Organization Address City/State/ZIP Code Phon e Number [facility] [address] [place] [address] CBC Branch Off w/Diff (11/09/2018 2:35 PM FOOD TECHNOLOGIST) P athologist Signature WBC 6.7 3.5 - 10.5 11/09/2018 [facility] K/uL 2:50 PM FOOD TECHNOLOGIST [place]ALL[place] RBC 4.68 3.90 - 11/09/2018 [facility] [place] 5.00 M/uL 2:50 PM FOOD TECHNOLOGIST FALLS Hemoglobin 13.9 12.0 - 11/09/2018 [facility] 15.5 g/dL 2:50 PM FOOD TECHNOLOGIST FALLS Hematocrit 42.7 35.0 - 11/09/2018 [facility] 44.0 % 2:50 PM FOOD TECHNOLOGIST [place]ALL[place] Platelets 220 150 - 450 11/09/2018 [facility] K/uL 2:50 PM FOOD TECHNOLOGIST [place]ALL[place] MCV 91.2 81.6 - 11/09/2018 [facility] [place] 98.3 fL 2:50 PM FOOD TECHNOLOGIST FALLS MCH 29.7 26.0 - 11/09/2018 [facility] [place] 32.0 pg 2:50 PM FOOD TECHNOLOGIST [place]ALLS MCHC 32.6 32.0 - 11/09/2018 [facility] 36.0 g/dL 2:50 PM FOOD TECHNOLOGIST FALLS RDW 13.1 11.9 - 11/09/2018 [facility] 15.5 % 2:50 PM FOOD TECHNOLOGIST FALLS Lymphocytes % 25.2 18.0 - 11/09/2018 [facility] [place] 45.0 % 2:50 PM FOOD TECHNOLOGIST FALL[place] Mid-size Cells 8.2 3.3 - 10.1 11/09/2018 [facility] [place] % 2:50 PM FOOD TECHNOLOGIST FALLS Granulocytes/Brown 66.6 45.8 - 11/09/2018 [facility] [place] trophils 73.7 % 2:50 PM FOOD TECHNOLOGIST FALL[place] Lymphocytes 1.7 0.9 - 2.9 11/09/2018 [facility] [place] Absolute K/uL 2:50 PM FOOD TECHNOLOGIST [place]ALL[place] MIDS Absolute 0.5 0.2 - 0.8 11/09/2018 [facility] K/uL 2:50 PM FOOD TECHNOLOGIST [place]ALLS Granulocytes/Brown 4.5 2.1 - 8.7 11/09/2018 [facility] trophils K/uL 2:50 PM FOOD TECHNOLOGIST [place] Absolute Specimen Anatomical Collection Method Collection Time Receive d Time (Source) Location / / Volume Laterality Blood (Blood, 11/09/2018 2:35 PM 11/09/19 19 2:40 Venous) FOOD TECHNOLOGIST PM FOOD TECHNOLOGIST Brandie Thompson APRN, STRAIGHTEDGE MAN LAB BLOOD ORDERABLES Performing Organization Address City/State/ZIP Code Phon e Number [facility] [place] [address] [place] [address] (ABNORMAL) Basic metabolic panel (11/09/2018 2:35 PM FOOD TECHNOLOGIST) P athologist Signature Sodium 142 135 - 145 11/09/2018 [facility] mmol/L 2:57 PM FOOD TECHNOLOGIST [place] Potassium 4.1 3.5 - 5.1 11/09/2018 [facility] mmol/L 2:57 PM FOOD TECHNOLOGIST [place]ALL[place] Comment: . Chloride 106 98 - 107 mmol/L 11/09/2018 2:57 PM FOOD TECHNOLOGIST [facility] [place] Comment: . CO2 30 (H) 22 - 29 mmol/L 11/09/2018 2:57 PM FOOD TECHNOLOGIST [facility] [place] Comment: . Creatinine 0.5 0.4 - 1.2 mg/dL 11/09/2018 2:57 PM FOOD TECHNOLOGIST C [facility] [place] Comment: . BUN 16 5 - 25 mg/dL 11/09/2018 2:57 PM FOOD TECHNOLOGIST C [facility] [place] Comment: . Glucose 99 70 - 100 mg/dL 11/09/2018 2:57 PM [facility] [place] FOOD TECHNOLOGIST Calcium, Total,S 10.3 (H) 8.4 - 10.2 mg/dL 11/09/2018 2:57 PM [facility] [place] FOOD TECHNOLOGIST Comment: . Fasting? No 11/09/2018 2:40 PM FOOD TECHNOLOGIST [facility] CAN NON FALLS Specimen Anatomical Collection Method Collection Time Receive d Time (Source) Location / / Volume Laterality Blood (Blood, 11/09/2018 2:35 PM 11/09/19 19 2:40 Venous) FOOD TECHNOLOGIST PM FOOD TECHNOLOGIST Brandie Thompson APRN, STRAIGHTEDGE MAN LAB BLOOD ORDERABLES Performing Organization Address City/State/ZIP Code Phon e Number [facility] PATRICIA KWONG [address] [place] [address] documented in this encounter Visit Diagnoses Diagnosis Screening for diabetes mellitus External hemorrhoid External hemorrhoids without mention of complication Bright red rectal bleeding Hemorrhage of rectum and anus Nocturia documented in this encounter Care Teams Shingle Packer Relationship Specialty Start Date End Date Brandie Thompson APRN, STRAIGHTEDGE MAN PCP - General Family Medicine 07/21/18 06/26/20 100 [facility] [place] [address] documented as of this encounter
--- OUTSIDE RECORDS SUMMARY | 2022-07-29 14:53 | XMS_ITS | Encounter Summary ---
:1950 Author Organization [facility] Address [address] [place] [address] Care Team Providers Name Role Phone Brandie Thompson APRN, NURSE LIAISON Primary Care Provider [phone] Reason for Visit Reason Comments Immunizations Encounter Details Date Type Department Care Team Description 08/30/2019 Immunization [place] Immunization due (Primary [address] Dx) [place], [place] [address] Social History Tobacco Use [...] or relatives? How often do you attend uatsdin or More than 4 times per year 12/13/2019 judaism services? Do you belong to any clubs or Not asked organizations such as uatsdin groups, unions, fraternal or athletic groups, or [...] fever. No previous reaction to flu vaccine. TENDER HELPER documented in this encounter Plan of Treatment Not on filedocumented as of this encounter Visit Diagnoses Diagnosis Immunization due - Primary documented in this encounter Care Teams Jr. Java Developer Relationship Specialty Start Date End Date Brandie Thompson APRN, NURSE LIAISON PCP - General Family Medicine 07/21/18 06/26/20 100 [facility] [address] documented as of this encounter
--- OUTSIDE RECORDS SUMMARY | 2022-07-29 14:53 | XMS_ITS | Encounter Summary ---
:1950 Author Organization [facility] Address [address] [place] [address] Care Team Providers Name Role Phone Brandie Thompson INDUSTRIAL RELATIONS COMMISSIONER, VICE PRESIDENT QUALITY IMPROVEMENT Primary Care Provider [phone] Reason for Visit Reason Onset Date Comments MAMMOGRAM REFERRAL 07/20/2018 THE PATIENT WOULD LI KE A REFERRAL TO [facility] FOR HER MAMMOGRAM. Encounter Details Date Type Department Care Team Description 07/20/2018 Telephone [place] Brandie Thompson, MAMMOGRAM REFERRAL [address] INDUSTRIAL RELATIONS COMMISSIONER, SAI (THE PATIENT WOULD [place], [place] [address] A REFERRAL TO [phone] [place], [place] [address] [place] FOR HER MAMMOGRA M. ) Social History [...] More than 4 times per year 12/13/2019 methodist services? Do you belong to any clubs [...] lugo documented in this encounter Care Teams Screen Operator Relationship Specialty Start Date End Date Brandie Thompson APRN, VICE PRESIDENT QUALITY IMPROVEMENT PCP - General Family Medicine 07/21/18 06/26/20 100 [place] [address] documented as of this encounter
--- OUTSIDE RECORDS SUMMARY | 2022-07-29 14:53 | XMS_ITS | Encounter Summary ---
:1950 Author Organization [facility] Address [address] [place] [address] Care Team Providers Name Role Phone Brandie Thompson APRN, CLIENT ADVISOR Primary Care Provider [phone] Encounter Details Date Type Department Care Team [...] More than 4 times per year 12/13/2019 holiness services? Do you belong to any clubs [...] filedocumented in this encounter Care Teams Manager Epic Relationship Specialty Start Date End Date Brandie Thompson APRN, CLIENT ADVISOR PCP - General Family Medicine 07/21/18 06/26/[address] [place], [place] [address] [address] documented as of this encounter
--- OUTSIDE RECORDS SUMMARY | 2022-07-29 14:53 | XMS_ITS | Encounter Summary ---
:1950 Author Organization [facility] Address [address] [place] [address] Care Team Providers Name Role Phone Brandie Thompson APRN, TAKE UP OPERATOR Primary Care Provider [phone] Reason for Visit Reason Comments Medicare Annual Wellness Visit Initial Encounter Details Date Type Department Care Team Description 12/13/2019 Clinical Support [place] Medicare annual wellness vis it, initial (Primary Dx); [address] Pneumococcal vaccination giv en [place], [place] [address] Social History Tobacco Use [...] More than 4 times per year 12/13/2019 episcopalian services? Do you belong to any clubs [...] RESOURCES: Patient Care Team: Brandie Thompson APRN, TAKE UP OPERATOR as PCP - General (Family Medicine) Eye Care: Jdfjlbitbj-5-5 years Dental Care: Dr Schmid in [facility] Pharmacy: [facility] Mail Delivery - [place], [place] - [address] [facility] [address] [facility] [address] Other: Visit Vitals Smoking Status Never Smoker [...] More than three times a week Attends episcopalian service: More than 4 times per year [...] the patient's advance care planning wishes:: Yes Mandaen or spiritual beliefs that impact treatment:: No [...] transfusion before 1991. ?? Those born between 7182-3181. Glaucoma: Medicare Part B (Medical Insurance) covers [...] of one pack a dayfor 30 years). ER MANUFACTURE Brandie Thompson APRN, CNP - 12/13/2019 11:00 AM CST Reviewed. ER MANUFACTURE documented in this encounter Plan of Treatment Not on filedocumented as of this encounter Visit Diagnoses Diagnosis Medicare annual wellness visit, initial - Primary Pneumococcal vaccination given documented in this encounter Care Teams Admissions Manager Rn Relationship Specialty Start Date End Date Brandie Thompson APRN, SAI PCP - General Family Medicine 07/21/18 06/26/[address] [place] [address] [facility] [place] [address] documented as of this encounter
--- OUTSIDE RECORDS SUMMARY | 2022-07-29 14:53 | XMS_ITS | Encounter Summary ---
:1950 Author Organization [facility] Address [address] [place] [address] Care Team Providers Name Role Phone Brandie Thompson APRN, CNP Primary Care Provider Reason for Referral Consultation (Routine) - Closed Specialty Diagnoses / Procedures Referred By Contact Refer red To Contact Diagnoses Abnormal pelvic ultrasound Brandie Thompson, [facility] [place] [address] [address] [place] [address] Phone: Fax: Referral ID Status Reason Start Date Expiration Date Visits Requ ested Visits Authorized [id number] Closed 11/19/2018 11/19/2019 1 1 FRONT PRESSER Reason for Visit Reason Onset Date Comments results 11/19/2018 Encounter Details Date Type Department Care Team Description 11/19/2018 Telephone [place] Brandie Thompson, results [address] SAI [place], [place] [address] [facility] [address] [phone] [place], [place] [address] Social History Tobacco Use [...] or relatives? How often do you attend mandaen or More than 4 times per year 12/13/2019 taoist services? Do you belong to any clubs or Not asked organizations such as mandaen groups, unions, fraternal or athletic groups, or [...] Thompson APRN, SAI - 11/19/2018 4:38 PM VEST FRONT PRESSER Discussed the ultrasound report with the patient. There is some fluid in the endometrial space therefore we will refer her to [facility]. The patient prefers [facility] and the referral order has been completed. FRONT PRESSER Telephone Encounter - Ling Reyes RN - 11/19/2018 11:11 AM CST Patient has a pelvic ultrasound on Friday. The results are on your desk. Patient's would like to get these results. I do not see an MICHELLE for him. Please review results and call the patient. FRONT PRESSER Telephone Encounter - Yumiko Herrera - 11/19/2018 10:52 AM CST Pt's called requesting to speak with Bryce Thompson. Please call him at [phone]. FRONT PRESSER documented in this encounter Plan of Treatment Scheduled Referrals Name Type Priority Associated Order Schedule Diagnoses Ambulatory External Outpatient Referral Routine Abnormal pelvi c Ordered: Referral ultrasound 11/19/2018 documented as of this encounter Visit Diagnoses Diagnosis Abnormal pelvic ultrasound - Primary documented in this encounter Care Teams Mathematics Lecturer Relationship Specialty Start Date End Date Brandie Thompson APRN, ASSOCIATE PROFESSOR OF HISTORY PCP - General Family Medicine 07/21/18 06/26/[address] [place] [address] documented as of this encounter
--- OUTSIDE RECORDS SUMMARY | 2022-07-29 14:53 | XMS_ITS | Encounter Summary ---
:1950 Author Organization [facility] Address [address] [place] [address] Care Team Providers Name Role Phone Brandie Thompson RETURN TO SERVICE INSPECTOR, FIREARMS ASSEMBLY SUPERVISOR Primary Care Provider Reason for Visit Reason Comments Med Refill Encounter Details Date Type Department Care Team Description 01/01/2019 Refill [place] Brandie Thompson, Insomnia, unspecified [address] RETURN TO SERVICE INSPECTOR, FIREARMS ASSEMBLY SUPERVISOR type (Primary Dx) [place], [place] [address] [address] [facility] [address] [phone] [place], [place] [address] Social History Tobacco Use [...] or relatives? How often do you attend gnosticist or More than 4 times per year 12/13/2019 presybeterian services? Do you belong to any clubs or Not asked organizations such as gnosticist groups, unions, fraternal or athletic groups, or [...] 4:43 PM CDT Please fax Rx to [phone] Telephone Encounter - Brandie Thompson APRN, SAI - 01/04/2019 4:13 PM CDT Please fax to the patient's pharmacy. Bryce [place] Telephone Encounter - Carla Cooper MA - 01/04/2019 3:54 PM CDT I have pended a medication refill for your review. Telephone Encounter - Yumiko Herrera - 01/04/2019 3:42 PM CDT Pt called regarding her Trazadone Rx refill. She uses [facility] and gave a fax number of [phone]. Please call Pt to advise. documented in this encounter Plan of Treatment Not on filedocumented as of this encounter Visit Diagnoses Diagnosis Insomnia, unspecified type - Primary documented in this encounter Care Teams Divisional Human Resources Director Relationship Specialty Start Date End Date Brandie Thompson APRN, FIREARMS ASSEMBLY SUPERVISOR PCP - General Family Medicine 07/21/18 06/26/[address] [place] [address] documented as of this encounter
--- OUTSIDE RECORDS SUMMARY | 2022-07-29 14:53 | XMS_ITS | Encounter Summary ---
:1950 Author Organization [facility] Address [address] [place] [address] Care Team Providers Name Role Phone Brandie Thompson SBA UNDERWRITER, INSTRUCTION ASSISTANT PRINCIPAL Primary Care Provider [phone] Encounter Details Date Type Department Care Team Description 11/23/2018 Telephone [place] Brandie Thompson, [address] SBA UNDERWRITER, INSTRUCTION ASSISTANT PRINCIPAL [place], [place] [address] 100 [facility] [address] [phone] [place], [place] [address] Social History Tobacco Use [...] or relatives? How often do you attend baptist or More than 4 times per year 12/13/2019 restorationism services? Do you belong to any clubs or Not asked organizations such as baptist groups, unions, fraternal or athletic groups, or [...] Lindsey - 11/23/2018 10:53 AM CST Faxed. HY ASSEMBLER Telephone Encounter - Dagmar Washington LPN - 11/23/2018 10:24 AM CST Please fax to [facility] and let patient know. HY ASSEMBLER documented in this encounter Plan of Treatment Not on filedocumented as of this encounter Visit Diagnoses Not on filedocumented in this encounter Care Teams Inspector Firearms Relationship Specialty Start Date End Date Brandie Thompson APRN, INSTRUCTION ASSISTANT PRINCIPAL PCP - General Family Medicine 07/21/18 06/26/20 100 [facility] [place] [address] documented as of this encounter
--- OUTSIDE RECORDS SUMMARY | 2022-07-29 14:53 | XMS_ITS | Encounter Summary ---
:1950 Author Organization [facility] Address [address] [place] [address] Care Team Providers Name Role Phone Brandie Thompson EVP OF PRODUCTS & CO FOUNDER, PROFESSIONAL ORGANIZER Primary Care Provider [phone] Reason for Visit Reason Onset Date Comments Referral 11/20/2018 Encounter Details Date Type Department Care Team Description 11/20/2018 Telephone [place] Brandie Thompson, Referral [address] EVP OF PRODUCTS & CO FOUNDER, PROFESSIONAL ORGANIZER [place], [place] [address] [address] [facility] [address] [phone] [place], [place] [address] Social History Tobacco Use [...] or relatives? How often do you attend faith or More than 4 times per year 12/13/2019 temple services? Do you belong to any clubs or Not asked organizations such as faith groups, unions, fraternal or athletic groups, or [...] LPN - 11/23/2018 2:10 PM CST NOTED STOS REMOVAL WORKER Telephone Encounter - Thao Scottkwamekristen - 11/23/2018 12:27 PM CST Yes, Laura faxed it. STOS REMOVAL WORKER Telephone Encounter - Dagmar Washington LPN - 11/23/2018 12:03 PM CST Was this faxed? STOS REMOVAL WORKER Telephone Encounter - Brandie Thompson APRN, SAI - 11/23/2018 8:56 AM ASBESTOS REMOVAL WORKER This has been completed. Please fax to [facility] in [place]. STOS REMOVAL WORKER Telephone Encounter - Sarah Lindsey - 11/20/2018 4:35 PM CST Patient was called by [facility] to set up colonoscopy. They do not do procedure on Mondays. She would like a referral sent to [facility]. STOS REMOVAL WORKER documented in this encounter Plan of Treatment Not on filedocumented as of this encounter Visit Diagnoses Not on filedocumented in this encounter Care Teams Firer Tunnel Kiln Relationship Specialty Start Date End Date Brandie Thompson APRN, PROFESSIONAL ORGANIZER PCP - General Family Medicine 07/21/18 06/26/20 [address] [place] [address] documented as of this encounter
--- OUTSIDE RECORDS SUMMARY | 2022-07-29 14:53 | XMS_ITS | Encounter Summary ---
:[address] [facility] Address [address] [place] [address] Care Team Providers Name Role Phone Brandie Thompson APRN, PAPER SUPERVISOR Primary Care Provider [phone] Encounter Details Date Type Department Care Team Description 12/13/2019 Lab [place] Screening, lipid; [address] Screening for diabetes elma kapadia; [place], [place] [address] Other fatigue [phone] Social History Tobacco Use Types Packs/Day Years [...] or relatives? How often do you attend cheondoism or More than 4 times per year 12/13/2019 advent services? Do you belong to any clubs or Not asked organizations such as cheondoism groups, unions, fraternal or athletic groups, or [...] Screening for Results for this FILTRATION RATE AGRICULTURAL EQUIPMENT SALES ENGINEER diabetes mellitus procedu re are in the results section. THYROID FUNCTION Routine 12/13/2019 12:18 PM Other fatigue Res ults for this CASCADE AGRICULTURAL EQUIPMENT SALES ENGINEER procedure are i n the results section. CBC BRANCH OFFICE Routine 12/13/2019 12:18 PM Other fatigue Re sults for this W/DIFF AGRICULTURAL EQUIPMENT SALES ENGINEER procedure are i n the results section. LIPID PANEL Routine 12/13/2019 12:18 PM Screening, lipid Resu lts for this AGRICULTURAL EQUIPMENT SALES ENGINEER procedure are i n the results section. BASIC METABOLIC Routine 12/13/2019 12:18 PM Screening for Resu lts for this PANEL AGRICULTURAL EQUIPMENT SALES ENGINEER diabetes mellitus procedure are in the results section. documented in this encounter Results Glomerular filtration rate (GFR) (12/13/2019 12:18 PM AGRICULTURAL EQUIPMENT SALES ENGINEER) athologist Signature GFR >60 12/14/2019 [facility] 1:19 PM AGRICULTURAL EQUIPMENT SALES ENGINEER [facility] >60 12/14/2019 [facility] Latvian GFR 1:19 PM AGRICULTURAL EQUIPMENT SALES ENGINEER [facility] Comment: GFR calculated from serum creatinine v alue Chronic Kidney Disease less than 60 mL/m in/1.73 m2 Kidney Failure less than 15 mL/min/1.73 m2 Note: effective 03/04/07 IDMS-Traceable MDRD Study Equation used. Specimen Anatomical Collection Method Collection Time Receive d Time (Source) Location / / Volume Laterality 12/13/2019 12:18 12/13/2019 PM AGRICULTURAL EQUIPMENT SALES ENGINEER 12:18 PM AGRICULTURAL EQUIPMENT SALES ENGINEER Brandie Thompson APRN, PAPER SUPERVISOR LAB BLOOD ORDERABLES Performing Organization Address City/State/ZIP Code Phon e Number [facility] [address] [place] [phone] (ABNORMAL) CBC Branch Off w/Diff (12/13/2019 12:18 PM AGRICULTURAL EQUIPMENT SALES ENGINEER) Patholo gist Method Time Signature WBC 5.5 3.5 - 10.5 12/13/2019 [facility] K/uL 1:06 PM AGRICULTURAL EQUIPMENT SALES ENGINEER [place] RBC 5.06 (H) 3.90 - 12/13/2019 [facility] 5.00 M/uL 1:06 PM AGRICULTURAL EQUIPMENT SALES ENGINEER [place] Hemoglobin 14.9 12.0 - 12/13/2019 [facility] 15.5 g/dL 1:06 PM AGRICULTURAL EQUIPMENT SALES ENGINEER [place] Hematocrit 46.2 (H) 35.0 - 12/13/2019 [facility] 44.0 % 1:06 PM AGRICULTURAL EQUIPMENT SALES ENGINEER [place] Platelets 221 150 - 450 12/13/2019 [facility] K/uL 1:06 PM AGRICULTURAL EQUIPMENT SALES ENGINEER [place] MCV 91.3 81.6 - 12/13/2019 [facility] 98.3 fL 1:06 PM AGRICULTURAL EQUIPMENT SALES ENGINEER [place] MCH 29.4 26.0 - 12/13/2019 [facility] 32.0 pg 1:06 PM AGRICULTURAL EQUIPMENT SALES ENGINEER [place] MCHC 32.3 32.0 - 12/13/2019 [facility] 36.0 g/dL 1:06 PM AGRICULTURAL EQUIPMENT SALES ENGINEER [place] RDW 12.8 11.9 - 12/13/2019 [facility] 15.5 % 1:06 PM AGRICULTURAL EQUIPMENT SALES ENGINEER [place] Lymphocytes % 23.7 18.0 - 12/13/2019 [facility] 45.0 % 1:06 PM AGRICULTURAL EQUIPMENT SALES ENGINEER [place] Mid-size Cells 10.4 (H) 3.3 - 10.1 12/13/2019 [facility] % 1:06 PM AGRICULTURAL EQUIPMENT SALES ENGINEER [place] Granulocytes/Brown 65.9 45.8 - 12/13/2019 [facility] trophils 73.7 % 1:06 PM AGRICULTURAL EQUIPMENT SALES ENGINEER [place] Lymphocytes 1.3 0.9 - 2.9 12/13/2019 [facility] [place] Absolute K/uL 1:06 PM AGRICULTURAL EQUIPMENT SALES ENGINEER [place] MIDS Absolute 0.6 0.2 - 0.8 12/13/2019 [facility] K/uL 1:06 PM AGRICULTURAL EQUIPMENT SALES ENGINEER [place] Granulocytes/Brown 3.6 2.1 - 8.7 12/13/2019 [facility] [place] trophils K/uL 1:06 PM AGRICULTURAL EQUIPMENT SALES ENGINEER [place] Absolute Specimen Anatomical Collection Method Collection Time Receive d Time (Source) Location / / Volume Laterality Blood 12/13/2019 12:18 12/13/2019 PM AGRICULTURAL EQUIPMENT SALES ENGINEER 12:18 PM AGRICULTURAL EQUIPMENT SALES ENGINEER Brandie Thompson APRN, PAPER SUPERVISOR LAB BLOOD ORDERABLES Performing Organization Address City/State/ZIP Code Phon e Number [facility] [place] [address] [place] [address] Thyroid Function [place] (12/13/2019 12:18 PM AGRICULTURAL EQUIPMENT SALES ENGINEER) P athologist Signature TSH, Sensitive 1.26 0.46 - 12/14/2019 [facility] 4.68 mIU/L 2:12 PM AGRICULTURAL EQUIPMENT SALES ENGINEER [facility] Comment: The results from this [...] Blood (Blood, 12/13/2019 12:18 12/14/2019 Venous) PM AGRICULTURAL EQUIPMENT SALES ENGINEER 12:39 PM AGRICULTURAL EQUIPMENT SALES ENGINEER Brandie Thompson APRN, CNP LAB BLOOD ORDERABLES Performing Organization Address [facility] Phon e Number [facility] [address] [place] [phone] (ABNORMAL) Basic metabolic panel (12/13/2019 12:18 PM AGRICULTURAL EQUIPMENT SALES ENGINEER) [facility] gist Method Time Signature Sodium 139 135 - 145 12/14/2019 [facility] mEq/L 1:[address] [facility] Potassium 4.1 3.5 - 5.1 12/14/2019 [facility] mEq/L 1:[address] [facility] Chloride 103 98 - 107 12/14/2019 [facility] mEq/L 1:[address] [facility] CO2 29 22 - 29 12/14/2019 [facility] mmol/L 1:[address] [facility] Creatinine 0.9 0.4 - 1.2 12/14/2019 [facility] mg/dL 1:[address] [facility] BUN 16 5 - 25 12/14/2019 [facility] mg/dL 1:[address] [facility] Glucose 101 (H) 70 - 100 12/14/2019 [facility] mg/dL 1:[address] [facility] Calcium, 10.3 (H) 8.4 - 10.2 12/14/2019 [facility] Total,S mg/dL 1:[address] [facility] Specimen Anatomical Collection Method Collection Time Receive d Time (Source) Location / / Volume Laterality Blood (Blood, 12/13/2019 12:18 12/14/2019 Venous) PM AGRICULTURAL EQUIPMENT SALES ENGINEER 12:25 PM AGRICULTURAL EQUIPMENT SALES ENGINEER Brandie Thompson APRN, CNP LAB BLOOD ORDERABLES Performing Organization Address City/[facility]/ZIP Code Phon e Number [facility] [address] [place] [address] (ABNORMAL) Lipid panel (12/13/2019 12:18 PM AGRICULTURAL EQUIPMENT SALES ENGINEER) athologist Signature Cholesterol 209 (A) 0 - 199 12/14/2019 [facility] mg/dL 1:19 PM [facility] Comment: Recommended by National Cholesterol Education Program (ATP III) -------- Cholesterol Ranges -------- <200 ? Desirable 200-239 ? Borderline high >=240 ? High Triglycerides 60 0 - 149 mg/dL 12/14/2019 1:19 PM [facility] Comment: -------- TRIG Ranges -------- <150 ?Normal 150-199 ? Borderline high 200-499 ? High >=500 ? Very high HDL 83 40 - 60 mg/dL 12/14/2019 1:19 PM [facility] Comment: -------- HDL Ranges -------- <40 ?Low 40-59 ?Normal >=60 ? Optimal LDL Calculated 114 (A) 0 - 99 mg/dL 12/14/2019 1:19 PM [facility] Comment: -------- LDL Ranges -------- <100 ? Optimal 100-129 ?Near optimal/above op timal 130-159 ?Borderline high 160-189 ?High >=190 ?Very high Fasting? Yes 12/13/2019 12:21 PM [facility] Specimen Anatomical Collection Method Collection Time Receive d Time (Source) Location / / Volume Laterality Blood 12/13/2019 12:18 12/14/2019 PM AGRICULTURAL EQUIPMENT SALES ENGINEER 12:25 PM AGRICULTURAL EQUIPMENT SALES ENGINEER Brandie Thompson APRN, CNP LAB BLOOD ORDERABLES Performing Organization Address City/State/ZIP Code Phon e Number [facility] [address] [place] [address] documented in this encounter Visit Diagnoses Diagnosis Screening, lipid Screening for diabetes mellitus Other fatigue documented in this encounter Care Teams Mill Platform Supervisor Relationship Specialty Start Date End Date Brandie Thompson APRN, CNP PCP - General Family Medicine 07/21/18 06/26/[address] [place] [address] documented as of this encounter
--- OUTSIDE RECORDS SUMMARY | 2022-07-29 14:53 | XMS_ITS | Encounter Summary ---
:1950 Author Organization [facility] Address [address] [place] [address] Care Team Providers Name Role Phone Brandie Thompson FIELD SERVICE COORDINATOR, PROVIDER ENGAGEMENT EXECUTIVE Primary Care Provider [phone] Reason for Visit Reason Onset Date Comments Referral confirmation/questions 12/24/2018 Encounter Details Date Type Department Care Team Description 12/24/2018 Telephone [place] Brandie Thompson, Referral [address] FIELD SERVICE COORDINATOR, PROVIDER ENGAGEMENT EXECUTIVE confirmation/questions [place], [place] [address] [address] [address] [phone] [place], [place] [address] Social History Tobacco Use [...] or relatives? How often do you attend taoist or More than 4 times per year 12/13/2019 hinduism services? Do you belong to any clubs or Not asked organizations such as taoist groups, unions, fraternal or athletic groups, or [...] will wait to ask the provider than. AND WOOD PRODUCTS LABOURER Telephone Encounter - Brandie Thompson APRN, SAI - 12/25/2018 10:44 AM WOOD AND WOOD PRODUCTS LABOURER The addictions recovery specialist would determine the need to biopsy. Can we call [facility] and seeif they need anything further from us? Nallely, Bryce AND WOOD PRODUCTS LABOURER Telephone Encounter - Carla Cooper MA - 12/25/2018 10:22 AM CST Patient is wondering about an order for a biopsy possibly in her pelvis? Is this something the COMMISSARY SUPERINTENDENT would discuss further with her? AND WOOD PRODUCTS LABOURER Telephone Encounter - Yumiko Herrera - 12/25/2018 9:58 AM CST Pt returned call to the clinic. AND WOOD PRODUCTS LABOURER Telephone Encounter - Yumiko Herrera - 12/24/2018 4:28 PM CST Pt called stating she has an appt at the [facility] in [place] on Friday01/04/19. She wants to make sure everything os go to go and she is wondering if Bryce put in an order for a biopsy. She also had a couple questions regardng referral. Please call Pt at [phone] to advise. AND WOOD PRODUCTS LABOURER documented in this encounter Plan of Treatment Not on filedocumented as of this encounter Visit Diagnoses Not on filedocumented in this encounter Care Teams Grout Pump Operator Relationship Specialty Start Date End Date Brandie Thompson APRN, PROVIDER ENGAGEMENT EXECUTIVE PCP - General Family Medicine 07/21/18 06/26/[address] [place] [address] [place] [id number] documented as of this encounter
--- OUTSIDE RECORDS SUMMARY | 2022-07-29 14:53 | XMS_ITS | Encounter Summary ---
:1950 Author Organization [facility] Address [address] [place] [address] Care Team Providers Name Role Phone Brandie Thompson PUBLIC RELATIONS WRITER, CODING CLERKS SUPERVISOR Primary Care Provider [phone] Encounter Details Date Type Department Care Team Description 11/10/2018 Telephone [place] Brandie Thompson, [address] PUBLIC RELATIONS WRITER, CODING CLERKS SUPERVISOR [place], [place] [address] [address] [facility] [address] [phone] [place], [place] [address] Social History Tobacco Use [...] More than 4 times per year 12/13/2019 zoroastrian services? Do you belong to any clubs [...] Lindsey - 11/10/2018 3:37 PM CST Faxed. N IRONER OPERATOR Telephone Encounter - Carla Cooper MA - 11/10/2018 3:19 PM CST Please fax to [facility] radiology N IRONER OPERATOR Telephone Encounter - Brandie Thompson APRN, CNP - 11/10/2018 3:09 PM [place]OWN IRONER OPERATOR Done. N IRONER OPERATOR Telephone Encounter - Carla Cooper MA - 11/10/2018 2:49 PM CST Spoke with [place] [facility]. Please redo the ANG for the Pelvic ultra sound. They are needing the order for a pelvic ultrasound to be listed on there. The scheduling instructions did not print out on thereferral. N IRONER OPERATOR documented in this encounter Plan of Treatment Not on filedocumented as of this encounter Visit Diagnoses Not on filedocumented in this encounter Care Teams Director Of Finance Relationship Specialty Start Date End Date Brandie Thompson APRN, CODING CLERKS SUPERVISOR PCP - General Family Medicine 07/21/18 06/26/[address] [place] [address] [place] [id number] documented as of this encounter
--- OUTSIDE RECORDS SUMMARY | 2022-07-29 14:53 | XMS_ITS | Encounter Summary ---
:[address] [facility] Address [address] [place] [address] Care Team Providers Name Role Phone Brandie Thompson APRN, CNP Primary Care Provider [phone] Reason for Referral Consultation (Routine) - Closed Specialty Diagnoses / Procedures Referred By Contact Refer red To Contact Diagnoses Abnormal ultrasound of pelvis Brandie Thompson, [facility] SAI OCONNELL [address] [place] [address] [place] [address] Fax: Referral ID Status Reason Start Date Expiration Date Visits Requ ested Visits Authorized [id number] Closed 11/23/2018 11/23/2019 1 1 Scheduling Instructions Please schedule with Dr. Gardner in [place], [place]. TING AND PUMPING SUPERVISOR Encounter Details Date Type Department Care Team Description 11/23/2018 Orders Only [place] Brandie Thompson, Abnormal ultrasound [address] SAI OCONNELL of pelvis (Primary [place], [place] [address] [facility] [place] Dx) [address] [place] [address] Social History Tobacco Use Types Packs/Day Years [...] More than 4 times per year 12/13/2019 spiritism services? Do you belong to any clubs or Not asked organizations such as religion groups, unions, fraHouseboat Resort Club or athletic groups, or school groups? How [...] Primary documented in this encounter Care Teams White Sugar Syrup Operator Relationship Specialty Start Date End Date Brandie Thompson APRN, PERIODONTIST PCP - General Family Medicine 07/21/18 06/26/[address] [place] [id number] documented as of this encounter
--- OUTSIDE RECORDS SUMMARY | 2022-07-29 14:53 | XMS_ITS | Encounter Summary ---
:1950 Author Organization [facility] Address [address] [place] [address] Care Team Providers Name Role Phone Brandie Thompson APRN, CNP Primary Care Provider [phone] Reason for Referral Consultation (Routine) - Closed Specialty Diagnoses / Procedures Referred By Contact Refer red To Contact Radiology Diagnoses Screening mammogram, encounter for Brandie Thompson, [facility] - [address] [address] [place] [id number] Phone: Fax: Referral ID Status Reason Start Date Expiration Date Visits Requ ested Visits Authorized [id number] Closed 12/13/2019 12/13/2020 1 1 K PIECE TACKER Reason for Visit Reason Comments Annual Exam Encounter Details Date Type Department Care Team Description 12/13/2019 Office Visit [place] Brandie Thompson Annual physical exam (Primar y Dx); [address] M, SAI OCONNELL Insomnia, unspecified type; [place], [place] [address] Other fatigue; [address] [place] [address] Screening, lipid; [phone] Screenin g for diabetes mellitus; Screening mammo [...] asked organizations such as jewish groups, unions, fraSmartEquip or athletic groups, or school groups? How [...] Comments Blood Pressure 138/82 12/13/2019 11:20 AM SHANK PIECE TACKER Pulse 64 12/13/2019 11:20 AM SHANK PIECE TACKER Temperature 36.7 ??C (98.1 ??F) 12/13/2019 11:20 AM SHANK PIECE TACKER Respiratory Rate 16 12/13/2019 11:20 AM SHANK PIECE TACKER Oxygen Saturation 98% 12/13/2019 11:20 AM SHANK PIECE TACKER Inhaled Oxygen Concentration - - Weight 59.8 kg (131 lb 12.8 oz) 12/13/2019 11:20 AM SHANK PIECE TACKER Height 163.8 cm (5' 4.5) 12/13/2019 11:20 AM SHANK PIECE TACKER Body Mass Index 22.27 12/13/2019 11:20 AM SHANK PIECE TACKER documented in this encounter Patient Instructions Patient InstructionsChhoma Thompson APRN, CNP - 12/13/2019 11:00 AM SHANK PIECE TACKER Shingles at a pharmacy setting [facility] mammogram DEXA scan next year K PIECE TACKER documented in this encounter Progress Notes Brandie [...] bleeding last year, was evaluated by an CAN SORTER specialist, was diagnosed vaginal atrophy, was prescribed [...] but stays quite active working in the [employer], and does a fair amount of lifting. [...] she started working at the [employer], several years ago, which may be contributing [...] More than three times a week Attends judaism service: More than 4 times per year [...] her urinary frequency. No hematuria and/or dysuria. SECURITY INCIDENT HANDLER: 2, para 2. The patient???s last menstrual period was in her 50s, and did have vaginal bleeding last year, was assessed by an biologics specialist, and was diagnosed with atrophic vaginitis, which is untreated at this time, secondary to the cost of the medication. ENDOCRINOLOGY: No thyroid dysfunction no diabetes. The patient has osteopenia and is on a calcium with vitamin D supplement. MUSCULOSKELETAL: The patient has had lower back pain for the past several years and receives pet care technician about every 5 weeks, and would like [...] Branch Off w/Diff; Future - Thyroid Function [place]; Future Screening, lipid - Lipid panel; Future [...] coverage. She reports she received information from [employer] about having this completed, and may respond to their request. The patient will continue trazodone 150 mg daily for her insomnia. The patient should be on aspirin therapy for her history paroxysmal atrial fibrillation. The patient's Tdap is up-to-date on and the patient received her Prevnar today. The patient can consider the Shingrix. The patient will have her mammogram at [facility], the order has been placed, and they will contact the patient to schedule. The patient will be notified of her lab results. The patient agrees and understands this plan of care. Brandie Thompson APRN, SAI K PIECE TACKER documented in this encounter Plan of Treatment Scheduled Referrals Name Type Priority Associated Order Schedule Diagnoses Ambulatory External Outpatient Referral Routine Screening O rdered: Referral mammogram, 12/13/2019 encounter for documented as of this encounter Results (ABNORMAL) Lipid panel (12/13/2019 12:18 PM SHANK PIECE TACKER) athologist Signature Cholesterol 209 (A) 0 - 199 12/14/2019 [facility] mg/dL 1:19 PM [facility] Comment: Recommended by National Cholesterol [...] 40 - 60 mg/dL 12/14/2019 1:[address] [facility] Comment: -------- HDL Ranges -------- <40 ?Low 40-59 ?Normal >=60 ? Optimal LDL Calculated 114 (A) 0 - 99 mg/dL 12/14/2019 1:19 PM [facility] Comment: -------- LDL Ranges -------- <100 ? Optimal 100-129 ?Near optimal/above op timal 130-159 ?Borderline high 160-189 ?High >=190 ?Very high Fasting? Yes 12/13/2019 12:21 PM [facility] Specimen Anatomical Collection Method Collection Time Receive d Time (Source) Location / / Volume Laterality Blood 12/13/2019 12:18 12/14/2019 PM SHANK PIECE TACKER 12:25 PM SHANK PIECE TACKER Brandie Thompson APRN, CABLE TELEVISION ACCESS COORDINATOR LAB BLOOD ORDERABLES Performing Organization Address City/State/[facility] Phon e Number [facility] [address] [place] [address] (ABNORMAL) Basic metabolic panel (12/13/2019 12:18 PM SHANK PIECE TACKER) Patholo gist Method Time Signature Sodium 139 135 - 145 12/14/2019 [place] mEq/L 1:19 PM [facility] Potassium 4.1 3.5 - 5.1 12/14/2019 [place] mEq/L 1:19 PM [facility] Chloride 103 98 - 107 12/14/2019 [place] mEq/L 1:19 PM [facility] CO2 29 22 - 29 12/14/2019 [place] mmol/L 1:19 PM [facility] Creatinine 0.9 0.4 - 1.2 12/14/2019 [place] mg/dL 1:19 PM [facility] BUN 16 5 - 25 12/14/2019 [place] mg/dL 1:19 PM [facility] Glucose 101 (H) 70 - 100 12/14/2019 [place] mg/dL 1:19 PM [facility] Calcium, 10.3 (H) 8.4 - 10.2 12/14/2019 [place] Total,S mg/dL 1:19 PM [facility] Specimen Anatomical Collection Method Collection Time Receive d Time (Source) Location / / Volume Laterality Blood (Blood, 12/13/2019 12:18 12/14/2019 Venous) PM SHANK PIECE TACKER 12:25 PM SHANK PIECE TACKER Brandie Thompson DAIRY MANAGER, CABLE TELEVISION ACCESS COORDINATOR LAB BLOOD ORDERABLES Performing Organization Address City/[facility]/ZIP Code Phon e Number [facility] [address] [place] [address] Thyroid Function [place] (12/13/2019 12:18 PM SHANK PIECE TACKER) P athologist Signature TSH, Sensitive 1.26 0.46 - 12/14/2019 [place] MEDICA L 4.68 mIU/L 2:12 PM [facility] Comment: The results from this [...] Blood (Blood, 12/13/2019 12:18 12/14/2019 Venous) PM SHANK PIECE TACKER 12:39 PM SHANK PIECE TACKER Brandie Thompson APRN, CABLE TELEVISION ACCESS COORDINATOR LAB BLOOD ORDERABLES Performing Organization Address City/State/ZIP Code Phon e Number [facility] [address] [place] [address] (ABNORMAL) CBC Branch Off w/Diff (12/13/2019 12:18 PM SHANK PIECE TACKER) [facility] gist Method Time Signature WBC 5.5 3.5 - 10.5 12/13/2019 [facility] K/uL 1:06 PM SHANK PIECE TACKER [place] RBC 5.06 (H) 3.90 - 12/13/2019 [facility] 5.00 M/uL 1:06 PM SHANK PIECE TACKER [place] Hemoglobin 14.9 12.0 - 12/13/2019 [facility] 15.5 g/dL 1:06 PM SHANK PIECE TACKER [place] Hematocrit 46.2 (H) 35.0 - 12/13/2019 [facility] 44.0 % 1:06 PM SHANK PIECE TACKER [place] Platelets 221 150 - 450 12/13/2019 [facility] K/uL 1:06 PM SHANK PIECE TACKER [place] MCV 91.3 81.6 - 12/13/2019 [facility] 98.3 fL 1:06 PM SHANK PIECE TACKER [place] MCH 29.4 26.0 - 12/13/2019 [facility] 32.0 pg 1:06 PM SHANK PIECE TACKER [place] MCHC 32.3 32.0 - 12/13/2019 [facility] 36.0 g/dL 1:06 PM SHANK PIECE TACKER [place] RDW 12.8 11.9 - 12/13/2019 [facility] 15.5 % 1:06 PM SHANK PIECE TACKER [place] Lymphocytes % 23.7 18.0 - 12/13/2019 [facility] 45.0 % 1:06 PM SHANK PIECE TACKER [place] Mid-size Cells 10.4 (H) 3.3 - 10.1 12/13/2019 [facility] % 1:06 PM SHANK PIECE TACKER [place] Granulocytes/Brown 65.9 45.8 - 12/13/2019 [facility] [place] trophils 73.7 % 1:06 PM SHANK PIECE TACKER [place] Lymphocytes 1.3 0.9 - 2.9 12/13/2019 [facility] Absolute K/uL 1:06 PM SHANK PIECE TACKER [place] MIDS Absolute 0.6 0.2 - 0.8 12/13/2019 [facility] K/uL 1:06 PM SHANK PIECE TACKER [place] Granulocytes/Brown 3.6 2.1 - 8.7 12/13/2019 [facility] trophils K/uL 1:06 PM SHANK PIECE TACKER [place] Absolute Specimen Anatomical Collection Method Collection Time Receive d Time (Source) Location / / Volume Laterality Blood 12/13/2019 12:18 12/13/2019 PM SHANK PIECE TACKER 12:18 PM SHANK PIECE TACKER Brandie Thompson APRN, CABLE TELEVISION ACCESS COORDINATOR LAB BLOOD ORDERABLES Performing Organization Address City/State/ZIP Code Phon e Number [facility] PATRICIA KWONG [address] [place] [address] documented in this encounter Visit Diagnoses Diagnosis Annual physical exam - Primary Routine general medical examination at a health care facility Insomnia, unspecified type Other fatigue Screening, lipid Screening for diabetes mellitus Screening mammogram, encounter for documented in this encounter Care Teams Ribbon Cleaner Relationship Specialty Start Date End Date Brandie Thompson APRN, CABLE TELEVISION ACCESS COORDINATOR PCP - General Family Medicine 07/21/18 06/26/[address] [place] [address] [place] [id number] documented as of this encounter
--- OUTSIDE RECORDS SUMMARY | 2022-07-29 14:53 | XMS_ITS | Encounter Summary ---
:1950 Author Organization [facility] Address [address] [place] [address] Care Team Providers Name Role Phone Brandie Thompson SHAPER AND PRESSER, WALL STEAMER Primary Care Provider [phone] Reason for Visit Reason Comments Annual Exam Encounter Details Date Type Department Care Team Description 08/03/2018 Office Visit [place] Brandie Thompson Annual physical exam (Primar y Dx); [address] M, KOURTNEY, SAI Fatigue, unspecified type; [place], [place] [address] Palpitations; [address] [place] [address] Osteopenia after menopause; [phone] Screenin g, lipid; Primary insomni a Social [...] or relatives? How often do you attend restorationist or More than 4 times per year 12/13/2019 bahai services? Do you belong to any clubs or Not asked organizations such as restorationist groups, unions, fraternal or athletic groups, or [...] per his recommendation. The patient occasionally takes lsep-suv-lowbyun ibuprofen, when she is having significant flares, 800 mg twice daily. The patient is diligent about taking ibuprofen with milk and food. The patient reports she is having daytime fatigue, which might be related to her insomnia, aging process, and/or weather. The patient started noticing fatigue when she started working her new job, at [employer] which may be contributing to her symptoms [...] her urinary frequency. No hematuria and/or dysuria. REPAIRER SWITCHGEAR: 2, para 2. Last menstrual period was in her 50s with no vaginal bleeding since. ENDOCRINOLOGY: No thyroid dysfunction, diabetes, nor osteoporosis. MUSCULOSKELETAL: The patient has had lower back pain for the past one half years, and receives long term acute care registered nurse about every 5 weeks. NEUROLOGICAL: No numbness, [...] coverage. She reports she received information from [facility] [employer] about having this completed, and may respond [...] athologist Signature Vitamin D, 71.3 ng/mL 08/04/2018 [facility] Total 2:18 PM CDT CENTER [facility]ORY Comment: [...] Venous) CDT 12:59 PM CDT Brandie Thompson SHAPER AND PRESSER, WALL STEAMER LAB BLOOD ORDERABLES Performing Organization Address City/State/ZIP Code Phon e Number [facility] [address] [place] [address] (ABNORMAL) CBC Branch Off w/Diff (08/03/2018 2:42 PM CDT) [facility] gist Method Time Signature WBC 6.5 [...] FALLS Lymphocytes 1.2 0.9 - 2.9 08/03/2018 [facility] PATRICIA Absolute K/uL 2:51 PM CDT [place] MIDS Absolute 0.5 0.2 - 0.8 08/03/2018 [facility] GOMEZ K/uL 2:51 PM CDT FALLS Granulocytes/Brown 4.8 2.1 - 8.7 08/03/2018 [facility] PATRICIA trophils K/uL 2:51 PM CDT [place] Absolute Specimen Anatomical Collection Method Collection Time Receive d Time (Source) Location / / Volume Laterality Blood (Blood, 08/03/2018 2:42 PM 08/03/20 18 2:42 Venous) CDT PM CDT Brandie Thompson APRN, WALL STEAMER LAB BLOOD ORDERABLES Performing Organization Address City/State/ZIP Code Phon e Number [facility] PATRICIA MALLOY [address] [place] [address] (ABNORMAL) Lipid panel (08/03/2018 2:42 PM CDT) athologist Signature Cholesterol 214 (A) 0 - 199 08/04/2018 [facility] mg/dL 1:17 PM CDT [facility]ENTER [facility] Comment: Recommended by National Cholesterol Education Program (ATP III) -------- Cholesterol Ranges -------- <200 ? Desirable 200-239 ? Borderline high >=240 ? High Triglycerides 48 0 - 149 mg/dL 08/04/2018 1:17 PM CDT [facility] Comment: -------- TRIG Ranges -------- <150 ?Normal 150-199 ? Borderline high 200-499 ? High >=500 ? Very high HDL 82 40 - 60 mg/dL 08/04/2018 1:17 PM CDT [facility] Comment: -------- HDL Ranges -------- <40 ?Low 40-59 ?Normal >=60 ? Optimal LDL Calculated 122 (A) 0 - 99 mg/dL 08/04/2018 1:17 PM CDT [facility] Comment: -------- LDL Ranges -------- <100 ? Optimal 100-129 ?Near optimal/above op timal 130-159 ?Borderline high 160-189 ?High >=190 ?Very high Fasting? Yes 08/03/2018 2:47 PM CDT [facility] Specimen Anatomical Collection Method Collection Time Receive d Time (Source) Location / / Volume Laterality Blood (Blood, 08/03/2018 2:42 PM 08/04/20 18 Venous) CDT 12:46 PM CDT Brandie Thompson APRN, WALL STEAMER LAB BLOOD ORDERABLES Performing Organization Address City/State/ZIP Code Phon e Number [facility] [address] [place] [address] documented in this encounter Visit Diagnoses Diagnosis Annual physical exam - Primary Routine general medical examination at a health care facility Fatigue, unspecified type Palpitations Osteopenia after menopause Screening, lipid Primary insomnia Persistent disorder of initiating or jose guadalupe ntaining sleep documented in this encounter Care Teams Community Affairs Director Relationship Specialty Start Date End Date Brandie Thompson APRN, WALL STEAMER PCP - General Family Medicine 07/21/18 06/26/20 [address] [place] [address] documented as of this encounter
--- OUTSIDE RECORDS SUMMARY | 2022-07-29 14:53 | XMS_ITS | Encounter Summary ---
:[address] [facility] Address [address] [place] [address] Care Team Providers Name Role Phone Brandie Thompson SALESPERSON FASHION ACCESSORIES, PATHOLOGY LABORATORY DIRECTOR Primary Care Provider [phone] Encounter Details Date Type Department Care Team Description 11/20/2018 Telephone [place] Brandie Thompson, [address] SALESPERSON FASHION ACCESSORIES, PATHOLOGY LABORATORY DIRECTOR [place], [place] [address] [facility] [phone] [place], [place] [address] Social History Tobacco Use [...] or relatives? How often do you attend mosque or More than 4 times per year 12/13/2019 islam services? Do you belong to any clubs or Not asked organizations such as mosque groups, unions, fraternal or athletic groups, or [...] AM CST Referral faxed and patient informed. MBLY PRESS OPERATOR Telephone Encounter - Carla Cooper MA - 11/20/2018 10:23 AM CST Please add face sheet, fax referral to [facility] general surgery and call to make sure they received the fax. Then call patient and let her know this has been done. Patient okay with message being left if she does not waste picker. MBLY PRESS OPERATOR documented in this encounter Plan of Treatment Not on filedocumented as of this encounter Visit Diagnoses Not on filedocumented in this encounter Care Teams Rug Cutter Helper Relationship Specialty Start Date End Date Brandie Thompson, SALESPERSON FASHION ACCESSORIES, PATHOLOGY LABORATORY DIRECTOR PCP - General Family Medicine 07/21/18 06/26/[address] [place] [address] [place] [address] documented as of this encounter
--- OUTSIDE RECORDS SUMMARY | 2022-07-29 14:53 | XMS_ITS | Encounter Summary ---
:1950 Author Organization [facility] Address [address] [place] [address] Care Team Providers Name Role Phone Brandie Thompson MANAGING BROKER, PROOFER APPRENTICE Primary Care Provider Reason for Visit Reason Onset Date Comments MAMMOGRAM 08/03/2018 Encounter Details Date Type Department Care Team Description 08/03/2018 Telephone [place] Brandie Thompson, MAMMOGRAM [address] MANAGING BROKER, PROOFER APPRENTICE [place], [place] [address] [address] [facility] [address] [phone] [place], [place] [address] Social History Tobacco Use [...] or relatives? How often do you attend christianity or More than 4 times per year 12/13/2019 samaritan services? Do you belong to any clubs or Not asked organizations such as christianity groups, unions, fraternal or athletic groups, or [...] 08/04/2018 10:29 AM CDT Referral faxed to [facility] radiology. Telephone Encounter - Ling Reyes RN - 08/04/2018 10:21 AM CDT [facility] fax to [facility] With face sheet. Telephone Encounter - Carla Cooper MA - 08/03/2018 3:55 PM CDT Noted. Telephone Encounter - Thao Lovell - 08/03/2018 3:46 PM CDT The patient called to let Bryce know that she was able to get in today at 4:00 pm at [facility]. Nothing more needs to be done unless Bryce needs something on her end. documented in this encounter Plan of Treatment Not on filedocumented as of this encounter Visit Diagnoses Not on filedocumented in this encounter Care Teams Marketing Producer Relationship Specialty Start Date End Date Brandie Thompson APRN, PROOFER APPRENTICE PCP - General Family Medicine 07/21/18 06/26/[address] [place] [address] documented as of this encounter
--- OUTSIDE RECORDS SUMMARY | 2022-07-29 14:53 | XMS_ITS | Encounter Summary ---
:1950 Author Organization [facility] Address [address] [place] [address] Care Team Providers Name Role Phone Brandie Thompson NET DEVELOPER CONTRACT, STREETCAR REPAIRER Primary Care Provider [phone] Reason for Visit Reason Onset Date Comments Referral 11/30/2018 Encounter Details Date Type Department Care Team Description 11/30/2018 Telephone [place] Brandie Thompson, Referral [address] NET DEVELOPER CONTRACT, STREETCAR REPAIRER [place], [place] [address] [address] [facility] [address] [phone] [place], [place] [address] Social History Tobacco Use [...] PM CST Face sheet added and faxed. NICS SAFETY INSPECTOR Telephone Encounter - Carla Cooper MA - 12/01/2018 8:06 AM CST Please add face sheet and fax information to Dr. Linh Devries at [phone]. NICS SAFETY INSPECTOR Telephone Encounter - Brandie Thompson APRN, SAI - 11/30/2018 8:24 PM AVIONICS SAFETY INSPECTOR Yes, please fax my last dictation. Thank, Bryce NICS SAFETY INSPECTOR Telephone Encounter - Carla Cooper MA - 11/30/2018 2:55 PM CST Would you like any visit notes faxed as well? NICS SAFETY INSPECTOR Telephone Encounter - Brandie Thompson APRN, SAI - 11/30/2018 2:49 PM AVIONICS SAFETY INSPECTOR Please fax the information the patient requested. The ultrasound report should be in the media section. Thanks, Bryce NICS SAFETY INSPECTOR Telephone Encounter - aCrla Cooper MA - 11/30/2018 2:19 PM CST Spoke with patient who made an appt at the [facility] in [place] on January 04 at 1245.She needs us to fax the pelvic ultrasound and whatever else you think she needs to Dr. Linh Devries. Fax number is [phone]. Patient also is waiting to make the colonoscopy appt as she would like to take care of one thing at a time NICS SAFETY INSPECTOR Telephone Encounter - Sarah Lindsey - 11/30/2018 1:34 PM CST Patient would like to speak to a nurse regarding referral to [facility] in [place]. NICS SAFETY INSPECTOR documented in this encounter Plan of Treatment Not on filedocumented as of this encounter Visit Diagnoses Not on filedocumented in this encounter Care Teams Hot Molder Relationship Specialty Start Date End Date Brandie Thompson APRN, STREETCAR REPAIRER PCP - General Family Medicine 07/21/18 06/26/[address] [place] [id number] documented as of this encounter
--- OUTSIDE RECORDS SUMMARY | 2022-07-29 14:53 | XMS_ITS | Encounter Summary ---
:1950 Author Organization [facility] Address [address] [place] [address] Care Team Providers Name Role Phone Brandie Thompson APRN, SALESPERSON BOOKS Primary Care Provider [phone] Encounter Details Date Type Department Care Team Description 08/03/2018 Lab Patricia Malloy Osteopenia after menopause; [address] Palpitations; [place], [place] [address] Fatigue, unspecified type; [phone] Screening, lipi d Social History Tobacco Use [...] More than 4 times per year 12/13/2019 episcopal services? Do you belong to any clubs [...] Free T4 1.22 0.78 - 2.19 08/04/2018 [facility] ng/dL 3:29 PM CDT [facility] Comment: [...] CDT 12:59 PM CDT Brandie Thompson APRN, SALESPERSON BOOKS LAB BLOOD ORDERABLES Performing Organization Address City/State/ZIP Code Phon e Number [facility] [address] [place] [address] (ABNORMAL) Thyroid Function [place] (08/03/2018 2:42 PM CDT) Analysis Performed At Patho logist Time Signature TSH, Sensitive 0.41 (L) 0.46 - 08/04/2018 [place] 4.68 mIU/L 2:51 PM [facility] [...] Organization Address City/State/ZIP Code Phon e Number [facility] [address] [place] [address] (ABNORMAL) Lipid panel (08/03/2018 2:42 PM CDT) athologist Signature Cholesterol 214 (A) 0 - 199 08/04/2018 [facility] mg/dL 1:17 PM [facility] Comment: Recommended by National Cholesterol Education Program (ATP III) -------- Cholesterol Ranges -------- <200 ? Desirable 200-239 ? Borderline high >=240 ? High Triglycerides 48 0 - 149 mg/dL 08/04/2018 1:17 PM CDT [facility] Comment: -------- TRIG Ranges -------- <150 ?Normal 150-199 ? Borderline high 200-499 ? High >=500 ? Very high HDL 82 40 - 60 mg/dL 08/04/2018 1:17 PM CDT [facility] Comment: -------- HDL Ranges -------- <40 ?Low 40-59 ?Normal >=60 ? Optimal LDL Calculated 122 (A) 0 - 99 mg/dL 08/04/2018 1:17 PM CDT [facility] Comment: -------- LDL Ranges -------- <100 ? Optimal 100-129 ?Near optimal/above op timal 130-159 ?Borderline high 160-189 ?High >=190 ?Very high Fasting? Yes 08/03/2018 2:47 PM CDT [facility] Specimen Anatomical Collection Method Collection Time Receive d Time (Source) Location / / Volume Laterality Blood (Blood, 08/03/2018 2:42 PM 08/04/20 18 Venous) CDT 12:46 PM CDT Brandie Thompson APRN SALESPERSON BOOKS LAB BLOOD ORDERABLES Performing Organization Address City/State/ZIP Code Phon e Number [facility] [address] [place] [address] (ABNORMAL) CBC Branch Off w/Diff (08/03/2018 2:42 PM CDT) [facility] gist Method Time Signature WBC 6.5 3.5 - 10.5 08/03/2018 [facility] K/uL 2:51 PM CDT [place] RBC [...] [place] Lymphocytes % 18.8 18.0 - 08/03/2018 [facility] 45.0 % 2:51 PM CDT [place] Mid-size Cells 7.2 3.3 - 10.1 08/03/2018 [facility] [place] % 2:51 PM CDT [place] Granulocytes/Brown 74.0 (H) 45.8 - 08/03/2018 [facility] [place] trophils 73.7 % 2:51 PM CDT [place] Lymphocytes 1.2 0.9 - 2.9 08/03/2018 [facility] Absolute K/uL 2:51 PM CDT [place] MIDS Absolute 0.5 0.2 - 0.8 08/03/2018 [facility] K/uL 2:51 PM CDT [place] Granulocytes/Brown 4.8 2.1 - 8.7 08/03/2018 [facility] trophils K/uL 2:51 PM CDT [place] Absolute Specimen Anatomical Collection Method Collection Time Receive d Time (Source) Location / / Volume Laterality Blood (Blood, 08/03/2018 2:42 PM 08/03/20 18 2:42 Venous) CDT PM CDT Brandie Thompson APRN, SALESPERSON BOOKS LAB BLOOD ORDERABLES Performing Organization Address City/State/ZIP Code Phon e Number [facility] PATRICIA MALLOY [address] [place] [address] Vitamin D, Total (08/03/2018 2:42 PM CDT) athologist Signature Vitamin D, 71.3 ng/mL 08/04/2018 [facility] Total 2:18 PM CDT CENTER [...] Organization Address City/State/ZIP Code Phon e Number [facility] [address] [place] [address] documented in this encounter Visit Diagnoses Diagnosis Osteopenia after menopause Palpitations Fatigue, unspecified type Screening, lipid documented in this encounter Care Teams Cellars Supervisor Relationship Specialty Start Date End Date Brandie Thompson APRN, SAI PCP - General Family Medicine 07/21/18 06/26/[address] [place] [address] documented as of this encounter
--- OUTSIDE RECORDS SUMMARY | 2022-07-29 14:53 | XMS_ITS | Encounter Summary ---
:[address] [facility] Address [address] [place] [address] Care Team Providers Name Role Phone Brandie Thompson APRN, CNP Primary Care Provider [phone] Reason for Referral Consultation (Routine) - Closed Specialty Diagnoses / Procedures Referred By Contact Refer red To Contact Diagnoses Encounter for screening colonoscopy Brandie Thompson, [facility] [address] [place] [address] [place] [address] Phone: Fax: Referral ID Status Reason Start Date Expiration Date Visits Requ ested Visits Authorized [id number] Closed 11/23/2018 11/23/2019 1 1 EL MECHANIC APPRENTICE Encounter Details Date Type Department Care Team Description 11/23/2018 Orders Only [place] Brandie Thompson, Encounter for [address] SAI OCONNELL screening colonoscopy [place], [place] [address] (Primary Dx) [address] [place] [address] Social History Tobacco Use Types Packs/Day Years [...] or relatives? How often do you attend scientology or More than 4 times per year 12/13/2019 mormon services? Do you belong to any clubs or Not asked organizations such as scientology groups, unions, fraternal or athletic groups, or [...] ANG form completed for a screening colonoscopy. EL MECHANIC APPRENTICE documented in this encounter Plan of Treatment Scheduled Referrals Name Type Priority Associated Diagnoses Order S chedule Ambulatory External Outpatient Referral Routine Encounter for Ordered: Referral screening 11/23/2018 colonoscopy documented as of this encounter Visit Diagnoses Diagnosis Encounter for screening colonoscopy - Pr imary documented in this encounter Care Teams Milk Pickup Truck Driver Relationship Specialty Start Date End Date Brandie Thompson APRN, FINAL ASSEMBLY AND PACKING SUPERVISOR PCP - General Family Medicine 07/21/18 06/26/20 [address] [place] [address] documented as of this encounter
--- OUTSIDE RECORDS SUMMARY | 2022-07-29 14:53 | XMS_ITS | Encounter Summary ---
:[address] [facility] Address [address] [place] [address] Care Team Providers Name Role Phone Brandie Thompson APRN, PROPERTY STAFF ACCOUNTANT Primary Care Provider [phone] Reason for Visit Reason Comments Blood in Urine Rectal Bleeding Encounter Details Date Type Department Care Team Description 11/09/2018 Office Visit Patricia Malloy Brandie Thompson Bleeding from unknown site ( Primary Dx); [address] M, SAI OCONNELL External hemorrhoid; [place], [place] [address] Screening for deficiency anemia; [address] [place] [address] Nocturia; [phone] Vaginal atrophy Social History Tobacco Use Types [...] More than 4 times per year 12/13/2019 mosque services? Do you belong to any clubs [...] Comments Blood Pressure 142/70 11/09/2018 1:52 PM LATIN AMERICAN STUDIES PROFESSOR Pulse 66 11/09/2018 1:52 PM LATIN AMERICAN STUDIES PROFESSOR Temperature 36.5 ??C (97.7 ??F) 11/09/2018 1:52 PM LATIN AMERICAN STUDIES PROFESSOR Respiratory Rate 16 11/09/2018 1:52 PM LATIN AMERICAN STUDIES PROFESSOR Oxygen Saturation 97% 11/09/2018 1:52 PM LATIN AMERICAN STUDIES PROFESSOR Inhaled Oxygen Concentration - - Weight 60 kg (132 lb 4.4 oz) 11/09/2018 1:52 PM LATIN AMERICAN STUDIES PROFESSOR Height 163 cm (5' 4.17) 11/09/2018 1:52 PM LATIN AMERICAN STUDIES PROFESSOR Body Mass Index 22.58 11/09/2018 1:52 PM LATIN AMERICAN STUDIES PROFESSOR documented in this encounter Patient Instructions Patient InstructionsChhoma Thompson APRN, CNP - 11/09/2018 2:00 PM LATIN AMERICAN STUDIES PROFESSOR Will call with the lab results N AMERICAN STUDIES PROFESSOR documented in this encounter Progress Notes Brandie [...] gained weight, as she works at the [employer] now. The patient has not had colon [...] frequency, urgency, increased urinary incontinence, and/or dysuria. FOOD SAFETY SCIENTIST: 2, para 2. The patient's last menstrual [...] agrees and understands Brandie Thompson APRN, SAI N AMERICAN STUDIES PROFESSOR documented in this encounter Plan of Treatment Not on filedocumented as of this encounter Results Urine culture (clean catch) (11/09/2018 2:46 PM LATIN AMERICAN STUDIES PROFESSOR) [facility] Method Time Signature Urine Culture No Growth 11/10/2018 [place] 12:32 PM [facility] Specimen Anatomical Collection Method Collection Time Receive d Time (Source) Location / / Volume Laterality Urine, Clean 11/09/2018 2:46 PM 9 Catch LATIN AMERICAN STUDIES PROFESSOR 12:30 PM LATIN AMERICAN STUDIES PROFESSOR Narrative [facility] - 10/21 12:33 PM LATIN AMERICAN STUDIES PROFESSOR Patient does not have an Amoxicillin or PCN allergy Brandie Thompson APRN, PROPERTY STAFF ACCOUNTANT LAB MICROBIOLOGY - GENERA L ORDERABLES Performing Organization Address City/State/ZIP Code Phon e Number [facility] [address] [place] [id number] Urinalysis with reflex microscopic (clean catch) (11/09/2018 2:46 PM LATIN AMERICAN STUDIES PROFESSOR) [facility] Method Time Signature Type CLEAN CATCH 11/09/2018 [facility] 2:57 PM LATIN AMERICAN STUDIES PROFESSOR [place] Color, Urine YELLOW YELLOW 11/09/2018 [facility] 2:57 PM LATIN AMERICAN STUDIES PROFESSOR [place] Clarity, CLEAR CLEAR 11/09/2018 [facility] Urine 2:57 PM LATIN AMERICAN STUDIES PROFESSOR [place] Glucose, NEGATIVE NEGATIVE 11/09/2018 [facility] Urine mg/dL 2:57 PM LATIN AMERICAN STUDIES PROFESSOR [place] Bilirubin, NEGATIVE NEGATIVE 11/09/2018 [facility] Urine 2:57 PM LATIN AMERICAN STUDIES PROFESSOR [place] Ketones, NEGATIVE NEGATIVE 11/09/2018 [facility] Urine mg/dL 2:57 PM LATIN AMERICAN STUDIES PROFESSOR [place] Specific 1.025 1.000 11/09/2018 [facility] [place], ->=1.030 2:57 PM LATIN AMERICAN STUDIES PROFESSOR [place] Urine Blood, Urine NEGATIVE NEGATIVE 11/09/2018 [facility] 2:57 PM LATIN AMERICAN STUDIES PROFESSOR [place] pH, Urine 7.0 5.0 - 7.0 11/09/2018 [facility] 2:57 PM LATIN AMERICAN STUDIES PROFESSOR [place] Protein, NEGATIVE NEGATIVE-TRA 11/09/2018 [facility] Urine CE mg/dL 2:57 PM LATIN AMERICAN STUDIES PROFESSOR [place] Urobilinogen, 0.2 0.2 - 1.0 11/09/2018 [facility] Urine E.U./dL 2:57 PM LATIN AMERICAN STUDIES PROFESSOR [place] Nitrite, NEGATIVE NEGATIVE 11/09/2018 [facility] Urine 2:57 PM LATIN AMERICAN STUDIES PROFESSOR [place] Leukocytes, NEGATIVE NEGATIVE 11/09/2018 [facility] Urine 2:57 PM LATIN AMERICAN STUDIES PROFESSOR [place] Specimen Anatomical Collection Method Collection Time Receive d Time (Source) Location / / Volume Laterality Urine (Urine, 11/09/2018 2:46 PM 11/09/19 19 2:49 Clean Catch) LATIN AMERICAN STUDIES PROFESSOR PM LATIN AMERICAN STUDIES PROFESSOR Brandie Thompson APRN, PROPERTY STAFF ACCOUNTANT LAB URINE ORDERABLES Performing Organization Address City/State/ZIP Code Phon e Number [facility] [place] [place] [address] [place] [address] (ABNORMAL) Basic metabolic panel (11/09/2018 2:35 PM LATIN AMERICAN STUDIES PROFESSOR) P athologist Signature Sodium 142 135 - 145 11/09/2018 [facility] mmol/L 2:57 PM LATIN AMERICAN STUDIES PROFESSOR [place] Potassium 4.1 3.5 - 5.1 11/09/2018 [facility] mmol/L 2:57 PM LATIN AMERICAN STUDIES PROFESSOR [place] Comment: . Chloride 106 98 - 107 mmol/L 11/09/2018 2:57 PM LATIN AMERICAN STUDIES PROFESSOR [facility] [place] Comment: . CO2 30 (H) 22 - 29 mmol/L 11/09/2018 2:57 PM LATIN AMERICAN STUDIES PROFESSOR [facility] [place] Comment: . Creatinine 0.5 0.4 - 1.2 mg/dL 11/09/2018 2:57 PM LATIN AMERICAN STUDIES PROFESSOR C [place] Comment: . BUN 16 5 - 25 mg/dL 11/09/2018 2:57 PM LATIN AMERICAN STUDIES PROFESSOR C [place] Comment: . Glucose 99 70 - 100 mg/dL 11/09/2018 2:57 PM [facility] [place] LATIN AMERICAN STUDIES PROFESSOR Calcium, Total,S 10.3 (H) 8.4 - 10.2 mg/dL 11/09/2018 2:57 PM [facility] [place] LATIN AMERICAN STUDIES PROFESSOR Comment: . Fasting? No 11/09/2018 2:40 PM LATIN AMERICAN STUDIES PROFESSOR [facility] [place] Specimen Anatomical Collection Method Collection Time Receive d Time (Source) Location / / Volume Laterality Blood (Blood, 11/09/2018 2:35 PM 11/09/19 19 2:40 Venous) LATIN AMERICAN STUDIES PROFESSOR PM LATIN AMERICAN STUDIES PROFESSOR Brandie Thompson APRN, PROPERTY STAFF ACCOUNTANT LAB BLOOD ORDERABLES Performing Organization Address City/State/ZIP Code Phon e Number [facility] [place] [address] [place] [address] CBC Branch Off w/Diff (11/09/2018 2:35 PM LATIN AMERICAN STUDIES PROFESSOR) P athologist Signature WBC 6.7 3.5 - 10.5 11/09/2018 [facility] K/uL 2:50 PM LATIN AMERICAN STUDIES PROFESSOR [place] RBC 4.68 3.90 - 11/09/2018 [facility] 5.00 M/uL 2:50 PM LATIN AMERICAN STUDIES PROFESSOR [place] Hemoglobin 13.9 12.0 - 11/09/2018 [facility] [place] 15.5 g/dL 2:50 PM LATIN AMERICAN STUDIES PROFESSOR [place] Hematocrit 42.7 35.0 - 11/09/2018 [facility] [place] 44.0 % 2:50 PM LATIN AMERICAN STUDIES PROFESSOR [place] Platelets 220 150 - 450 11/09/2018 [facility] K/uL 2:50 PM LATIN AMERICAN STUDIES PROFESSOR [place] MCV 91.2 81.6 - 11/09/2018 [facility] [place] 98.3 fL 2:50 PM LATIN AMERICAN STUDIES PROFESSOR [place] MCH 29.7 26.0 - 11/09/2018 [facility] [place] 32.0 pg 2:50 PM LATIN AMERICAN STUDIES PROFESSOR [place] MCHC 32.6 32.0 - 11/09/2018 [facility] [place] 36.0 g/dL 2:50 PM LATIN AMERICAN STUDIES PROFESSOR [place] RDW 13.1 11.9 - 11/09/2018 [facility] 15.5 % 2:50 PM LATIN AMERICAN STUDIES PROFESSOR [place] Lymphocytes % 25.2 18.0 - 11/09/2018 [facility] [place] 45.0 % 2:50 PM LATIN AMERICAN STUDIES PROFESSOR [place] Mid-size Cells 8.2 3.3 - 10.1 11/09/2018 [facility] % 2:50 PM LATIN AMERICAN STUDIES PROFESSOR [place] Granulocytes/Brown 66.6 45.8 - 11/09/2018 [facility] trophils 73.7 % 2:50 PM LATIN AMERICAN STUDIES PROFESSOR [place] Lymphocytes 1.7 0.9 - 2.9 11/09/2018 [facility] Absolute K/uL 2:50 PM LATIN AMERICAN STUDIES PROFESSOR [place] MIDS Absolute 0.5 0.2 - 0.8 11/09/2018 [facility] K/uL 2:50 PM LATIN AMERICAN STUDIES PROFESSOR [place] Granulocytes/Brown 4.5 2.1 - 8.7 11/09/2018 [facility] trophils K/uL 2:50 PM LATIN AMERICAN STUDIES PROFESSOR [place] Absolute Specimen Anatomical Collection Method Collection Time Receive d Time (Source) Location / / Volume Laterality Blood (Blood, 11/09/2018 2:35 PM 11/09/19 19 2:40 Venous) LATIN AMERICAN STUDIES PROFESSOR PM LATIN AMERICAN STUDIES PROFESSOR Brandie Thompson APRN, PROPERTY STAFF ACCOUNTANT LAB BLOOD ORDERABLES Performing Organization Address City/State/ZIP Code Phon e Number [facility] [place] [address] [place] [address] documented in this encounter Visit Diagnoses Diagnosis [...] Nocturia documented in this encounter Care Teams Reducer Relationship Specialty Start Date End Date Brandie Thompson, SHEET METAL SHOP FOREMAN, PROPERTY STAFF ACCOUNTANT PCP - General Family Medicine 07/21/18 06/26/20 [address] [facility] [place] [address] documented as of this encounter
--- OUTSIDE RECORDS SUMMARY | 2022-07-29 14:53 | XMS_ITS | Encounter Summary ---
:1950 Author Organization [facility] Address [address] [place] [address] Care Team Providers Name Role Phone Brandie Thompson CHIEF CLINICAL DIETITIAN, COMPUTING CONSULTANT Primary Care Provider [phone] Reason for Visit Reason Onset Date Comments Referral 11/23/2018 Encounter Details Date Type Department Care Team Description 11/23/2018 Telephone [place] Brandie Thompson, Referral [address] CHIEF CLINICAL DIETITIAN, COMPUTING CONSULTANT [place], [place] [address] [address] [phone] [place], [place] [address] Social History Tobacco Use [...] or relatives? How often do you attend scientologist or More than 4 times per year 12/13/2019 mosque services? Do you belong to any clubs or Not asked organizations such as scientologist groups, unions, fraternal or athletic groups, or [...] - 11/23/2018 1:46 PM CST Referral faxed. VARNISHER Telephone Encounter - aCrla Cooper MA - 11/23/2018 1:05 PM CST Please add face sheet and fax to [facility] and let patient know this has been done. VARNISHER Telephone Encounter - Brandie Thompson APRN, SAI - 11/23/2018 1:01 PM HEEL VARNISHER This has been completed, please fax. Thanks, Bryce VARNISHER Telephone Encounter - Sarah Lindsey - 11/23/2018 12:39 PM CST Patient would like a referral to [facility] BO[facility] Dr. Linh Mojica at [facility]. VARNISHER documented in this encounter Plan of Treatment Not on filedocumented as of this encounter Visit Diagnoses Not on filedocumented in this encounter Care Teams Senior Living Sales Counselor Relationship Specialty Start Date End Date Brandie Thompson APRN, COMPUTING CONSULTANT PCP - General Family Medicine 07/21/18 06/26/[address] [place] [address] [facility] [place] [address] documented as of this encounter
== END 2022-07-29 14:45 | disposition home or self-care (01) ==
PROVIDERS: PCP Nurse Practitioner Family; Visit Provider Nurse Practitioner Family
DX: R00.2 Palpitations (principal); I48.0 Paroxysmal atrial fibrillation; R53.83 Other fatigue; I45.10 Unspecified right bundle-branch block
CPT/HCPCS: 93306

== ENCOUNTER 2022-08-22 13:58 | Outpatient (CLI) | payer MEDICARE, BC, SELFPAY ==
--- OUTSIDE RECORDS SUMMARY | 2022-08-22 14:09 | XMS_ITS | Encounter Summary ---
:1950 Author Organization [facility] Address [address] [place] [address] Care Team Providers Name Role Phone Brandie Thompson APRN, PILOT MANAGER Primary Care Provider [phone] Encounter Details Date Type Department Care Team Description 12/13/2019 Lab [place] Screening, lipid; [address] Screening for diabetes elma kapadia; [place], [place] [address] Other fatigue [phone] Social History Tobacco Use Types Packs/Day Years [...] or relatives? How often do you attend mandaeism or More than 4 times per year 12/13/2019 spiritism services? Do you belong to any clubs or Not asked organizations such as mandaeism groups, unions, fraternal or athletic groups, or [...] Screening for Results for this FILTRATION RATE EXTENSION SUPERVISOR diabetes mellitus procedu re are in the results section. THYROID FUNCTION Routine 12/13/2019 12:18 PM Other fatigue Res ults for this CASCADE EXTENSION SUPERVISOR procedure are i n the results section. CBC BRANCH OFFICE Routine 12/13/2019 12:18 PM Other fatigue Re sults for this W/DIFF EXTENSION SUPERVISOR procedure are i n the results section. LIPID PANEL Routine 12/13/2019 12:18 PM Screening, lipid Resu lts for this EXTENSION SUPERVISOR procedure are i n the results section. BASIC METABOLIC Routine 12/13/2019 12:18 PM Screening for Resu lts for this PANEL EXTENSION SUPERVISOR diabetes mellitus procedure are in the results section. documented in this encounter Results Glomerular filtration rate (GFR) (12/13/2019 12:18 PM EXTENSION SUPERVISOR) athologist Signature GFR >60 12/14/2019 [facility] 1:19 PM EXTENSION SUPERVISOR CENTER LABORATORY >60 12/14/2019 [facility] [place] GFR 1:19 PM EXTENSION SUPERVISOR CENTER [facility] Comment: GFR calculated from serum creatinine v alue Chronic Kidney Disease less than 60 mL/m in/1.73 m2 Kidney Failure less than 15 mL/min/1.73 m2 Note: effective 03/04/07 IDMS-Traceable MDRD Study Equation used. Specimen Anatomical Collection Method Collection Time Receive d Time (Source) Location / / Volume Laterality 12/13/2019 12:18 12/13/2019 PM EXTENSION SUPERVISOR 12:18 PM EXTENSION SUPERVISOR Brandie Thompson APRN, PILOT MANAGER LAB BLOOD ORDERABLES Performing Organization Address City/State/ZIP Code Phon e Number [facility] [address] [place] [phone] (ABNORMAL) CBC Branch Off w/Diff (12/13/2019 12:18 PM EXTENSION SUPERVISOR) Patholo gist Method Time Signature WBC 5.5 3.5 - 10.5 12/13/2019 [facility] K/uL 1:06 PM EXTENSION SUPERVISOR [place] RBC 5.06 (H) 3.90 - 12/13/2019 [facility] 5.00 M/uL 1:06 PM EXTENSION SUPERVISOR [place] Hemoglobin 14.9 12.0 - 12/13/2019 [facility] 15.5 g/dL 1:06 PM EXTENSION SUPERVISOR [place] Hematocrit 46.2 (H) 35.0 - 12/13/2019 [facility] 44.0 % 1:06 PM EXTENSION SUPERVISOR [place] Platelets 221 150 - 450 12/13/2019 [facility] K/uL 1:06 PM EXTENSION SUPERVISOR [place] MCV 91.3 81.6 - 12/13/2019 [facility] 98.3 fL 1:06 PM EXTENSION SUPERVISOR [place] MCH 29.4 26.0 - 12/13/2019 [facility] 32.0 pg 1:06 PM EXTENSION SUPERVISOR [place] MCHC 32.3 32.0 - 12/13/2019 [facility] 36.0 g/dL 1:06 PM EXTENSION SUPERVISOR [place] RDW 12.8 11.9 - 12/13/2019 [facility] 15.5 % 1:06 PM EXTENSION SUPERVISOR [place] Lymphocytes % 23.7 18.0 - 12/13/2019 [facility] 45.0 % 1:06 PM EXTENSION SUPERVISOR [place] Mid-size Cells 10.4 (H) 3.3 - 10.1 12/13/2019 [facility] % 1:06 PM EXTENSION SUPERVISOR [place] Granulocytes/Brown 65.9 45.8 - 12/13/2019 [facility] trophils 73.7 % 1:06 PM EXTENSION SUPERVISOR [place] Lymphocytes 1.3 0.9 - 2.9 12/13/2019 [facility] Absolute K/uL 1:06 PM EXTENSION SUPERVISOR [place] MIDS Absolute 0.6 0.2 - 0.8 12/13/2019 [facility] K/uL 1:06 PM EXTENSION SUPERVISOR [place] Granulocytes/Brown 3.6 2.1 - 8.7 12/13/2019 [facility] trophils K/uL 1:06 PM EXTENSION SUPERVISOR [place] Absolute Specimen Anatomical Collection Method Collection Time Receive d Time (Source) Location / / Volume Laterality Blood 12/13/2019 12:18 12/13/2019 PM EXTENSION SUPERVISOR 12:18 PM EXTENSION SUPERVISOR Brandie Thompson APRN, PILOT MANAGER LAB BLOOD ORDERABLES Performing Organization Address City/State/ZIP Code Phon e Number [facility] [place] [address] [place] [address] Thyroid Function [place] (12/13/2019 12:18 PM EXTENSION SUPERVISOR) P athologist Signature TSH, Sensitive 1.26 0.46 - 12/14/2019 [facility] 4.68 mIU/L 2:12 PM EXTENSION SUPERVISOR CENTER [facility] Comment: The results from this [...] Blood (Blood, 12/13/2019 12:18 12/14/2019 Venous) PM EXTENSION SUPERVISOR 12:39 PM EXTENSION SUPERVISOR Brandie Thompson APRN, CNP LAB BLOOD ORDERABLES Performing Organization Address [facility] Phon e Number [facility] [address] [place] [phone] (ABNORMAL) Basic metabolic panel (12/13/2019 12:18 PM EXTENSION SUPERVISOR) [facility] gist Method Time Signature Sodium 139 135 - 145 12/14/2019 [facility] mEq/L 1:19 PM [facility] Potassium 4.1 3.5 - 5.1 12/14/2019 [facility] mEq/L 1:19 PM [facility] Chloride 103 98 - 107 12/14/2019 [facility] mEq/L 1:19 PM [facility] CO2 29 22 - 29 12/14/2019 [facility] mmol/L 1:19 PM [facility] Creatinine 0.9 0.4 - 1.2 12/14/2019 [facility] mg/dL 1:19 PM [facility] BUN 16 5 - 25 12/14/2019 [facility] mg/dL 1:19 PM [facility] Glucose 101 (H) 70 - 100 12/14/2019 [facility] mg/dL 1:19 PM [facility] Calcium, 10.3 (H) 8.4 - 10.2 12/14/2019 [facility] Total,S mg/dL 1:19 PM [facility] Specimen Anatomical Collection Method Collection Time Receive d Time (Source) Location / / Volume Laterality Blood (Blood, 12/13/2019 12:18 12/14/2019 Venous) PM EXTENSION SUPERVISOR 12:25 PM EXTENSION SUPERVISOR Brandie Thompson APRN, CNP LAB BLOOD ORDERABLES Performing Organization Address City/[facility]/ZIP Code Phon e Number [facility] [address] [place] [address] (ABNORMAL) Lipid panel (12/13/2019 12:18 PM EXTENSION SUPERVISOR) athologist Signature Cholesterol 209 (A) 0 - 199 12/14/2019 [facility] mg/dL 1:19 PM [facility] Comment: Recommended by National Cholesterol Education Program (ATP III) -------- Cholesterol Ranges -------- <200 ? Desirable 200-239 ? Borderline high >=240 ? High Triglycerides 60 0 - 149 mg/dL 12/14/2019 1:19 PM [facility] Comment: -------- TRIG Ranges -------- <150 ?Normal 150-199 ? Borderline high 200-499 ? High >=500 ? Very high HDL 83 40 - 60 mg/dL 12/14/2019 1:19 PM [facility] Comment: -------- HDL Ranges -------- <40 ?Low 40-59 ?Normal >=60 ? Optimal LDL Calculated 114 (A) 0 - 99 mg/dL 12/14/2019 1:19 PM [facility] Comment: -------- LDL Ranges -------- <100 ? Optimal 100-129 ?Near optimal/above op timal 130-159 ?Borderline high 160-189 ?High >=190 ?Very high Fasting? Yes 12/13/2019 12:21 PM [facility] Specimen Anatomical Collection Method Collection Time Receive d Time (Source) Location / / Volume Laterality Blood 12/13/2019 12:18 12/14/2019 PM EXTENSION SUPERVISOR 12:25 PM EXTENSION SUPERVISOR Brandie Thompson APRN, CNP LAB BLOOD ORDERABLES Performing Organization Address City/State/ZIP Code Phon e Number [facility] [address] [place] [address] documented in this encounter Visit Diagnoses Diagnosis Screening, lipid Screening for diabetes mellitus Other fatigue documented in this encounter Care Teams Directional Driller Relationship Specialty Start Date End Date Brandie Thompson APRN, CNP PCP - General Family Medicine 07/21/18 06/26/[address] [place] [id number] documented as of this encounter
--- OUTSIDE RECORDS SUMMARY | 2022-08-22 14:09 | XMS_ITS | Encounter Summary ---
:1950 Author Organization [facility] Address [address] [place] [address] Care Team Providers Name Role Phone Archie Colindres MD Primary Care Provider Reason for Referral Consultation (Routine) - Closed Specialty Diagnoses / Procedures Referred By Contact Refer red To Contact Diagnoses Osteopenia of multiple sites Archie Colindres MD [place] [id number] [place] [phone] [place] [address] Phone: Fax: Referral ID Status Reason Start Date Expiration Date Visits Requ ested Visits Authorized [id number] Closed 07/02/2021 07/02/2022 1 1 Consultation (Routine) - Closed Specialty Diagnoses / Procedures Referred By Contact Refer red To Contact Radiology Diagnoses Encounter for screening mammogram for malignant neoplasm of breast Archie Colindres MD [facility] [address] [place] [phone] [place] [address] Phone: Fax: Referral ID Status Reason Start Date Expiration Date Visits Requ ested Visits Authorized [id number] Closed 07/02/2021 07/02/2022 1 1 Reason for Visit Reason Comments Annual Exam Encounter Details Date Type Department Care Team Description 07/02/2021 Office Visit Archie Parra, Annual physical exam (Primar y Dx); [address] Insomnia, unspecified type; [place] [address] [place] Osteopenia of multiple sites; [address] [address] [facility] Encounter for screening mamm ogram for malignant neoplasm of breast; [phone] Elevated fasting glucose; [phone] Serum calcium e levated; (Work) Cough Social [...] or relatives? How often do you attend anglican or More than 4 times per year 12/13/2019 denominational services? Do you belong to any clubs or Not asked organizations such as anglican groups, unions, fraternal or athletic groups, or [...] if would like referral to Cardiology in [place]. documented in this encounter Progress Notes Archie Colindres MD - 07/02/2021 11:00 AM CDT Subjective Patient ID: Nuria Simmons is a 71 y.o. female. Chief Complaint Patient presents with ??? Annual Exam HPI Patient here for annual wellness exam. No new updates to her health over the past year. Patient works at the [employer] here in [employer]. She gets a good amount of activity [...] but stopped taking that. She had a [id number] of 2 at that time and was [...] Annual physical exam Lipid panel Thyroid Function [place] 2. Insomnia, unspecified type traZODone (DESYREL) 150 [...] if would like referral to Cardiology in [place]. Return in about 1 year (around 07/02/2022) [...] athologist Signature Vitamin D, 82.0 ng/mL 07/03/2021 [facility] 2:34 PM CDT CENTER LABORATORY [...] Organization Address City/State/ZIP Code Phon e Number [facility] [address] [place] [address] (ABNORMAL) Hemoglobin A1c (07/02/2021 12:29 PM CDT) Analysis Performed At Patho logist Time Signature Hemoglobin A1C 5.9 (H) 4.0 - 5.6 07/03/2021 [place] % A1C 2:49 PM T [facility] Comment: Reference Range 4.0-5.6% is [...] Organization Address City/State/ZIP Code Phon e Number [facility] [address] [place] [address] (ABNORMAL) Comprehensive metabolic panel (07/02/2021 12:29 PM CDT) [facility] Method Time Signature Total Protein 7.4 6.3 - 8.2 07/03/2021 [facility] g/dL 2:34 PM [facility] Albumin, Serum 4.4 3.5 - 5.0 07/03/2021 [facility] g/dL 2:34 PM [facility] Total Bilirubin 1.2 (H) 0.1 - 1.0 07/03/2021 [facility] mg/dL 2:34 PM [facility] AST 37 8 - 43 U/L 07/03/2021 [facility] 2:34 PM [facility] Alkaline 84 38 - 128 07/03/2021 [facility] Phosphatase U/L 2:34 PM [facility] ALT (SGPT) 46 (H) 0 - 34 U/L 07/03/2021 [facility] 2:34 PM [facility] Sodium 140 135 - 145 07/03/2021 [facility] mEq/L 2:34 PM [facility] Potassium 4.2 3.5 - 5.1 07/03/2021 [facility] mEq/L 2:34 PM [facility] Chloride 105 98 - 107 07/03/2021 [facility] mEq/L 2:34 PM [facility] CO2 24 22 - 29 07/03/2021 [facility] mmol/L 2:34 PM [facility] BUN 17 5 - 25 07/03/2021 [facility] mg/dL 2:34 PM [facility] Creatinine 0.7 0.4 - 1.2 07/03/2021 [facility] mg/dL 2:34 PM [facility] Glucose 99 70 - 100 07/03/2021 [facility] mg/dL 2:34 PM [facility] Calcium, Total,S 10.0 8.4 - 10.2 07/03/2021 [facility] mg/dL 2:34 PM [facility] CENTER LABORATORY Fasting? Yes 07/02/2021 [facility] 12:34 PM T [facility] Specimen Anatomical Collection Method Collection Time Receive d Time (Source) Location / / Volume Laterality Blood (Blood, 07/02/2021 12:29 07/03/2021 1:06 Venous) PM CDT PM CDT Archie Colindres MD LAB BLOOD ORDERABLES Performing Organization Address [facility] [place]/[facility]/ZIP Code Phon e Number [facility] [address] [place] [phone] Magnesium (07/02/2021 12:29 PM CDT) athologist Signature Magnesium 2.2 1.6 - 2.3 07/03/2021 [facility] mg/dL 2:34 PM T CENTER [facility] Specimen Anatomical Collection Method Collection Time Receive d Time (Source) Location / / Volume Laterality Blood (Blood, 07/02/2021 12:29 07/03/2021 1:06 Venous) PM CDT PM CDT Archie Colindres MD LAB BLOOD ORDERABLES Performing Organization Address City/[facility]/[place] Code Phon e Number [facility] [address] [place] [phone] Thyroid Function [place] (07/02/2021 12:29 PM CDT) athologist Signature TSH, [...] Organization Address City/State/ZIP Code Phon e Number [facility] [address] [place] [address] (ABNORMAL) Lipid panel (07/02/2021 12:29 PM CDT) athologist Signature Cholesterol 206 (H) 0 - 199 07/03/2021 [facility] mg/dL 2:34 PM CDT CENTER LABORATORY Comment: Recommended by National Cholesterol Education Program (ATP III) -------- Cholesterol Ranges -------- <200 ?Desirable 200-239 ? Borderline high >=240 ? High Triglycerides 58 0 - 149 mg/dL 07/03/2021 2:34 PM CDT [facility] Comment: -------- TRIG Ranges -------- <150 ?Normal 150-199 ? Borderline high 200-499 ? High >=500 ? Very high HDL 79 40 - 250 mg/dL 07/03/2021 2:34 PM CDT [facility] Comment: -------- HDL Ranges -------- <40 ?Low 40-59 ?Normal >=60 ? Optimal LDL Calculated 115 (H) 0 - 99 mg/dL 07/03/2021 2:34 PM CDT [facility] Comment: -------- LDL Ranges [...] Organization Address City/State/ZIP Code Phon e Number [facility] [address] [place] [address] documented in this encounter Visit Diagnoses Diagnosis Annual physical exam - Primary Routine general medical examination at a health care facility Insomnia, unspecified type Osteopenia of multiple sites Encounter for screening mammogram for ma lignant neoplasm of breast Elevated fasting glucose Impaired fasting glucose Serum calcium elevated Hypercalcemia Cough documented in this encounter Care Teams Vp Account Director Relationship Specialty Start Date End Date Archie Colindres MD PCP - General Family Medicine 07/02/21 05/22/[address] [place] [address] documented as of this encounter
--- OUTSIDE RECORDS SUMMARY | 2022-08-22 14:09 | XMS_ITS | Encounter Summary ---
:1950 Author Organization [facility] Address [address] [place] [address] Care Team Providers Name Role Phone Archie Colindres MD Primary Care Provider Encounter Details Date Type Department Care Team Description 07/02/2021 Telephone [place] Archie Colindres MD [address] [place], [place] [address] [place], [place] [phone] (Wo rk) Social History Tobacco Use Types [...] More than 4 times per year 12/13/2019 uatsdin services? Do you belong to any clubs [...] on filedocumented in this encounter Care Teams Chain Hoist Operator Relationship Specialty Start Date End Date Archie Colindres MD PCP - General Family Medicine 07/02/21 05/22/[address] [place] [address] documented as of this encounter
--- OUTSIDE RECORDS SUMMARY | 2022-08-22 14:09 | XMS_ITS | Clinical Summary ---
:1950 Author Organization [facility] Address [address] [place] [address] Care Team Providers Name Role Phone None, Pcp Primary Care Provider Unavailable Allergies No known active allergies Medications Medication Sig Dispensed Refills Start Date End Date Status calcium Take 1 tablet by 0 Act lisa citrate-vitamin D mouth 2 (two) (CITRACAL+D) 315-200 times a day MG-UNIT per tablet [facility] MAGNESIUM CITRATE Take by mouth 0 Active PO twice a day Multiple Take by mouth 1 0 Acti ve Vitamins-Minerals (one) time each (MULTIVITAMIN ADULT day PO) ZINC GLUCONATE PO Take 1 tablet by 0 11/21/2011 Active mouth 1 (one) time each day omega-3 (FISH OIL) Take 1,200 mg by 0 Active 1000 MG capsule mouth 1 (one) time each day cholecalciferol Take 1,000 Units 0 Active (VITAMIN D-3) 1000 by mouth 1 (one) units tablet time each day Coenzyme Q10 (COQ-10) Take by mouth 1 0 Active 10 MG capsule (one) time each day LUTEIN PO Take by mouth 1 0 Acti ve (one) time each day Iodine, Kelp, (KELP Take 1 tablet by 0 Active PO) mouth 2 (two) times a day Flaxseed, Linseed, Take 1 capsule by 0 Active (FLAXSEED OIL) 1000 MG mouth 1 (one) time capsule each day B COMPLEX VITAMINS PO Take 1 tablet by 0 Active mouth 1 (one) time each day ibuprofen (ADVIL) 200 Take 200 mg by 0 Active MG tablet mouth every 6 (six) hours if needed for mild pain Take with food. UNABLE TO FIND Med Name: Tumeric, 0 Active Echinacea Gold Seal, Probiotic, Glucosamine and Hyaleronic MSN, Collagen traZODone (DESYREL) TAKE 1 TABLET 14 tablet 0 07/17/2022 Active 150 MG NIGHTLY AT BEDTIME tabletIndications: NEEDED FOR Insomnia, unspecified SLEEP type Active Problems Problem Noted Date Prediabetes 07/05/2021 Cataracts, both eyes 07/02/2021 Scoliosis 07/02/2021 Chronic low back pain 07/02/2021 Cardiomegaly 07/02/2021 Unspecified atrial fibrillation 10/09/2017 Insomnia 10/24/2014 Encounters Date Type Specialty Care Team Description 07/17/2022 Telephone Family Medicine Archie Colindres MD Med Refill 07/09/2022 Refill Family Medicine Archie Colindres MD Ins omnia, unspecified type from Last 3 Months Immunizations Name Administration [...] or PCV20) Fall Risk Performed 07/02/2022 07/02/2021 [facility] Annual Wellness 07/02/2022 07/02/2021 Mammogram 07/09/2022 07/09/2021, 12/20/2019, 12/20/2019, Additional history exists HPV Vaccines Aged Out No longer eligib le based on patient 's age to complete this topic Insurance Payer Benefit Plan / Subscriber ID Effective Dates Phone Addre ss Type Group MEDICARE MEDICARE [id number] 2015-[place] [address] [place] [address] [place] [id number] 2016-[place] [address] [address] [place], [place] MEDICARE NON [id number] ADVANTAGE Care Teams Merchandising Representative Relationship Specialty Start Date End Date None, Pcp PCP - General Salesperson Sheet Music 05/23/22 [address] [place] [address]
--- OUTSIDE RECORDS SUMMARY | 2022-08-22 14:09 | XMS_ITS | Encounter Summary ---
:1950 Author Organization [facility] Address [address] [place] [address] Care Team Providers Name Role Phone None, Pcp Primary Care Provider Unavailable Reason for Visit Reason Onset Date Comments Colonoscopy 05/20/2022 Encounter Details Date Type Department Care Team Description 05/20/2022 Telephone [place] Archie Colindres MD Colonoscopy [address] [place], [place] [address] [place], [place] [phone] (Wo rk) Social History Tobacco Use Types [...] or relatives? How often do you attend voodoo or More than 4 times per year 12/13/2019 rastafari services? Do you belong to any clubs or Not asked organizations such as voodoo groups, unions, fraternal or athletic groups, or [...] CDT Pt stated has been seeing a HOUSE SERVANT in another clinic and probably will not [...] on filedocumented in this encounter Care Teams Caustic Room Operator Relationship Specialty Start Date End Date None, Pcp PCP - General Wood Heel Cementer 05/23/[address] [place] [phone] documented as of this encounter
--- OUTSIDE RECORDS SUMMARY | 2022-08-22 14:09 | XMS_ITS | Encounter Summary ---
:1950 Author Organization [facility] Address [address] [place] [address] Care Team Providers Name Role Phone Archie Colindres MD Primary Care Provider Encounter Details Date Type Department Care Team Description 07/02/2021 Lab [place] Elevated fasting glucose; [address] [facility] [address] Serum calcium elevated; [place], [place] [address] Annual physical exam [phone] Social History Tobacco Use Types Packs/Day Years [...] or relatives? How often do you attend pentecostalism or More than 4 times per year 12/13/2019 taoist services? Do you belong to any clubs or Not asked organizations such as pentecostalism groups, unions, fraternal or athletic groups, or [...] PM CDT) athologist Signature GFR >60 07/03/2021 [facility] 2:34 PM CDT [facility] >60 07/03/2021 [facility] Russian GFR 2:34 PM CDT [facility] Comment: [...] Organization Address City/State/ZIP Code Phon e Number [facility] [address] [place] [address] (ABNORMAL) CBC auto differential (07/02/2021 12:29 PM CDT) Patholo gist Method Time Signature WBC 5.0 3.5 - 07/03/2021 [facility] 10.5 K/uL 2:20 PM CDT [facility] RBC 5.00 3.90 - 07/03/2021 [place] 5.00 M/uL 2:20 PM [facility] Hemoglobin 15.1 12.0 - 07/03/2021 [facility] 15.5 g/dL 2:20 PM [facility] Hematocrit 45.6 (H) 35.0 - 07/03/2021 [facility] 44.0 % 2:20 PM [facility] Platelets 216 150 - 450 07/03/2021 [facility] K/uL 2:20 PM [facility] MCV 91.3 81.6 - 07/03/2021 [facility] 98.3 fL 2:20 PM [facility] MCH 30.2 26.0 - 07/03/2021 [facility] 32.0 pg 2:20 PM [facility] MCHC 33.0 32.0 - 07/03/2021 [facility] 36.0 g/dL 2:20 PM [facility] RDW 11.3 (L) 11.9 - 07/03/2021 [facility] 15.5 % 2:20 PM [facility] Neutrophils 76.2 % 07/03/2021 [facility] 2:20 PM [facility] Absolute 3.8 1.7 - 7.0 07/03/2021 [facility] Neutrophils K/uL 2:20 PM [facility] Lymphocytes % 12.5 % 07/03/2021 [facility] 2:20 PM [facility] Absolute 0.6 (L) 0.9 - 2.9 07/03/2021 [facility] Lymphocytes K/uL 2:20 PM [facility] Monocytes % 8.3 % 07/03/2021 [facility] 2:20 PM [facility] Monocytes 0.4 0.3 - 0.9 07/03/2021 [facility] Absolute K/uL 2:20 PM [facility] Eosinophils 1.2 % 07/03/2021 [facility] 2:20 PM [facility] Absolute 0.1 0.1 - 0.5 07/03/2021 [facility] Eosinophils K/uL 2:20 PM [facility] Basophils 1.8 % 07/03/2021 [facility] 2:20 PM [facility] Absolute 0.1 0.0 - 0.1 07/03/2021 [facility] Basophils K/uL 2:20 PM CDT [facility] Specimen Anatomical Collection Method Collection Time Receive d Time (Source) Location / / Volume Laterality 07/02/2021 12:29 07/03/2021 1:06 PM CDT PM CDT Archie Colindres MD LAB BLOOD ORDERABLES Performing Organization Address [facility] Phon e Number [facility] [address] [place] [phone] Vitamin D, Total (07/02/2021 12:29 PM CDT) athologist Signature Vitamin D, 82.0 ng/mL 07/03/2021 [facility] Total 2:34 PM CDT [facility] [...] MD LAB BLOOD ORDERABLES Performing Organization Address City/[facility] Phon e Number [facility] [address] [place] [phone] (ABNORMAL) Lipid panel (07/02/2021 12:29 PM CDT) athologist Signature Cholesterol 206 (H) 0 - 199 07/03/2021 [facility] mg/dL 2:34 PM CDT [facility] Comment: Recommended by National Cholesterol Education Program (ATP III) -------- Cholesterol Ranges -------- <200 ?Desirable 200-239 ? Borderline high >=240 ? High Triglycerides 58 0 - 149 mg/dL 07/03/2021 2:34 PM CDT [facility] Comment: -------- TRIG Ranges -------- <150 ?Normal 150-199 ? Borderline high 200-499 ? High >=500 ? Very high HDL 79 40 - 250 mg/dL 07/03/2021 2:34 PM CDT [facility] Comment: -------- HDL Ranges -------- <40 ?Low 40-59 ?Normal >=60 ? Optimal LDL Calculated 115 (H) 0 - 99 mg/dL 07/03/2021 2:34 PM CDT [facility] Comment: -------- LDL Ranges -------- <100 ? Optimal 100-129 ?Near optimal/above op timal 130-159 ?Borderline high 160-189 ?High >=190 ?Very high Specimen Anatomical Collection Method Collection Time Receive d Time (Source) Location / / Volume Laterality Blood (Blood, 07/02/2021 12:29 07/03/2021 1:06 Venous) PM CDT PM CDT Acrhie Colindres MD LAB BLOOD ORDERABLES Performing Organization Address City/State/ZIP Code Phon e Number [facility] [address] [place] [address] Thyroid Function [place] (07/02/2021 12:29 PM CDT) P athologist Signature [...] MD LAB BLOOD ORDERABLES Performing Organization Address City/[facility] Phon e Number [facility] [address] [place] [address] Magnesium (07/02/2021 12:29 PM CDT) P athologist Signature Magnesium 2.2 1.6 - 2.3 07/03/2021 [facility] mg/dL 2:34 PM CDT [facility] Specimen Anatomical Collection Method Collection Time Receive d Time (Source) Location / / Volume Laterality Blood (Blood, 07/02/2021 12:29 07/03/2021 1:06 Venous) PM CDT PM CDT Archie Colindres MD LAB BLOOD ORDERABLES Performing Organization Address [facility] Phon e Number [facility] [address] [place] [phone] (ABNORMAL) Comprehensive metabolic panel (07/02/2021 12:29 PM [...] - 43 U/L 07/03/2021 [facility] 2:34 PM [facility] Alkaline 84 38 - 128 07/03/2021 [facility] Phosphatase U/L 2:34 PM [facility] ALT (SGPT) 46 (H) 0 - 34 U/L 07/03/2021 [facility] 2:34 PM [facility] Sodium 140 135 - 145 07/03/2021 [facility] mEq/L 2:34 PM [facility] Potassium 4.2 3.5 - 5.1 07/03/2021 [facility] mEq/L 2:34 PM [facility] Chloride 105 98 - 107 07/03/2021 [facility] mEq/L 2:34 PM [facility] CO2 24 22 - 29 07/03/2021 [facility] mmol/L 2:34 PM [facility] BUN 17 5 - 25 07/03/2021 [facility] mg/dL 2:34 PM [facility] Creatinine 0.7 0.4 - 1.2 07/03/2021 [facility] mg/dL 2:34 PM [facility] Glucose 99 70 - 100 07/03/2021 [facility] mg/dL 2:34 PM [facility] Calcium, Total,S 10.0 8.4 - 10.2 07/03/2021 [facility] mg/dL 2:34 PM [facility] Fasting? Yes 07/02/2021 [facility] 12:34 PM [facility] Specimen Anatomical Collection Method Collection Time Receive d Time (Source) Location / / Volume Laterality Blood (Blood, 07/02/2021 12:29 07/03/2021 1:06 Venous) PM CDT PM CDT Archie Colindres MD LAB BLOOD ORDERABLES Performing Organization Address City/State/ZIP Code Phon e Number [facility] [address] [place] [address] (ABNORMAL) Hemoglobin A1c (07/02/2021 12:29 PM CDT) Analysis Performed At Patho logist Time Signature Hemoglobin A1C 5.9 (H) 4.0 - 5.6 07/03/2021 [facility] % A1C 2:49 PM [facility] Comment: Reference Range 4.0-5.6% is [...] Organization Address City/State/ZIP Code Phon e Number [facility] [address] [place] [address] documented in this encounter Visit Diagnoses Diagnosis Elevated fasting glucose Impaired fasting glucose Serum calcium elevated Hypercalcemia Annual physical exam Routine general medical examination at a health care facility documented in this encounter Care Teams Electrical Apprentice Relationship Specialty Start Date End Date Archie Colindres MD PCP - General Family Medicine 07/02/21 05/22/[address] [place] [address] documented as of this encounter
--- OUTSIDE RECORDS SUMMARY | 2022-08-22 14:09 | XMS_ITS | Encounter Summary ---
:1950 Author Organization [facility] Address [address] [place] [address] Care Team Providers Name Role Phone Archie Colindres MD Primary Care Provider Reason for Visit Reason Onset Date Comments Return call 07/02/2021 Encounter Details Date Type Department Care Team Description 07/02/2021 Telephone [place] Archie Colindres MD Return call [address] [place], [place] [address] [place], [place] [phone] (Wo rk) Social History Tobacco Use Types [...] on filedocumented in this encounter Care Teams Client Support Analyst Relationship Specialty Start Date End Date Archie Colindres MD PCP - General Family Medicine 07/02/21 05/22/[address] [place] [address] documented as of this encounter
--- OUTSIDE RECORDS SUMMARY | 2022-08-22 14:09 | XMS_ITS | Encounter Summary ---
:1950 Author Organization [facility] Address [address] [place] [address] Care Team Providers Name Role Phone Archie Colindres MD Primary Care Provider Encounter Details Date Type Department Care Team Description 07/16/2021 Telephone [place] Archie Colindres MD [address] [place], [place] [address] [place], [place] [phone] (Wo rk) Social History Tobacco Use Types [...] More than 4 times per year 12/13/2019 christian services? Do you belong to any clubs [...] on filedocumented in this encounter Care Teams Administrative Assistant Office Manager Relationship Specialty Start Date End Date Archie Colindres MD PCP - General Family Medicine 07/02/21 05/22/[address] [place] [address] documented as of this encounter
--- OUTSIDE RECORDS SUMMARY | 2022-08-22 14:09 | XMS_ITS | Encounter Summary ---
:1950 Author Organization [facility] Address [address] [place] [address] Care Team Providers Name Role Phone Archie Colindres MD Primary Care Provider Reason for Visit Reason Comments Medicare Annual Wellness Visit Subsequent Encounter Details Date Type Department Care Team Description 07/02/2021 Clinical Support [place] Medicare annual wellness [address] visit, subsequent [place], [place] [address] Social History Tobacco Use [...] More than 4 times per year 12/13/2019 moravian services? Do you belong to any clubs [...] in this encounter Progress Notes Dagmar [place], INDUSTRIAL SOCIOLOGIST - 07/02/2021 11:00 AM CDT Annual Wellness Visit CARE TEAM / RESOURCES: Patient Care Team: Archie Colindres MD as PCP - General (Family Medicine) Eye Care: [facility] Dental Care: Dr Roge Harry Pharmacy: [facility] - [place], [place] - [address] AT Portal to Registered [facility] Sites [address] [facility] [address] [facility] [address] [address] Other: Visit Vitals BP 138/74 (BP Location: [...] mouth 1 (one) time each day ??? [facility] MAGNESIUM CITRATE PO Take by mouth [...] Gatherings with Friends and Family: ??? Attends Yazdanism Services: ??? Active Member of Clubs or [...] patient's advance care planning wishes:: (P) Yes Yazdanism or spiritual beliefs that impact treatment:: (P) [...] transfusion before 1991. ?? Those born between 1858-1370. Glaucoma: Medicare Part B (Medical Insurance) covers [...] nt documented in this encounter Care Teams Production Line Relationship Specialty Start Date End Date Archie Colindres MD PCP - General Family Medicine 07/02/21 05/22/[address] [place] [address] documented as of this encounter
--- OUTSIDE RECORDS SUMMARY | 2022-08-22 14:09 | XMS_ITS | Encounter Summary ---
:1950 Author Organization [facility] Address [address] [place] [address] Care Team Providers Name Role Phone Brandie Thompson WELDER METAL FAB, HYDROGRAPHER Primary Care Provider [phone] Encounter Details Date Type Department Care Team Description 12/20/2019 Telephone [place] Brandie Thompson, [address] WELDER METAL FAB, HYDROGRAPHER [place], [place] [address] [address] [facility] [address] [phone] [place], [place] [address] Social History Tobacco Use [...] Thompson APRN, SAI - 12/20/2019 4:33 PM REAL ESTATE LOAN OFFICER Left a message her testing, mammogram was normal, and medical records updated. ESTATE LOAN OFFICER documented in this encounter Plan of Treatment Not on filedocumented as of this encounter Visit Diagnoses Not on filedocumented in this encounter Care Teams Forder Operator Relationship Specialty Start Date End Date Brandie Thompson APRN, SAI PCP - General Family Medicine 07/21/18 06/26/[address] [place] [address] documented as of this encounter
--- OUTSIDE RECORDS SUMMARY | 2022-08-22 14:09 | XMS_ITS | Encounter Summary ---
:1950 Author Organization [facility] Address [address] [place] [address] Care Team Providers Name Role Phone Brandie Thompson GEOPHYSICAL LABORATORY CHIEF, TOLL TRANSMISSION WORKER Primary Care Provider [phone] Reason for Visit Reason Onset Date Comments sleeping med 01/03/2020 Encounter Details Date Type Department Care Team Description 01/03/2020 Telephone [place] Brandie Thompson, sleeping med [address] GEOPHYSICAL LABORATORY CHIEF, TOLL TRANSMISSION WORKER [place], [place] [address] [address] [facility] [address] [phone] [place], [place] [address] Social History Tobacco Use [...] or relatives? How often do you attend hindu or More than 4 times per year 12/13/2019 hindu services? Do you belong to any clubs or Not asked organizations such as hindu groups, unions, fraternal or athletic groups, or [...] PM CDT Ha batista was bought my [employer]. Pharmacy is accurate. Telephone Encounter - Brandie [...] help her sleep. Please call Pt at [phone] to advise. documented in this encounter Plan of Treatment Not on filedocumented as of this encounter Visit Diagnoses Diagnosis Insomnia, unspecified type documented in this encounter Care Teams Digital Printer Operator Relationship Specialty Start Date End Date Brandie Thompson APRN, CNP PCP - General Family Medicine 07/21/18 06/26/20 [facility] [place], [place] [address] documented as of this encounter
--- OUTSIDE RECORDS SUMMARY | 2022-08-22 14:09 | XMS_ITS | Encounter Summary ---
:[address] [facility] Address [address] [place] [address] Care Team Providers Name Role Phone None, Pcp Primary Care Provider Unavailable Reason for Visit Reason Onset Date Comments Med Refill 07/17/2022 Encounter Details Date Type Department Care Team Description 07/17/2022 Telephone [place] Archie Colindres MD Med Refill [address] [place], [place] [address] [place], [place] [phone] (Wo rk) Social History Tobacco Use Types [...] or relatives? How often do you attend presybeterian or More than 4 times per year 12/13/2019 episcopalian services? Do you belong to any clubs or Not asked organizations such as presybeterian groups, unions, fraternal or athletic groups, or [...] type documented in this encounter Care Teams Bomb Loader Relationship Specialty Start Date End Date None, Pcp PCP - General Apprenticeship Training Representative 05/23/[address] [place] [address] documented as of this encounter
--- OUTSIDE RECORDS SUMMARY | 2022-08-22 14:09 | XMS_ITS | Encounter Summary ---
:1950 Author Organization [facility] Address [address] [place] [address] Care Team Providers Name Role Phone Unavailable Primary Care Provider Unavailable Reason for Visit Reason Onset Date Comments Trazodone Rx 01/12/2021 Encounter Details Date Type Department Care Team Description 01/12/2021 Telephone [place] Malloy None, Pcp Trazodone Rx [address] [facility] [place], [place] [address] [place], [place] [phone] [address] Social History Tobacco Use Types Packs/Day [...] or relatives? How often do you attend holiness or More than 4 times per year 12/13/2019 holiness services? Do you belong to any clubs or Not asked organizations such as holiness groups, unions, fraternal or athletic groups, or [...] and [facility] Patient much appreciative. Telephone Encounter - Msi Morales RN - 01/12/2021 12:10 PM CDT LMTCB. 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 Telephone Encounter - Yumiko Herrera - 01/12/2021 10:08 AM CDT Pt called stating her Trazodone 150ml Rx that she normally gets filled through [facility] will notarrive in time before she is out. Pt is asking for a refill of a weeks worth of [facility] Please call Pt at [phone] to advise. documented in this encounter Plan of Treatment Not on filedocumented as of this encounter Visit Diagnoses Diagnosis Insomnia, unspecified type - Primary documented in this encounter
--- OUTSIDE RECORDS SUMMARY | 2022-08-22 14:09 | XMS_ITS | Encounter Summary ---
:1950 Author Organization [facility] Address [address] [place] [address] Care Team Providers Name Role Phone None, Pcp Primary Care Provider Unavailable Reason for Visit Reason Comments Med Refill Encounter Details Date Type Department Care Team Description 07/09/2022 Refill [place] Archie Colindres, Insomnia, unspecified [address] MD type [place], [place] [address] [facility] [address] [place] [phone] [place] [address] (Wo rk) Social History Tobacco Use Types [...] More than 4 times per year 12/13/2019 buddhist services? Do you belong to any clubs [...] mg and then make an appt following. [phone]. Please call after 2:30 this afternoon. Telephone [...] type documented in this encounter Care Teams Tooling Specialist Relationship Specialty Start Date End Date None, Pcp PCP - General Sole Assessor 05/23/[address] [place] [phone] documented as of this encounter
--- OUTSIDE RECORDS SUMMARY | 2022-08-22 14:09 | XMS_ITS | Encounter Summary ---
:1950 Author Organization [facility] Address [address] [place] [address] Care Team Providers Name Role Phone Brandie Thompson FLASH WELDING MACHINE OPERATOR, CHARGING MANIPULATOR Primary Care Provider [phone] Encounter Details Date Type Department Care Team Description 12/14/2019 Telephone [place] Brandie Thompson, [address] FLASH WELDING MACHINE OPERATOR, CHARGING MANIPULATOR [place], [place] [address] 100 [facility] [address] [phone] [place], [place] [address] Social History Tobacco Use [...] or relatives? How often do you attend tenriism or More than 4 times per year 12/13/2019 christian services? Do you belong to any clubs or Not asked organizations such as tenriism groups, unions, fraternal or athletic groups, or [...] LPN - 12/15/2019 8:20 AM CST Noted R DISTRIBUTOR Telephone Encounter - Yumiko Herrera - 12/15/2019 7:36 AM CST Referral faxed to [facility] radiology as requested. R DISTRIBUTOR Telephone Encounter - Ling Reyes RN - 12/14/2019 4:27 PM CST Please fax referral. R DISTRIBUTOR documented in this encounter Plan of Treatment Not on filedocumented as of this encounter Visit Diagnoses Not on filedocumented in this encounter Care Teams Entertainment Dancer Relationship Specialty Start Date End Date Brandie Thompson APRN, CHARGING MANIPULATOR PCP - General Family Medicine 07/21/18 06/26/[address] [place] [address] [place] [address] documented as of this encounter
--- OUTSIDE RECORDS SUMMARY | 2022-08-22 14:09 | XMS_ITS | Encounter Summary ---
:1950 Author Organization [facility] Address [address] [place] [address] Care Team Providers Name Role Phone Unavailable Primary Care Provider Unavailable Reason for Visit Reason Onset Date Comments Trazodone refill 01/08/2021 Encounter Details Date Type Department Care Team Description 01/08/2021 Telephone [place] Archie Colindres MD Trazodone refill [address] [place], [place] [address] [place], [place] [phone] (Wo rk) Social History Tobacco Use Types [...] 01/08/2021 5:15 PM CDT Rx sent to [facility] Telephone Encounter - Dagmar Washington LPN - 01/08/2021 4:48 PM CDT Patient informed Telephone Encounter - Yumiko Herrera - 01/08/2021 11:31 AM CDT Pt called stating last week she put a refill request in for her Trazodone 150ml through [facility]. Please call Pt at [phone] to advise. documented in this encounter Plan of Treatment Not on filedocumented as of this encounter Visit Diagnoses Diagnosis Insomnia, unspecified type documented in this encounter
--- OUTSIDE RECORDS SUMMARY | 2022-08-22 14:10 | XMS_ITS | Encounter Summary ---
:1950 Author Organization [facility] Address [address] [place] [address] Care Team Providers Name Role Phone Brandie Thompson APRN, COATING AND EMBOSSING UNIT OPERATOR Primary Care Provider [phone] Encounter Details Date Type Department Care Team [...] on filedocumented in this encounter Care Teams Nail Maker Relationship Specialty Start Date End Date Brandie Thompson APRN, COATING AND EMBOSSING UNIT OPERATOR PCP - General Family Medicine 07/21/18 06/26/[address] [place], [place] [address] [place] [address] documented as of this encounter
--- OUTSIDE RECORDS SUMMARY | 2022-08-22 14:10 | XMS_ITS | Encounter Summary ---
:1950 Author Organization [facility] Address [address] [place] [address] Care Team Providers Name Role Phone Brandie Thompson APRN, CNP Primary Care Provider [phone] Reason for Referral Consultation (Routine) - Closed Specialty Diagnoses / Procedures Referred By Contact Refer red To Contact Diagnoses Abnormal ultrasound of pelvis Brandie Thompson, [facility] Care SAI OCONNELL [address] [place] [address] [place] [address] Fax: Referral ID Status Reason Start Date Expiration Date Visits Requ ested Visits Authorized [id number] Closed 11/23/2018 11/23/2019 1 1 Scheduling Instructions Please schedule with Dr. Gardner in [place], [place]. ERY INSPECTOR Encounter Details Date Type Department Care Team Description 11/23/2018 Orders Only [place] Brandie Thompson, Abnormal ultrasound [address] SAI OCONNELL of pelvis (Primary [place], [place] [address] [facility] Dx) [address] [place] [address] Social History Tobacco Use Types Packs/Day Years [...] More than 4 times per year 12/13/2019 zoroastrianism services? Do you belong to any clubs or Not asked organizations such as baptism groups, unions, [employer] or athletic groups, or school groups? How [...] Primary documented in this encounter Care Teams Engineering Mathematician Relationship Specialty Start Date End Date Brandie Thompson APRN, BREAKFAST HOST PCP - General Family Medicine 07/21/18 06/26/[address] [place] [address] documented as of this encounter
--- OUTSIDE RECORDS SUMMARY | 2022-08-22 14:10 | XMS_ITS | Encounter Summary ---
:1950 Author Organization [facility] Address [address] [place] [address] Care Team Providers Name Role Phone Brandie Thompson APRN, CNP Primary Care Provider [phone] Reason for Referral Consultation (Routine) - Closed Specialty Diagnoses / Procedures Referred By Contact Refer red To Contact Radiology Diagnoses Screening mammogram, encounter for Brandie Thompson, [facility] [place] [id number] [address] [place] [id number] Phone: Fax: Referral ID Status Reason Start Date Expiration Date Visits Requ ested Visits Authorized [id number] Closed 12/13/2019 12/13/2020 1 1 SPECIALIST Reason for Visit Reason Comments Annual Exam Encounter Details Date Type Department Care Team Description 12/13/2019 Office Visit [place] Brandie Thompson Annual physical exam (Primar y Dx); [address] M, [facility] Insomnia, unspecified type; [place], [place] [address] Other fatigue; [address] [place] [address] Screening, lipid; [phone] Screenin g for diabetes mellitus; Screening mammo [...] asked organizations such as lutheran groups, unions, [employer] or athletic groups, or school groups? How [...] Comments Blood Pressure 138/82 12/13/2019 11:20 AM HR SPECIALIST Pulse 64 12/13/2019 11:20 AM HR SPECIALIST Temperature 36.7 ??C (98.1 ??F) 12/13/2019 11:20 AM HR SPECIALIST Respiratory Rate 16 12/13/2019 11:20 AM HR SPECIALIST Oxygen Saturation 98% 12/13/2019 11:20 AM HR SPECIALIST Inhaled Oxygen Concentration - - Weight 59.8 kg (131 lb 12.8 oz) 12/13/2019 11:20 AM HR SPECIALIST Height 163.8 cm (5' 4.5) 12/13/2019 11:20 AM HR SPECIALIST Body Mass Index 22.27 12/13/2019 11:20 AM HR SPECIALIST documented in this encounter Patient Instructions Patient InstructionsChhoma Thompson APRN, CNP - 12/13/2019 11:00 AM HR SPECIALIST Shingles at a pharmacy setting [facility] mammogram DEXA scan next year SPECIALIST documented in this encounter Progress Notes Brandie [...] bleeding last year, was evaluated by an EQUAL EMPLOYMENT OPPORTUNITY OFFICER specialist, was diagnosed vaginal atrophy, was prescribed [...] but stays quite active working in the [employer], and does a fair amount of lifting. [...] she started working at the [employer], several years ago, which may be contributing [...] More than three times a week Attends hindu service: More than 4 times per year [...] her urinary frequency. No hematuria and/or dysuria. 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 The patient???s last menstrual period was in her 50s, and did have vaginal bleeding last year, was assessed by an court specialist, and was diagnosed with atrophic vaginitis, which is untreated at this time, secondary to the cost of the medication. ENDOCRINOLOGY: No thyroid dysfunction no diabetes. The patient has osteopenia and is on a calcium with vitamin D supplement. MUSCULOSKELETAL: The patient has had lower back pain for the past several years and receives manager progressive care about every 5 weeks, and would [...] Branch Off w/Diff; Future - Thyroid Function Grimes; Future Screening, lipid - Lipid panel; Future [...] coverage. She reports she received information from [place] [employer] [facility] [employer] about having this completed, and may respond to their request. The patient will continue trazodone 150 mg daily for her insomnia. The patient should be on aspirin therapy for her history paroxysmal atrial fibrillation. The patient's Tdap is up-to-date on and the patient received her Prevnar today. The patient can consider the Shingrix. The patient will have her mammogram at [facility], the order has been placed, and they will contact the patient to schedule. The patient will be notified of her lab results. The patient agrees and understands this plan of care. Brandie Thompson APRN, SAI SPECIALIST documented in this encounter Plan of Treatment Scheduled Referrals Name Type Priority Associated Order Schedule Diagnoses Ambulatory External Outpatient Referral Routine Screening O rdered: Referral mammogram, 12/13/2019 encounter for documented as of this encounter Results (ABNORMAL) Lipid panel (12/13/2019 12:18 PM HR SPECIALIST) athologist Signature Cholesterol 209 (A) 0 - 199 12/14/2019 [facility] mg/dL 1:19 PM [facility] Comment: Recommended by National Cholesterol Education Program (ATP III) -------- Cholesterol Ranges -------- <200 ? Desirable 200-239 ? Borderline high >=240 ? High Triglycerides 60 0 - 149 mg/dL 12/14/2019 1:19 PM [facility] Comment: -------- TRIG Ranges -------- <150 ?Normal 150-199 ? Borderline high 200-499 ? High >=500 ? Very high HDL 83 40 - 60 mg/dL 12/14/2019 1:19 PM [facility] Comment: -------- HDL Ranges -------- <40 ?Low 40-59 ?Normal >=60 ? Optimal LDL Calculated 114 (A) 0 - 99 mg/dL 12/14/2019 1:19 PM [facility] Comment: -------- LDL Ranges -------- <100 ? Optimal 100-129 ?Near optimal/above op timal 130-159 ?Borderline high 160-189 ?High >=190 ?Very high Fasting? Yes 12/13/2019 12:21 PM [facility] Specimen Anatomical Collection Method Collection Time Receive d Time (Source) Location / / Volume Laterality Blood 12/13/2019 12:18 12/14/2019 PM HR SPECIALIST 12:25 PM HR SPECIALIST Brandie Thompson APRN, FILING AND POLISHING SUPERVISOR LAB BLOOD ORDERABLES Performing Organization Address City/State/[facility] Phon e Number [facility] [address] [place] [address] (ABNORMAL) Basic metabolic panel (12/13/2019 12:18 PM HR SPECIALIST) Patholo gist Method Time Signature Sodium 139 135 - 145 12/14/2019 [place] mEq/L 1:19 PM [facility] Potassium 4.1 3.5 - 5.1 12/14/2019 [place] mEq/L 1:19 PM [facility] Chloride 103 98 - 107 12/14/2019 [place] mEq/L 1:19 PM [facility] CO2 29 22 - 29 12/14/2019 [place] mmol/L 1:19 PM [facility] Creatinine 0.9 0.4 - 1.2 12/14/2019 [place] mg/dL 1:19 PM [facility] BUN 16 5 - 25 12/14/2019 [place] mg/dL 1:19 PM [facility] Glucose 101 (H) 70 - 100 12/14/2019 [place] mg/dL 1:19 PM [facility] Calcium, 10.3 (H) 8.4 - 10.2 12/14/2019 [place] Total,S mg/dL 1:19 PM [facility] Specimen Anatomical Collection Method Collection Time Receive d Time (Source) Location / / Volume Laterality Blood (Blood, 12/13/2019 12:18 12/14/2019 Venous) PM HR SPECIALIST 12:25 PM HR SPECIALIST Brandie Thompson DRUG ABUSE TECHNICIAN, FILING AND POLISHING SUPERVISOR LAB BLOOD ORDERABLES Performing Organization Address City/[facility]/ZIP Code Phon e Number [facility] [address] [place] [address] Thyroid Function Grimes (12/13/2019 12:18 PM HR SPECIALIST) P athologist Signature TSH, Sensitive 1.26 0.46 - 12/14/2019 [place] MEDICA L 4.68 mIU/L 2:12 PM [facility] Comment: The results from this [...] Blood (Blood, 12/13/2019 12:18 12/14/2019 Venous) PM HR SPECIALIST 12:39 PM HR SPECIALIST Brandie Thompson APRN, FILING AND POLISHING SUPERVISOR LAB BLOOD ORDERABLES Performing Organization Address City/State/ZIP Code Phon e Number [facility] [address] [place] [address] (ABNORMAL) CBC Branch Off w/Diff (12/13/2019 12:18 PM HR SPECIALIST) [facility] gist Method Time Signature WBC 5.5 3.5 - 10.5 12/13/2019 [facility] K/uL 1:06 PM HR SPECIALIST [place] RBC 5.06 (H) 3.90 - 12/13/2019 [facility] 5.00 M/uL 1:06 PM HR SPECIALIST [place] Hemoglobin 14.9 12.0 - 12/13/2019 [facility] 15.5 g/dL 1:06 PM HR SPECIALIST [place] Hematocrit 46.2 (H) 35.0 - 12/13/2019 [facility] 44.0 % 1:06 PM HR SPECIALIST [place] Platelets 221 150 - 450 12/13/2019 [facility] K/uL 1:06 PM HR SPECIALIST [place] MCV 91.3 81.6 - 12/13/2019 [facility] 98.3 fL 1:06 PM HR SPECIALIST [place] MCH 29.4 26.0 - 12/13/2019 [facility] 32.0 pg 1:06 PM HR SPECIALIST [place] MCHC 32.3 32.0 - 12/13/2019 [facility] 36.0 g/dL 1:06 PM HR SPECIALIST [place] RDW 12.8 11.9 - 12/13/2019 [facility] 15.5 % 1:06 PM HR SPECIALIST [place] Lymphocytes % 23.7 18.0 - 12/13/2019 [facility] 45.0 % 1:06 PM HR SPECIALIST [place] Mid-size Cells 10.4 (H) 3.3 - 10.1 12/13/2019 [facility] GOME[facility] % 1:06 PM HR SPECIALIST [place] Granulocytes/Brown 65.9 45.8 - 12/13/2019 [facility] GOME[facility] trophils 73.7 % 1:06 PM HR SPECIALIST [place] Lymphocytes 1.3 0.9 - 2.9 12/13/2019 [facility] Absolute K/uL 1:06 PM HR SPECIALIST [place] MIDS Absolute 0.6 0.2 - 0.8 12/13/2019 [facility] GOME[facility] K/uL 1:06 PM HR SPECIALIST [place] Granulocytes/Brown 3.6 2.1 - 8.7 12/13/2019 [facility] GOME[facility] trophils K/uL 1:06 PM HR SPECIALIST [place] Absolute Specimen Anatomical Collection Method Collection Time Receive d Time (Source) Location / / Volume Laterality Blood 12/13/2019 12:18 12/13/2019 PM HR SPECIALIST 12:18 PM HR SPECIALIST Brandie Thompson APRN, FILING AND POLISHING SUPERVISOR LAB BLOOD ORDERABLES Performing Organization Address City/State/ZIP Code Phon e Number [facility] PATRICIA KWONG [address] [place] [address] documented in this encounter Visit Diagnoses Diagnosis Annual physical exam - Primary Routine general medical examination at a health care facility Insomnia, unspecified type Other fatigue Screening, lipid Screening for diabetes mellitus Screening mammogram, encounter for documented in this encounter Care Teams Lease Purchase Truck Driver Relationship Specialty Start Date End Date Brandie Thompson APRN, FILING AND POLISHING SUPERVISOR PCP - General Family Medicine 07/21/18 06/26/[address] [place] [address] [place] [id number] documented as of this encounter
--- OUTSIDE RECORDS SUMMARY | 2022-08-22 14:10 | XMS_ITS | Encounter Summary ---
:1950 Author Organization [facility] Address [address] [place] [address] Care Team Providers Name Role Phone Brandie Thompson FIBER TECHNICIAN, ASSESSMENT DIRECTOR Primary Care Provider [phone] Reason for Visit Reason Onset Date Comments Referral 11/23/2018 Encounter Details Date Type Department Care Team Description 11/23/2018 Telephone [place] Brandie Thompson, Referral [address] FIBER TECHNICIAN, ASSESSMENT DIRECTOR [place], [place] [address] [address] [facility] [address] [phone] [place], [place] [address] Social History Tobacco Use [...] - 11/23/2018 1:46 PM CST Referral faxed. SPACE PHYSIOLOGICAL TECHNICIAN Telephone Encounter - Carla Cooper MA - 11/23/2018 1:05 PM CST Please add face sheet and fax to [facility] and let patient know this has been done. SPACE PHYSIOLOGICAL TECHNICIAN Telephone Encounter - Brandie Thompson APRN, SAI - 11/23/2018 1:01 PM AEROSPACE PHYSIOLOGICAL TECHNICIAN This has been completed, please fax. Thanks, Bryce SPACE PHYSIOLOGICAL TECHNICIAN Telephone Encounter - Sarah Lindsey - 11/23/2018 12:39 PM CST Patient would like a referral to CIGARETTE STAMPER Dr. Linh Mojica at [facility]. SPACE PHYSIOLOGICAL TECHNICIAN documented in this encounter Plan of Treatment Not on filedocumented as of this encounter Visit Diagnoses Not on filedocumented in this encounter Care Teams Glass Novelty Maker Relationship Specialty Start Date End Date rBandie Thompson APRN, ASSESSMENT DIRECTOR PCP - General Family Medicine 07/21/18 06/26/[address] [place] [address] [facility] [address] documented as of this encounter
--- OUTSIDE RECORDS SUMMARY | 2022-08-22 14:10 | XMS_ITS | Encounter Summary ---
:1950 Author Organization [facility] Address [address] [place] [address] Care Team Providers Name Role Phone Brandie Thompson COMPENSATION/BENEFITS SPECIALIST, STEFFEN HOUSE SUPERVISOR Primary Care Provider [phone] Reason for Visit Reason Onset Date Comments MAMMOGRAM 08/03/2018 Encounter Details Date Type Department Care Team Description 08/03/2018 Telephone [place] Brandie Thompson, MAMMOGRAM [address] COMPENSATION/BENEFITS SPECIALIST, STEFFEN HOUSE SUPERVISOR [place], [place] [address] [address] [facility] [address] [phone] [place], [place] [address] Social History Tobacco Use [...] or relatives? How often do you attend advent or More than 4 times per year 12/13/2019 rastafari services? Do you belong to any clubs or Not asked organizations such as advent groups, unions, fraternal or athletic groups, or [...] 08/04/2018 10:29 AM CDT Referral faxed to [facility] radiology. Telephone Encounter - Ling Reyes RN - 08/04/2018 10:21 AM CDT [facility] fax to [facility] With face sheet. Telephone Encounter - Carla Cooper MA - 08/03/2018 3:55 PM CDT Noted. Telephone Encounter - Thao Lovell - 08/03/2018 3:46 PM CDT The patient called to let Bryce know that she was able to get in today at 4:00 pm at [facility]. Nothing more needs to be done unless Bryce needs something on her end. documented in this encounter Plan of Treatment Not on filedocumented as of this encounter Visit Diagnoses Not on filedocumented in this encounter Care Teams Technical System Analyst Relationship Specialty Start Date End Date Brandie Thompson APRN, STEFFEN HOUSE SUPERVISOR PCP - General Family Medicine 07/21/18 06/26/[address] [place] [id number] documented as of this encounter
--- OUTSIDE RECORDS SUMMARY | 2022-08-22 14:10 | XMS_ITS | Encounter Summary ---
:1950 Author Organization [facility] Address [address] [place] [address] Care Team Providers Name Role Phone Brandie Thompson VACUUM METALIZING SUPERVISOR, LOCK ASSEMBLER Primary Care Provider [phone] Reason for Visit Reason Onset Date Comments Referral 11/20/2018 Encounter Details Date Type Department Care Team Description 11/20/2018 Telephone [place] Brandie Thompson, Referral [address] VACUUM METALIZING SUPERVISOR, LOCK ASSEMBLER [place], [place] [address] [address] [facility] [address] [phone] [place], [place] [address] Social History Tobacco Use [...] More than 4 times per year 12/13/2019 mandaeism services? Do you belong to any clubs [...] LPN - 11/23/2018 2:10 PM CST NOTED GHT ENGINEER Telephone Encounter - Thao Scottkwamekristen - 11/23/2018 12:27 PM CST Yes, Laura faxed it. GHT ENGINEER Telephone Encounter - Dagmar Washington LPN - 11/23/2018 12:03 PM CST Was this faxed? GHT ENGINEER Telephone Encounter - Brandie Thompson APRN, SAI - 11/23/2018 8:56 AM FREIGHT ENGINEER This has been completed. Please fax to [facility] in [place]. GHT ENGINEER Telephone Encounter - Sarah Lindsey - 11/20/2018 4:35 PM CST Patient was called by [facility] to set up colonoscopy. They do not do procedure on Mondays. She would like a referral sent to [facility]. GHT ENGINEER documented in this encounter Plan of Treatment Not on filedocumented as of this encounter Visit Diagnoses Not on filedocumented in this encounter Care Teams Resident Services Director Relationship Specialty Start Date End Date Brandie Thompson APRN, LOCK ASSEMBLER PCP - General Family Medicine 07/21/18 06/26/20 [address] [place] [address] documented as of this encounter
--- OUTSIDE RECORDS SUMMARY | 2022-08-22 14:10 | XMS_ITS | Encounter Summary ---
:1950 Author Organization [facility] Address [address] [place] [address] Care Team Providers Name Role Phone Brandie Thompson APRN, AUTOMOBILE RENTAL REPRESENTATIVE Primary Care Provider [phone] Reason for Visit Reason Comments Medicare Annual Wellness Visit Initial Encounter Details Date Type Department Care Team Description 12/13/2019 Clinical Support [place] Medicare annual wellness vis it, initial (Primary Dx); [address] Pneumococcal vaccination giv en [place], [place] [address] Social History Tobacco Use [...] RESOURCES: Patient Care Team: Brandie Thompson APRN, AUTOMOBILE RENTAL REPRESENTATIVE as PCP - General (Family Medicine) Eye Care: Wsbrigcddx-1-5 years Dental Care: Dr Schmid in [facility] Pharmacy: [facility] - [place], [place] - [address] [facility] [address] [facility] [address] Other: Visit Vitals Smoking Status Never Smoker [...] More than three times a week Attends rastafari service: More than 4 times per year [...] the patient's advance care planning wishes:: Yes Church or spiritual beliefs that impact treatment:: No [...] transfusion before 1991. ?? Those born between 6617-7137. Glaucoma: Medicare Part B (Medical Insurance) covers [...] of one pack a dayfor 30 years). E HAND Brandie Thompson APRN, CNP - 12/13/2019 11:00 AM CST Reviewed. E HAND documented in this encounter Plan of Treatment Not on filedocumented as of this encounter Visit Diagnoses Diagnosis Medicare annual wellness visit, initial - Primary Pneumococcal vaccination given documented in this encounter Care Teams Carpet Mechanic Relationship Specialty Start Date End Date Brandie Thompson APRN, SAI PCP - General Family Medicine 07/21/18 06/26/[address] [place] [address] [place] [facility] [address] documented as of this encounter
--- OUTSIDE RECORDS SUMMARY | 2022-08-22 14:10 | XMS_ITS | Encounter Summary ---
:1950 Author Organization [facility] Address [address] [place] [address] Care Team Providers Name Role Phone Brandie Thompson PARADICHLOROBENZENE MACHINE OPERATOR, VIBRATOR EQUIPMENT TESTER Primary Care Provider [phone] Encounter Details Date Type Department Care Team Description 11/20/2018 Telephone [place] Brandie Thompson, [address] PARADICHLOROBENZENE MACHINE OPERATOR, VIBRATOR EQUIPMENT TESTER [place], [place] [address] [address] [facility] [address] [phone] [place], [place] [address] Social History Tobacco Use [...] or relatives? How often do you attend alevism or More than 4 times per year 12/13/2019 lutheran services? Do you belong to any clubs or Not asked organizations such as alevism groups, unions, fraternal or athletic groups, or [...] AM CST Referral faxed and patient informed. T LINE FEEDER Telephone Encounter - Carla Cooper MA - 11/20/2018 10:23 AM CST Please add face sheet, fax referral to [facility] general surgery and call to make sure they received the fax. Then call patient and let her know this has been done. Patient okay with message being left if she does not poultry picker. T LINE FEEDER documented in this encounter Plan of Treatment Not on filedocumented as of this encounter Visit Diagnoses Not on filedocumented in this encounter Care Teams Asw Specialist Relationship Specialty Start Date End Date Brandie Thompson, PARADICHLOROBENZENE MACHINE OPERATOR, VIBRATOR EQUIPMENT TESTER PCP - General Family Medicine 07/21/18 06/26/[address] [place] [address] [place] [address] documented as of this encounter
--- OUTSIDE RECORDS SUMMARY | 2022-08-22 14:10 | XMS_ITS | Encounter Summary ---
:1950 Author Organization Address [address] [place] [address] Care Team Providers Name Role Phone Brandie Thompson APRN, DAY TREATMENT CLINICIAN/ART THERAPIST Primary Care Provider [phone] Reason for Visit Reason Comments Blood in Urine Rectal Bleeding Encounter Details Date Type Department Care Team Description 11/09/2018 Office Visit [facility] [place] Brandie Thompson Bleeding from unknown site ( Primary Dx); [address] M, SAI OCONNELL External hemorrhoid; [place], [place] [address] Screening for deficiency anemia; [address] [place] [address] Nocturia; [phone] Vaginal atrophy Social History Tobacco Use Types [...] or relatives? How often do you attend yazidi or More than 4 times per year 12/13/2019 jew services? Do you belong to any clubs or Not asked organizations such as yazidi groups, unions, fraternal or athletic groups, or [...] Comments Blood Pressure 142/70 11/09/2018 1:[address] [employer]ASTANK LINER ASSEMBLER Pulse 66 11/09/2018 1:[address] [employer] [employer] ASSEMBLER Temperature 36.5 ??C (97.7 ??F) 11/09/2018 1:[address] [employer] ASSEM[employer]ER Respiratory Rate 16 11/09/2018 1:[address] [employer] ASSEMBLER Oxygen Saturation 97% 11/09/2018 1:[address] [employer] ASSEMBLER Inhaled Oxygen Concentration - - Weight 60 kg (132 lb 4.4 oz) 11/09/2018 1:[address] [employer] ASSEMBLER Height 163 cm (5' 4.17) 11/09/2018 1:[address] [employer] ASSEMBLER Body Mass Index 22.58 11/09/2018 1:[address] [employer] ASSEMBLER documented in this encounter Patient Instructions Patient InstructionsChhoma Thompson APRN, CNP - 11/09/2018 2:[address] GASTANK LINER ASSEMBLER Will call with the lab results LANE GASTANK LINER ASSEMBLER documented in this encounter Progress Notes Brandie [...] gained weight, as she works at the [employer] now. The patient has not had colon [...] frequency, urgency, increased urinary incontinence, and/or dysuria. 3RD MATE: 2, para 2. The patient's last menstrual [...] agrees and understands Brandie Thompson APRN, SAI LANE [employer] LINER ASSEMBLER documented in this encounter Plan of Treatment Not on filedocumented as of this encounter Results Urine culture (clean catch) (11/09/2018 2:46 [address] [employer] [employer] ASSEMBLER) [facility] Method Time Signature Urine Culture No Growth 11/10/2018 [place] 12:32 PM [facility] Specimen Anatomical Collection Method Collection Time Receive d Time (Source) Location / / Volume Laterality Urine, Clean 11/09/2018 2:46 PM 9 Catch [employer] [employer]SEMBLER 12:30 [address] [employer] [employer] ASSEM[employer] N[address]ative [facility] - 10/21 12:[address] [employer] ASSEMBLER Patient does not have an Amoxicillin or PCN allergy Brandie Thompson APRN, DAY TREATMENT CLINICIAN/ART THERAPIST LAB MICROBIOLOGY - GENERA L ORDERABLES Performing Organization Address City/State/ZIP Code Phon e Number [facility] [address] [place] [id number] Urinalysis with reflex microscopic (clean catch) (11/09/2018 2:46 PM [employer] [employer] ASSEMBLER) [facility] Method Time Signature Type CLEAN CATCH 11/09/2018 [facility] 2:[address] [facility] [employer] [place] Color, Urine YELLOW YELLOW 11/09/2018 [facility] 2:[address] [facility] [employer] [place] Clarity, CLEAR CLEAR 11/09/2018 [facility] Urine 2:[address] [facility] [employer] [place] Glucose, NEGATIVE NEGATIVE 11/09/2018 [facility] Urine mg/dL 2:[address] [facility] [employer] [place] Bilirubin, NEGATIVE NEGATIVE 11/09/2018 [facility] Urine 2:[address] [facility] [employer] [place] Ketones, NEGATIVE NEGATIVE 11/09/2018 [facility] Urine mg/dL 2:[address] [facility] [employer] [place] Specific 1.025 1.000 11/09/2018 [facility] [place], ->=1.030 2:[address] [facility] [employer] [place] Urine Blood, Urine NEGATIVE NEGATIVE 11/09/2018 [facility] 2:[address] [employer] [employer] [place] pH, Urine 7.0 5.0 - 7.0 11/09/2018 [facility] 2:[address] [facility] [employer] [place] Protein, NEGATIVE NEGATIVE-TRA 11/09/2018 [facility] Urine CE mg/dL 2:[address] [employer] [place] Urobilinogen, 0.2 0.2 - 1.0 11/09/2018 [facility] Urine E.U./dL 2:[address] [facility] [employer] [place] Nitrite, NEGATIVE NEGATIVE 11/09/2018 [facility] Urine 2:[address] [facility] [employer] [place] Leukocytes, NEGATIVE NEGATIVE 11/09/2018 [facility] Urine 2:[address] [facility] [employer] [place] Specimen Anatomical Collection Method Collection Time Receive d Time (Source) Location / / Volume Laterality Urine (Urine, 11/09/2018 2:46 PM 11/09/19 19 2:49 Clean Catch) [employer]SEMBLER PM [employer]SEM[employer]ER Brandie Thompson APRN, DAY TREATMENT CLINICIAN/ART THERAPIST LAB URINE ORDERABLES Performing Organization Address City/State/ZIP Code Phon e Number [facility] [place] [address] [place] [address] (ABNORMAL) Basic metabolic panel (11/09/2018 2:35 [address] GASTANK LINER ASSEMBLER) P athologist Signature Sodium 142 135 - 145 11/09/2018 [facility] mmol/L 2:[address] [employer] [place] Potassium 4.1 3.5 - 5.1 11/09/2018 [facility] mmol/L 2:[address] [employer] [place] Comment: . Chloride 106 98 - 107 mmol/L 11/09/2018 2:[address] [employer] ASSEMBLER [facility] [place] Comment: . CO2 30 (H) 22 - 29 mmol/L 11/09/2018 2:[address] [employer] ASSEMBLER [facility] [place] Comment: . Creatinine 0.5 0.4 - 1.2 mg/dL 11/09/2018 2:[address] [facility] [employer] ASSEMBLER [facility] [place] Comment: . BUN 16 5 - 25 mg/dL 11/09/2018 2:57 [address] [facility] [employer] ASSEMBLER [facility] [place] Comment: . Glucose 99 70 - 100 mg/dL 11/09/2018 2:57 PM [facility] [place] [place] [facility] [employer] ASSEMBLER Calcium, Total,S 10.3 (H) 8.4 - 10.2 mg/dL 11/09/2018 2:57 PM [facility] [place] [facility] [employer] ASSEMBLER Comment: . Fasting? No 11/09/2018 2:40 [address] [employer] ASSEMBLER [facility] [place] Specimen Anatomical Collection Method Collection Time Receive d Time (Source) Location / / Volume Laterality Blood (Blood, 11/09/2018 2:35 PM 11/09/19 19 2:40 Venous) [employer]BLER PM [employer]SEMBLER Brandie Thompson APRN, DAY TREATMENT CLINICIAN/ART THERAPIST LAB BLOOD ORDERABLES Performing Organization Address City/State/ZIP Code Phon e Number [facility] [place] [address] [place] [address] CBC Branch Off w/Diff (11/09/2018 2:35 PM AIRPL[address] [employer] LINER ASSEMBLER) P athologist Signature WBC 6.7 3.5 - 10.5 11/09/2018 [facility] K/uL 2:[address] [employer] [place] RBC 4.68 3.90 - 11/09/2018 [facility] 5.00 M/uL 2:[address] [employer] [place] Hemoglobin 13.9 12.0 - 11/09/2018 [facility] 15.5 g/dL 2:[address] [employer] [place] Hematocrit 42.7 35.0 - 11/09/2018 [facility] 44.0 % 2:[address] [employer] [place] Platelets 220 150 - 450 11/09/2018 [facility] K/uL 2:50 PM [facility] [employer] [place] MCV 91.2 81.6 - 11/09/2018 [facility] 98.3 fL 2:50 [address] [facility] [employer] [place] MCH 29.7 26.0 - 11/09/2018 [facility] 32.0 pg 2:50 [address] [facility] [employer] [place] MCHC 32.6 32.0 - 11/09/2018 [facility] 36.0 g/dL 2:[address] [employer] [place] RDW 13.1 11.9 - 11/09/2018 [facility] 15.5 % 2:[address] [employer] [place] Lymphocytes % 25.2 18.0 - 11/09/2018 [facility] 45.0 % 2:[address] [employer] [place] Mid-size Cells 8.2 3.3 - 10.1 11/09/2018 [facility] % 2:[address] [employer] [place] Granulocytes/Brown 66.6 45.8 - 11/09/2018 [facility] trophils 73.7 % 2:[address] [employer] [place] Lymphocytes 1.7 0.9 - 2.9 11/09/2018 [facility] Absolute K/uL 2:[address] [employer] [place] MIDS Absolute 0.5 0.2 - 0.8 11/09/2018 [facility] K/uL 2:[address] [employer] ASSEM[employer] [place] Granulocytes/Brown 4.5 2.1 - 8.7 11/09/2018 [facility] trophils K/uL 2:[address] [employer] ASSEMBLER [place] Absolute Specimen Anatomical Collection Method Collection Time Receive d Time (Source) Location / / Volume Laterality Blood (Blood, 11/09/2018 2:35 PM 11/09/19 19 2:40 Venous) [employer]ANE [employer] ASSEMBLER PM [employer]ANE [employer] ASSEMBLER Brandie Thompson APRN, DAY TREATMENT CLINICIAN/ART THERAPIST LAB BLOOD ORDERABLES Performing Organization Address City/State/ZIP Code Phon e Number [facility] [place] [address] [place] [address] documented in this encounter Visit Diagnoses Diagnosis [...] Nocturia documented in this encounter Care Teams Oil Burner Installer Relationship Specialty Start Date End Date Brandie Thompson, SMALL STOCK FACER, DAY TREATMENT CLINICIAN/ART THERAPIST PCP - General Family Medicine 07/21/18 06/26/20 100 [facility] [address] documented as of this encounter
--- OUTSIDE RECORDS SUMMARY | 2022-08-22 14:10 | XMS_ITS | Encounter Summary ---
:1950 Author Organization [facility] Address [address] [place] [address] Care Team Providers Name Role Phone Brandie Thompson APRN, SAI Primary Care Provider [phone] Reason for Referral Consultation (Routine) - Closed Specialty Diagnoses / Procedures Referred By Contact Refer red To Contact Diagnoses [place] [address] Phone: Fax: Referral ID Status Reason Start Date Expiration Date Visits Requ ested Visits Authorized [id number] Closed 11/10/2018 11/10/2019 1 1 Scheduling Instructions Please schedule a pelvic ultrasound at [facility]. Thanks, Brandie Thompson CNP RINGER Consultation (Routine) - Closed Specialty Diagnoses / Procedures Referred By Contact Refer red To Contact Diagnoses Brandie Hernandez [place]anna [place] [phone] Phone: Fax: Referral ID Status Reason Start Date Expiration Date Visits Requ ested Visits Authorized [id number] Closed 11/10/2018 11/10/2019 1 1 Scheduling Instructions Please schedule a pelvic ultrasound at [facility]. Thanks, Brandie Thompson CNP RINGER Consultation (Routine) - Closed Specialty Diagnoses / Procedures Referred By Contact Refer red To Contact Diagnoses Colon cancer screening Brandie Thompson, [facility], LUMBER BEARER SYSTEM - [address] [address] [place] [address] Phone: Fax: Referral ID Status Reason Start Date Expiration Date Visits Requ ested Visits Authorized [id number] Closed 11/10/2018 11/10/2019 1 1 Scheduling Instructions Please schedule at [facility]. RINGER Encounter Details Date Type Department Care Team Description 11/10/2018 Orders Only [place] Brandie Thompson, Colon cancer screening (Prim carola Dx); [address] SAI OCONNELL [place], [place] [address] [facility] [address] [place] [address] [phone] Social History Tobacco Use Types Packs/Day Years [...] this encounter Progress Notes Brandie Thompson APRN, LUMBER BEARER - 11/10/2018 12:52 PM CST The patient is being set up for screening colonoscopy at [facility]. The patient is also being set up for a pelvic ultrasound at [facility]. RINGER Ling Reyes RN - 11/10/2018 12:52 PM CST Please fax both orders to [facility] for scheduling. RINGER Thao Lovell - 11/10/2018 12:52 PM CST Face sheet added and faxed to [facility] [phone] [facility] at [phone]. RINGER documented in this encounter Plan of Treatment [...] hemorrhage documented in this encounter Care Teams Special Library Librarian Relationship Specialty Start Date End Date Brandie Thompson APRN, LUMBER BEARER PCP - General Family Medicine 07/21/18 06/26/[address] [place] [id number] documented as of this encounter
--- OUTSIDE RECORDS SUMMARY | 2022-08-22 14:10 | XMS_ITS | Encounter Summary ---
:1950 Author Organization [facility] Address [address] [place] [address] Care Team Providers Name Role Phone Brandie Thompson APRN, CAREER SERVICES DIRECTOR Primary Care Provider [phone] Reason for Visit Reason Comments Immunizations Encounter Details Date Type Department Care Team Description 08/30/2019 Immunization Index Immunization due (Primary [address] Dx) [place], [place] [address] Social History Tobacco Use [...] or relatives? How often do you attend rastafarian or More than 4 times per year 12/13/2019 congregational services? Do you belong to any clubs or Not asked organizations such as rastafarian groups, unions, fraternal or athletic groups, or [...] fever. No previous reaction to flu vaccine. [employer] documented in this encounter Plan of Treatment Not on filedocumented as of this encounter Visit Diagnoses Diagnosis Immunization due - Primary documented in this encounter Care Teams Casting Trucker Relationship Specialty Start Date End Date Brandie Thompson APRN, CAREER SERVICES DIRECTOR PCP - General Family Medicine 07/21/18 06/26/20 100 [facility] [place] [address] documented as of this encounter
--- OUTSIDE RECORDS SUMMARY | 2022-08-22 14:10 | XMS_ITS | Encounter Summary ---
:1950 Author Organization [facility] Address [address] [place] [address] Care Team Providers Name Role Phone Brandie Thompson APRN, CNP Primary Care Provider [phone] Reason for Referral Consultation (Routine) - Closed Specialty Diagnoses / Procedures Referred By Contact Refer red To Contact Diagnoses Encounter for screening colonoscopy Brandie Thompson, [facility] [address] [place] [address] [place] [address] Phone: Fax: Referral ID Status Reason Start Date Expiration Date Visits Requ ested Visits Authorized [id number] Closed 11/23/2018 11/23/2019 1 1 D INSTRUCTOR Encounter Details Date Type Department Care Team Description 11/23/2018 Orders Only [place] Brandie Thompson, Encounter for [address] SAI O[place]LL screening colonoscopy [place], [place] [address] (Primary Dx) [address] [place] [address] Social History Tobacco Use Types Packs/Day Years [...] More than 4 times per year 12/13/2019 nondenominational services? Do you belong to any clubs [...] ANG form completed for a screening colonoscopy. D INSTRUCTOR documented in this encounter Plan of Treatment Scheduled Referrals Name Type Priority Associated Diagnoses Order S chedule Ambulatory External Outpatient Referral Routine Encounter for Ordered: Referral screening 11/23/2018 colonoscopy documented as of this encounter Visit Diagnoses Diagnosis Encounter for screening colonoscopy - Pr imary documented in this encounter Care Teams Woodworking Machine Setter Relationship Specialty Start Date End Date Brandie Thompson APRN, EDGE BASTER PCP - General Family Medicine 07/21/18 06/26/20 100 [place] [address] documented as of this encounter
--- OUTSIDE RECORDS SUMMARY | 2022-08-22 14:10 | XMS_ITS | Encounter Summary ---
:1950 Author Organization [facility] Address [address] [place] [address] Care Team Providers Name Role Phone Brandie Thompson APRN, CNP Primary Care Provider Reason for Referral Consultation (Routine) - Closed Specialty Diagnoses / Procedures Referred By Contact Refer red To Contact Diagnoses Abnormal pelvic ultrasound Brandie Thompson, [facility] SAI OCONNELL SYSTEM - [place] [address] [address] [place] [address] Phone: Fax: Referral ID Status Reason Start Date Expiration Date Visits Requ ested Visits Authorized [id number] Closed 11/19/2018 11/19/2019 1 1 L RECEPTIONIST Reason for Visit Reason Onset Date Comments results 11/19/2018 Encounter Details Date Type Department Care Team Description 11/19/2018 Telephone [place] Brandie Thompson, results [address] [facility] [address] [place], [place] [address] [facility] [address] [phone] [place], [place] [address] Social History Tobacco Use [...] More than 4 times per year 12/13/2019 faith services? Do you belong to any clubs [...] Thompson APRN, SAI - 11/19/2018 4:38 PM LEGAL RECEPTIONIST Discussed the ultrasound report with the patient. There is some fluid in the endometrial space therefore we will refer her to [facility]. The patient prefers [facility] and the referral order has been completed. L RECEPTIONIST Telephone Encounter - Ling Reyes RN - 11/19/2018 11:11 AM CST Patient has a pelvic ultrasound on Friday. The results are on your desk. Patient's would like to get these results. I do not see an MICHELLE for him. Please review results and call the patient. L RECEPTIONIST Telephone Encounter - Yumiko Herrera - 11/19/2018 10:52 AM CST Pt's called requesting to speak with Bryce Thompson. Please call him at [phone]. L RECEPTIONIST documented in this encounter Plan of Treatment Scheduled Referrals Name Type Priority Associated Order Schedule Diagnoses Ambulatory External Outpatient Referral Routine Abnormal pelvi c Ordered: Referral ultrasound 11/19/2018 documented as of this encounter Visit Diagnoses Diagnosis Abnormal pelvic ultrasound - Primary documented in this encounter Care Teams Blackener Relationship Specialty Start Date End Date Brandie Thompson APRN, INFORMATICA MDM DEVELOPER PCP - General Family Medicine 07/21/18 06/26/[address] [place] [address] documented as of this encounter
--- OUTSIDE RECORDS SUMMARY | 2022-08-22 14:10 | XMS_ITS | Encounter Summary ---
:[address] [facility] Address [address] [place] [address] Care Team Providers Name Role Phone Brandie Thompson APRN, NATURALIST Primary Care Provider [phone] Encounter Details Date Type Department Care Team Description 08/03/2018 Lab [place] Osteopenia after menopause; [address] Palpitations; [place], [place] [address] Fatigue, unspecified type; [phone] Screening, lipi d Social History Tobacco Use [...] More than 4 times per year 12/13/2019 mu-ism services? Do you belong to any clubs [...] Free T4 1.22 0.78 - 2.19 08/04/2018 [facility] ng/dL 3:29 PM CDT CENTER LABORATORY [...] CDT 12:59 PM CDT Brandie Thompson APRN, NATURALIST LAB BLOOD ORDERABLES Performing Organization Address City/State/ZIP Code Phon e Number [facility] [address] [place] [id number] (ABNORMAL) Thyroid Function [place] (08/03/2018 2:42 PM CDT) Analysis Performed At Patho logist Time Signature TSH, Sensitive 0.41 (L) 0.46 - 08/04/2018 [place] 4.68 mIU/L 2:51 PM [facility]T [facility] [...] Organization Address City/State/ZIP Code Phon e Number [facility] [address] [place] [address] (ABNORMAL) Lipid panel (08/03/2018 2:42 PM CDT) athologist Signature Cholesterol 214 (A) 0 - 199 08/04/2018 [facility] mg/dL 1:17 PM [facility] Comment: Recommended by National Cholesterol Education Program (ATP III) -------- Cholesterol Ranges -------- <200 ? Desirable 200-239 ? Borderline high >=240 ? High Triglycerides 48 0 - 149 mg/dL 08/04/2018 1:17 PM CDT [facility] Comment: -------- TRIG Ranges -------- <150 ?Normal 150-199 ? Borderline high 200-499 ? High >=500 ? Very high HDL 82 40 - 60 mg/dL 08/04/2018 1:17 PM CDT [facility] Comment: -------- HDL Ranges -------- <40 ?Low 40-59 ?Normal >=60 ? Optimal LDL Calculated 122 (A) 0 - 99 mg/dL 08/04/2018 1:17 PM CDT [facility] Comment: -------- LDL Ranges -------- <100 ? Optimal 100-129 ?Near optimal/above op timal 130-159 ?Borderline high 160-189 ?High >=190 ?Very high Fasting? Yes 08/03/2018 2:47 PM CDT [facility] Specimen Anatomical Collection Method Collection Time Receive d Time (Source) Location / / Volume Laterality Blood (Blood, 08/03/2018 2:42 PM 08/04/20 18 Venous) CDT 12:46 PM CDT Brandie Thompson APRN NATURALIST LAB BLOOD ORDERABLES Performing Organization Address City/State/ZIP Code Phon e Number [facility] [address] [place] [address] (ABNORMAL) CBC Branch Off w/Diff (08/03/2018 2:42 PM CDT) [facility] gist Method Time Signature WBC 6.5 3.5 - 10.5 08/03/2018 [facility] K/uL 2:51 PM CDT [place] RBC [...] [place] Lymphocytes % 18.8 18.0 - 08/03/2018 [facility] [place] 45.0 % 2:51 PM CDT [place] Mid-size Cells 7.2 3.3 - 10.1 08/03/2018 [facility] [place] % 2:51 PM CDT [place] Granulocytes/Brown 74.0 (H) 45.8 - 08/03/2018 [facility] [place] trophils 73.7 % 2:51 PM CDT [place] Lymphocytes 1.2 0.9 - 2.9 08/03/2018 [facility] [place] Absolute K/uL 2:51 PM CDT [place] MIDS Absolute 0.5 0.2 - 0.8 08/03/2018 [facility] [place] K/uL 2:51 PM CDT [place] Granulocytes/Brown 4.8 2.1 - 8.7 08/03/2018 [facility] [place] trophils K/uL 2:51 PM CDT [place] Absolute Specimen Anatomical Collection Method Collection Time Receive d Time (Source) Location / / Volume Laterality Blood (Blood, 08/03/2018 2:42 PM 08/03/20 18 2:42 Venous) CDT PM CDT Brandie Thompson APRN, NATURALIST LAB BLOOD ORDERABLES Performing Organization Address City/State/ZIP Code Phon e Number [facility] [place] [address] [place] [address] Vitamin D, Total (08/03/2018 2:42 PM CDT) athologist Signature Vitamin D, 71.3 ng/mL 08/04/2018 [facility] Total 2:18 PM CDT CENTER LABORATORY [...] Organization Address City/State/ZIP Code Phon e Number [facility] [address] [place] [address] documented in this encounter Visit Diagnoses Diagnosis Osteopenia after menopause Palpitations Fatigue, unspecified type Screening, lipid documented in this encounter Care Teams Nursing Scheduler Relationship Specialty Start Date End Date Brandie Thompson APRN, SAI PCP - General Family Medicine 07/21/18 06/26/[address] [place] [address] documented as of this encounter
--- OUTSIDE RECORDS SUMMARY | 2022-08-22 14:10 | XMS_ITS | Encounter Summary ---
:[address] [facility] Address [address] [place] [address] Care Team Providers Name Role Phone Brandie Thompson APRN, REEL HOOKER Primary Care Provider [phone] Encounter Details Date Type Department Care Team Description 11/09/2018 Lab [place] Screening for diabetes elma kapadia; [address] External hemorrhoid; [place], [place] [address] Bright red rectal bleeding; [phone] Nocturia Social History Tobacco Use Types Packs/Day [...] More than 4 times per year 12/13/2019 mormonism services? Do you belong to any clubs [...] Nocturia Result s for this REFLEX MICROSCOPIC [facility] procedure are in the results section. URINE CULTURE Routine 11/09/2018 2:46 PM Nocturia Results for this [facility] PATHOLOGY procedure are i n the results section. GLOMERULAR FILTRATION Routine 11/09/2018 2:35 PM Screening for Results for this RATE [facility] PATHOLOGY diabetes mellitus procedure are in the results section. CBC BRANCH OFFICE Routine 11/09/2018 2:35 PM External he morrhoid Results for this W/DIFF [facility] Bright red rectal procedure are in bleeding the results section. BASIC METABOLIC PANEL Routine 11/09/2018 2:35 PM Screening for Results for this [facility] diabetes mellitus procedure are in the results section. documented in this encounter Results Urine culture (clean catch) (11/09/2018 2:46 PM [facility]) [facility] Method Time Signature Urine Culture No Growth 11/10/2018 [place] 12:32 PM [facility] Specimen Anatomical Collection Method Collection Time Receive d Time (Source) Location / / Volume Laterality Urine, Clean 11/09/2018 2:46 PM 9 Catch [facility] 12:30 PM [facility] PATHOLOGY Narrative [facility] - 10/21 12:33 PM [facility]IAL PATHOLOGY Patient does not have an Amoxicillin or PCN allergy Brandie Thompson APRN, REEL HOOKER LAB MICROBIOLOGY - GENERA L ORDERABLES Performing Organization Address City/State/ZIP Code Phon e Number [facility] [address] [place] [address] Urinalysis with reflex microscopic (clean catch) (11/09/2018 2:46 PM [facility] PATHOLOGY) [facility] Method Time Signature Type CLEAN CATCH 11/09/2018 [facility] 2:57 PM [facility] [place] Color, Urine YELLOW YELLOW 11/09/2018 [facility] 2:57 PM [facility] [place] Clarity, CLEAR CLEAR 11/09/2018 [facility] Urine 2:57 PM [facility] [place] Glucose, NEGATIVE NEGATIVE 11/09/2018 [facility] Urine mg/dL 2:57 PM [facility] [place] Bilirubin, NEGATIVE NEGATIVE 11/09/2018 [facility] Urine 2:57 PM [facility] [place] Ketones, NEGATIVE NEGATIVE 11/09/2018 [facility] Urine mg/dL 2:57 PM [facility] [place] Specific 1.025 1.000 11/09/2018 [facility] [place], ->=1.030 2:57 PM [facility] [place] Urine Blood, Urine NEGATIVE NEGATIVE 11/09/2018 [facility] 2:57 PM [facility] [place] pH, Urine 7.0 5.0 - 7.0 11/09/2018 [facility] [place] 2:57 PM [facility] [place] Protein, NEGATIVE NEGATIVE-TRA 11/09/2018 [facility] Urine CE mg/dL 2:57 PM [facility] [place] Urobilinogen, 0.2 0.2 - 1.0 11/09/2018 [facility] Urine E.U./dL 2:57 PM [facility] [place] Nitrite, NEGATIVE NEGATIVE 11/09/2018 [facility] Urine 2:57 PM [facility] [place] Leukocytes, NEGATIVE NEGATIVE 11/09/2018 [facility] [place] Urine 2:57 PM [facility] [place] Specimen Anatomical Collection Method Collection Time Receive d Time (Source) Location / / Volume Laterality Urine (Urine, 11/09/2018 2:46 PM 11/09/19 19 2:49 Clean Catch) [facility] PM [facility] Brandie Thompson APRN, CNP LAB URINE ORDERABLES Performing Organization Address City/[facility]/ZIP Code Phon e Number [facility] [place] [address] [place] [address] Glomerular filtration rate (GFR) (11/09/2018 2:35 PM [facility] PATHOLOGY) athologist Signature GFR >60 11/09/2018 [facility] 2:57 PM [facility] >60 11/09/2018 [facility] Maltese GFR 2:57 PM [facility] Comment: GFR calculated from serum creatinine v alue Chronic Kidney Disease less than 60 mL/m in/1.73 m2 Kidney Failure less than 15 mL/min/1.73 m2 Note: effective 03/04/07 IDMS-Traceable MDRD Study Equation used. Specimen Anatomical Collection Method Collection Time Receive d Time (Source) Location / / Volume Laterality 11/09/2018 2:35 PM 9 2:35 [facility] PM [facility] PATHOLOGY Brandie Thompson APRN, CNP LAB BLOOD ORDERABLES Performing Organization Address City/State/ZIP Code Phon e Number [facility] [address] [place] [phone] CBC Branch Off w/Diff (11/09/2018 2:35 PM [facility]IAL PATHOLOGY) P athologist Signature WBC 6.7 3.5 - 10.5 11/09/2018 [facility] K/uL 2:50 PM [facility] [place] RBC 4.68 3.90 - 11/09/2018 [facility] [place] 5.00 M/uL 2:50 PM [facility] [place] Hemoglobin 13.9 12.0 - 11/09/2018 [facility] [place] 15.5 g/dL 2:50 PM [facility] [place] Hematocrit 42.7 35.0 - 11/09/2018 [facility] 44.0 % 2:50 PM [facility] [place] Platelets 220 150 - 450 11/09/2018 [facility] K/uL 2:50 PM [facility] [place] MCV 91.2 81.6 - 11/09/2018 [facility] 98.3 fL 2:50 PM [facility] [place] MCH 29.7 26.0 - 11/09/2018 [facility] 32.0 pg 2:50 PM [facility] [place] MCHC 32.6 32.0 - 11/09/2018 [facility] 36.0 g/dL 2:50 PM [facility] [place] RDW 13.1 11.9 - 11/09/2018 [facility] 15.5 % 2:50 PM [facility] [place] Lymphocytes % 25.2 18.0 - 11/09/2018 [facility] 45.0 % 2:50 PM [facility] [place] Mid-size Cells 8.2 3.3 - 10.1 11/09/2018 [facility] % 2:50 PM [facility] [place] Granulocytes/Brown 66.6 45.8 - 11/09/2018 [facility] trophils 73.7 % 2:50 PM [facility] [place] Lymphocytes 1.7 0.9 - 2.9 11/09/2018 [facility] Absolute K/uL 2:50 PM [facility] [place] MIDS Absolute 0.5 0.2 - 0.8 11/09/2018 [facility] K/uL 2:50 PM [facility] [place] Granulocytes/Brown 4.5 2.1 - 8.7 11/09/2018 [facility] trophils K/uL 2:50 PM [facility] [place] Absolute Specimen Anatomical Collection Method Collection Time Receive d Time (Source) Location / / Volume Laterality Blood (Blood, 11/09/2018 2:35 PM 11/09/19 19 2:40 Venous) [facility] PATHOLOG[facility] PM [facility] PATHOLOGY Brandie Thompson APRN, REEL HOOKER LAB BLOOD ORDERABLES Performing Organization Address City/State/ZIP Code Phon e Number [facility] [place] [address] [place] [address] (ABNORMAL) Basic metabolic panel (11/09/2018 2:35 PM [facility] PATHOLOGY) P athologist Signature Sodium 142 135 - 145 11/09/2018 [facility] mmol/L 2:57 PM [facility] [place] Potassium 4.1 3.5 - 5.1 11/09/2018 [facility] mmol/L 2:57 PM [facility] [place] Comment: . Chloride 106 98 - 107 mmol/L 11/09/2018 2:57 PM [facility] [place] Comment: . CO2 30 (H) 22 - 29 mmol/L 11/09/2018 2:57 PM [facility] [place] Comment: . Creatinine 0.5 0.4 - 1.2 mg/dL 11/09/2018 2:57 PM [facility] PATHOLOGY [facility] [place] Comment: . BUN 16 5 - 25 mg/dL 11/09/2018 2:57 PM [facility]OLOG[facility] [place] Comment: . Glucose 99 70 - 100 mg/dL 11/09/2018 2:57 PM [facility] [place] [facility]IAL PATHOLOGY Calcium, Total,S 10.3 (H) 8.4 - 10.2 mg/dL 11/09/2018 2:57 PM [facility] [place] [facility]IAL PATHOLOGY Comment: . Fasting? No 11/09/2018 2:40 PM [facility]OF[facility]IAL PATHOLOGY [facility] NON [place] Specimen Anatomical Collection Method Collection Time Receive d Time (Source) Location / / Volume Laterality Blood (Blood, 11/09/2018 2:35 PM 11/09/19 19 2:40 Venous) [facility]IAL PATHOLOGY PM [facility]IAL PATHOLOGY Brandie Thompson APRN, REEL HOOKER LAB BLOOD ORDERABLES Performing Organization Address City/State/ZIP Code Phon e Number [facility] PATRICIA KWONG [address] [place] [address] documented in this encounter Visit Diagnoses Diagnosis Screening for diabetes mellitus External hemorrhoid External hemorrhoids without mention of complication Bright red rectal bleeding Hemorrhage of rectum and anus Nocturia documented in this encounter Care Teams Trouble Lineman Relationship Specialty Start Date End Date Brandie Thompson APRN, REEL HOOKER PCP - General Family Medicine 07/21/18 06/26/20 [address] [facility] [place] [id number] documented as of this encounter
--- OUTSIDE RECORDS SUMMARY | 2022-08-22 14:10 | XMS_ITS | Encounter Summary ---
:1950 Author Organization [facility] Address [address] [place] [address] Care Team Providers Name Role Phone Brandie Thompson MANAGER MECHANICAL MAINTENANCE, PEST CONTROL SERVICE SALES AGENT Primary Care Provider [phone] Encounter Details Date Type Department Care Team Description 11/10/2018 Telephone [place] Brandie Thompson, [address] MANAGER MECHANICAL MAINTENANCE, PEST CONTROL SERVICE SALES AGENT [place], [place] [address] [address] [facility] [address] [phone] [place], [place] [address] Social History Tobacco Use [...] for the very basics like Not h jvaid at all 12/13/2019 food, housing, medical care, [...] [place] - 11/10/2018 3:37 PM CST Faxed. L WHEEL ENGRAVER Telephone Encounter - Carla Cooper MA - 11/10/2018 3:19 PM CST Please fax to [facility] radiology L WHEEL ENGRAVER Telephone Encounter - Brandie Thompson APRN, CNP - 11/10/2018 3:09 PM STEEL WHEEL ENGRAVER Done. L WHEEL ENGRAVER Telephone Encounter - Carla Cooper MA - 11/10/2018 2:49 PM CST Spoke with [place] radiology. Please redo the ANG for the Pelvic ultra sound. They are needing the order for a pelvic ultrasound to be listed on there. The scheduling instructions did not print out on thereferral. L WHEEL ENGRAVER documented in this encounter Plan of Treatment Not on filedocumented as of this encounter Visit Diagnoses Not on filedocumented in this encounter Care Teams Java Application Developer Relationship Specialty Start Date End Date Brandie Thompson APRN, PEST CONTROL SERVICE SALES AGENT PCP - General Family Medicine 07/21/18 06/26/[address] [place] [address] [place] [id number] documented as of this encounter
--- OUTSIDE RECORDS SUMMARY | 2022-08-22 14:10 | XMS_ITS | Encounter Summary ---
:1950 Author Organization [facility] Address [address] [place] [address] Care Team Providers Name Role Phone Brandie Thompson LABELING ASSOCIATE, TIGHT COOPER Primary Care Provider [phone] Encounter Details Date Type Department Care Team Description 11/23/2018 Telephone [place] Brandie Thompson, [address] LABELING ASSOCIATE, TIGHT COOPER [place], [place] [address] [address] [facility] [address] [phone] [place], [place] [address] Social History Tobacco Use [...] [place] - 11/23/2018 10:53 AM CST Faxed. SPORTATION ASSISTANT Telephone Encounter - Dagmar Washington LPN - 11/23/2018 10:24 AM CST Please fax to [facility] and let patient know. SPORTATION ASSISTANT documented in this encounter Plan of Treatment Not on filedocumented as of this encounter Visit Diagnoses Not on filedocumented in this encounter Care Teams Labor Service Representative Relationship Specialty Start Date End Date Brandie Thompson APRN, TIGHT COOPER PCP - General Family Medicine 07/21/18 06/26/20 [address] [facility] [place] [id number] documented as of this encounter
--- OUTSIDE RECORDS SUMMARY | 2022-08-22 14:10 | XMS_ITS | Encounter Summary ---
:1950 Author Organization [facility] Address [address] [place] [address] Care Team Providers Name Role Phone Brandie Thompson HEAD WAITER/WAITRESS BANQUET, COOK DINNER Primary Care Provider [phone] Reason for Visit Reason Onset Date Comments Referral confirmation/questions 12/24/2018 Encounter Details Date Type Department Care Team Description 12/24/2018 Telephone [place] Brandie Thompson, Referral [address] HEAD WAITER/WAITRESS BANQUET, COOK DINNER confirmation/questions [place], [place] [address] [address] [facility] [address] [phone] [place], [place] [address] Social History Tobacco Use [...] will wait to ask the provider than. LT OPERATOR Telephone Encounter - Brandie Thompson APRN, SAI - 12/25/2018 10:44 AM REMELT OPERATOR The neuroscience specialist would determine the need to biopsy. Can we call the [facility] and seeif they need anything further from us? Nlalely, Bryce LT OPERATOR Telephone Encounter - Carla Cooper MA - 12/25/2018 10:22 AM CST Patient is wondering about an order for a biopsy possibly in her pelvis? Is this something the FRETTED INSTRUMENTS INSPECTOR would discuss further with her? LT OPERATOR Telephone Encounter - Yumiko Herrera - 12/25/2018 9:58 AM CST Pt returned call to the clinic. LT OPERATOR Telephone Encounter - Yumiko Herrera - 12/24/2018 4:28 PM CST Pt called stating she has an appt at the [facility] in [place] on Friday01/04/19. She wants to make sure everything os go to go and she is wondering if Bryce put in an order for a biopsy. She also had a couple questions regardng referral. Please call Pt at [phone] to advise. LT OPERATOR documented in this encounter Plan of Treatment Not on filedocumented as of this encounter Visit Diagnoses Not on filedocumented in this encounter Care Teams Panel Coverer Relationship Specialty Start Date End Date Brandie Thomspon APRN, COOK DINNER PCP - General Family Medicine 07/21/18 06/26/[address] [place] [address] [place] [id number] documented as of this encounter
--- OUTSIDE RECORDS SUMMARY | 2022-08-22 14:10 | XMS_ITS | Encounter Summary ---
:1950 Author Organization [facility] Address [address] [place] [address] Care Team Providers Name Role Phone Brandie Thompson JAVA CORE DEVELOPER, SLAB STRIPPER Primary Care Provider [phone] Reason for Visit Reason Comments Med Refill Encounter Details Date Type Department Care Team Description 01/01/2019 Refill [place] Brandie Thompson, Insomnia, unspecified [address] JAVA CORE DEVELOPER, SLAB STRIPPER type (Primary Dx) [place], [place] [address] [address] [phone] [place], [place] [address] Social History Tobacco Use [...] 4:43 PM CDT Please fax Rx to [phone] Telephone Encounter - Brandie Thompson APRN, SAI - 01/04/2019 4:13 PM CDT Please fax to the patient's pharmacy. Bryce Browning Telephone Encounter - Carla Cooper MA - 01/04/2019 3:54 PM CDT I have pended a medication refill for your review. Telephone Encounter - Yumiko Herrera - 01/04/2019 3:42 PM CDT Pt called regarding her Trazadone Rx refill. She uses [facility] and gave a fax number of [phone]. Please call Pt to advise. documented in this encounter Plan of Treatment Not on filedocumented as of this encounter Visit Diagnoses Diagnosis Insomnia, unspecified type - Primary documented in this encounter Care Teams Men'S Basketball Coach Relationship Specialty Start Date End Date Brandie Thompson APRN, SLAB STRIPPER PCP - General Family Medicine 07/21/18 06/26/[address] [place] [id number] documented as of this encounter
--- OUTSIDE RECORDS SUMMARY | 2022-08-22 14:10 | XMS_ITS | Encounter Summary ---
:1950 Author Organization [facility] Address [address] [place] [address] Care Team Providers Name Role Phone Brandie Thompson COMMERCIAL ACCOUNT EXECUTIVE, CONTACT LENS MOLDER Primary Care Provider [phone] Reason for Visit Reason Onset Date Comments Referral 11/30/2018 Encounter Details Date Type Department Care Team Description 11/30/2018 Telephone [place] Brandie Thompson, Referral [address] COMMERCIAL ACCOUNT EXECUTIVE, CONTACT LENS MOLDER [place], [place] [address] [address] [facility] [address] [phone] [place], [place] [address] Social History Tobacco Use [...] PM CST Face sheet added and faxed. [facility] Telephone Encounter - Carla Cooper MA - 12/01/2018 8:06 AM CST Please add face sheet and fax information to Dr. Linh Devries at [phone]. [facility] Telephone Encounter - Brandie Thompson APRN, SAI - 11/30/2018 8:24 PM PHARMACIST CRITICAL CARE Yes, please fax my last dictation. Thank, Bryce [facility] Telephone Encounter - Carla Cooper MA - 11/30/2018 2:55 PM CST Would you like any visit notes faxed as well? [facility] Telephone Encounter - Brandie Thompson APRN, SAI - 11/30/2018 2:49 PM PHARMACIST CRITICAL CARE Please fax the information the patient requested. The ultrasound report should be in the media section. Thanks, Bryce [facility] Telephone Encounter - Carla Cooper MA - 11/30/2018 2:19 PM CST Spoke with patient who made an appt at the [facility] in [place] on January 04 at 1245.She needs us to fax the pelvic ultrasound and whatever else you think she needs to Dr. Linh Devries. Fax number is [phone]. Patient also is waiting to make the colonoscopy appt as she would like to take care of one thing at a time [facility] Telephone Encounter - Sarah Lindsey - 11/30/2018 1:34 PM CST Patient would like to speak to a nurse regarding referral to [facility] in [place]. [facility] documented in this encounter Plan of Treatment Not on filedocumented as of this encounter Visit Diagnoses Not on filedocumented in this encounter Care Teams Animal Researcher Relationship Specialty Start Date End Date Brandie Thompson APRN, CONTACT LENS MOLDER PCP - General Family Medicine 07/21/18 06/26/[address] [place] [address] documented as of this encounter
--- OUTSIDE RECORDS SUMMARY | 2022-08-22 14:11 | XMS_ITS | Encounter Summary ---
:1950 Author Organization [facility] Address [address] [place] [address] Care Team Providers Name Role Phone Unavailable Primary Care Provider Unavailable Reason for Visit Reason Comments Diarrhea with nausea and vomiting Encounter Details Date Type Department Care Team Description 10/05/2017 Emergency [facility], Shelia Pickens (Primary Dx); Department P.A.-C. Fibrillation Atrial (HCC); [address] [place] [address] [address] [place] [address] [place] [id number] Social History Tobacco Use Types Packs/Day Years Used Date Smoking Tobacco: Never Smokeless Tobacco: Never Alcohol Use Standard Drinks/Week Comments No 0 (1 standard drink = 0.6 oz pure alcoho l) Sex Assigned at Date Recorded Not on file documented as of this encounter Last Filed Vital Signs Vital Sign Reading Time Taken Comments Blood Pressure 112/61 10/05/2017 3:15 PM SENIOR CONTROLS ENGINEER Pulse 103 10/05/2017 4:15 PM SENIOR CONTROLS ENGINEER Temperature 37.1 ??C (98.8 ??F) 10/05/2017 1:29 PM SENIOR CONTROLS ENGINEER Respiratory Rate 23 10/05/2017 3:15 PM SENIOR CONTROLS ENGINEER Oxygen Saturation 94% 10/05/2017 4:15 PM SENIOR CONTROLS ENGINEER Inhaled Oxygen Concentration - - Weight 59.2 kg (130 lb 8.2 oz) 10/05/2017 1:31 PM SENIOR CONTROLS ENGINEER Height 165.1 cm (5' 5) 10/05/2017 1:31 PM SENIOR CONTROLS ENGINEER Body Mass Index 21.72 10/05/2017 1:31 PM SENIOR CONTROLS ENGINEER documented in this encounter Medications at Time of Discharge Medication Sig Dispensed Refills Start Date End Date benzonatate (for_TESSALON Take 1 capsule 20 capsule 0 2016 PERLES) 100 mg capsule (100 mg total) by mouth 3 (three) times a day as needed for cough. cholecalciferol Take 2,000 Units 0 11/21/2011 (for_VITAMIN D3) 2,000 by mouth daily. Unit tablet lutein 20 mg tablet Take 1 tablet by 0 11/24/2012 mouth daily. magnesium citrate 100 mg Take 1 tablet by 0 11/21 tablet mouth 2 (two) times a day. MULTIVIT WITH Take 1 tablet by 0 11/21/2011 MINERALS/LUTEIN mouth daily. (MULTIVITAMIN 50 PLUS ORAL) omega 9-iii-[id number]-fish oil Take 1,000 mg by 0 11/21 100-160-1,000 mg capsule mouth daily. traZODone (for_DESYREL) Take 1 tablet by 0 2013 150 mg tablet mouth at bedtime. UNABLE TO FIND Take by mouth. 0 08/10/2014 Kelp iodine VITAMIN B COMPLEX VIT C Vitamin B Complex 0 07/25 NO.3 (VITAMIN B COMP AND C 100 Take 1 tablet NO.3 ORAL) daily ZINC CITRATE-PHYTASE ORAL Take 1 tablet by 0 11/2011 mouth daily. guaiFENesin (for_MUCINEX) Take 1 tablet (600 20 tablet 0 10/16/2017 600 mg 12 hr tablet mg total) by mouth 2 (two) times a day for 10 days. metoprolol tartrate Take 0.5 tablets 30 tablet 0 10/06/2017 08/14/2022 (for_LOPRESSOR) 25 mg (12.5 mg total) by tablet mouth 2 (two) times a day. documented as of this encounter ED Notes Lucina Browning R.N. - 10/05/2017 3:54 PM CST Witnessed increase of dilt rate from 5.0 to 7.5 with Rachael Browning R.N. 10/05/17 1555 OR CONTROLS ENGINEER Sheila Garzon, P.A. - 10/05/2017 1:48 PM CST SUBJECTIVE [...] Oct 05, 2017 1439 Upon returning from [facility], pt is noted to now be tachycardic [...] phone and is not logged in to [facility]. 1530 ECG 12 Lead 1530 DX Chest AP or PA and Lateral 2 Views 1538 Called to RW front maker lockstitch to have RW Care mngr paged. Spoke [...] 05 1621 Pneumonia Fibrillation Atrial (HCC) Cardiomegaly Toney Lopez 10/05/17 1621 OR CONTROLS ENGINEER Rachael Tinajero R.N. - 10/05/2017 1:31 PM CST Pt presents to ED with c/o nausea, vomiting, diarrhea and dry cough. Cough started Friday, nausea started Friday, diarrhea started Friday and pt also had one episode of vomiting last night. Rachael Tinajero R.N. 10/05/17 1333 OR CONTROLS ENGINEER documented in this encounter Plan of Treatment Upcoming Encounters Date Type Specialty Care Team Description 09/02/2022 Comprehensive Visit Physical Medicine and Mainor Winter M.D. [address] [facility], [address] [place] [address] Rehabilitation Rosanna Veliz, P.TRoscoe Scheduled Orders Name Type Priority Associated Diagnoses Order S chedule ECG 12 Lead ECG STAT Once for 1 Occu rrences starting 10/05/2017 unti l 10/05/2017 documented as of this encounter Procedures Procedure Name Priority Date/Time Associated Comments Diagnosis URINALYSIS WITH STAT 10/05/2017 3:39 Results f or this MICROSCOPIC IF PM SENIOR CONTROLS ENGINEER procedure are in INDICATED, U the results section. MICROSCOPIC MANUAL STAT 10/05/2017 3:39 Result s for this PM SENIOR CONTROLS ENGINEER procedure are i n the results section. ECG STAT 10/05/2017 2:41 Results for this PM SENIOR CONTROLS ENGINEER procedure are i n the results section. DX CHEST AP OR PA RAD - Semiurgent 10/05/2017 2:01 Res ults for this AND LATERAL 2 VIEWS (Fast; most ED PM SENIOR CONTROLS ENGINEER proced ure are in patients; some the results inpatients) section. CBC WITH STAT 10/05/2017 2:01 Results for this DIFFERENTIAL, B PM SENIOR CONTROLS ENGINEER procedure ar e in the results section. BASIC METABOLIC STAT 10/05/2017 2:01 Results f or this PANEL, S/P PM SENIOR CONTROLS ENGINEER procedure are i n the results section. NT-PRO B-TYPE STAT 10/05/2017 1:56 Results for this NATRIURETIC PEPTIDE PM SENIOR CONTROLS ENGINEER procedur e are in (BNP), S the results section. PROTHROMBIN TIME STAT 10/05/2017 1:56 Results for this (PT), P PM SENIOR CONTROLS ENGINEER procedure are i n the results section. TROPONIN T, 5TH STAT 10/05/2017 1:56 Results f or this GEN, P PM SENIOR CONTROLS ENGINEER procedure are i n the results section. THYROID-STIMULATING STAT 10/05/2017 1:56 Resul ts for this HORMONE-SENSITIVE PM SENIOR CONTROLS ENGINEER procedure are in (S-TSH) the results section. documented in this encounter Results Microscopic Manual (10/05/2017 3:39 PM SENIOR CONTROLS ENGINEER) Analysis Performed At Patho logist Time Signature White Blood None Seen /hpf 10/05/2017 [facility] Cells 4:13 PM [facility] Comment: ----REFERENCE VALUE---- Males: 0-3 Females: 0-10 Unknown: 0-10 Red Blood Cells None Seen 0 - 2 /hpf 10/05/2017 4:13 PM SENIOR CONTROLS ENGINEER [facility] Dysmorphic RBC <=25 <=25 % 10/05/2017 4:13 PM SENIOR CONTROLS ENGINEER [email or web address] Squamous Epithelial Occ-3 /hpf 10/05/2017 4:[address] [email or web address] Specimen Anatomical Collection Method Collection Time Receive d Time (Source) Location / / Volume Laterality Urine 10/05/2017 3:39 PM 7 4:04 SENIOR CONTROLS ENGINEER PM SENIOR CONTROLS ENGINEER Sheila Garzon P.A.-C. LAB URINE ORDERABLES Performing Organization Address City/State/ZIP Code Phon e Number [facility]- [id number] [address] [place] [facility] (ABNORMAL) Urinalysis with Microscopic if Indicated (10/05/2017 3:39 PM SENIOR CONTROLS ENGINEER) athologist Signature Source Midstream 10/05/2017 [facility] 4:03 PM [facility] Clarity Clear Clear 10/05/2017 [facility] 4:04 PM [facility] Color Yellow 10/05/2017 [facility] 4:04 PM [facility] Comment: ----REFERENCE VALUE---- Colorless Yellow Yessy Blood Trace (A) Negative 10/05/2017 4:04 PM [email or web address] Nitrite Negative Negative 10/05/2017 4:04 PM [facility] Leukocyte Esterase Negative Negative 10/05/2017 4:04 PM [facility] Protein, U Negative mg/dL 10/05/2017 4:04 PM [facility] Comment: ----REFERENCE VALUE---- Negative Trace Glucose Negative Negative mg/dL 10/05/2017 4:04 PM [facility] Ketones, QL(U) Trace (A) Negative mg/dL 10/05/2017 4:04 PM [facility] Bilirubin Negative Negative 10/05/2017 4:04 PM [facility] pH 6.5 5.0 - 8.0 10/05/2017 4:04 PM [facility] Specific Weare <=1.005 1.001 - 1.035 10/05/2017 4:04 PM [facility] Urobilinogen 0.2 0.2 - 1.0 mg/dL 10/05/2017 4:04 PM [facility] Specimen Anatomical Collection Method Collection Time Receive d Time (Source) Location / / Volume Laterality Urine 10/05/2017 3:39 PM 7 4:01 [facility] PM SENIOR CONTROLS ENGINEER Sheila Garzon P.A.-C. LAB URINE ORDERABLES Performing Organization Address City/State/ZIP Code Phon e Number [facility]- [id number] [address] [place] [facility] ECG 12 Lead (10/05/2017 2:41 PM SENIOR CONTROLS ENGINEER) [facility] Method Time Signature Ventricular 149 BPM MUSE Rate ECG/Min QRSD Interval 118 ms MUSE QT Interval 314 ms MUSE QTC Interval 494 ms MUSE R [place] -7 degrees MUSE T Wave [place] 11 degrees MUSE Clinical Atrial fibrillation with rapid ventricular response MUSE Diagnosis Right bundle branch block with secondary ST-T abnormalities No previous ECGs available CODED Atrial MUSE DIAGNOSIS fibrillation Specimen Anatomical Collection Method Collection Time Receive d Time (Source) Location / / Volume Laterality 10/05/2017 2:41 PM 7 2:49 SENIOR CONTROLS ENGINEER PM SENIOR CONTROLS ENGINEER Narrative This result has an attachment that is no t available. Sheila Garzon P.A.-C. ECG ORDERABLES Performing Organization Address City/State/ZIP Code Phon e Number [facility] NA DX Chest AP or PA and Lateral 2 Views (10/05/2017 2:01 PM SENIOR CONTROLS ENGINEER) Anatomical Region Laterality Modality Chest N/A Digital Radiography Specimen (Source) Anatomical Collection Method Collection Time Re ceived Time Location / / Volume Laterality 10/05/2017 2:04 PM SENIOR CONTROLS ENGINEER Impressions 10/05/2017 2:04 PM SENIOR CONTROLS ENGINEER IMPRESSION: Right middle lobe opacity concerning for pneumonitis. ??Recommend follow-up to resolution with repeat ches t x-ray in 4-6 weeks. Narrative 10/05/2017 2:04 PM SENIOR CONTROLS ENGINEER EXAM: DX CHEST AP OR PA AND [...] ches t x-ray in 4-6 weeks. Sheila Garzon P.A.-C. IMG DIAGNOSTIC IMAGING PROCE DURES (ABNORMAL) BMP (Basic Metabolic Panel) (10/05/2017 2:01 PM SENIOR CONTROLS ENGINEER) P athologist Signature Potassium, P 3.6 3.6 - 5.2 10/05/2017 [facility] mmol/L 2:16 PM [facility] Sodium, P 134 (L) 135 - 145 10/05/2017 [facility] mmol/L 2:16 PM [facility] Chloride, P 95 (L) 98 - 107 10/05/2017 [facility] mmol/L 2:16 PM [facility] Bicarbonate, P 24 22 - 29 10/05/2017 [facility] mmol/L 2:16 PM [facility] Anion Gap, P 15 7 - 15 10/05/2017 [facility] 2:16 PM [facility] BUN (Blood Urea 8 6 - 21 10/05/2017 [facility] Nitrogen), P mg/dL 2:16 PM [facility] Creatinine 0.64 0.59 - 10/05/2017 [facility] 1.04 mg/dL 2:16 PM [facility] eGFR-Black/Afri >90 >=60 10/05/2017 [facility] can Central [place] mL/min/BSA 2:16 PM [facility] Comment: ----ADDITIONAL INFORMATION---- Estimated GFR calculated using the 2009 CKD_EPI creatinine equation. eGFR Non-Black/ >90 >=60 mL/min/BSA 10/05/2017 2:16 PM [facility] Central African [facility] Comment: ----ADDITIONAL INFORMATION---- Estimated GFR calculated using the 2009 CKD_EPI creatinine equation. Calcium, Total, P 9.3 8.9 - 10.1 mg/dL 10/05/2017 2 :16 PM [facility] Glucose, P 130 70 - 140 mg/dL 10/05/2017 2:[address] [facility] Specimen Anatomical Collection Method Collection Time Receive d Time (Source) Location / / Volume Laterality Blood (Blood, 10/05/2017 2:01 PM 10/05/20 2:01 Venous) SENIOR CONTROLS ENGINEER PM SENIOR CONTROLS ENGINEER Sheila Garzon P.A.-C. LAB BLOOD ADD-ON Performing Organization Address City/State/ZIP Code Phon e Number [facility]- [id number] [place] [address] LAB (ABNORMAL) CBC with Differential (10/05/2017 2:01 PM [facility]) [facility] Method Time Signature Hemoglobin 13.1 11.6 - 10/05/2017 [facility] 15.0 g/dL 2:09 PM [facility] Hematocrit 39.0 35.5 - 10/05/2017 [facility] 44.9 % 2:[address] [facility] Erythrocytes 4.39 3.92 - 10/05/2017 [facility] 5.13 2:09 PM SENIOR CONTROLS ENGINEER HEALTH x10(12)/L [facility] MCV 88.8 78.2 - 10/05/2017 [facility] 97.9 fL 2:09 PM [facility] RBC Distrib Width 13.2 12.2 - 10/05/2017 [facility] 16.1 % 2:09 PM [email or web address] Platelet Count 151 (L) 157 - 371 10/05/2017 [facility] x10(9)/L 2:09 PM [email or web address] Leukocytes 10.0 (H) 3.4 - 9.6 10/05/2017 [facility] x10(9)/L 2:09 PM [facility] Neutrophils 8.81 (H) 1.56 - 10/05/2017 [facility] 6.45 2:09 PM [facility] [employer] x10(9)/L [facility] Lymphocytes 0.43 (L) 0.95 - 10/05/2017 [facility] 3.07 2:09 PM SENIOR CONTROLS ENGINEER [employer] x10(9)/L [facility] Monocytes 0.77 0.26 - 10/05/2017 [facility] 0.81 2:09 PM SENIOR CONTROLS ENGINEER [employer] x10(9)/L [facility] Eosinophils 0.01 (L) 0.03 - 10/05/2017 [facility] 0.48 2:09 PM [facility] [employer] x10(9)/L [facility] Basophils 0.00 (L) 0.01 - 10/05/2017 [facility] 0.08 2:09 PM SENIOR CONTROLS ENGINEER [employer] x10(9)/L [facility] Specimen Anatomical Collection Method Collection Time Receive d Time (Source) Location / / Volume Laterality Blood (Blood, 10/05/2017 2:01 PM 10/05/20 2:01 Venous) SENIOR CONTROLS ENGINEER PM SENIOR CONTROLS ENGINEER Sheila Garzon P.A.-C. LAB BLOOD ADD-ON Performing Organization Address City/State/ZIP Code Phon e Number [facility]- [id number] [place] [address] [place] [address] [email or web address] LAB (ABNORMAL) NT-Pro B-Type Natriuretic Peptide (BNP) (10/05/2017 1:56 PM SENIOR CONTROLS ENGINEER) athologist Signature NT-Pro BNP 427 (H) <=196 pg/mL 10/05/2017 [facility] 3:08 PM SENIOR CONTROLS ENGINEER [facility] Comment: NT-proBNP values less than 300 [...] 10/05/2017 1:56 PM 10/05/20 17 2:46 Venous) SENIOR CONTROLS ENGINEER PM SENIOR CONTROLS ENGINEER Sheila Garzon P.A.-C. LAB BLOOD ADD-ON Performing Organization Address City/State/ZIP Code Phon e Number [facility]- [address] [place] [phone] [place] [address] LAB S-TSH (Thyroid-Stimulating Hormone - Sensitive) (10/05/2017 1:56 PM SENIOR CONTROLS ENGINEER) athologist Signature TSH, Sensitive 0.5 0.3 - 4.2 10/05/2017 [facility] mIU/L 3:08 PM [facility] Comment: Biotin has been identified by [...] (Blood, 10/05/2017 1:56 PM 10/05/20 2:46 Venous) SENIOR CONTROLS ENGINEER PM SENIOR CONTROLS ENGINEER Sheila Garzon P.A.-C. LAB BLOOD ADD-ON Performing Organization Address [facility] Phon e Number [address] [address] [place] [facility] PT (Prothrombin Time) with INR (10/05/2017 1:56 PM SENIOR CONTROLS ENGINEER) athologist Signature Prothrombin 10.2 8.8 - 11.9 10/05/2017 [facility] Time, P sec 3:01 PM [facility] INR 1.0 0.9 - 1.2 10/05/2017 [facility] 3:01 PM [facility] Comment: Standard intensity warfarin therapeutic range: 2.0 to 3.0 High intensity warfarin therapeutic rang e: 2.5 to 3.5 Specimen Anatomical Collection Method Collection Time Receive d Time (Source) Location / / Volume Laterality Blood (Blood, 10/05/2017 1:56 PM 10/05/20 2:42 Venous) SENIOR CONTROLS ENGINEER PM SENIOR CONTROLS ENGINEER Sheila Garzon P.A.-C. LAB BLOOD ADD-ON Performing Organization Address [facility] Phon e Number [address] [address] [place] [facility] Troponin T (10/05/2017 1:56 PM SENIOR CONTROLS ENGINEER) athologist Signature Troponin T, S <0.01 <0.01 ng/mL 10/05/2017 [facility] 3:01 PM [facility] Comment: Biotin has been identified by the memo rodríguez as a potential interfering substance. ??Higher concentr ations of biotin may be found in multivitamins, hair/nail supple ments, and workout supplements. ??If the result does not [facility] clinical observations, repeat testing after patient refrains fr om the use of supplements for at least 12 hours. Specimen Anatomical Collection Method Collection Time Receive d Time (Source) Location / / Volume Laterality Blood (Blood, 10/05/2017 1:56 PM 10/05/20 2:42 Venous) SENIOR CONTROLS ENGINEER PM SENIOR CONTROLS ENGINEER Sheila Garzon P.A.-C. LAB BLOOD ADD-ON Performing Organization Address City/State/ZIP Code Janie e Number [facility]- [id number] [address] [place] [facility] documented in this encounter Visit Diagnoses Diagnosis Pneumonia - Primary Atrial Fibrillation Unspecified Cardiomegaly Fibrillation Atrial (AF) NOS documented in this encounter Administered Medications Inactive Administered Medications - up to 3 most recent administrations Medication Order MAR Action Action Date Dose Rate Site cefTRIAXone Given 10/05/2017 2:33 1,000 mg Right An tecubital (for_ROCEPHIN) injection PM SENIOR CONTROLS ENGINEER - ADS Override Pull Starting on 10/05/17 at 1427, For 1 dose, Created by cabinet override [place] IV push over 3 minutes. Add 10 mL NS to 1 gram vial for a final concentration of 100 mg/mL. dilTIAZem in dextrose 5 % 125 mg/125 New Bag 10/05/2017 3:32 P M SENIOR CONTROLS ENGINEER 5 mg/hr 5 mL/hr mL (1 mg/mL) infusion (for_CARDIZEM) 5-15 mg/hr (5-15 mL/hr), intravenous, Continuous, Starting on 10/05/17 at 1518, Type: Titrate, Initiate at: 5 mg/hr, Titrate at: 2.5 mg/hr every 15 min., Goal: HR 60-100 dilTIAZem injection 15 mg Given 10/05/2017 2:53 PM SENIOR CONTROLS ENGINEER 15 mg Right Antecubital (for_CARDIZEM) 15 mg, intravenous, Once, On 10/05/17 at 1448, For 1 dose dilTIAZem injection 20 mg Given 10/05/2017 3:12 PM SENIOR CONTROLS ENGINEER 20 mg Right Antecubital (for_CARDIZEM) 20 mg, intravenous, Once, On 10/05/17 at 1507, For 1 dose lactated Ringer's bolus 1,000 mL New Bag 10/05/2017 2:02 PM SENIOR CONTROLS ENGINEER 1,000 mL 1000 mL/hr 1,000 mL, intravenous, at 1,000 mL/hr, Administer over 1 Hours, Once, On 10/05/17 at 1348, For 1 dose sodium chloride 0.9 % injection 2-10 mL 2-10 mL, intravenous, As needed, line care, Starting o n 10/05/17 at 1346 sterile water injection - ADS Override P ull Given 10/05/2017 2:33 PM SENIOR CONTROLS ENGINEER 20 mL Starting on 10/05/17 at 1428, For 1 dose, Created by cabinet override documented in this encounter Active and Recently Administered Medications Times are shown in SENIOR CONTROLS ENGINEER. Scheduled Medication Order 10/03/2017 10/04/2017 10/05/2017 cefTRIAXone 1 g in NaCl 0.9 % IVPB (for_ROCEPHIN) 1422 (Due) 1 g, intravenous, at 200 mL/hr, Administ er over 15 Minutes, Once, [place] 10/05/17 at 1422, For 1 dose, Mini-Bag Plus bag, Drug Monitoring Program: Pharmacist to adjust medication order based on comorbities and indication., Indications: Respiratory Tract Infection, Community Acquired dilTIAZem injection 15 mg (for_CARDIZEM) (COMPLETED) 1453 (Given - Provider: Rachael Tinajero R.N.) 15 mg, intravenous, Once, On [place] 10/05/17 at 1448, For 1 dose dilTIAZem injection 20 mg (for_CARDIZEM) (COMPLETED) 1512 (Given - Provider: Rachael Tinajero R.N.) 20 mg, intravenous, Once, On [place] 10/05/17 at 1507, For 1 dose lactated Ringer's bolus 1,000 mL (COMPLETED) 1402 (New Bag - Provider: Rachael Tinajero R.N.)1504 (Stopped - Provider: Rachael Tinajero R.N.) 1,000 mL, intravenous, at 1,000 mL/hr, A dminister over 1 Hours, Once, On [place] 10/05/17 at 1348, For 1 dose Continuous Medication Order 10/03/2017 10/04/2017 10/05/2017 dilTIAZem in dextrose 5 % 125 mg/125 mL (1 mg/mL) infusion (for_ CARDIZEM) 1532 (New Bag - Provider: Rachael Tinajero R.N. - Comment: [id number] Lucina Browning RN)1620 (Stopped - Provider: Rachael Tinajero R.N.) 5-15 mg/hr (5-15 mL/hr), intravenous, Co ntinuous, Starting on 10/05/17 at 1518, Type: Titrate, Initiate at: 5 mg/hr, Titrate at: 2.5 mg/hr every 15 min., Goal: HR 60-100 PRN Medication Order 10/03/2017 10/04/2017 10/05/2017 sodium chloride 0.9 % injection 2-10 mL(Linked Group 1) 2-10 mL, intravenous, As needed, line care, Starting on 09/19 at 1346 No Frequency Medication Order 10/03/2017 [...] As needed, line ca re, Starting on [place] 10/05/17 at 1346 documented in this encounter
--- OUTSIDE RECORDS SUMMARY | 2022-08-22 14:11 | XMS_ITS | Encounter Summary ---
:1950 Author Organization [facility] Address [address] [place] [address] Care Team Providers Name Role Phone Unavailable Primary Care Provider Unavailable Reason for Referral Outpatient (Routine) - Closed Specialty Diagnoses / Procedures Referred By Contact Refer red To Contact Diagnoses Abnormal Electrocardiogram Brandie Thompson [facility] Region Procedures ECG 12 Lead C.N.P. [address] [place], [place] [address] Referral ID Status Reason Start Date Expiration Date Visits Requ ested Visits Authorized [id number] Closed 08/06/2022 08/06/2023 1 1 Reason for Visit Outpatient (Routine) - Closed Specialty Diagnoses / Procedures Referred By Contact Refer red To Contact Diagnoses Abnormal Electrocardiogram Brandie Thompson [facility] [place] Region Procedures ECG 12 Lead C.N.P. [address] [place], [place] [address] Referral ID Status Reason Start Date Expiration Date Visits Requ ested Visits Authorized [id number] Closed 08/06/2022 08/06/2023 1 1 Encounter Details Date Type Department Care Team Description 08/14/2022 Hospital Department of Elver Thompson [place] C.N.P. [address] [facility] [address] [place] [id number] [phone] Social History Tobacco Use Types Packs/Day Years [...] (for_VITAMIN D3) 2,000 Unit mouth daily. tablet cyanocobalamin (VITAMIN Take 100 mcg by 0 B12) 100 mcg tablet mouth daily. flaxseed oiL 1,000 mg Take 1 capsule by 0 capsule mouth. garlic 1,000 mg capsule Take 1 capsule by 0 mouth daily. ibuprofen (ADVIL,MOTRIN) Take 200 mg by 0 200 mg tablet mouth every 6 (six) hours as needed. Lactobacillus acidophilus Take 1 capsule by 0 capsule mouth 2 (two) times a day with meals. lutein 20 mg tablet Take 1 tablet by 0 11/24/2012 mouth daily. magnesium citrate 100 mg Take 1 tablet by 0 11/21 tablet mouth 2 (two) times a day. MULTIVIT WITH Take 1 tablet by 0 11/21/2011 MINERALS/LUTEIN mouth daily. (MULTIVITAMIN 50 PLUS ORAL) omega 0-vms-rde-fish oil Take 1,000 mg by 0 11/21 100-160-1,000 mg capsule mouth daily. traZODone (for_DESYREL) 150 Take 1 tablet by 0 mg tablet mouth at bedtime. UBIDECARENONE (COENZYME Q10 Take by mouth 0 ORAL) daily. UNABLE TO FIND Take by mouth. Kelp 0 08/10/2014 iodine UNABLE TO FIND Med Name: tumeric 0 VITAMIN B COMPLEX VIT C Vitamin B [...] Winter M.D. [address] , [address] [place] [id number] Rehabilitation Jose Alfredo Rosanna L, P.T. documented as of this encounter Procedures Procedure Name Priority Date/Time Associated Diagnosis Comme nts ECG Routine 08/14/2022 8:29 AM Abnormal Electrocardio gram Results for this CDT procedure are i n the results section. documented in this encounter Results ECG 12 Lead (08/14/2022 8:29 AM CDT) [facility] Method Time Signature Ventricular 63 BPM MUSE Rate ECG/Min WV Interval 122 ms MUSE QRSD Interval 124 ms MUSE QT Interval 414 ms MUSE QTC Interval 423 ms MUSE P [place] 61 degrees MUSE R [place] 2 degrees MUSE T Wave [place] 50 degrees MUSE CODED Atrial MUSE DIAGNOSIS fibrillation Specimen Anatomical Collection Method Collection Time Receive d Time (Source) Location / / Volume Laterality 08/14/2022 8:29 AM 8:31 CDT AM CDT Impressions MUSE - 08/14/2022 8:31 AM CDT Normal sinus rhythm Right bundle branch block with secondary ST-T abnormalities When compared with ECG of 05-OCT-2017 14 :41, Sinus rhythm has replaced Atrial fibrill ation Vent. rate has decreased BY ??86 BPM Reviewed by MERRITT Cevallos Narrative This result has an attachment that is no t available. Procedure Note Willi Somers M.D. - 08/14/2022Formatt ing of this note might be different from the original. IMPRESSION: Normal sinus rhythm Right bundle branch block with secondary ST-T abnormalities When compared with ECG of 05-OCT-2017 14 :41, Sinus rhythm has replaced Atrial fibrill ation Vent. rate has decreased BY 86 BPM Reviewed by MERRITT Cevallos Brandie Thompson C.N.P. ECG ORDERABLES Performing Organization Address City/State/ZIP Code Phon e Number MUSE MUSE NA documented in this encounter Visit Diagnoses Diagnosis Abnormal Electrocardiogram documented in this encounter
--- OUTSIDE RECORDS SUMMARY | 2022-08-22 14:11 | XMS_ITS | Encounter Summary ---
:1950 Author Organization [facility] Address [address] [place] [address] Care Team Providers Name Role Phone Unavailable Primary Care Provider Unavailable Reason for Referral Physical Therapy (Routine) - Authorized Specialty Diagnoses / Procedures Referred By Contact Refer red To Contact Diagnoses Pain Knee Bilateral Mainor Winter M.D. [facility] Procedures PT Ongoing treatment [address], [address] [place] [address] Referral ID Status Reason Start Date Expiration Date Visits V isits Requested Authorized [id number] Authorized 06/07/2022 06/07/2023 99 99 Reason for Visit Appointment Request (Routine) - Closed Specialty Diagnoses / Procedures Referred By Contact Refer red To Contact Physical Therapy Diagnoses Pain Knee Mainor Winter M.D. [address], [address] [place] [address] Referral ID Status Reason Start Date Expiration Date Visits Requ ested Visits Authorized [id number] Closed 05/31/2022 05/31/2023 1 1 Encounter Details Date Type Department Care Team Description 06/07/2022 Comprehensive Visit Department of Manjit Winter M.D. [address], [address] [place] [address] Pain Knee Rehabilitation Ross Rios, P.T. [address] [place] [address] Bilateral (Primary Services in [facility]) [address] [place] [address] Social History Tobacco Use Types Packs/Day Years Used Date Smoking Tobacco: Never Smokeless Tobacco: Never Alcohol Use Standard Drinks/Week Comments No 0 (1 standard drink = 0.6 oz pure alcoho l) Sex Assigned at Date Recorded Not on file documented as of this encounter Consult Notes Ross Rios, P.T. - 06/07/2022 1:30 PM CDT Consults Physical [...] a chiropractor roughly twicea week for treatment. life care planner has included some instrument assisted soft tissue mobilization, joint mobilization/manipulation, as well as electric stimulation. 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 Overall she reports her status is improving . Onset of symptoms: Onset in early March of this year after spending time on the floor on her knees atwork Aggravating Factors: Prolonged standing, prolonged walking, stairs, squatting Relieving Factors: Rest, ice, elevation, injections, NSAIDs Previous Treatments: Anti-inflammatories, Comptometrist, Heat/Cold modalities, and Injection Fall Risk: Fall in the last 12 months: No Are you fearful of falling?: No Prior Level of Function: Independent Occupational Profile: Works in a [employer], standing roughly 6 hours a day Recreational [...] exercise program to consist of: Access Code: [email or web address] URL: [email or web address] Date: 06/07/2022 Prepared by: Ross Rios Exercises [...] being written using the voice recognizing software SensorWave direct. It is being editedin real time. However, there may still be occasional small grammatical errors. Ross Rios, P.T. documented in this encounter Plan of Treatment Upcoming Encounters Date Type Specialty Care Team Description 09/02/2022 Comprehensive Visit Physical Medicine and AhmetraMainor M.D. [address] , [address] [place] [address] Rehabilitation Rosanna Veliz P.T. documented as of this encounter Visit Diagnoses Diagnosis Pain Knee Bilateral - Primary documented in this encounter
--- OUTSIDE RECORDS SUMMARY | 2022-08-22 14:11 | XMS_ITS | Encounter Summary ---
:1950 Author Organization [facility] Address [address] [place] [address] Care Team Providers Name Role Phone Unavailable Primary Care Provider Unavailable Reason for Referral Outpatient (Routine) - Closed Specialty Diagnoses / Procedures Referred By Contact Refer red To Contact Diagnoses Screening Mammogram Breast Cancer Archie Colindres II, M.D. [facility] Region Procedures BI Breast Screening Bilateral with Tomosynthesis [address] [place], [place] [address] Referral ID Status Reason Start Date Expiration Date Visits Requ ested Visits Authorized [id number] Closed 07/02/2021 07/02/2022 1 1 Reason for Visit Outpatient (Routine) - Closed Specialty Diagnoses / Procedures Referred By Contact Refer red To Contact Diagnoses Screening Mammogram Breast Cancer Archie Colindres II, M.D. [facility] [place] Region Procedures BI Breast Screening Bilateral with Tomosynthesis [address] [place], [place] [address] Referral ID Status Reason Start Date Expiration Date Visits Requ ested Visits Authorized [id number] Closed 07/02/2021 07/02/2022 1 1 Encounter Details Date Type Department Care Team Description 07/09/2021 Hospital Encounter Department of Archie Colindres Mammogram Radiology in [place] GARCIA M.D. Breast Cancer [place], [place] [address] [place] [address] [address] [address] [place], [place] [phone] [address] (Work) [phone] Social History Tobacco Use Types Packs/Day Years [...] mouth daily. (MULTIVITAMIN 50 PLUS ORAL) omega 1-mga-ahm-fish oil Take 1,000 mg by 0 11/21 100-160-1,000 mg capsule mouth daily. traZODone (for_DESYREL) Take 1 tablet by 0 2013 150 mg tablet mouth at bedtime. UBIDECARENONE (COENZYME Take by mouth 0 Q10 ORAL) daily. UNABLE TO FIND Take by mouth. 0 08/10/2014 Kelp iodine VITAMIN B COMPLEX VIT C Vitamin B Complex 0 07/25 NO.3 (VITAMIN B COMP AND C 100 Take 1 tablet NO.3 ORAL) daily ZINC CITRATE-PHYTASE ORAL Take 1 tablet by 0 11/2011 mouth daily. metoprolol tartrate Take 0.5 tablets 30 tablet 0 10/06/2017 08/14/2022 (for_LOPRESSOR) 25 mg (12.5 mg total) by tablet mouth 2 (two) times a day. documented as of this encounter Plan of Treatment Upcoming Encounters Date Type Specialty Care Team Description 09/02/2022 Comprehensive Visit Physical Medicine and Mainor Winter M.D. [address] , [address] [place] [address] Claritza Veliz Rosanna David Campos documented as of this encounter Procedures Procedure [...] Imaging RST LOS, Breast Imaging ARZ LOS, [address] Bilateral Mammography Imaging FLA LOS Specimen (Source) Anatomical Collection Method Collection Time Re ceived Time Location / / Volume Laterality 07/09/2021 2:47 PM CDT Impressions 07/09/2021 2:47 PM CDT Negative. RECOMMENDATION: ??Annual Screening Mammo gram ASSESSMENT: ??BI-RADS: 1: Negative. Narrative 07/09/2021 2:47 PM CDT EXAM: ??BI BREAST SCREENING BILATERAL WITH TOMOSYNTHESIS Current study was evaluated with a Actual Experienceu ter Aided Detection (CAD) system. INDICATION: ??Screening mammogram. COMPARISON: ??Prior exam(s) were availab le and reviewed for comparison. DENSITY: ??b. There are scattered areas of fibroglandular density. FINDINGS: ??No mammographic findings of malignancy. Procedure Note Tiago Torres M.D. - 07/09/2021Format ting of this note might be different from the original. EXAM: BI BREAST SCREENING BILATERAL WITH TOMOSYNTHESIS Current study was evaluated with a Actual Experienceu ter Aided Detection (CAD) system. INDICATION: Screening mammogram. COMPARISON: Prior exam(s) were available and reviewed for comparison. DENSITY: b. There are scattered areas of fibroglandular density. FINDINGS: No mammographic findings of ma lignancy. IMPRESSION: Negative. RECOMMENDATION: Annual Screening Mammogr am ASSESSMENT: BI-RADS: 1: Negative. Archie Colindres II, M.D. IMG BI PROCEDURES documented in this encounter Visit Diagnoses Diagnosis Screening Mammogram Breast Cancer documented in this encounter
--- OUTSIDE RECORDS SUMMARY | 2022-08-22 14:11 | XMS_ITS | Encounter Summary ---
:1950 Author Organization [facility] Address [address] [place] [address] Care Team Providers Name Role Phone Brandie Thompson SERVICE CREW SUPERVISOR, UROLOGIC SURGEON Primary Care Provider [phone] Reason for Visit Reason Onset Date Comments MAMMOGRAM REFERRAL 07/20/2018 THE PATIENT WOULD LI KE A REFERRAL TO [facility] FOR HER MAMMOGRAM. Encounter Details Date Type Department Care Team Description 07/20/2018 [place]phone [place] Brandie Thompson, MAMMOGRAM REFERRAL [address] [place], [place] (THE PATIENT WOULD [place], [place] [address] A REFERRAL TO [phone] [place], [place] [address] [place] FOR HER MAMMOGRA M. ) Social History [...] or relatives? How often do you attend hoahaoism or More than 4 times per year 12/13/2019 mormon services? Do you belong to any clubs or Not asked organizations such as hoahaoism groups, unions, fraternal or athletic groups, or [...] lugo documented in this encounter Care Teams Analysis Engineer Relationship Specialty Start Date End Date Brandie Thompson APRN, UROLOGIC SURGEON PCP - General Family Medicine 07/21/18 06/26/20 100 [place] [address] documented as of this encounter
--- OUTSIDE RECORDS SUMMARY | 2022-08-22 14:11 | XMS_ITS | Encounter Summary ---
:1950 Author Organization [facility] Address [address] [place] [address] Care Team Providers Name Role Phone Unavailable Primary Care Provider Unavailable Encounter Details Date Type Department Care Team Description 07/21/2018 [facility] [address], [place] [address] [place] [address] [phone] Social History Tobacco Use Types Packs/Day Years [...] Physical Medicine and Mainor Winter M.D. [address] [facility] [address] [place] [address] Rehabilitation Rosanna Veliz, P.T. documented as of this encounter Visit Diagnoses Not on filedocumented in this encounter
--- OUTSIDE RECORDS SUMMARY | 2022-08-22 14:11 | XMS_ITS | Encounter Summary ---
:1950 Author Organization [facility] Address [address] [place] [address] Care Team Providers Name Role Phone Unavailable Primary Care Provider Unavailable Encounter Details Date Type Department Care Team Description 08/06/2022 Clinical Communication Department of Scooter Robb Cardiovascular Diseases Екатерина Castellanos in [facility] [address] [facility] [address] [place] [phone] Social History Tobacco Use Types Packs/Day Years Used Date Smoking Tobacco: Never Smokeless Tobacco: Never Alcohol Use Standard Drinks/Week Comments No 0 (1 standard drink = 0.6 oz pure alcoho l) Sex Assigned at Date Recorded Not on file documented as of this encounter Miscellaneous Notes Telephone Encounter - Dianna Carbajal - 08/06/2022 3:12 PM CDT Patient is having total knee surgery with Dr. Holly on 08/26/22 and will need clearance before surgery/ records will be scanned in the chart documented in this encounter Plan of Treatment Upcoming Encounters Date Type Specialty Care Team Description 09/02/2022 Comprehensive Visit Physical Medicine and Mainor Winter M.D. [address], [address] [place] [address] Rehabilitation Rosanna Veliz, P.T. documented as of this encounter Visit Diagnoses Not on filedocumented in this encounter
--- OUTSIDE RECORDS SUMMARY | 2022-08-22 14:11 | XMS_ITS | Encounter Summary ---
:1950 Author Organization [facility] Address [address] [place] [address] Care Team Providers Name Role Phone Unavailable Primary Care Provider Unavailable Encounter Details Date Type Department Care Team Description 08/03/2018 Hospital Encounter Department of Brandie Thompson Mammogram Radiology in [place], [place] [address] [place] [address] [address] [place], [place] [phone] [address] (Work) [phone] Social History Tobacco Use Types Packs/Day Years [...] Take 1 capsule 20 capsule 0 2016 MOJGAN) 100 mg capsule (100 mg total) by [...] mouth daily. (MULTIVITAMIN 50 PLUS ORAL) omega 7-mgg-idf-fish oil Take 1,000 mg by 0 11/21 [...] Physical Medicine and [place], Mainor Castellanos M.D. [address] [place] [address] Rehabilitation Rosanna Veliz, P.T. documented as of [...] Imaging RST LOS, Breast Imaging ARZ LOS, [address] Bilateral Mammography Imaging FLA LOS Specimen [...]
--- OUTSIDE RECORDS SUMMARY | 2022-08-22 14:11 | XMS_ITS | Encounter Summary ---
:1950 Author Organization [facility] Address [address] [place] [address] Care Team Providers Name Role Phone Unavailable Primary Care Provider Unavailable Encounter Details Date Type Department Care Team Description 07/20/2018 Hospital Encounter Department of Brandie Thompson [facility] [place] [facility] [place] [place] [address] [facility] [address] [address] [place], [place] [phone] [address] (Work) [phone] Social History Tobacco Use Types Packs/Day Years [...] mouth daily. (MULTIVITAMIN 50 PLUS ORAL) omega 4-gck-hqv-fish oil Take 1,000 mg by 0 11/21 [...] Medicine and [place], Mainor Castellanos M.D. [address] [facility], [address] [place] [address] Rosanna Valencia, P.T. documented as of this encounter Procedures [...] BMD BONE DENSITY SPINE HIPS COMPARISON: None. 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 LUMBAR SPINE L1-L4 included unless [...] BMD BONE DENSITY SPINE HIPS COMPARISON: None. Weatherization Technician/Model: [employer] FINDINGS: LUMBAR SPINE L1-L4 included unless otherwise [...]
--- OUTSIDE RECORDS SUMMARY | 2022-08-22 14:11 | XMS_ITS | Encounter Summary ---
:1950 Author Organization [facility] Address [address] [place] [address] Care Team Providers Name Role Phone Unavailable Primary Care Provider Unavailable Reason for Visit Reason Comments Consult Outpatient (Routine) - Closed Specialty Diagnoses / Procedures Referred By Referred To Contact Contact Cardiovascular Diseases Diagnoses Abnormal [facility] Disease M, C.N.P. [address] [place] [address] Referral ID Status Reason Start Date Expiration Date Visits Requ ested Visits Authorized [id number] Closed 08/06/2022 08/06/2023 1 1 Encounter Details Date Type Department Care Team Description 08/14/2022 Comprehensive Visit Department of Cindy Sethi atlisa Examination Cardiovascular (Primary Dx); Cardiovascular Jordy M, Atrial Fibril lation Paroxysmal (HCC); Diseases in Red ROLLED GOLD PLATER, C.N.P. Palpitations; [place], [place] [address] Block Right; [address] Abnormal Electrocardiogram [place], [place] [address] [id number] Social History Tobacco Use Types Packs/Day Years Used Date Smoking Tobacco: Never Smokeless Tobacco: Never Alcohol Use Standard Drinks/Week Comments No 0 (1 standard drink = 0.6 oz pure alcoho l) Sex Assigned at Date Recorded Not on file documented as of this encounter Last Filed Vital Signs Vital Sign Reading Time Taken Comments Blood Pressure 147/62 08/14/2022 8:58 AM CDT Pulse 67 08/14/2022 8:58 AM CDT Temperature 36.5 ??C (97.7 ??F) 08/14/2022 8:54 AM CDT Respiratory Rate - - Oxygen Saturation - - Inhaled Oxygen Concentration - - Weight 58.5 kg (128 lb 15.5 oz) 08/14/2022 8:54 AM CDT Height - - Body Mass Index 21.46 10/05/2017 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 - 08/14/2022 9:00 AM CDT 1. No recommended imaging or testing at this time presurgical. 2. Return to cardiology as needed. 3. Call cardiology at [phone] (CV scheduling) with questions or concerns. documented in this encounter Consult Notes Jordy Sethi APRN, C.N.P. - 08/14/2022 9:00 AM CDT SUBJECTIVE Referring Provider: Brandie Thompson C.N.P. CHIEF COMPLAINT Cardiovascular preoperative exam HISTORY OF PRESENT ILLNESS Ms. Nuria Simmons is a very pleasant 72 y.o. female who presents to [facility] for completion of a cardiovascular preoperative exam with upcoming left TKA at [facility] on 08/26/2022. She completed a preoperative exam with her PCP in early July 2022 with reported intermittent awareness of palpitations with heart rates in the 140s. An ECG showed sinus rhythm with right bundle branch block (chronic since at least 2016) with lab work showing electrolytes and kidney function within normal limits with LDL 102 with no statin use. A Holter monitor was recommended related to intermittent awareness of palpitations with no awareness of atrial fibrillation per her report with findings not available at the time of her CV visit. She completed an echocardiogram in September 2017 with findings showing normal LV size and wall thickness with ejection fraction 63%, no regional wall motion abnormalities, normal RV size and function with RVSP 33 mmHg and no significant valvular disease. She reports no previous awareness of a sleep-related breathing disorder with intermittent fatigue and known insomnia. She denies any chest discomfort, dyspnea, orthopnea or PND. No current awareness of palpitations or significant fatigue. No lower extremity edema. No lightheadedness, falls or presyncopal episodes. No bleeding. No stroke or TIA symptoms. She is active on a daily basis with no structured exercise routine. She denies any chest discomfort, dyspnea, orthopnea or PND. No significant cardiovascular family history. She is . She is a lifelong nonsmoker. No alcohol or illicit drug use. Cardiovascular Risk Factors: 1. Smoking status: has never smoked 2. Type II Diabetes Mellitus: no EXT Hemoglobin A1c, B Date Value Ref Range Status 07/02/2021 5.9 (H) 4.0 - 5.6 % A1C Final Comment: Reference Range 4.0-5.6% is for non- adults >=18 yrs <5.6% Non-Diabetic 5.7-6.4% Increased risk of Diabetes >=6.5% Indicative of Diabetes <7.0% ADA goal for glycemic control Methodology may not detect all hemoglobin variants which can affect A1c results. Method certified by National Glycohemoglobin Standardization Program. 3. Hypertension: no 4. Dyslipidemia: no No results found for: LIPA 5. Family history of early Coronary Artery Disease in a first degree relative (Male less than 55 years of age; Female less than 65 years of age): no 6. Obesity and/or Metabolic Syndrome: no 7. Sedentary lifestyle: no REVIEW OF SYSTEMS The following portions of the patient's history were reviewed and updated as appropriate: current medications, family history, medical history, social history, and problem list. OBJECTIVE Vitals: 08/14/22 0854 08/14/22 0858 BP: 152/67 147/62 Pulse: 66 67 Temp: 36.5 ??C Weight: 58.5 kg Body mass index is 21.46 kg/m??. BP Readings from Last 3 Encounters: 08/14/22 147/62 10/06/17 141/83 10/05/17 112/61 PHYSICAL EXAMINATION GENERAL: Alert and oriented. No acute distress. HEAD: Normocephalic/atraumatic. EYE: No scleral icterus. PERRL. NECK: No thyromegaly. LYMPH: No cervical or supraclavicular lymphadenopathy. HEART: Regular rate and rhythm. S1 and S2. No murmurs appreciable. Nondisplaced apical impulse. Jugular venous pressure is normal. VESSELS: Bilateral radial pulses 3+. LUNG: Clear to auscultation bilaterally. SKIN: Warm and dry. No jaundice. ABDOMEN: Soft. Nontender to palpation. Nondistended. EXTREMITIES: No cyanosis, clubbing or edema. MENTAL: Cooperative. Affect appropriate. DIAGNOSTICS Lab Results Component Value Date WBC 5.0 07/02/2021 HGB 15.1 07/02/2021 HCT 45.6 (H) 07/02/2021 MCV 91.3 07/02/2021 PLT 216 07/02/2021 Lab Results Component Value Date NA 140 07/02/2021 KPLASMA 3.6 10/05/2017 CL 105 07/02/2021 CREATININE 0.7 07/02/2021 BUN 17 07/02/2021 ANIONGAP 14 10/06/2017 GLUCOSE 99 07/02/2021 CALCIUM 10.0 07/02/2021 Lab Results Component Value Date CHOL 206 (H) 07/02/2021 Lab Results Component Value Date HDL 79 07/02/2021 Lab Results Component Value Date LDLCALC 115 (H) 07/02/2021 Lab Results Component Value Date TRIG 58 07/02/2021 ECG 12 Lead Result Date: 08/14/2022 Normal sinus rhythm Right bundle branch block with secondary ST-T abnormalities When compared with ECG of 05-OCT-2017 14:41, Sinus rhythm has replaced Atrial fibrillation Vent. rate has decreased BY 86 BPM Reviewed by MERRITT Cevallos ASSESSMENT / PLAN #1 Preoperative Examination Cardiovascular #2 Atrial Fibrillation Paroxysmal (HCC); brief episode in the setting of pneumonia in 2017 with no awareness of recurrence #3 Palpitations; intermittent awareness #4 Bundle Branch Block Right; chronic since at least 2016 It was a pleasure to see Mrs. Simmons in clinic today. She is overall doing very well. Her systolic blood pressure was slightly elevated in the upper 140s with heart rate very appropriatein mid 60s with no beta-yudith or calcium channel yudith use. She reports she has not monitored her blood pressure at home recently with previous monitoring over the last 6 months with systolic readings in the 120s to 130s which is very appropriate. Her previous preoperative physical with her PCP inearly July showed a systolic reading in the upper 130s which is very appropriate. We reviewed her ECG completed today which showed normal sinus rhythm with right bundle branch block with secondary ST-T abnormalities with review of previous ECGs with most recent in 2017 showing rightbundle branch block with chronicity discussed and potential etiologies reviewed with no further recommendations related to her RBBB at this time. Her most recent echocardiogram was completed in 2017 and overall unremarkable which is also very reassuring. She is euvolemic on exam today with no current use of a diuretic. There are no current contraindications from a cardiovascular standpoint to proceed with orthopedic surgery. She has a remote history of paroxysmal atrial fibrillation which may present postoperatively with rate control very appropriate with further discussion related to daily anticoagulation use with p ankitaistence with a PUQ1OD1 VASc score of 2 related to age and sex with annual ischemic stroke risk approximately 2.2%. She was instructed to return to cardiology in [place] as needed in the future. Plan: 1. No recommended imaging or testing at this time presurgical. 2. Return to cardiology as needed. 3. Call cardiology at [phone] (CV scheduling) with questions or concerns. All questions were answered to the best of my ability. She verbalized understanding of the plan. Sheleft in no acute distress. BILLING 45 total minutes with over 50% related to counseling and coordination of care. PATIENT EDUCATION Ready to learn, no apparent learning barriers were identified; learning preferences include listening. Explained diagnosis and treatment plan; patient expressed understanding of the content. Jordy Sethi APRN, C.N.P. documented in this encounter Plan of Treatment Upcoming Encounters Date Type Specialty Care Team Description 09/02/2022 Comprehensive Visit Physical Medicine and Mainor Winter M.D. [address], [address] [place] [address] Rehabilitation Rosanna Veliz, David documented as of this encounter Visit Diagnoses Diagnosis Preoperative Examination Cardiovascular - Primary Atrial Fibrillation Paroxysmal (HCC) Palpitations Bundle Branch Block Right Abnormal Electrocardiogram documented in this encounter
--- OUTSIDE RECORDS SUMMARY | 2022-08-22 14:11 | XMS_ITS | Encounter Summary ---
:1950 Author Organization [facility] Address [address] [place] [address] Care Team Providers Name Role Phone Unavailable Primary Care Provider Unavailable Encounter Details Date Type Department Care Team Description 11/17/2018 Hospital Department of Brandie Thompson Bleeding Encounter Radiology in M, C.N.P. Postmenopausal [place], [address] [place] [address] [facility] [phone] [place], [place] (Work) [phone] Social History Tobacco Use [...] mouth daily. (MULTIVITAMIN 50 PLUS ORAL) omega 7-pkv-tkm-fish oil Take 1,000 mg by 0 11/21 [...] Medicine and [place], Mainor Castellanos M.D. [address] [facility], [address] [place] [address] Rosanna Valencia, P.T. documented as of this encounter Procedures Procedure Name Priority Date/Time Associated Diagnosis Comme nts US PELVIS RAD - Routine 11/17/2018 Bleeding Results for TRANSVAGINAL AND (most inpatients 10:21 AM BEAUTY CULTURIST APPRENTICE Postmenopausal this procedure TRANSABDOMINAL and all are in the outpatients) results section. documented in this encounter Results US Pelvis Transvaginal and Transabdominal (11/17/2018 10:21 AM BEAUTY CULTURIST APPRENTICE) Anatomical Region Laterality Modality Pelvis, Ultrasound RST LOS, Ultrasound ARZ LOS, Ultrasound F LA N/A Ultrasound LOS Specimen (Source) Anatomical Collection Method Collection Time Re ceived Time Location / / Volume Laterality 11/17/2018 10:31 AM BEAUTY CULTURIST APPRENTICE Impressions 11/17/2018 10:41 AM BEAUTY CULTURIST APPRENTICE IMPRESSION: ??Several cystic structures probably represent degenerated fibroids and there is also noted to be a 0.7 to 0 .8 cm fibroid in the lower uterine segment. Endometrial thickness is 2.0 mm and ther e is a small amount of fluid in the endometrial space. Narrative 11/17/2018 10:41 AM BEAUTY CULTURIST APPRENTICE EXAM: ??US PELVIS TRANSVAGINAL AND TRANSABDOMINAL COMPARISON: [...] of fluid in the endometrial space. Brandie HENDRICKS US PROCEDURES documented in this encounter Visit Diagnoses Diagnosis Bleeding Postmenopausal documented in this encounter
--- OUTSIDE RECORDS SUMMARY | 2022-08-22 14:11 | XMS_ITS | Encounter Summary ---
:1950 Author Organization [facility] Address [address] [place] [address] Care Team Providers Name Role Phone Unavailable Primary Care Provider Unavailable Encounter Details Date Type Department Care Team Description 12/20/2019 Hospital Encounter Department of Brandie Thompson Mammogram Radiology in [place] Shane Lombardo Breast Cancer [place], [place] [address] [address] [address] [place], [place] [phone] (Work) [phone] Social History Tobacco Use Types Packs/Day Years [...] mouth daily. (MULTIVITAMIN 50 PLUS ORAL) omega 8-rnv-vus-fish oil Take 1,000 mg by 0 11/21 [...] Castellanos M.D. [address] , [address] [place] [address] Rehabilitation Rosanna Veliz, P.TRoscoe documented as of this encounter Procedures Procedure Name Priority Date/Time Associated Comments Diagnosis BI BREAST RAD - Routine 12/20/2019 1:06 Screening Results for this SCREENING (most inpatients PM FINANCIAL INVESTMENT MANAGER Mammogram Breast procedu re are in BILATERAL and all Cancer the results outpatients) section. documented in this encounter Results BI Breast Screening Bilateral (12/20/2019 1:06 PM FINANCIAL INVESTMENT MANAGER) Anatomical Region Laterality Modality Breast, Breast Imaging RST LOS, Breast Imaging ARZ LOS, [place] st Bilateral Mammography Imaging FLA LOS Specimen (Source) Anatomical Collection Method Collection Time Re ceived Time Location / / Volume Laterality 12/20/2019 1:21 PM FINANCIAL INVESTMENT MANAGER Impressions 12/20/2019 1:22 PM FINANCIAL INVESTMENT MANAGER Unremarkable study of the breasts. No evidence of significant interval change. RECOMMENDATION: ??Annual Screening Mammo gram ASSESSMENT: ??BI-RADS: 1: Negative. Narrative 12/20/2019 1:22 PM FINANCIAL INVESTMENT MANAGER EXAM: ??BI BREAST SCREENING BILATERAL Current study [...] Mammogr am ASSESSMENT: BI-RADS: 1: Negative. Brandie Thompson C.N.P. IMG BI PROCEDURES documented in this encounter Visit Diagnoses Diagnosis Screening Mammogram Breast Cancer documented in this encounter
--- OUTSIDE RECORDS SUMMARY | 2022-08-22 14:11 | XMS_ITS | Encounter Summary ---
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 [facility] [place] Region Procedures BMD Bone Density Spine Hips [address] [place], [place] [address] Referral ID Status Reason Start Date Expiration Date Visits Requ ested Visits Authorized [id number] Closed 07/02/2021 07/02/2022 1 1 Encounter Details Date Type Department Care Team Description 07/09/2021 Hospital Encounter Department of Archie Colindres Specified Radiology in [place] GARCIA M.D. Disorders Of Bone [place], [place] [address] Density And [address] [place] [address] [address] [address] Sites [place], [place] [phone] [address] (Work) [phone] Social History Tobacco Use Types Packs/Day Years [...] mouth daily. (MULTIVITAMIN 50 PLUS ORAL) omega 6-sog-ely-fish oil Take 1,000 mg by 0 11/21 [...] Winter M.D. [address] , [address] [place] [address] Rehabilitation Rosanna Veliz PRoscoeT. documented as of this encounter Procedures Procedure [...] Mineral Density (BMD) analysis perf ormed on Velteo with serial number [id number]. COMPARISON: Serial Comparisons Left Total Hip results: [...] including images and graphs, is available in DiJiPOP. In the absence of other causes of [...] Procedure Note Fabio Delacruz M.D. - 07/09/2021Formsafia g of this note might be different from the original. EXAM: BMD BONE DENSITY SPINE HIPS Bone Mineral Density (BMD) analysis perf ormed on Velteo with serial number [id number]. COMPARISON: Serial Comparisons Left Total Hip results: [...] including images and graphs, is available in DiJiPOP. In the absence of other causes of [...] density (Osteopenia) DualFemur (region: Total Right) Archie Colindres II, M.D. IMG DXA PROCEDURES documented in this encounter Visit Diagnoses Diagnosis Other Specified Disorders Of Bone Densit y And Structure Multiple Sites documented in this encounter
--- OUTSIDE RECORDS SUMMARY | 2022-08-22 14:11 | XMS_ITS | Encounter Summary ---
:1950 Author Organization [facility] Address [address] [place] [address] Care Team Providers Name Role Phone Unavailable Primary Care Provider Unavailable Reason for Visit Physical Therapy (Routine) - Authorized Specialty Diagnoses / Procedures Referred By Contact Refer red To Contact Diagnoses Pain Knee Bilateral Mainor Winter M.D. [facility] Procedures PT Ongoing treatment [address], [address] [place] [address] Referral ID Status Reason Start Date Expiration Date Visits V isits Requested Authorized [id number] Authorized 06/07/2022 06/07/2023 99 99 Encounter Details Date Type Department Care Team Description 06/25/2022 Clinical Support Department of Mainor Winter M.D. [address], [address] [place] [address] Pain Knee Bilateral Rehabilitation Rosanna Veliz P.TRoscoe Services in [address] [phone] Social History Tobacco Use Types Packs/Day Years Used Date Smoking Tobacco: Never Smokeless Tobacco: Never Alcohol Use Standard Drinks/Week Comments No 0 (1 standard drink = 0.6 oz pure alcoho l) Sex Assigned at Date Recorded Not on file documented as of this encounter Progress Notes Rosanna Veliz P.T. - 06/25/2022 2:00 PM CDT Physical Therapy Outpatient Treatment Note SUBJECTIVE Patient's Name: Nuria Simmons Referring Provider: Mainor Winter M.D. Visit Diagnosis: 1. Pain Knee Bilateral Payor: MEDICARE / Plan: MEDICARE A AND B / Product Type: Medicare / PT Next Certification Date: 09/05/22 [facility] Visit Count: 2 Patient comments: Pt reports her knees are doing okay, but her L knee continues to be bothersome. She has been doing a lot of activity cleaning her house for guests and this has caused soreness. She hasn't been as compliant with exercises and feels the bloop bands are too small to perform the exercises. Contact monitoring: PPE used during therapy: Therapist was wearing the following PPE throughout entire session: surgicalmask Patient was wearing a mask during therapy session: yes OBJECTIVE Pain: L knee pain, does not provide numeric value Gait: Ambulation performed without antalgia, noting equal step length and stance time TREATMENT Treatment today consisted of: Neuromuscular Re-education: -fwd step ups onto airex and 6 step without UE support, 3x15 repetitions -SLS on airex, 2x45 sec bilateral -standing marches on airex without UE support, 2x20 repetitions Therapeutic Exercise: -sci-fit bike, L3x10 minutes -standing knee flexion stretch on 2nd step, x20 repetitions bilateral -partial squat with plinth touch, 3x10 repetitions -standing hip abduction with UE support and orange TB loop at ankles, 2x10 repetitions bilateral, cueing for posture and isolated glute activation -DL press, no added weight, 3x10 repetitions -updated and reviewed home exercise program Home Exercise Program/Education: Access Code: [email or web address] URL: [email or web address] Date: 06/25/2022 Prepared by: Zully Veliz Exercises Supine Bridge - 1-2 x daily - 4-6 x weekly - 2 sets - 10 reps - 5-10 seconds hold Supine Knee Extension Stretch on Towel Roll - 1-2 x daily - 4-6 x weekly - 3 sets - 10 reps - 1-5 minute hold Quarter Squat with Table - 1-2 x daily - 4-6 x weekly - 2 sets - 10 reps Standing Hip Abduction with Resistance at Ankles and Counter Support - 1-2 x daily - 4-6 x weekly - 2 sets - 10 reps Standing Knee Flexion Stretch on Step - 1-2 x daily - 4-6 x weekly - 2 sets - 15 reps Single Leg Stance on Foam Pad - 1-2 x daily - 4-6 x weekly - 2 sets - 3 reps - 45 seconds hold Patient reports good HEP compliance. Assessment Clinical Impression: Pt tolerated session well. She does seem to favor LLE slightly with exercises but subconsciously. Focused more on single leg knee stability today and this was tolerated very well. She will continue to benefit from PT services in order for improved functional mobility and strength. Functional Goals and Timeframes: Patient will demonstrate [...] 65 or greater within 10 visits. Plan Plan for next session: progress airex activities, squats with plinth touch, standing hip exercises, lunges, DL press, SLR Time Spent with Patient Therapeutic Interventions Neuromuscular Re-Education (min): 12 min Therapeutic Exercise (min): 28 min Time Tracking Total Timed Units (min): 40 min Total Treatment Time (min): 40 min documented in this encounter Plan of Treatment Upcoming Encounters Date Type Specialty Care Team Description 09/02/2022 Comprehensive Visit Physical Medicine and Moy, Mainor Csatellanos M.D. [address], [address] [place] [address] Rehabilitation Rosanna Veliz PRoscoeT. documented as of this encounter Visit Diagnoses Diagnosis Pain Knee Bilateral documented in this encounter
--- OUTSIDE RECORDS SUMMARY | 2022-08-22 14:11 | XMS_ITS | Encounter Summary ---
:1950 Author Organization [facility] Address [address] [place] [address] Care Team Providers Name Role Phone Brandie Thompson DROP WIRER, POLITICAL THEORY PROFESSOR Primary Care Provider [phone] Reason for Visit Reason Comments Annual Exam Encounter Details Date Type Department Care Team Description 08/03/2018 Office Visit [place] Brandie Thompson Annual physical exam (Primar y Dx); [address], [place], [place] Fatigue, unspecified type; [place], [place] [address] Palpitations; [address] [place] [address] Osteopenia after menopause; [phone] Screenin g, lipid; Primary insomni a Social [...] More than 4 times per year 12/13/2019 [employer] services? Do you belong to any clubs or Not asked organizations such as restoration groups, unions, fraternal or athletic groups, or [...] per his recommendation. The patient occasionally takes [id number] ibuprofen, when she is having significant flares, 800 mg twice daily. The patient is diligent about taking ibuprofen with milk and food. The patient reports she is having daytime fatigue, which might be related to her insomnia, aging process, and/or weather. The patient started noticing fatigue when she started working her new job, at [employer] which may be contributing to her symptoms [...] her urinary frequency. No hematuria and/or dysuria. NURSE PRACTICAL: 2, para 2. Last menstrual period was in her 50s with no vaginal bleeding since. ENDOCRINOLOGY: No thyroid dysfunction, diabetes, nor osteoporosis. MUSCULOSKELETAL: The patient has had lower back pain for the past one half years, and receives home visit field care manager about every 5 weeks. NEUROLOGICAL: No numbness, [...] coverage. She reports she received information from [facility] [employer] about having this completed, and may respond [...] athologist Signature Vitamin D, 71.3 ng/mL 08/04/2018 [facility] Total 2:18 PM CDT [facility] Comment: [...] Venous) CDT 12:59 PM CDT Brandie Thompson DROP WIRER, POLITICAL THEORY PROFESSOR LAB BLOOD ORDERABLES Performing Organization Address City/State/ZIP Code Phon e Number [facility] [address] [place] [id number] (ABNORMAL) CBC Branch Off w/Diff (08/03/2018 2:42 PM CDT) [facility] gist Method Time Signature WBC 6.5 3.5 [...] FALLS Lymphocytes 1.2 0.9 - 2.9 08/03/2018 [facility] [place] Absolute K/uL 2:51 PM CDT FALL[place] MIDS Absolute 0.5 0.2 - 0.8 08/03/2018 [facility] [place] K/uL 2:51 PM CDT FALLS Granulocytes/Brown 4.8 2.1 - 8.7 08/03/2018 [facility] [place] trophils K/uL 2:51 PM CDT FALL[place] Absolute Specimen Anatomical Collection Method Collection Time Receive d Time (Source) Location / / Volume Laterality Blood (Blood, 08/03/2018 2:42 PM 08/03/20 18 2:42 Venous) CDT PM CDT Brandie Thompson APRN, POLITICAL THEORY PROFESSOR LAB BLOOD ORDERABLES Performing Organization Address City/State/ZIP Code Phon e Number [facility] [place] [address] [place] [address] (ABNORMAL) Lipid panel (08/03/2018 2:42 PM CDT) athologist Signature Cholesterol 214 (A) 0 - 199 08/04/2018 [facility] mg/dL 1:17 PM CDT [facility] Comment: Recommended by National Cholesterol Education Program (ATP III) -------- Cholesterol Ranges -------- <200 ? Desirable 200-239 ? Borderline high >=240 ? High Triglycerides 48 0 - 149 mg/dL 08/04/2018 1:17 PM CDT [facility] Comment: -------- TRIG Ranges -------- <150 ?Normal 150-199 ? Borderline high 200-499 ? High >=500 ? Very high HDL 82 40 - 60 mg/dL 08/04/2018 1:17 PM CDT [facility] Comment: -------- HDL Ranges -------- <40 ?Low 40-59 ?Normal >=60 ? Optimal LDL Calculated 122 (A) 0 - 99 mg/dL 08/04/2018 1:17 PM CDT [facility] Comment: -------- LDL Ranges -------- <100 ? Optimal 100-129 ?Near optimal/above op timal 130-159 ?Borderline high 160-189 ?High >=190 ?Very high Fasting? Yes 08/03/2018 2:47 PM CDT [facility] Specimen Anatomical Collection Method Collection Time Receive d Time (Source) Location / / Volume Laterality Blood (Blood, 08/03/2018 2:42 PM 08/04/20 18 Venous) CDT 12:46 PM CDT Brandie Thompson APRN, POLITICAL THEORY PROFESSOR LAB BLOOD ORDERABLES Performing Organization Address City/State/ZIP Code Phon e Number [facility] [address] [place] [address] documented in this encounter Visit Diagnoses Diagnosis Annual physical exam - Primary Routine general medical examination at a health care facility Fatigue, unspecified type Palpitations Osteopenia after menopause Screening, lipid Primary insomnia Persistent disorder of initiating or jose guadalupe ntaining sleep documented in this encounter Care Teams Fatback Trimmer Relationship Specialty Start Date End Date Brandie Thompson APRN, POLITICAL THEORY PROFESSOR PCP - General Family Medicine 07/21/18 06/26/20 [address] [place] [address] documented as of this encounter
--- OUTSIDE RECORDS SUMMARY | 2022-08-22 14:11 | XMS_ITS | Encounter Summary ---
:[address] [facility] Address [address] [place] [address] Care Team Providers Name Role Phone Unavailable Primary Care Provider Unavailable Reason for Visit Auth/Cert Specialty Diagnoses / Procedures Referred By Contact Refer red To Contact Diagnoses Atrial Fibrillation Unspecified atrial fibrllation Procedures na Referral ID Status Reason Start Date Expiration Date Visits Requ ested Visits Authorized [id number] 1 1 Encounter Details Date Type Department Care Team Description 10/05/2017 - Formerly Named [facility] Teri Salter M.D. Gastr oenteritis Viral 10/06/2017 Encounter [facility] Candis Lynn M.D. [address] [place] [address] Or Presumed Viral Medical CanterburyTiago Yasser, M.B.B.S., M.D. (Primary Dx) Third Floor [address] [place] [address] Social History Tobacco Use Types Packs/Day Years Used Date Smoking Tobacco: Never Smokeless Tobacco: Never Alcohol Use Standard Drinks/Week Comments No 0 (1 standard drink = 0.6 oz pure alcoho l) Sex Assigned at Date Recorded Not on file documented as of this encounter Last Filed Vital Signs Vital Sign Reading Time Taken Comments Blood Pressure 141/83 10/06/2017 6:40 PM EDUCATIONAL INTERPRETER Pulse 75 10/06/2017 5:15 PM EDUCATIONAL INTERPRETER Temperature 36.9 ??C (98.4 ??F) 10/06/2017 5:00 PM EDUCATIONAL INTERPRETER Respiratory Rate 18 10/06/2017 5:15 PM EDUCATIONAL INTERPRETER Oxygen Saturation 95% 10/06/2017 5:15 PM EDUCATIONAL INTERPRETER Inhaled Oxygen Concentration - - Weight 59.5 kg (131 lb 2.8 oz) 10/06/2017 6:00 AM EDUCATIONAL INTERPRETER Height 165.1 cm (5' 5) 10/05/2017 5:23 PM EDUCATIONAL INTERPRETER Body Mass Index 21.83 10/05/2017 5:23 PM EDUCATIONAL INTERPRETER documented in this encounter Discharge Summaries Candis [...] OIL 100-160-1,000 mg capsule Generic drug: omega 2-nil-ayn-fish oil Take 1,000 mg by mouth daily. [...] Your Medications These medications were sent to [facility] - [address] [address] ?? benzonatate 100 mg capsule ?? guaiFENesin 600 mg 12 hr tablet ?? metoprolol tartrate 25 mg tablet Azithromycin 250 mg to take 1 tablet daily at 5PM starting on 10/07/2017 for 4 days DETAILS OF HOSPITAL STAY REASON FOR ADMISSION Fibrillation Atrial (HCC) The patient was admitted on October 05, 2017 transfer from [place] with new onset atrial fibrillation. She presented to the emergency room with cough and chest congestion for several days subjective fevers chills nausea and 1 episode of vomiting her chest x-ray showed pneumonitis and she was started on Rocephin but she developed new onset atrial fibrillation was given Cardizem bolus and transferred to [place] ICU for further care. Her troponin was [...] answer all the questions to his/her satisfaction. ATIONAL INTERPRETER documented in this encounter Discharge Instructions Discharge Instr - Non [place] Follow-UpsGia Doty, C.N.A. - 10/06/2017 6:03 PM CST Please make Primary care Physician follow-up, within the next 3-5 days. ATIONAL INTERPRETER documented in this encounter Medications at Time [...] mouth daily. (MULTIVITAMIN 50 PLUS ORAL) omega 0-zch-lzi-fish oil Take 1,000 mg by 0 11/21 [...] 1 tablet by 0 /11/2011 mouth daily. guaiFENesin (for_MUCINEX) Take 1 tablet [...] on Lovenox anticoagulation given increased CHADS Score. ATIONAL INTERPRETER documented in this encounter H&P Notes Brian Ordoñez M.D. - 10/05/2017 6:02 PM CST H&P - Hospital CHIEF COMPLAINT Ms. Nuria Simmons is a 67 y.o. female who transferred from [place] ED for new onset Afib Primary Medical Provider: No primary care provider on file. HISTORY OF PRESENT ILLNESS Patient is a 67 years old female with no significant past medical history who presented [facility] ED with complain of cough and chest congestion for several days and associated with feeling warm and chills, nausea and vomiting x1 with stool but no abdominal pain. Progressively the condition got worse associated with worsening fatigue came to the ER of [place] seeking medical advice. Checks x-ray of the ED was done which showed pneumonitis however ED provider started on Rocephin,later developed new onset Afib given Cardizem bolus x2 then transferred to [facility] ICU. Troponin came back negative. CBC showed [...] ORAL) Take by mouth daily. ??? omega 8-tqq-xsx-fish oil (FISH OIL) 100-160-1,000 mg capsule Take [...] vitamins and TURP who presented to the [place] ED for worsening productive cough with chest congestion along with diarrhea nausea vomiting was found to have a pneumonitis had new onset Afib transferred here for further management. #Fibrillation Atrial (AF) NOS: - the onset, paroxysmal - given diltiazem bolus x2 at [place] ED then started on diltiazem drip. Admitted to ICU at [facility] [address] - continue drip and titrate according to the protocol - troponin 1st set negative less than 0.01 however patient on Biotene, but reports has not taken it in a few weeks, still we will check 1 more set - on telemetry - [id number] score: 2 (adj. Stroke rate 2.2% / [...] couple of days Code Status: Full code ATIONAL INTERPRETER documented in this encounter Nursing Notes Mis Trevizo R.N. - 10/06/2017 6:45 PM CST Goals: Clinical Goals for the Shift: ambulate,wean oxygen Identify possible barriers to meeting goals/advancing plan of care: none Stability of the patient: Moderately Stable - Low risk of patient condition declining or worsening End of Shift Summary: Pt discharged, stable ATIONAL INTERPRETER Radha Heredia R.N. - 10/06/2017 8:52 AM [...] afternoon, from home with Family Present: no ATIONAL INTERPRETER Aurelio Chavis R.N. - 10/06/2017 5:11 AM [...] As supervised when walking. Did not fall. ATIONAL INTERPRETER Aurelio Chavis R.N. - 10/06/2017 12:22 AM [...] obtain a stool sample (new order) ifpossible. ATIONAL INTERPRETER documented in this encounter Plan of Treatment Upcoming Encounters Date Type Specialty Care Team Description 09/02/2022 Comprehensive Visit Physical Medicine and Mainor Winter M.D. [address], [address] [place] [address] Rehabilitation Rosanna Veliz P.TRoscoe documented as of this encounter Procedures Procedure Name Priority Date/Time Associated Comments Diagnosis (TTE) 2D ECHO Routine 10/06/2017 11:05 Results fo r this DOPPLER COLOR AM EDUCATIONAL INTERPRETER procedure are in the results section. DX CHEST AP OR PA RAD - Routine 10/06/2017 11:04 Resul ts for this AND LATERAL 2 (most inpatients AM EDUCATIONAL INTERPRETER procedure are in VIEWS and all the results outpatients) section. C. DIFFICILE Routine 10/06/2017 9:43 Results for this TOXIN PCR, F AM EDUCATIONAL INTERPRETER procedure are i n the results section. FREE THYROXINE Routine 10/06/2017 5:20 Results fo r this INDEX (FTI), S AM EDUCATIONAL INTERPRETER procedure are in the results section. CBC WITH Routine 10/06/2017 5:20 Results for this DIFFERENTIAL, B AM EDUCATIONAL INTERPRETER procedure ar e in the results section. MAGNESIUM, S Routine 10/06/2017 5:20 Results for this AM EDUCATIONAL INTERPRETER procedure are i n the results section. BASIC METABOLIC Routine 10/06/2017 5:20 Results f or this PANEL, S/P AM EDUCATIONAL INTERPRETER procedure are i n the results section. INFLUENZA A/B Routine 10/05/2017 9:09 Results for this (RAPID) PM EDUCATIONAL INTERPRETER procedure are i n the results section. TROPONIN T, 5TH Routine 10/05/2017 6:26 Results f or this GEN, P PM EDUCATIONAL INTERPRETER procedure are i n the results section. ADULT OXYGEN Routine 10/05/2017 5:57 THERAPY PM EDUCATIONAL INTERPRETER ADULT OXYGEN Routine 10/05/2017 5:57 THERAPY PM EDUCATIONAL INTERPRETER documented in this encounter Results (TTE) 2D ECHO DOPPLER COLOR (10/06/2017 11:05 AM EDUCATIONAL INTERPRETER) [facility] gist Method Time Signature Ejection Fraction 63 MC [...] / / Volume Laterality 10/06/2017 9:57 AM EDUCATIONAL INTERPRETER Narrative 10/06/2017 3:54 PM EDUCATIONAL INTERPRETER See PDF For Result Procedure Note Scooter Robb M.D. - 10/06/2017Form atting of this note might be different from the original. See PDF For Result Brian Manning M.D. CV ECHO PROCEDURES DX Chest AP or PA and Lateral 2 Views (10/06/2017 11:04 AM EDUCATIONAL INTERPRETER) Anatomical Region Laterality Modality Chest N/A Digital Radiography Specimen (Source) Anatomical Collection Method Collection Time Re ceived Time Location / / Volume Laterality 10/06/2017 11:06 AM EDUCATIONAL INTERPRETER Impressions 10/06/2017 11:08 AM EDUCATIONAL INTERPRETER IMPRESSION: Patchy bibasilar pulmonary o pacities. Narrative 10/06/2017 11:08 AM EDUCATIONAL INTERPRETER EXAM: DX CHEST AP OR PA AND [...] Toxin PCR, F Stool (10/06/2017 9:43 AM EDUCATIONAL INTERPRETER) P athologist Signature C. difficile Negative Negative 10/06/2017 [facility] toxin 11:07 AM [facility] [place] [facility] Specimen Anatomical Collection Method Collection Time Receive d Time (Source) Location / / Volume Laterality Stool (Stool) 10/06/2017 9:43 AM 10/06/20 9:47 EDUCATIONAL INTERPRETER AM EDUCATIONAL INTERPRETER Stormy Dominguez APRN, C.N.P., M.S.N. LAB MICROBIOLOGY - GENERAL ORDERABLES Performing Organization Address City/State/ZIP Code Phon e Number [facility] [address] [place] [address] [facility] Free Thyroxine Index (FTI) (10/06/2017 5:20 AM EDUCATIONAL INTERPRETER) athologist Signature Thyroxine 0.8 0.8 - 1.3 10/07/2017 [facility] Binding TBI 7:49 AM EDUCATIONAL INTERPRETER LABORATORIES - Capacity, [facility] T4 7.6 4.5 - 11.7 10/07/2017 [facility] (Thyroxine), mcg/dL 7:49 AM EDUCATIONAL INTERPRETER LABORATORIES - Total Only, [facility] Free Thyroxine 9.5 4.8 - 12.7 10/07/2017 [facility] Index mcg/dL 7:49 AM EDUCATIONAL INTERPRETER LABORATORIES - [facility] Specimen Anatomical Collection Method Collection Time Receive d Time (Source) Location / / Volume Laterality Blood (Blood, 10/06/2017 5:20 AM 10/07/20 6:43 Venous) EDUCATIONAL INTERPRETER AM EDUCATIONAL INTERPRETER Brian Manning M.D. LAB BLOOD ADD-ON Performing Organization Address City/State/ZIP Code Phon e Number [facility] LABORATORIES - [address] [place], [place] [address] [facility] BMP (Basic Metabolic Panel) (10/06/2017 5:20 AM EDUCATIONAL INTERPRETER) athologist Signature Potassium, S 4.2 3.6 - 5.2 10/06/2017 [facility] mmol/L 6:06 AM [facility] Sodium, S 141 135 - 145 10/06/2017 [facility] mmol/L 6:06 AM [facility] Chloride, S 104 98 - 107 10/06/2017 [facility] mmol/L 6:06 AM [facility] Bicarbonate, S 23 22 - 29 10/06/2017 [facility] mmol/L 6:06 AM [facility] Anion Gap 14 7 - 15 10/06/2017 [facility] 6:06 AM [facility] BUN (Blood Urea 12 6 - 21 10/06/2017 [facility] Nitrogen), S mg/dL 6:06 AM [facility] Creatinine 0.74 0.59 - 10/06/2017 [facility] 1.04 mg/dL 6:06 AM [facility] eGFR 84 >=60 10/06/2017 [facility] Non-Black/Afric mL/min/BSA 6:06 AM [facility] LAB Comment: ----ADDITIONAL INFORMATION---- Estimated GFR calculated using the 2009 CKD_EPI creatinine equation. eGFR Black/ >90 >=60 mL/min/BSA 10/06/2017 6:06 AM [facility] [place] [facility] Comment: ----ADDITIONAL INFORMATION---- Estimated GFR calculated using the 2009 CKD_EPI creatinine equation. Calcium, Total, S 9.0 8.9 - 10.1 mg/dL 10/06/2017 6 :06 AM [facility] Glucose, S 130 70 - 140 mg/dL 10/06/2017 6:06 AM [facility] LAB Specimen Anatomical Collection Method Collection Time Receive d Time (Source) Location / / Volume Laterality Blood (Blood, 10/06/2017 5:20 AM 10/06/20 17 5:26 Venous) EDUCATIONAL INTERPRETER [facility] Brian Manning M.D. LAB BLOOD ADD-ON Performing Organization Address City/State/ZIP Code Phon e Number [facility] [address] [place] [address] [place] [facility] (ABNORMAL) CBC with Differential (10/06/2017 5:20 AM [facility]) [facility] Method Time Signature Hemoglobin 11.7 11.6 - 10/06/2017 [facility] 15.0 g/dL 5:29 AM [facility] Hematocrit 35.4 (L) 35.5 - 10/06/2017 [facility] 44.9 % 5:29 AM [facility] Erythrocytes 3.97 3.92 - 10/06/2017 [facility] 5.13 5:29 AM [facility] x10(12)/L [facility] LAB MCV 89.2 78.2 - 10/06/2017 [facility] 97.9 fL 5:29 AM [facility] [place] [facility] RBC Distrib Width 13.4 12.2 - 10/06/2017 [facility] 16.1 % 5:29 AM [facility] Platelet Count 116 (L) 157 - 371 10/06/2017 [facility] x10(9)/L 5:29 AM [facility] Leukocytes 9.3 3.4 - 9.6 10/06/2017 [facility] x10(9)/L 5:29 AM [facility] Neutrophils 7.95 (H) 1.56 - 10/06/2017 [facility] 6.45 5:29 AM [facility] x10(9)/L [facility] [place] [facility] Lymphocytes 0.78 (L) 0.95 - 10/06/2017 [facility] 3.07 5:29 AM [facility] x10(9)/L [facility] [place] [facility] Monocytes 0.53 0.26 - 10/06/2017 [facility] 0.81 5:29 AM [facility] x10(9)/L [facility] Eosinophils 0.00 (L) 0.03 - 10/06/2017 [facility] 0.48 5:29 AM [facility] x10(9)/L [facility] Basophils 0.01 0.01 - 10/06/2017 [facility] 0.08 5:29 AM [facility] x10(9)/L [facility] LAB Specimen Anatomical Collection Method Collection Time Receive d Time (Source) Location / / Volume Laterality Blood (Blood, 10/06/2017 5:20 AM 10/06/20 17 5:26 Venous) EDUCATIONAL INTERPRETER AM [facility] Brian Manning M.D. LAB BLOOD ADD-ON Performing Organization Address City/State/ZIP Code Phon e Number [facility] [address] [facility] [place] [address] [place] [facility] Magnesium (10/06/2017 5:20 AM [facility]) P athologist Signature Magnesium, S 1.9 1.7 - 2.3 10/06/2017 [facility] mg/dL 6:06 AM [facility] Specimen Anatomical Collection Method Collection Time Receive d Time (Source) Location / / Volume Laterality Blood (Blood, 10/06/2017 5:20 AM 10/06/20 5:26 Venous) EDUCATIONAL INTERPRETER AM EDUCATIONAL INTERPRETER Brian Manning M.D. LAB BLOOD ADD-ON Performing Organization Address City/[facility] Code Phon e Number [address] [address] [place] [facility] Influenza A/B (Rapid) (10/05/2017 9:09 PM EDUCATIONAL INTERPRETER) athologist Signature Influenza A, Negative Negative 10/05/2017 [facility] Rapid 9:22 PM [facility] Influenza B, Negative Negative 10/05/2017 [facility] Rapid 9:22 PM [facility] Specimen Anatomical Collection Method Collection Time Receive d Time (Source) Location / / Volume Laterality Varies 10/05/2017 9:09 PM 7 9:09 EDUCATIONAL INTERPRETER PM EDUCATIONAL INTERPRETER Brian Manning M.D. LAB MICROBIOLOGY - GENERA L ORDERABLES Performing Organization Address City/[facility] Phon e Number [address] [address] [place] [facility] Troponin T (10/05/2017 6:26 PM EDUCATIONAL INTERPRETER) athologist Signature Troponin T, S <0.01 <0.01 ng/mL 10/05/2017 [facility] 7:01 PM [facility] Comment: Biotin has been identified by the memo rodríguez as a potential interfering substance. ??Higher concentr ations of biotin may be found in multivitamins, hair/nail supple ments, and workout supplements. ??If the result does not [facility] clinical observations, repeat testing after patient refrains fr om the use of supplements for at least 12 hours. Specimen Anatomical Collection Method Collection Time Receive d Time (Source) Location / / Volume Laterality Blood (Blood, 10/05/2017 6:26 PM 10/05/20 6:42 Venous) EDUCATIONAL INTERPRETER PM EDUCATIONAL INTERPRETER Brian Manning M.D. LAB BLOOD ADD-ON Performing Organization Address City/[facility]/ZIP Code Phon e Number [facility] [place] [address] [facility] documented in this encounter Visit Diagnoses Diagnosis Gastroenteritis Viral Or Presumed Viral - Primary Gastroenteritis Viral Or Presumed Viral Fibrillation Atrial (AF) NOS Pneumonitis documented in this encounter Administered Medications Inactive Administered Medications - up to 3 most recent administrations Medication Order MAR Action Action Date Dose Rate Site acetaminophen tablet 1,000 mg (for_TYLEN OL) 1,000 mg, oral, Every 4 hours PRN, pain, Starting on un 10/05/17 at 1822 albuterol nebulizer solution 2.5 mg (for _ACCUNEB) 2.5 mg, nebulization, Every 6 hours PRN, wheezing, shortness of breath, Starting on 10/06/17 at 0637 azithromycin tablet 500 mg (for_ZITHROMA X) Given 10/06/2017 5:36 PM EDUCATIONAL INTERPRETER 500 mg 500 mg, oral, Once, On 10/06/17 at 1715, For 1 dose, Indications: Respiratory tract infection, community acquired benzonatate capsule 100 mg (for_TESSALON Given 10/06/2017 8:48 A M EDUCATIONAL INTERPRETER 100 mg PERLES) 100 mg, oral, 3 times daily PRN, cough, Starting on 10/06/17 at 0635, Swallow whole. Do NOT crush, chew or open capsule. calcium carbonate chewable tablet 400 mg of calcium (for_TUMS) 400 mg of calcium, oral, Every 2 hour AR N, heartburn, indigestion, Starting on 10/05/17 at 1756, Doses listed are in mg of elemental calcium. Take with food. dilTIAZem in dextrose 5 % 125 Rate/Dose Change 10/05/2017 5:37 PM 5 mg/hr 5 mL/hr mg/125 mL (1 mg/mL) infusion EDUCATIONAL INTERPRETER (for_CARDIZEM) 5-15 mg/hr (5-15 mL/hr), intravenous, Continuous, [...] 60-100 Continued from OR 10/05/2017 5:00 PM EDUCATIONAL INTERPRETER 7.2 mg/hr 7.2 mL/hr enoxaparin injection 60 mg Given 10/06/2017 8:48 AM EDUCATIONAL INTERPRETER 60 mg Right Lower Abdomen (for_LOVENOX) 60 mg (rounded from 61.3 mg = 1 mg/kg ? 61.3 kg Dosing weight), subcutaneous, 2 times daily, First dose on Fri10/05/17 at 2100, Drug Monitoring Program: Pharmacist to adjust medication order based on comorbities and indication. Given 10/05/2017 9:57 PM EDUCATIONAL INTERPRETER 60 mg Left Upper Abdomen guaiFENesin 12 hr tablet 600 mg (for_MUC INEX) Given 10/06/2017 9:54 AM EDUCATIONAL INTERPRETER 600 mg 600 mg, oral, 2 times daily, First dose on Fri10/06/17 at 0900, Swallow whole. Do NOT crush, chew, or split tablet. loratadine tablet 10 mg (for_CLARITIN) Given 10/06/2017 8:48 AM EDUCATIONAL INTERPRETER 10 mg 10 mg, oral, Daily, First dose on Fri10/06/17 at 0900, cetirizine 10 mg oral daily was interchanged for loratadine, Drug Monitoring Program: Pharmacist to adjust medication order based on comorbities and indication. menthol lozenge 1 lozenge (for_CEPACOL) 1 lozenge, oral, As needed, sore throat, Starting on M on 10/06/17 at 0638 metoprolol tartrate tablet 12.5 mg Given 10/06/2017 6:40 PM EDUCATIONAL INTERPRETER 12.5 mg (for_LOPRESSOR) 12.5 mg, oral, 2 times daily, First dose (after last modification) on Fri10/06/17 at 0900, Hold for Hr<60, SBP<100 Given 10/06/2017 8:48 AM EDUCATIONAL INTERPRETER 12.5 mg metoprolol tartrate tablet 25 mg Given 10/05/2017 10:42 PM EDUCATIONAL INTERPRETER 2 5 mg (for_LOPRESSOR) 25 mg, oral, 2 times daily, First dose on Fri10/05/17 at 2100, Hold for Hr<60, SBP<100 NaCl 0.9% with KCl 20 mEq/L New Bag 10/06/2017 7:52 AM EDUCATIONAL INTERPRETER 75 mL/h r 75 mL/hr infusion 75 mL/hr, intravenous, Continuous, Starting on Fri10/05/17 at 1830 New Bag 10/05/2017 6:31 PM EDUCATIONAL INTERPRETER 75 mL/hr 75 mL/hr ondansetron ODT disintegrating [...] 150 mg (for_DESYREL) Given 10/05/2017 11:12 PM EDUCATIONAL INTERPRETER 150 mg 150 mg, oral, Once, On Fri10/05/17 at 2300, For 1 dose documented in this encounter Active and Recently Administered Medications Times are shown in EDUCATIONAL INTERPRETER. Scheduled Medication Order 10/04/2017 10/05/2017 10/06/2017 azithromycin tablet 250 mg (for_ZITHROMAX) 250 mg, oral, Daily, First dose on Fri12/08/16 at 1700, Indications: Respiratory Tract Infection, Community Acquired azithromycin tablet 250 mg (for_ZITHROMAX) 250 mg, oral, Daily, First dose on Fri12/08/16 at 1700, Indications: Respiratory Tract Infection, Community Acquired azithromycin tablet 500 mg (for_ZITHROMAX) (COMPLETED) 7850 (Given - Provider: Mis Trevizo RMellisa) 500 mg, oral, Once, On Fri10/06/17 at 1 715, For 1 dose, Indications: Respiratory tract infection, community acquired enoxaparin injection 60 mg (for_LOVENOX) (CANCELED) 5988 (Given - Provider: Aurelio Chavis R.N.) 0848 (Given - Provider: Christine Malone) 60 mg [...] R.N. 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 per MD) 12.5 mg, oral, 2 times daily, First dose (after last modification) on Fri10/06/17 at 0900, Hold for Hr<60, SBP<100 metoprolol tartrate tablet 25 mg (for_LOPRESSOR) (CANCELED) 2241 (Given - Provider: Aurelio Chavis R.N.) 25 mg, oral, 2 times daily, First dose o n Fri10/05/17 at 2100, Hold for Hr<60, SBP<100 sennosides-docusate sodium 8.6-50 mg per tablet 1 tablet (fo r_SENOKOT-S) 2100 (Not Given - Provider: Aurelio Chavis R.N. - Reason: Patient/family refused) 0900 (Not Given - Provider: Mis Trevizo R.N. - Reason: Patient/family refused) 1 tablet, oral, 2 times daily, First dos e on Fri10/05/17 at 2100, Do not give if patient has diarrhea. traZODone tablet 150 mg (for_DESYREL) 21 00 (Not Given - Provider: Aurelio Chavis R.N. - Reason: Patient/family refused - Comment: pt. refused to take at 2100 will take at 2300) 150 mg, oral, Daily at bedtime, First dose on 10/05/17 at 21 00 traZODone tablet 150 mg (for_DESYREL) (COMPLETED) 2312 (Given - Provider: Aurelio Chavis R.N.) 150 mg, oral, Once, On 10/05/17 at 2300, For 1 dose Continuous Medication Order 10/04/2017 10/05/2017 10/06/2017 dilTIAZem in dextrose 5 % 125 mg/125 mL (1 mg/mL) infusion ( for_CARDIZEM) 1700 (Continued from OR - Provider: Reena Shelley R.N. - Comment: Patient arrived with drip from [facility])1737 (Rate/Dose Change - Provider: Reena Shelley R.N.) 5-15 mg/hr (5-15 mL/hr), intravenous, Co ntinuous, Starting on 10/05/17 at 1800, Titrate gtt [...] R.N.) 75 mL/hr, intravenous, Continuous, Starting on 10/05/17 at 1 830 PRN Medication Order 10/04/2017 10/05/2017 10/06/2017 acetaminophen tablet 1,000 mg (for_TYLENOL) 1,000 mg, oral, Every 4 hours PRN, pain, Starting on Sun 7 at 1822 albuterol nebulizer solution 2.5 mg (for_ACCUNEB) 2.5 mg, nebulization, Every 6 hours PRN, wheezing, shortness of breath, Starting on Fri10/06/17 at 0637 benzonatate capsule 100 mg (for_GALO ULRICH) 0848 (Given - Provider: Mis Trevizo R.N.) 100 mg, oral, 3 times daily PRN, cough, Starting on Fri10/06/17 at 0635, Swallow whole. Do NOT crush, chew or open capsule. calcium carbonate chewable tablet 400 mg of calcium (for_TUMS) 400 mg of calcium, oral, Every 2 hour AR N, heartburn, indigestion, Starting on Fri10/05/17 at 1756, Doses listed are in mg [...]
--- OUTSIDE RECORDS SUMMARY | 2022-08-22 14:11 | XMS_ITS | Encounter Summary ---
:1950 Author Organization [facility] Address [address] [place] [address] Care Team Providers Name Role Phone Unavailable Primary Care Provider Unavailable Reason for Visit Physical Therapy (Routine) - Authorized Specialty Diagnoses / Procedures Referred By Contact Refer red To Contact Diagnoses Pain Knee Bilateral Mainor Winter M.D. [facility] Procedures PT Ongoing treatment [address] , [address] [place] [address] Referral ID Status Reason Start Date Expiration Date Visits V isits Requested Authorized [id number] Authorized 06/07/2022 06/07/2023 99 99 Encounter Details Date Type Department Care Team Description 07/29/2022 Clinical Support Department of Mainor Winter M.D. [address], [address] [place] [address] Pain Knee Bilateral Rehabilitation Rosanna Veliz P.TRoscoe Services in [address] [phone] Social History Tobacco Use Types Packs/Day Years [...] N/A 01/30/1980 Tubal ligation TONSILLECTOMY N/A Tonsillectomy [facility] Visit Count: 3 Planned Date of Surgery: 08/26/2022 Nuria Simmons presents to outpatient physical therapy for continued rehabilitation. 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 Range of Motion: Left Right Knee Flexion/Extension 0-140 AROM: 126 AROM: 132 Strength: Left Right Knee Flexion: 5/5 5/5 Knee Extension: 4/5 5/5 Outcome Measures: Risk Assessment and Prediction Tool [...] Treatment -Reviewed home exercise program provided by [facility] including quad sets, SLR, prone hip extension, standing hamstring curl, standing hip abduction -trialed rvy-yo-weqlu with leg out, stairs with one rail [...] is scheduled for surgery on 08/26/22 at [facility]. Will plan on following up with outpatient physical therapy 5-7 days post op. uZlly Veliz P.T. Department of Rehabilitation Services in [address] [address] Dept: [phone] Time Spent with Patient Therapeutic Interventions Gait Training (min): 10 min Home Management Training (min): 20 min Therapeutic Exercise (min): 10 min Time Tracking Total Timed Units (min): 40 min Total Treatment Time (min): 40 min documented in this encounter Plan of Treatment Upcoming Encounters Date Type Specialty Care Team Description 09/02/2022 Comprehensive Visit Physical Medicine and Mainor Winter M.D. [address] [facility] [address] [place] [address] Rehabilitation Rosanna Veliz P.T. documented as of this encounter Visit Diagnoses Diagnosis Pain Knee Bilateral documented in this encounter
--- OUTSIDE RECORDS SUMMARY | 2022-08-22 14:11 | XMS_ITS | Encounter Summary ---
:1950 Author Organization [facility] Address [address] [place] [address] Care Team Providers Name Role Phone Unavailable Primary Care Provider Unavailable Encounter Details Date Type Department Care Team Description 12/20/2020 Orders Only [facility] Sa corrina Disla M.D. [address] [place], [place] [phone] (Wo rk) Social History [...] [address] , [address] [place] [address] Rehabilitation Rosanna Veliz, P.T. documented as of this encounter Visit Diagnoses Not on filedocumented in this encounter
--- OUTSIDE RECORDS SUMMARY | 2022-08-22 14:11 | XMS_ITS | Clinical Summary ---
:1950 Author Organization [facility] Address [address] [place] [address] Care Team Providers Name Role Phone Unavailable Primary Care Provider Unavailable Source Comments Patient records contain information from all sites at [facility]. For routine questions regarding patient records, call [phone] during business hours, M-F 8:00 AM - 5:00 PM Central Time. Record requests for emergency care only can be directed to [phone] at any time.[facility] Allergies Active Allergy Reactions Severity Noted Date Comments No Known Allergies Other (see comments) 11/21/2011 Penicillins Other (see comments) 08/10/2014 Medications Medication Sig Dispensed Refills Start Date [...] NO.3 ORAL) Take 1 tablet daily omega 0-wpb-nkf-fish oil Take 1,000 mg 0 11/21/2011 Active 100-160-1,000 mg capsule by mouth daily. ZINC CITRATE-PHYTASE Take 1 tablet 0 11/21/2011 [...] times a day as needed for cough. Additional Information Patient not taking. Reported on 08/14/2022 UNABLE TO FIND Take by mouth. 0 08/10/2014 Active Kelp iodine flaxseed oiL 1,000 mg Take 1 capsule 0 Active capsule by mouth. ibuprofen Take 200 mg by 0 Activ e (ADVIL,MOTRIN) 200 mg mouth every 6 tablet (six) hours as needed. cyanocobalamin Take 100 mcg 0 Ac tive (VITAMIN B12) 100 mcg by mouth tablet daily. Lactobacillus Take 1 capsule 0 A ctive acidophilus capsule by mouth 2 (two) times a day with meals. UNABLE TO FIND Med Name: 0 Activ e tumeric metoprolol tartrate Take 0.5 30 tablet 0 10/06/2017 Discontinued (for_LOPRESSOR) 25 mg tablets (12.5 022 (Therapy completed) tablet mg total) by mouth 2 (two) [...] Encounters Date Type Specialty Care Team Description 08/14/2022 Comprehensive Visit Cardiovascular Mary Sethi Examination Cardiovascular (Primary Dx); Disease Jordy Lombardo, Atrial Fibrilla tion Paroxysmal (HCC); SUPERVISOR GROVE, C.N.P. Palpitations; Bundle Branch B lock Right; Abnormal Electr ocardiogram 08/14/2022 Hospital Encounter Radiology Elver Thompson, Electrocardiogr am C.N.P. 08/06/2022 Clinical Cardiovascular Robb, Communication Disease Scooter Castellanos M.D. 07/29/2022 Clinical Support Physical Medicine Mainor Winter Pain Knee Bilateral and Rehabilitation Екатерина Castellanos Jessica L P.T. 06/25/2022 Clinical Support Physical Medicine Mainor Winter Pain Knee Bilateral and Rehabilitation Екатерина Castellanos Jessica L P.T. 06/07/2022 Comprehensive Visit Physical Medicine Mainor Winter Pa in Knee Bilateral and Rehabilitation Екатерина Castellanos (Primary Dx) Ross Rios P.TRoscoe from Last 3 Months Immunizations Name Administration [...] ??F) 08/14/2022 8:54 AM CDT Respiratory Rate 18 10/06/2017 5:15 PM DISPERSION MIXER Oxygen Saturation 95% 10/06/2017 5:15 PM DISPERSION MIXER Inhaled Oxygen Concentration - - Weight 58.5 kg (128 lb 15.5 oz) 08/14/2022 8:54 AM CDT Height 165.1 cm (5' 5) 10/05/2017 5:23 PM DISPERSION MIXER Body Mass Index 21.46 10/05/2017 5:23 PM DISPERSION MIXER Plan of Treatment Upcoming Encounters Date Type Specialty Care Team Description 09/02/2022 Comprehensive Visit Physical Medicine and Mainor Winter M.D. [address] , [address] [place] [address] Rosanna Valencia Beth, P.T. Health Maintenance Due Date Last Done Comments CT Colonography 1950 Cologuard 1950 Colonoscopy 1950 Colorectal Cancer Screening 1950 FIT 1950 Hepatitis C Screening 1950 COVID-19 Vaccine (#1) 1950 Zoster Vaccines (1 of 2) 01/30/2000 Pneumococcal vaccine (65+ years) 12/13/2020 12/13/2019 (2 - PPSV23 if available, else PCV20) Depression Screening (Annual 10/20/2021 PHQ-2) Fall Risk Screen (Annual) 10/20/2021 Mammogram 07/09/2022 07/09/2021, 12/20/2019, 08/03/2018, Additional history exists Influenza Vaccine (#1) 2022 08/30/2019, 08/30/2019, 08/03/2018, Additional history exists DTaP,Tdap,and Td Vaccines (2 - Td 08/02/2023 08/02/2013, , or Tdap) 05/13/2003, Additional history exists Fasting Glucose for Diabetes 07/02/2024 07/02/2021, 017, Screening 10/05/2017 Procedures Procedure Name Priority Date/Time Associated Diagnosis Comme nts ECG Routine 08/14/2022 8:29 AM Abnormal Electrocardio gram Results for this CDT procedure are i n the results section. from Last 3 Months Results ECG 12 Lead (08/14/2022 8:29 AM CDT) [facility] gist Method Time Signature Ventricular 63 BPM MUSE Rate ECG/Min VT Interval 122 ms MUSE QRSD Interval 124 ms MUSE QT Interval 414 ms MUSE QTC Interval 423 ms MUSE P [place] 61 degrees MUSE R [place] 2 degrees MUSE T Wave [place] 50 degrees MUSE CODED Atrial MUSE DIAGNOSIS [...] Code Phon e Number MUSE MUSE NA from Last 3 Months Insurance Payer Benefit Plan Subscriber ID Effective Phone Address Typ e / Group Dates MEDICARE MEDICARE A [id number] 2015-Pres [address] [place] [address] BLUE CROSS BCBS BEAVER [id number] 2016-Pres [phone] PO FRITZ X Cost Share BLUE SHIELD BLUE COST ent [phone] [place] [address] Advance Directives For more information, please contact: [phone] Latest Code Status on File Code Status Date Activated Date Inactivated Comments Full Code 10/05/2017 5:57 PM 10/06/2017 8:58 PM Question Answer Comments Full Code: Discussed
--- OUTSIDE RECORDS SUMMARY | 2022-08-22 14:12 | XMS_ITS | Encounter Summary ---
:1950 Author Organization [facility] Address [address] [place] [address] Care Team Providers Name Role Phone Unavailable Primary Care Provider Unavailable Encounter Details Date Type Department Care Team Description 11/25/2013 Hospital Encounter HX [facility] Nasreen Bryant, P.A.-C. [address] [place], [place] [phone] (Wo rk) Social History [...] mouth daily. (MULTIVITAMIN 50 PLUS ORAL) omega 3-lmq-lkj-fish oil Take 1,000 mg by 0 11/21 [...] 01/11/2014 9:14 CDT Performed On: 09/04/2013 9:13 INSURANCE CUSTOMER SERVICE SPECIALIST by CLIFF MOSCOSO LPN Labs Outside Lab Cholesterol : 224 mg/dL Outside Lab HDL : 92 mg/dL Outside Lab LDL : 69 mg/dL Outside Lab Triglycerides : 45 mg/dL CLIFF MOSCOSO LPN - 01/11/2014 9:13 CDT Source: [facility] [employer] Document Id: [id number]!6 documented in this encounter Plan of Treatment Upcoming Encounters Date Type Specialty Care Team Description 09/02/2022 Comprehensive Visit Physical Medicine and Mainor Winter M.D. [address] , [address] [place] [address] Rehabilitation Rosanna Veliz, P.T. documented as of this encounter Visit Diagnoses Not on filedocumented in this encounter
--- OUTSIDE RECORDS SUMMARY | 2022-08-22 14:12 | XMS_ITS | Encounter Summary ---
:1950 Author Organization [facility] Address [address] [place] [address] Care Team Providers Name Role Phone Unavailable Primary Care Provider Unavailable Encounter Details Date Type Department Care Team Description 09/22/2002 Hospital Encounter HX [facility] Sourav Stone M.D. [address] [place] [address] (Wo rk) Social History Tobacco Use Types Packs/Day Years Used Date Smoking Tobacco: Never Assessed Sex Assigned at Date Recorded Not on file documented as of this encounter Miscellaneous Notes Telephone Encounter - Conversion, Historical Provider Ser - 09/22/2002 12:00 AM CST [id number] >> BLANQUITA JONES Wed Sep 22, 2002 1:33 PM >> CALL RECEIVED. Contact: pt last saw you 01-25-02,was given some samples and an rx for celexa ,is out now, wants rx faxed, [place] pt [facility] Document Id: [id number] documented in this encounter Plan of Treatment Upcoming Encounters Date Type Specialty Care Team Description 09/02/2022 Comprehensive Visit Physical Medicine and Mainor Winter M.D. [address], [address] [place] [address] Rehabilitation Rosanna Veliz, PRoscoeTRoscoe documented as of this encounter Visit Diagnoses Not on filedocumented in this encounter
--- OUTSIDE RECORDS SUMMARY | 2022-08-22 14:12 | XMS_ITS | Encounter Summary ---
:1950 Author Organization [facility] Address [address] [place] [address] Care Team Providers Name Role Phone Unavailable Primary Care Provider Unavailable Encounter Details Date Type Department Care Team Description 08/27/2014 Hospital Encounter HX [facility] Sherwin Huang, N.[address] [place] [address] (Wo rk) Social History Tobacco Use [...] 164 cm (5' 4.57) 08/27/2014 11:32 AM POWER TOOL REPAIR TECHNICIAN Body Mass Index - - documented in [...] mouth daily. (MULTIVITAMIN 50 PLUS ORAL) omega 3-rxp-ixy-fish oil Take 1,000 mg by 0 11/21 100-160-1,000 mg capsule mouth daily. traZODone (for_DESYREL) 150 Take 1 tablet by 0 mg tablet mouth at bedtime. UNABLE TO [...] Miscellaneous Notes Ceceliacellaneous - Scott Vaughn I RRoscoeN. - 02/27/2017 1:48 PM CDT Health Maintenance Reminder February 27, 2017 NURIA PAYTON [address] [facility] [id number] Dear NURIA PAYTON, This is a reminder that you are due for a Colonoscopy appointment: at [facility]. Please call the Clinic registration at to schedule an appointment with your primary provider. A pre-procedure physical needs to be performed prior to your procedure. Your colonoscopy willbe scheduled by your primary provider upon completion of the physical. If you had this done elsewhere, please notify the Endoscopy department [phone], to update your chart. We look forward to seeing you soon. Thank you for choosing the [facility] in [place]. Sincerely, SCOTT VAUGHN Electronic Signature Electronically Signed By: SCOTT VAUGHN RN On: February 27, 2017 This document has images extracted. Source: [facility] POWERCHART Document Id: [id number] R TOOL REPAIR TECHNICIAN Ceceliacellpaul - Scott Vaughn R.N. - 01/16/2017 9:25 AM CDT Health Maintenance Reminder January 16, 2017 NURIA PAYTON [address] [facility] [id number] Dear NURIA PAYTON, This is a reminder that you are due for a Colonoscopy appointment: at [facility]. Please call the Clinic registration at to schedule an appointment with your primary provider. A pre-procedure physical needs to be performed prior to your procedure. Your colonoscopy willbe scheduled by your primary provider upon completion of the physical. If you had this done elsewhere, please notify the Endoscopy department [phone], to update your chart. We look forward to seeing you soon. Thank you for choosing the [facility] in [place]. Sincerely, SCOTT VAUGHN Electronic Signature Electronically Signed By: SCOTT VAUGHN RN On: January 16, 2017 This document has images extracted. Source: [facility] iodine Document Id: [id number] Electronically signed by Conversion, [facility] Wire Coating Machine Operator [id number] at 03/18/2017 9:44 PM CDT Yanira - Scott Vaughn I, R.N. - 11/13/2016 9:41 AM CST Health Maintenance Reminder November 13, [address]TON [address] [place] [id number] Dear NURIA PAYTON, This is a reminder that you are due for a Colonoscopy appointment: at [facility]. Please call the Clinic registration at to schedule an appointment with your primary provider. A pre-procedure physical needs to be performed prior to your procedure. Your colonoscopy willbe scheduled by your primary provider upon completion of the physical. If you had this done elsewhere, please notify the Endoscopy department [phone], to update your chart. We look forward to seeing you soon. Thank you for choosing the [facility] in [place]. Sincerely, SCOTT VAUGHN Electronic Signature Electronically Signed By: SCOTT VAUGHN RN On: November 13, 2016 This document has images extracted. Source: [facility] iodine Document Id: [id number] Electronically signed by Conversion, [facility] Wire Coating Machine Operator [id number] at 03/18/2017 9:44 PM CDT Yanira - Scott Vaughn I, R.N. - 11/11/2016 1:49 PM CST *General Message Document Contains Addenda Addendum by SCOTT VAUGHN RN on January 16, 2017 09:25:48 CDT second letter sent Addendum by SCOTT VAUGHN RN on November 13, 2016 09:41:14 POWER TOOL REPAIR TECHNICIAN first letter sent to patient From: SCOTT VAUGHN RN To: [place] Colonoscopy Pool; Sent: 11/11/2016 13:49:53 POWER TOOL REPAIR TECHNICIAN Subject: *General Message Due Date/Time: 11/11/2016 13:49:00 POWER TOOL REPAIR TECHNICIAN Source: [facility] Baru ExchangeCHART Document Id: [id number] Electronically signed by [facility] Wire Coating Machine Operator [id number] at 03/18/2017 9:44 PM CDT documented in this encounter Plan of Treatment Upcoming Encounters Date Type Specialty Care Team Description 09/02/2022 Comprehensive Visit Physical Medicine and Mainor Winter M.D. [address], [address] [place] [address] Rehabilitation Rosanna Veliz, P.T. documented as of this encounter Visit Diagnoses Not on filedocumented in this encounter
--- OUTSIDE RECORDS SUMMARY | 2022-08-22 14:12 | XMS_ITS | Encounter Summary ---
:1950 Author Organization [facility] Address [address] [place] [address] Care Team Providers Name Role Phone Unavailable Primary Care Provider Unavailable Encounter Details Date Type Department Care Team Description 09/21/2008 Hospital Encounter HX [facility] INPT/OBSRV Evie Sethi P.A.-C. [address] [place] [address] (Wo rk) Social History Tobacco Use Types Packs/Day Years Used Date Smoking Tobacco: Never Assessed Sex Assigned at Date Recorded Not on file documented as of this encounter Plan of Treatment Upcoming Encounters Date Type Specialty Care Team Description 09/02/2022 Comprehensive Visit Physical Medicine and Mainor Winter M.D. [address], [address] [place] [address] Rehabilitation Rosanna Veliz, P.T. documented as of this encounter Visit Diagnoses Not on filedocumented in this encounter
--- OUTSIDE RECORDS SUMMARY | 2022-08-22 14:12 | XMS_ITS | Encounter Summary ---
:1950 Author Organization [facility] Address [address] [place] [address] Care Team Providers Name Role Phone Unavailable Primary Care Provider Unavailable Encounter Details Date Type Department Care Team Description 10/30/[address] [facility] INPT/OBSRV Evie Stehi P.A.-C. [address] [place] [address] (Wo rk) Social History Tobacco Use Types Packs/Day Years Used Date Smoking Tobacco: Never Assessed Sex Assigned at Date Recorded Not on file documented as of this encounter Plan of Treatment Upcoming Encounters Date Type Specialty Care Team Description 09/02/2022 Comprehensive Visit Physical Medicine and Mainor Winter M.D. [address], [address] [place] [address] Rehabilitation Rosanna Veliz, P.T. documented as of this encounter Visit Diagnoses Not on filedocumented in this encounter
--- OUTSIDE RECORDS SUMMARY | 2022-08-22 14:12 | XMS_ITS | Encounter Summary ---
:1950 Author Organization [facility] Address [address] [place] [address] Care Team Providers Name Role Phone Unavailable Primary Care Provider Unavailable Encounter Details Date Type Department Care Team Description 10/30/2010 Hospital Encounter HX [facility] CAM INPT/OBSRV Evie Sethi P.A.-C. [address] [place] [address] (Wo rk) Social History Tobacco Use Types Packs/Day Years Used Date Smoking Tobacco: Never Assessed Sex Assigned at Date Recorded Not on file documented as of this encounter Plan of Treatment Upcoming Encounters Date Type Specialty Care Team Description 09/02/2022 Comprehensive Visit Physical Medicine and Mainor Winter M.D. [address], [address] [place] [address] Rehabilitation Rosanna Veliz, P.T. documented as of this encounter Visit Diagnoses Not on filedocumented in this encounter
--- OUTSIDE RECORDS SUMMARY | 2022-08-22 14:12 | XMS_ITS | Encounter Summary ---
:1950 Author Organization [facility] Address [address] [place] [address] Care Team Providers Name Role Phone Unavailable Primary Care Provider Unavailable Encounter Details Date Type Department Care Team Description 03/30/2009 Hospital Encounter HX [facility] CAM INPT/OBSRV Evie Sethi P.A.-C. [address] [place] [address] (Wo rk) Social History Tobacco Use Types Packs/Day Years Used Date Smoking Tobacco: Never Assessed Sex Assigned at Date Recorded Not on file documented as of this encounter Plan of Treatment Upcoming Encounters Date Type Specialty Care Team Description 09/02/2022 Comprehensive Visit Physical Medicine and Mainor Winter M.D. [address], [address] [place] [address] Rehabilitation Rosanna Veliz, P.T. documented as of this encounter Visit Diagnoses Not on filedocumented in this encounter
--- OUTSIDE RECORDS SUMMARY | 2022-08-22 14:12 | XMS_ITS | Encounter Summary ---
:1950 Author Organization [facility] Address [address] [place] [address] Care Team Providers Name Role Phone Unavailable Primary Care Provider Unavailable Encounter Details Date Type Department Care Team Description 11/21/[address] [facility] Navdeep, Vannesa pelaez P.A.-C. [address] [place] [address] (Wo rk) Social History Tobacco Use Types Packs/Day Years Used Date Smoking Tobacco: Never Assessed Sex Assigned at Date Recorded Not on file documented as of this encounter Last Filed Vital Signs Vital Sign Reading Time Taken Comments Blood Pressure 116/70 11/21/2011 1:25 PM ADVERTISING CAMPAIGN MANAGER Pulse 76 11/21/2011 1:25 PM ADVERTISING CAMPAIGN MANAGER Temperature - - Respiratory Rate 18 11/21/2011 1:25 PM ADVERTISING CAMPAIGN MANAGER Oxygen Saturation - - Inhaled Oxygen Concentration - - Weight 62.2 kg (137 lb 2 oz) 11/21/2011 1:25 PM ADVERTISING CAMPAIGN MANAGER Height 165 cm (5' 4.96) 11/21/2011 1:25 PM ADVERTISING CAMPAIGN MANAGER Body Mass Index 22.85 11/21/2011 1:25 PM ADVERTISING CAMPAIGN MANAGER documented in this encounter Medications at Time [...] mouth daily. (MULTIVITAMIN 50 PLUS ORAL) omega 4-xmr-brl-fish oil Take 1,000 mg by 0 11/21 100-160-1,000 mg capsule mouth daily. ZINC CITRATE-PHYTASE ORAL Take 1 tablet by 0 11/2011 mouth daily. CALCIUM CARB/VIT Take 1 tablet by 0 11/21/2011 D3/MINERALS mouth 2 (two) (CALCIUM-VITAMIN D ORAL) times a day. documented as of this encounter Progress Notes Miriam Nuñez - 11/21/2011 12:00 AM CST [id number] CHIEF COMPLAINT/REASON FOR VISIT Annual physical examination. HISTORY OF PRESENT ILLNESS This is a 61-year-old female seen today for annual physical exam. She has no medical questions or concerns today. She participates in the [employer] program. She has been feeling well. She [...] and no grandchildren yet. She works at [employer] in [place]. She never drinks alcohol and has never [...] tablet nightly this was sent to her [facility] for a 90-day supply with three refills. [...] MIRIAM NUÑEZ On: 11/26/2011 10:16 AM Source: [facility] MHSDOLBEYNONRADSYS Document Id: [id number] RTISING CAMPAIGN MANAGER documented in this encounter Miscellaneous Notes Miscellaneous - Ivonne Grey R.N. - 11/04/2012 12:08 PM CST Med Management Document Contains Addenda Addendum by MIRIAM NUÑEZ on 04 November 2012 12:57:55 ADVERTISING CAMPAIGN MANAGER Approved Order Order: trazodone (trazodone 150 mg oral tablet) 1 tab(s) PO Bedtime Qty: 10 tab(s) Duration: 30 day(s) Refills: 0 Substitutions Allowed Route To Pharmacy - [facility] Signed by MIRIAM NUÑEZ 11/04/2012 12:57:51 From: IVONNE GOMEZ RN To: MIRIAM NUÑEZ; Sent: 11/04/2012 12:08:24 ADVERTISING CAMPAIGN MANAGER Subject: Med Management On hold pending signature [...] mail order Rx for this one. Source: [facility] POWERCHART Document Id: [id number] Electronically signed by Rowena [facility] Post Secondary Professional [id number] at 03/22/2017 1:46 PM CDT Miscellaneous - Miriam Nuñez - 11/21/2011 2:48 PM CST Ambulatory Patient Summary [place] [id number] [place] [address] Visit Information Name: NURIA PAYTON Current Date: [...] No Appointments found Your Goals/Additional instructions: Source: [facility] POWERCHART Document Id: [id number] RTISING CAMPAIGN MANAGER Miscellaneous - Miriam Nñuez - 11/21/2011 2:48 PM CST Ambulatory Depart Summary [address] [address] Visit Information Name: NURIA PAYTON Current Date: [...] to the patient and/or family, guardian/caregiver. Source: [facility] POWERCHART Document Id: [id number] RTISING CAMPAIGN MANAGER Yanira - Wolf Shelley L.P.N. - 11/21/2011 1:32 PM CST Health Assessment Health Assessment Entered On: 11/21/2011 13:33 ADVERTISING CAMPAIGN MANAGER Performed On: 11/21/2011 13:32 ADVERTISING CAMPAIGN MANAGER by WOLF SHELLEY LPN Health Assessment Complete Health Assessment Complete or Modified : Annual Health Assessment Annual Health Assessment Completed : Yes WOLF SHELLEY LPN - 11/21/2011 13:32 ADVERTISING CAMPAIGN MANAGER Nutrition Nutrition Risk Factors by History Adult : None WOLF SHELLEY LPN - 11/21/2011 13:32 ADVERTISING CAMPAIGN MANAGER Functional Current Daily Living Assistance : None WOLF SHELLEY LPN - 11/21/2011 13:32 ADVERTISING CAMPAIGN MANAGER Dependent Habits Tobacco Use/Currently Using : No Smoking Status : Never smoker WOLF SHELLEY LPN - 11/21/2011 13:32 ADVERTISING CAMPAIGN MANAGER Caffeine Use Grid Caffeine Use : None WOLF SHELLEY LPN - 11/21/2011 13:32 ADVERTISING CAMPAIGN MANAGER Recreational Drug Use Grid Drug Use : None WOLF SHELLEY LPN - 11/21/2011 13:32 ADVERTISING CAMPAIGN MANAGER Psychosocial Domestic Abuse Concerns : None WOLF SHELLEY LPN - 11/21/2011 13:32 ADVERTISING CAMPAIGN MANAGER Advance Directive Advanced Directives : No WOLF SHELLEY LPN - 11/21/2011 13:32 ADVERTISING CAMPAIGN MANAGER Educ Needs Learning Style Preference Adult Grid Patient : Printed materials Family : None WOLF SHELLEY LPN - 11/21/2011 13:32 ADVERTISING CAMPAIGN MANAGER Source: [facility] POWERCHART Document Id: [id number] ADVERTISING CAMPAIGN MANAGER!25 RTISING CAMPAIGN MANAGER Yanira - Wolf Shelley L.PMellisa - 11/21/2011 1:25 PM CST Adult Thread Roller Intake/History Adult Thread Roller Intake/History Entered On: 11/21/2011 13:32 ADVERTISING CAMPAIGN MANAGER Performed On: 11/21/2011 13:25 ADVERTISING CAMPAIGN MANAGER by WOLF SHELLEY LPN Intake Chief Complaint [...] 22.85kg/m2 WOLF SHELLEY LPN - 11/21/2011 13:25 ADVERTISING CAMPAIGN MANAGER Subjective Pain Symptoms : No WOLF SHELLEY LPN - 11/21/2011 13:25 ADVERTISING CAMPAIGN MANAGER Dependent Habits Tobacco Use/Currently Using : No Smoking Status : Never smoker Alcohol Use : No WOLF SHELLEY LPN - 11/21/2011 13:25 ADVERTISING CAMPAIGN MANAGER Caffeine Use Grid Caffeine Use : None WOLF SHELLEY LPN - 11/21/2011 13:25 ADVERTISING CAMPAIGN MANAGER Recreational Drug Use Grid Drug Use : None WOLF SHELLEY LPN - 11/21/2011 13:25 ADVERTISING CAMPAIGN MANAGER Allergy Source: [facility] POWERCHART Document Id: [id number] ADVERTISING CAMPAIGN MANAGER!30 RTISING CAMPAIGN MANAGER documented in this encounter Plan of Treatment Upcoming Encounters Date Type Specialty Care Team Description 09/02/2022 Comprehensive Visit Physical Medicine and Mainor Winter M.D. [address], [address] [place] [address] Rehabilitation Wolf Veliz, P.T. documented as of this encounter Procedures Procedure Name Priority Date/Time Associated Diagnosis Comme nts THINPREP SCREEN HPV Routine 11/21/2011 1:30 PM Re sults for this REFLEX ADVERTISING CAMPAIGN MANAGER procedure are i n the results section. documented in this encounter Results Pathology ThinPrep Screen HPV Reflex (11/21/2011 1:30 PM ADVERTISING CAMPAIGN MANAGER) [facility] Method Time Signature Interpretation [id number] POWERCHART HXThPrep Scrn See Comment POWERCHART [facility] Comment: A. ??ThinPrep Pap Test Screen (Cervical/ Endocervical HPV Reflex): Specimen processed and examined but unsa tisfactory for evaluation of epithelial abnormality bec ause: of scanty cellularity. HXThPrep Scrn [facility] See Comment RORY RCHART Comment: Report electronically signed by Gavin Bowers, SCT(ASCP) 12/02/2011 13:47 Interpreted by: Gloria Guevara, CT(ASCP) [facility] See Comment POWERCHART Comment: A. ??ThinPrep Pap Test Screen (Cervical/ Endocervical HPV Reflex): Received cloudy specimen in ThinPrep via l. Test Performed by: [facility] Dpt of Lab Med and Pathology [address] [place] [address] Water Sander: Augustine el III, M.D. Specimen (Source) Anatomical Collection Method Collection Time Re ceived Time Location / / Volume Laterality Cervix/Endocervix 11/21/2011 1:30 PM ADVERTISING CAMPAIGN MANAGER Miriam Nuñez P.A.-C. LAB PAP PATHDX ORDERABLES Performing Organization Address City/State/ZIP Code Phon e Number POWERCHART documented in this encounter Visit Diagnoses Not on filedocumented in this encounter
--- OUTSIDE RECORDS SUMMARY | 2022-08-22 14:12 | XMS_ITS | Encounter Summary ---
:1950 Author Organization [facility] Address [address] [place] [address] Care Team Providers Name Role Phone Unavailable Primary Care Provider Unavailable Encounter Details Date Type Department Care Team Description 11/24/2012 Hospital Encounter HX [facility] Nasreen Bryant, P.A.-C. [address] [place], [place] [address] (Wo rk) Social History [...] mouth daily. (MULTIVITAMIN 50 PLUS ORAL) omega 4-tie-wel-fish oil Take 1,000 mg by 0 11/21 [...] Comprehensive Visit Physical Medicine and Moy, Екатерина Vidal[address], [address] [place] [id number] Rehabilitation Rosanna Veliz, P.T. documented as of this encounter Visit Diagnoses Not on filedocumented in this encounter
--- OUTSIDE RECORDS SUMMARY | 2022-08-22 14:12 | XMS_ITS | Encounter Summary ---
:1950 Author Organization [facility] Address [address] [place] [address] Care Team Providers Name Role Phone Unavailable Primary Care Provider Unavailable Encounter Details Date Type Department Care Team Description 03/28/2009 Hospital Encounter HX [facility] IN[facility]/OBS[facility] Lelo Lucas M.D. [address] [place] [address] (Wo rk) Social History Tobacco Use Types Packs/Day Years Used Date Smoking Tobacco: Never Assessed Sex Assigned at Date Recorded Not on file documented as of this encounter Plan of Treatment Upcoming Encounters Date Type Specialty Care Team Description 09/02/2022 Comprehensive Visit Physical Medicine and Mainor Winter M.D. [address], [address] [place] [address] Rehabilitation Rosanna Veliz, P.TRoscoe documented as of this encounter Visit Diagnoses Not on filedocumented in this encounter
--- OUTSIDE RECORDS SUMMARY | 2022-08-22 14:12 | XMS_ITS | Encounter Summary ---
:1950 Author Organization [facility] Address [address] [place] [address] Care Team Providers Name Role Phone Unavailable Primary Care Provider Unavailable Encounter Details Date Type Department Care Team Description 01/12/2008 Hospital Encounter HX [facility] Steven Hermosillo, INPT/OBSRV [place] [address] [address] (Wo rk) Social History Tobacco Use Types Packs/Day Years Used Date Smoking Tobacco: Never Assessed Sex Assigned at Date Recorded Not on file documented as of this encounter Plan of Treatment Upcoming Encounters Date Type Specialty Care Team Description 09/02/2022 Comprehensive Visit Physical Medicine and Mainor Winter M.D. [address], [address] [place] [address] Rehabilitation Rosanna Veliz, P.T. documented as of this encounter Visit Diagnoses Not on filedocumented in this encounter
--- OUTSIDE RECORDS SUMMARY | 2022-08-22 14:12 | XMS_ITS | Encounter Summary ---
:1950 Author Organization [facility] Address [address] [place] [address] Care Team Providers Name Role Phone Unavailable Primary Care Provider Unavailable Encounter Details Date Type Department Care Team Description 10/19/2008 Hospital Encounter HX [facility] CAM INPT/OBSRV Evie Sethi P.A.-C. [address] [place] [address] (Wo rk) Social History Tobacco Use Types Packs/Day Years Used Date Smoking Tobacco: Never Assessed Sex Assigned at Date Recorded Not on file documented as of this encounter Plan of Treatment Upcoming Encounters Date Type Specialty Care Team Description 09/02/2022 Comprehensive Visit Physical Medicine and Mainor Winter M.D. [address], [address] [place] [address] Rehabilitation Rosanna Veliz, P.T. documented as of this encounter Visit Diagnoses Not on filedocumented in this encounter
--- OUTSIDE RECORDS SUMMARY | 2022-08-22 14:12 | XMS_ITS | Encounter Summary ---
:1950 Author Organization [facility] Address [address] [place] [address] Care Team Providers Name Role Phone Unavailable Primary Care Provider Unavailable Encounter Details Date Type Department Care Team Description 07/25/2014 Hospital [facility] Jeanmarie Sweeney M.D. Social History Tobacco Use [...] mouth daily. (MULTIVITAMIN 50 PLUS ORAL) omega 3-ont-dqo-fish oil Take 1,000 mg by 0 11/21 [...] did have an examat [facility] in [place] in March. family hx of glaucoma ) [...] VANE REAVES On: 07/25/2014 12:25 PM Source: [facility] POWERCHART Document Id: [id number] Vane Reaves M.D., Ph.D. - 07/25/2014 9:39 AM CDT [id number] HISTORY OF PRESENT ILLNESS Nuria is here [...] PLAN: Plan is to refer her to [facility] in [place] for further evaluation. Vane Reaves M.D./margarita Electronically Signed By: VANE REAVES On: 07/27/2014 07:26 AM Modified by and Electronically Signed by: VANE REAVES On: 07/27/2014 07:25 AM Source: [facility] MHSDOLBEYNONRADSYS Document Id: [id number] documented in this encounter Nursing Notes Vane Reaves M.D., Ph.D. - 07/25/2014 4:57 PM CDT Ambulatory Patient Education The following Patient Education Materials have been given to the patient: Patient Education Materials: Source: [facility] POWERCHART Document Id: [id number] documented in this encounter Miscellaneous Notes Miscellaneous - Vane Reaves M.D., Ph.D. - 07/25/2014 4:57 PM CDT Ambulatory Patient Summary [facility] [address], [address] [place], [place] [id number] Visit Information Name: NURIA PAYTON [facility] Number: [id number] Current Date: 07/25/2014 16:57:13 Physicians Attending Provider: VANE REAVES Primary Care Provider: PCP, ISMAEL PAYTON NURIA HASSAN has been given the following list of follow-up instructions, medication list, and patient education materials: Follow-up Instructions With: Address: When: VANE REAVES [address] [place] [address] Business (1) Comments: referral conjunctival lesion R [...] appointment detail needed. Your Goals/Additional instructions: Source: [facility]ILITY[facility]et[facility] Document Id: [id number] Miscellaneous - Vane Reaves M.D., Ph.D. - 07/25/2014 4:57 PM CDT Ambulatory Discharge Medication List [facility] [address] [place] [address] [address] [place], [place] [phone] Visit Information Name: NURIA PAYTON [facility] Number: [id number] Visit Date: 07/25/2014 16:57:11 [...] REAVES Signed On:25-JUL-2014 16:54:45 Additional Information: Source: [facility] POWERCHART Document Id: [id number] Miscellaneous - Roxann Milan C.O.A. - 07/25/2014 9:52 AM CDT Adult Research Assistant Member Intake/History Adult Research Assistant Member Intake/History Entered On: 07/25/2014 9:53 CDT Performed On: 07/25/2014 9:52 CDT by ROXANN MILAN Intake Chief Complaint : consult Height : 164 cm(Converted to: 5 ft 5 inch(es), 65 inch(es)) ROXANN MILAN - 07/25/2014 9:52 CDT General Info Information Given By : Patient Languages : Divehi Is Patient Female and 13-50 no hysterectomy : No ROXANN MILAN - 07/25/2014 9:52 CDT Subjective Pain Symptoms : No ROXANN MILAN - 07/25/2014 9:52 CDT Dependent Habits Tobacco Use/Currently Using : No Smoking Status : Never smoker HELENA MILANDOROTHY NOVAK - 07/25/2014 9:52 CDT Tobacco Use Grid Last Use : never FERNANDA MILANSteve NOVAK - 07/25/2014 9:52 CDT Caffeine Use Grid Caffeine Use : None ROXANN MILAN [employer]upo NOVAK - 07/25/2014 9:52 CDT Recreational Drug Use Grid Drug Use : None ROXANN MILAN [employer] - 07/25/2014 9:52 CDT Source: [facility] Document Id: [id number] CDT!22 documented in this encounter Plan of Treatment Upcoming Encounters Date Type Specialty Care Team Description 09/02/2022 Comprehensive Visit Physical Medicine and Mainor Winter M.D. [address] [place] [address] Rehabilitation Rosanna Veliz, P.TRoscoe documented as of this encounter Visit Diagnoses Not on filedocumented in this encounter
--- OUTSIDE RECORDS SUMMARY | 2022-08-22 14:12 | XMS_ITS | Encounter Summary ---
:1950 Author Organization [facility] Address [address] [place] [address] Care Team Providers Name Role Phone Unavailable Primary Care Provider Unavailable Encounter Details Date Type Department Care Team Description 01/28/2002 Hospital Encounter [facility] Provider, Bravo gupta Social History Tobacco Use Types Packs/Day Years Used Date Smoking Tobacco: Never Assessed Sex Assigned at Date Recorded Not on file documented as of this encounter Miscellaneous Notes Miscellaneous - Conversion, Historical Provider Ser - 01/28/2002 12:00 AM CDT [id number] Nuria Simmons [address] [place] [address] January 28, 2002 Dear Nuria Simmons, I am happy to inform you that your recent cervical cancer screening test (PAP smear) was normal. Preventative screening such as this helps insure your health for years to come. Congratulations for taking care of yourself! Please contact my office if you have any further questions. [phone]. Sincerely, Radha Viramontes M.D. OBSTETRICS/GYNECOLOGY [facility] Source: [facility]YS Document Id: [id number] documented in this encounter Plan of Treatment Upcoming Encounters Date Type Specialty Care Team Description 09/02/2022 Comprehensive Visit Physical Medicine and Mainor Winter M.D. [address], [address] [place] [address] Rehabilitation Rosanna Veliz, P.T. documented as of this encounter Visit Diagnoses Not on filedocumented in this encounter
--- OUTSIDE RECORDS SUMMARY | 2022-08-22 14:12 | XMS_ITS | Encounter Summary ---
:1950 Author Organization [facility] Address [address] [place] [address] Care Team Providers Name Role Phone Unavailable Primary Care Provider Unavailable Encounter Details Date Type Department Care Team Description 11/25/2013 Hospital Encounter HX [facility] Navdeep, Vannesa pelaez P.A.-C. [address] [place] [address] (Wo rk) Social History Tobacco Use Types Packs/Day Years Used Date Smoking Tobacco: Never Assessed Sex Assigned at Date Recorded Not on file documented as of this encounter Last Filed Vital Signs Vital Sign Reading Time Taken Comments Blood Pressure 123/62 11/25/2013 2:00 PM CHEMICAL SALES REPRESENTATIVE Pulse 68 11/25/2013 2:00 PM CHEMICAL SALES REPRESENTATIVE Temperature - - Respiratory Rate 16 11/25/2013 2:00 PM CHEMICAL SALES REPRESENTATIVE Oxygen Saturation - - Inhaled Oxygen Concentration - - Weight 63.7 kg (140 lb 6.9 oz) 11/25/2013 2:00 PM CHEMICAL SALES REPRESENTATIVE Height 164 cm (5' 4.57) 11/25/2013 2:00 PM CHEMICAL SALES REPRESENTATIVE Body Mass Index 23.68 11/25/2013 2:00 PM CHEMICAL SALES REPRESENTATIVE documented in this encounter Medications at Time [...] mouth daily. (MULTIVITAMIN 50 PLUS ORAL) omega 2-ksf-tfq-fish oil Take 1,000 mg by 0 11/21 100-160-1,000 mg capsule mouth daily. traZODone (for_DESYREL) 150 Take 1 tablet by 0 mg tablet mouth at bedtime. ZINC CITRATE-PHYTASE ORAL Take 1 tablet by 0 11/2011 mouth daily. CALCIUM CARB/VIT Take 1 tablet by 0 11/21/2011 D3/MINERALS mouth 2 (two) (CALCIUM-VITAMIN D ORAL) times a day. documented as of this encounter H&P Notes NavdeepJeanmarieMiriam K - 11/25/2013 1:54 PM CST [id number] CHIEF COMPLAINT/REASON FOR VISIT This is a [...] 2 grown daughters. No grandchildren. Works at [employer] in [place]. She denies any tobacco or alcohol use. [...] a free screening at another clinic in [facility]. States that it was good. I recommended [...] MIRIAM NUÑEZ On: 12/28/2013 10:58 AM Source: [facility] MHSDOLBEYNONRADSYS Document Id: [id number] documented in this encounter Miscellaneous Notes Miscellaneous - Miriam Nuñez - 11/25/2013 4:42 PM CST Ambulatory Patient Summary [address] [address] Visit Information Name: NURIA PAYTON [facility] Number: [id number] Current Date: 11/25/2013 16:42:53 Physicians [...] appointment detail needed. Your Goals/Additional instructions: Source: [facility] POWERCHART Document Id: [id number] ICAL SALES REPRESENTATIVE Miscellaneous - Miriam Nuñez - 11/25/2013 4:42 PM CST Ambulatory Depart Summary [address] [address] Visit Information Name: NURIA PAYTON [facility] Number: [id number] Visit Date: 11/25/2013 16:42:52 Attending [...] in case of emergency. Additional Information: Source: [facility] POWERCHART Document Id: [id number] ICAL SALES REPRESENTATIVE Miscellaneous - May Norwood L.P.N. - 11/25/2013 2:06 PM CST Health Assessment Health Assessment Entered On: 11/25/2013 14:06 CHEMICAL SALES REPRESENTATIVE Performed On: 11/25/2013 14:06 CHEMICAL SALES REPRESENTATIVE by MAY NORWOOD LPN, RT Health Assessment Complete Health Assessment Complete or Modified : Annual Health Assessment Annual Health Assessment Completed : Yes MAY NORWOOD LPN, RT - 11/25/2013 14:06 CHEMICAL SALES REPRESENTATIVE Nutrition Nutrition Risk Factors by History Adult : None MAY NORWOOD LPN, RT - 11/25/2013 14:06 CHEMICAL SALES REPRESENTATIVE Functional Current Daily Living Assistance : None MAY NORWOOD LPN, RT - 11/25/2013 14:06 CHEMICAL SALES REPRESENTATIVE Dependent Habits Tobacco Use/Currently Using : No Smoking Status : Never smoker MAY NORWOOD LPN, RT - 11/25/2013 14:06 CHEMICAL SALES REPRESENTATIVE Tobacco Use Grid Last Use : never MAY NORWOOD LPN, RT - 11/25/2013 14:06 CHEMICAL SALES REPRESENTATIVE Caffeine Use Grid Caffeine Use : None MAY NORWOOD LPN, RT - 11/25/2013 14:06 CHEMICAL SALES REPRESENTATIVE Recreational Drug Use Grid Drug Use : None MAY NORWOOD LPN, RT - 11/25/2013 14:06 CHEMICAL SALES REPRESENTATIVE Psychosocial Domestic Abuse Concerns : None MAY NORWOOD LPN, RT - 11/25/2013 14:06 CHEMICAL SALES REPRESENTATIVE Advance Directive Advanced Directives : No MAY NORWOOD LPN, RT - 11/25/2013 14:06 CHEMICAL SALES REPRESENTATIVE Educ Needs Learning Style Preference Adult Grid Patient : Demonstration, Printed materials, Verbal explanation, Video/Educational TV Family : None MAY NORWOOD LPN, RT - 11/25/2013 14:06 CHEMICAL SALES REPRESENTATIVE Source: [facility] Work4 Document Id: [id number] CHEMICAL SALES REPRESENTATIVE!28 ICAL SALES REPRESENTATIVE Miscellaneous - May Norwood L.PRoscoeN. - 11/25/2013 2:00 PM CST Adult Cable Spooler Intake/History Adult Cable Spooler Intake/History Entered On: 11/25/2013 14:02 CHEMICAL SALES REPRESENTATIVE Performed On: 11/25/2013 14:00 CHEMICAL SALES REPRESENTATIVE by MAY NORWOOD LPN, RT Intake Chief [...] MAY NORWOOD LPN, RT - 11/25/2013 14:00 CHEMICAL SALES REPRESENTATIVE General Info Languages : Vietnamese MAY NORWOOD LPN, RT - 11/25/2013 14:00 CHEMICAL SALES REPRESENTATIVE Subjective Pain Symptoms : No MAY NORWOOD LPN, RT - 11/25/2013 14:00 CHEMICAL SALES REPRESENTATIVE Dependent Habits Tobacco Use/Currently Using : No Smoking Status : Never smoker MAY NORWOOD LPN, RT - 11/25/2013 14:00 CHEMICAL SALES REPRESENTATIVE Tobacco Use Grid Last Use : never MAY NORWOOD LPN, 11/25/2013 14:00 CHEMICAL SALES REPRESENTATIVE Caffeine Use Grid Caffeine Use : None MAY NORWOOD LPN, RT 11/25/2013 14:00 CHEMICAL SALES REPRESENTATIVE Recreational Drug Use Grid Drug Use : None MAY NORWOOD LPN, RT - 11/25/2013 14:00 CHEMICAL SALES REPRESENTATIVE Source: [facility] Document Id: [id number] CHEMICAL SALES REPRESENTATIVE!34 ICAL SALES REPRESENTATIVE Miscellaneous - Blanca Romero R.N. - 11/05/2013 12:19 PM CST Med Management Document Contains Addenda Addendum by BLANCA ROMERO RN on 09 November 2013 16:01:09 CHEMICAL SALES REPRESENTATIVE noted Addendum by MIRIAM NUÑEZ on 09 November 2013 15:58:24 CHEMICAL SALES REPRESENTATIVE Approved Order:traZODone (trazodone 150 mg oral tablet) 1 tab(s) PO Bedtime Qty: 90 tab(s) Duration: 90 day(s) Refills: 3 Substitutions Allowed Route To Pharmacy - [facility] Signed by MIRIAM NUÑEZ 11/09/2013 15:58:10 Addendum by BLANCA ROMERO RN on 09 November 2013 13:36:02 CHEMICAL SALES REPRESENTATIVE From: BLANCA ROMERO RN To: MIRIAM NUÑEZ; BLANCA ROMERO RN; Sent: 11/09/2013 13:36:02 CHEMICAL SALES REPRESENTATIVE Subject: FW: Med Management status on this one? From: BLANCA ROMERO RN To: MIRIAM NUÑEZ; BLANCA ROMERO RN; Sent: 11/05/2013 12:19:38 CHEMICAL SALES REPRESENTATIVE Subject: Med Management On hold pending signature Order:traZODone (trazodone 150 mg oral tablet) 1 tab(s) PO Bedtime Qty: 90 tab(s) Duration: 90 day(s) Refills: 3 Substitutions Allowed Route To Pharmacy - [facility] Pt requesting annual refill to mail order pharmacy, has annual appt with you on 11-25-13 but will runout before then. Kya review. Vivek [facility] Document Id: [id number] documented in this encounter Plan of Treatment Upcoming Encounters Date Type Specialty Care Team Description 09/02/2022 Comprehensive Visit Physical Medicine and Mainor Winter M.D. [address] , [address] [place] [address] Rehabilitation Rosanna Veliz, P.T. documented as of this encounter Visit Diagnoses Not on filedocumented in this encounter
--- OUTSIDE RECORDS SUMMARY | 2022-08-22 14:12 | XMS_ITS | Encounter Summary ---
:1950 Author Organization [facility] Address [address] [place] [address] Care Team Providers Name Role Phone Unavailable [...] body right CDM Reports - EYEGEN Id: [id number] Status: Fnl documented in this encounter Plan of Treatment Upcoming Encounters Date Type Specialty Care Team Description 09/02/2022 Comprehensive Visit Physical Medicine and Mainor Winter M.D. [address] , [address] [place] [address] Rehabilitation Rosanna Veliz, P.T. documented as of this encounter Visit Diagnoses Not on filedocumented in this encounter
--- OUTSIDE RECORDS SUMMARY | 2022-08-22 14:12 | XMS_ITS | Encounter Summary ---
:1950 Author Organization [facility] Address [address] [place] [address] Care Team Providers Name Role Phone Unavailable Primary Care Provider Unavailable Encounter Details Date Type Department Care Team Description 11/21/2011 Hospital Encounter HX [facility] Nasreen Bryant, P.A.-C. [address] [place], [place] [address] (Wo rk) Social History [...] mouth daily. (MULTIVITAMIN 50 PLUS ORAL) omega 9-asd-try-fish oil Take 1,000 mg by 0 11/21 [...] Winter M.D. [address], [address] [place] [address] Rehabilitation Rosanna Veliz, P.T. documented as of this encounter Visit Diagnoses Not on filedocumented in this encounter
--- OUTSIDE RECORDS SUMMARY | 2022-08-22 14:12 | XMS_ITS | Encounter Summary ---
:1950 Author Organization [facility] Address [address] [place] [address] Care Team Providers Name Role Phone Unavailable [...] Provider Ser - 01/25/2002 12:00 AM CDT [id number] Addended by: ZORAN CARBONE on: 02/08/2002,8:04 AMModules accepted: Order Summary*-*-*-*-* SEE SCAN CONCEPCION REPORT *-*-*-*-* Source: [facility] RWHXTRANSXSYS Document Id: [id number] documented in this encounter Plan of Treatment Upcoming Encounters Date Type Specialty Care Team Description 09/02/2022 Comprehensive Visit Physical Medicine and Mainor Winter M.D. [address] , [address] [place] [address] Rehabilitation Rosanna Veliz, PRoscoeT. documented as of this encounter Visit Diagnoses Not on filedocumented in this encounter
--- OUTSIDE RECORDS SUMMARY | 2022-08-22 14:12 | XMS_ITS | Encounter Summary ---
:1950 Author Organization [facility] Address [address] [place] [address] Care Team Providers Name Role Phone Unavailable Primary Care Provider Unavailable Encounter Details Date Type Department Care Team Description 11/24/2012 Hospital [facility] Navdeep, Vannesa pelaez P.A.-C. [address] [place] [address] (Wo rk) Social History Tobacco Use Types Packs/Day Years Used Date Smoking Tobacco: Never Assessed Sex Assigned at Date Recorded Not on file documented as of this encounter Last Filed Vital Signs Vital Sign Reading Time Taken Comments Blood Pressure 130/70 11/24/2012 1:26 PM ACCOUNT RESOLUTION EXPERT Pulse 68 11/24/2012 1:26 PM ACCOUNT RESOLUTION EXPERT Temperature - - Respiratory Rate 14 11/24/2012 1:26 PM ACCOUNT RESOLUTION EXPERT Oxygen Saturation - - Inhaled Oxygen Concentration - - Weight 63 kg (138 lb 14.2 oz) 11/24/2012 1:26 PM ACCOUNT RESOLUTION EXPERT Height 165 cm (5' 4.96) 11/24/2012 1:26 PM ACCOUNT RESOLUTION EXPERT Body Mass Index 23.14 11/24/2012 1:26 PM ACCOUNT RESOLUTION EXPERT documented in this encounter Medications at Time [...] mouth daily. (MULTIVITAMIN 50 PLUS ORAL) omega 5-tua-rty-fish oil Take 1,000 mg by 0 11/21 100-160-1,000 mg capsule mouth daily. ZINC CITRATE-PHYTASE ORAL Take 1 tablet by 0 11/2011 mouth daily. CALCIUM CARB/VIT Take 1 tablet by 0 11/21/2011 D3/MINERALS mouth 2 (two) (CALCIUM-VITAMIN D ORAL) times a day. documented as of this encounter H&P Notes Miriam Nuñez - 11/24/2012 1:14 PM CST [id number] CHIEF COMPLAINT/REASON FOR VISIT This is a [...] grown daughters. No grandchildren. She works at [employer] in [employer]. She denies any alcohol or tobacco use. [...] any other questions or concerns. Miriam Nuñez P.A.-C./[facility] Electronically Signed By: MIRIAM NUÑEZ On: 11/26/2012 09:18 AM Source: [facility] MHSDOLBEYNONRADSYS Document Id: [id number] UNT RESOLUTION EXPERT documented in this encounter Miscellaneous Notes Miscellaneous - Miriam Nuñez - 11/24/2012 2:39 PM CST Ambulatory Patient Summary [id number] [place] [address] Visit Information Name: NURIA PAYTON [facility] Number: [id number] Current Date: 11/24/2012 14:39:15 Physicians [...] No Appointments found Your Goals/Additional instructions: Source: [facility] POWERCHART Document Id: [id number] UNT RESOLUTION EXPERT Miscellaneous - Miriam Nuñez - 11/24/2012 2:39 PM CST Ambulatory Depart Summary [address] [address] Visit Information Name: TATA NURIAHERI HASSAN [facility] Number: [id number] Visit Date: 11/24/2012 14:39:15 Attending [...] your provider for clarification. Additional Information: Source: [facility] POWERCHART Document Id: [id number] UNT RESOLUTION EXPERT Miscellaneous - Roe Chow L.P.N. - 11/24/2012 1:30 PM CST Health Assessment Health Assessment Entered On: 11/24/2012 13:31 ACCOUNT RESOLUTION EXPERT Performed On: 11/24/2012 13:30 ACCOUNT RESOLUTION EXPERT by ROE CHOW Health Assessment Complete Health Assessment Complete or Modified : Annual Health Assessment Annual Health Assessment Completed : Yes ROE CHOW - 11/24/2012 13:30 ACCOUNT RESOLUTION EXPERT Nutrition Nutrition Risk Factors by History Adult : None ROE CHOW 11/24/2012 13:30 ACCOUNT RESOLUTION EXPERT Functional Current Daily Living Assistance : None ROE CHOW 11/24/2012 13:30 ACCOUNT RESOLUTION EXPERT Dependent Habits Tobacco Use/Currently Using : No Smoking Status : Never smoker ROE CHOW 11/24/2012 13:30 ACCOUNT RESOLUTION EXPERT Tobacco Use Grid Last Use : never ROE CHOW 11/24/2012 13:30 ACCOUNT RESOLUTION EXPERT Caffeine Use Grid Caffeine Use : None ROE CHOW 11/24/2012 13:30 ACCOUNT RESOLUTION EXPERT Recreational Drug Use Grid Drug Use : None ROE CHOW 11/24/2012 13:30 ACCOUNT RESOLUTION EXPERT Psychosocial Domestic Abuse Concerns : None ROE CHOW 11/24/2012 13:30 ACCOUNT RESOLUTION EXPERT Advance Directive Advanced Directives : No ROE CHOW 11/24/2012 13:30 ACCOUNT RESOLUTION EXPERT Educ Needs Learning Style Preference Adult Grid Patient : None Family : None ROE CHOW 11/24/2012 13:30 ACCOUNT RESOLUTION EXPERT Source: [facility] POWERCHART Document Id: [id number] UNT RESOLUTION EXPERT Miscellaneous - Roe Chow L.PMellisa - 11/24/2012 1:26 PM CST Adult Cinder Crusher Operator Intake/History Adult Cinder Crusher Operator Intake/History Entered On: 11/24/2012 13:28 ACCOUNT RESOLUTION EXPERT Performed On: 11/24/2012 13:26 ACCOUNT RESOLUTION EXPERT by ROE CHOW Intake Chief Complaint : [...] : 23.14kg/m2 ROE CHOW - 11/24/2012 13:26 ACCOUNT RESOLUTION EXPERT Subjective Pain Symptoms : No ROE CHOW 11/24/2012 13:26 ACCOUNT RESOLUTION EXPERT Dependent Habits Tobacco Use/Currently Using : No Smoking Status : Never smoker ROE CHOW - 11/24/2012 13:26 ACCOUNT RESOLUTION EXPERT Tobacco Use Grid Last Use : never ROE CHOW - 11/24/2012 13:26 ACCOUNT RESOLUTION EXPERT Caffeine Use Grid Caffeine Use : None ROE CHOW 11/24/2012 13:26 ACCOUNT RESOLUTION EXPERT Recreational Drug Use Grid Drug Use : None ROE CHOW 11/24/2012 13:26 ACCOUNT RESOLUTION EXPERT Allergy Allergies (Active) NKA Estimated Onset Date: Unspecified ; Created By: WOLF LI LPN; Reaction Status: Active ; Category: Drug ; Substance: NKA ; Type: Allergy ; Updated By: WOLF LI LPN; Reviewed Date: 11/21/2011 13:35 ACCOUNT RESOLUTION EXPERT Source: [facility] POWERCHART Document Id: [id number] UNT RESOLUTION EXPERT documented in this encounter Plan of Treatment Upcoming Encounters Date Type Specialty Care Team Description 09/02/2022 Comprehensive Visit Physical Medicine and Mainor Wintre M.D. [address] , [address] [place] [address] Rehabilitation Wolf Veliz PRoscoeTRoscoe documented as of this encounter Visit Diagnoses Not on filedocumented in this encounter
[2022-08-22 22:45] LABS: SARS PCR* Negative SARS-CoV-2 (Negative)
== END 2022-08-22 13:59 | disposition home or self-care (01) ==
LOC: KYNREF 13:58
PROVIDERS: PCP Nurse Practitioner Family; Visit Provider Nurse Practitioner Family
DX: Z20.822 Contact with and (suspected) exposure to COVID-19 (principal); Z01.818 Encounter for other preprocedural examination
CPT/HCPCS: 87635

== ENCOUNTER 2023-07-03 11:28 | Outpatient (CLI) | payer MEDICARE, BC, SELFPAY | END 2023-07-03 11:29 | disposition home or self-care (01) | PROVIDERS: PCP Nurse Practitioner Family; Visit Provider Nurse Practitioner Family | DX: R53.83 Other fatigue (principal); Z13.6 Encounter for screening for cardiovascular disorders; Z13.228 Encounter for screening for other metabolic disorders; G47.00 Insomnia, unspecified; M85.80 Other specified disorders of bone density and structure, unspecified site; R00.2 Palpitations; R94.31 Abnormal electrocardiogram [ECG] [EKG]; I48.0 Paroxysmal atrial fibrillation; Z13.21 Encounter for screening for nutritional disorder; Z13.0 Encounter for screening for diseases of the blood and blood-forming organs and certain disorders involving the immune mechanism; Z13.29 Encounter for screening for other suspected endocrine disorder | CPT/HCPCS: 80053; 80061; 82306; 82728; 83540; 83550; 84443; 85025 ==